=== PATIENT | female | born 1945 | race Caucasian/White ===

== ENCOUNTER 2020-07-11 10:40 | Outpatient (REF) | payer MEDICARE, SELFPAY ==
[2020-07-11 11:39] LABS: MANUAL DIFF FLAG NO
[2020-07-11 11:46] LABS: Basophils Absolute Auto 0.1 X10*3/uL (0.0-0.2); Basophils Percent Auto 0.8 % (0-2); Eosinophils Absolute Auto 0.2 X10*3/uL (0.0-0.4); Eosinophils Percent Auto 2.2 % (0-4); Hematocrit 37.1 % (37-47); Hemoglobin 11.2 g/dl (12.0-16.0); Imm Gran Abs Auto 0.03 X10*3/uL (0.00-0.03); Imm Gran Pct Auto 0.4 % (0.0-0.4); Lymphocytes Absolute Auto 2.1 X10*3/uL (1.2-4.9); Lymphocytes Percent Auto 28.1 % (20-40); Mean Corpuscular HGB Conc 30.2 g/dl (31.0-35.0); Mean Corpuscular Hemoglobin 25.3 pg (27.0-33.0); Mean Corpuscular Volume 83.7 fL (80-98); Mean Platelet Volume 9.7 fL (9.4-12.3); Monocytes Absolute Auto 0.5 X10*3/uL (0.1-1.2); Neutrophils Absolute Auto 4.8 X10*3/uL (2.0-8.3); Neutrophils Percent Auto 62.5 % (45-73); Platelet Count 371 X10*3/uL (160-400); Red Blood Count 4.43 X10*6/uL (4.20-5.50); Red Cell Distribution Width 15.1 % (11.0-16.0); White Blood Count 7.6 X10*3/uL (4.8-10.8)
[2020-07-11 12:18] LABS: Lithium 0.63 mmol/L (0.60-1.20)
[2020-07-11 12:22] LABS: Estimated Average Glucose 203 mg/dL; Hemoglobin A1c % 8.7 %
[2020-07-11 12:26] LABS: Alanine Aminotransferase 8 U/L (0-31); Anion Gap 11 (12-20); Blood Urea Nitrogen 12 mg/dL (9-16); Carbon Dioxide 26 mmol/L (22-29); Chloride 106 mmol/L (96-108); Cholesterol 148 mg/dL; Estimated Glomerular Filt Rate > 60; Glucose Fasting 170 mg/dL (60-99); HDL Cholesterol 41 mg/dL; LDL Cholesterol Calculated 82 mg/dl; Potassium 4.4 mmol/L (3.3-5.1); Sodium 139 mmol/L (135-145); Triglycerides 125 mg/dL
[2020-07-11 12:31] LABS: Thyroid Stimulating Hormone 3.94 uIU/mL (0.32-4.0)
== END 2020-07-11 10:41 | disposition home or self-care (01) ==
LOC: HO.LAB 10:40
PROVIDERS: Absent Provider Psychiatry & Neurology Psychiatry; PCP Family Medicine; Visit Provider Family Medicine
DX: F33.42 Major depressive disorder, recurrent, in full remission (principal); I10 Essential (primary) hypertension; E11.9 Type 2 diabetes mellitus without complications; E78.00 Pure hypercholesterolemia, unspecified; Z79.899 Other long term (current) drug therapy
CPT/HCPCS: 36415; 80051; 80061; 80178; 82550; 82565; 82947; 83036; 84443; 84460; 84520; 85025

== ENCOUNTER 2020-09-05 12:13 | Outpatient (REF) | payer MEDICARE, SELFPAY ==
--- NOTE | ~2020-09-05 | MM_ITS ---
EXAMINATION: MM DIAGNOSTIC DIGITAL BREAST TOMOSYNTHESIS, BILATERAL CLINICAL INFORMATION: Due for yearly exam. Also follow-up probable benign calcifications upper outer right breast. No known family history breast cancer. The lifetime risk of breast cancer based on the Tyrer-Cuzick Model is 3%. COMPARISON: Mammography: 03/18/2019, 03/13/2019 (BI-RADS 0), 12/24/2017 BI-RADS 0), 05/10/2016 TECHNIQUE: Digital breast tomosynthesis is performed in both the craniocaudal and mediolateral oblique views along with computer-aided detection (CAD). Synthesized 2D images are generated from the tomosynthesis. Additional right magnification CC and right magnification ML views are obtained. FINDINGS: There are scattered areas of fibroglandular density (ACR BI-RADS breast composition Category b). Parenchymal pattern is similar to prior studies. There is no developing density or interval mass or architectural abnormality. There are scattered bilateral coarse calcifications. The axilla and skin contours are unremarkable. The tightly grouped calcifications for follow-up mid upper outer right breast are increased in number and appear heterogeneous coarse on the CC magnification view. Stereotactic sampling is recommended for further evaluation. Results are discussed with the patient at time of visit. MM/MM tomosynthesis diagnostic BI IMPRESSION: 1. Right: Grouped heterogeneous coarse calcifications mid upper outer right breast. 2. Left: No mammographic evidence of malignancy. ASSESSMENT: BI-RADS 4: Suspicious (subcategory 4A: Low suspicion for malignancy) RECOMMENDATION: Stereotactic biopsy right breast calcifications. This patient's information was entered into a reminder system with a target due date for their next mammogram.
== END 2020-09-05 12:14 | disposition home or self-care (01) ==
LOC: HO.MAMMO 12:13
PROVIDERS: Visit Provider Family Medicine
DX: R92.1 Mammographic calcification found on diagnostic imaging of breast (principal)
CPT/HCPCS: 77062; 77066

== ENCOUNTER → 2020-09-18 08:18 | Outpatient (BNVA) | payer MEDICARE, SELFPAY | PROVIDERS: PCP Family Medicine; Visit Provider Surgery | DX: R92.1 Mammographic calcification found on diagnostic imaging of breast (principal) | CPT/HCPCS: 99202 ==

== ENCOUNTER 2020-09-19 07:44 | Outpatient (REF) | payer MEDICARE, SELFPAY ==
--- NOTE | ~2020-09-19 | MM_ITS ---
EXAMINATION: STEREOTACTIC TOMOSYNTHESIS-GUIDED VACUUM-ASSISTED BREAST BIOPSY, RIGHT SPECIMEN RADIOGRAPH, RIGHT POST PROCEDURE DIGITAL MAMMOGRAM, RIGHT CLINICAL INFORMATION: Indeterminate calcifications upper outer aspect of the right breast. COMPARISON: September 05, 2020 and March 18, 2019. TECHNIQUE/PROCEDURE: Informed consent was obtained from the patient after discussion of the benefits, risks, and alternatives to biopsy today. Patient appeared to understand. Gave opportunity for questions. Patient signed consent form. BIOPSY TABLE: [employer] Affirm Prone Biopsy System. LESION: Calcifications. LOCAL ANESTHESIA: 10 mL 1% lidocaine; 10 mL 1% lidocaine with epinephrine. DERMATOTOMY: Single skin rylan dermatotomy performed. NEEDLE: [employer] Eviva 9-gauge vacuum assisted core biopsy device. APPROACH: Superior. TARGETING: Digital breast tomosynthesis used for targeting. CORES: 13. CLIP: Cork radiopaque marker. SPECIMEN RADIOGRAPH: Specimen radiograph is taken in separate room using digital mammography. The index calcifications are in the excised cores. POST PROCEDURE UNILATERAL DIGITAL MAMMOGRAM: The post biopsy mammogram is performed in separate room using separate digital mammography equipment from the biopsy procedure. 2 views are obtained. There are scattered areas of fibroglandular density (breast composition category: b). The clip marker is in position. The calcifications are markedly decreased at the biopsy site. No gross hematoma. The patient tolerated the procedure well. No immediate complications. Home instructions reviewed with the patient. Final pathology results are pending. MM/MM stereotactic biopsy RT IMPRESSION: 1. Digital tomosynthesis-guided core biopsy right breast with clip placement. 2. Specimen radiograph taken and post procedure mammogram. There is satisfactory positioning of the biopsy clip. 3. Final pathology results pending. An addendum report will be issued.
== END 2020-09-19 07:45 | disposition home or self-care (01) ==
LOC: HO.MAMMO 07:44
PROVIDERS: Visit Provider Surgery
DX: R92.1 Mammographic calcification found on diagnostic imaging of breast (principal)
CPT/HCPCS: 19081; 88305; A4648

== ENCOUNTER → 2020-09-27 10:46 | Outpatient (BNVA) | payer MEDICARE, SELFPAY | PROVIDERS: PCP Family Medicine; Visit Provider Surgery | DX: R92.1 Mammographic calcification found on diagnostic imaging of breast (principal) | CPT/HCPCS: 99212 ==

== ENCOUNTER 2021-01-22 09:39 | Outpatient (REF) | payer MEDICARE, SELFPAY ==
[2021-01-22 11:15] LABS: Anion Gap 12 (12-20); Blood Urea Nitrogen 14 mg/dL (9-16); Carbon Dioxide 26 mmol/L (22-29); Chloride 106 mmol/L (96-108); Estimated Glomerular Filt Rate > 60; Glucose Fasting 277 mg/dL (60-99); Sodium 139 mmol/L (135-145)
[2021-01-22 11:19] LABS: Free T4 (Free Thyroxine) 0.91 ng/dL (0.71-1.85); Thyroid Stimulating Hormone 3.74 uIU/mL (0.32-4.0)
[2021-01-22 11:35] LABS: Estimated Average Glucose 229 mg/dL; Hemoglobin A1c % 9.6 %
[2021-01-22 12:37] LABS: Creatinine Urine 65.95 mg/dL; Microalbum/Creatinine Ratio Ur 36.3 ug/mg cr
== END 2021-01-22 09:40 | disposition home or self-care (01) ==
LOC: HO.LAB 09:39
PROVIDERS: PCP Family Medicine; Visit Provider Family Medicine
DX: E11.9 Type 2 diabetes mellitus without complications (principal); I10 Essential (primary) hypertension; E03.9 Hypothyroidism, unspecified
CPT/HCPCS: 36415; 80051; 82043; 82565; 82947; 83036; 84439; 84443; 84520

== ENCOUNTER 2021-04-26 10:26 | Outpatient (REF) | payer MEDICARE, SELFPAY ==
[2021-04-26 11:47] LABS: Estimated Average Glucose 189 mg/dL; Hemoglobin A1c % 8.2 %
[2021-04-26 11:58] LABS: Creatinine Urine 96.04 mg/dL
[2021-04-26 12:03] LABS: Glucose Fasting 220 mg/dL (60-99)
== END 2021-04-26 10:27 | disposition home or self-care (01) ==
LOC: HO.LAB 10:26
PROVIDERS: PCP Family Medicine; Visit Provider Family Medicine
DX: E11.9 Type 2 diabetes mellitus without complications (principal)
CPT/HCPCS: 36415; 82043; 82947; 83036

== ENCOUNTER 2021-07-25 11:00 | Outpatient (REF) | payer MEDICARE, SELFPAY ==
[2021-07-25 12:26] LABS: Estimated Average Glucose 174 mg/dL; Hemoglobin A1c % 7.7 %
[2021-07-25 12:58] LABS: Anion Gap 14 (12-20); Blood Urea Nitrogen 13 mg/dL (9-16); Carbon Dioxide 23 mmol/L (22-29); Chloride 106 mmol/L (96-108); Estimated Glomerular Filt Rate > 60; Glucose Fasting 192 mg/dL (60-99); Potassium 4.5 mmol/L (3.3-5.1); Sodium 138 mmol/L (135-145)
[2021-07-25 13:11] LABS: Free T4 (Free Thyroxine) 0.98 ng/dL (0.71-1.85)
[2021-07-25 14:12] LABS: Creatinine Urine 89.12 mg/dL
[2021-07-25 14:33] LABS: Microalbum/Creatinine Ratio Ur 89.7 ug/mg cr
== END 2021-07-25 11:01 | disposition home or self-care (01) ==
LOC: HO.LAB 11:00
PROVIDERS: PCP Family Medicine; Visit Provider Family Medicine
DX: I10 Essential (primary) hypertension (principal); E11.9 Type 2 diabetes mellitus without complications; E03.9 Hypothyroidism, unspecified
CPT/HCPCS: 36415; 80051; 82043; 82565; 82947; 83036; 84439; 84520

== ENCOUNTER 2021-08-06 12:09 | Outpatient (REF) | payer MEDICARE, SELFPAY ==
--- NOTE | ~2021-08-06 | XR_ITS ---
EXAMINATION: XR thoracic spine 3V CLINICAL INFORMATION: Reason for Exam BACK PAIN COMPARISON: None TECHNIQUE: 3 views of the thoracic spine XR/XR thoracic spine 3V FINDINGS/IMPRESSION: Vertebral body heights are maintained. Alignment is maintained. Mild multilevel degenerative disc disease with multilevel loss of disc space height and degenerative endplate spurring. Paravertebral soft tissues are unremarkable.
--- NOTE | ~2021-08-06 | XR_ITS ---
EXAMINATION: XR chest 2V CLINICAL INFORMATION: Reason for Exam BACK PAIN COMPARISON: Chest radiograph 03/29/2018 TECHNIQUE: 2 views of the chest XR/XR chest 2V FINDINGS/IMPRESSION: Clear lungs. No pneumothorax. No pleural effusion. Normal cardiomediastinal silhouette.
== END 2021-08-06 12:10 | disposition home or self-care (01) ==
LOC: HO.XRAY 12:09
PROVIDERS: PCP Family Medicine; Visit Provider Family Medicine
DX: M54.89 Other dorsalgia (principal)
CPT/HCPCS: 71046; 72072

== ENCOUNTER 2021-09-06 10:30 | Outpatient (REF) | payer MEDICARE, SELFPAY ==
[2021-09-06 11:06] LABS: COVID-19 Test Negative (Negative); IDNOW Serial# 16C4AD1C
== END 2021-09-06 10:31 | disposition home or self-care (01) ==
LOC: HO.LAB 10:30
PROVIDERS: Visit Provider Internal Medicine
DX: Z20.822 Contact with and (suspected) exposure to COVID-19 (principal)
CPT/HCPCS: 87635; C9803

== ENCOUNTER 2021-11-16 21:08 | Inpatient (IN) | payer MEDICARE, SELFPAY ==
--- NOTE | ~2021-11-16 | XR_ITS ---
EXAMINATION: XR CHEST CLINICAL INFORMATION: Fall COMPARISON: 08/06/2021 TECHNIQUE: Frontal view of the chest was obtained. FINDINGS: No significant abnormality is noted involving the heart, lungs, mediastinum, bony thorax or soft tissues. XR/XR chest 1V IMPRESSION: Unremarkable examination.
--- NOTE | ~2021-11-16 | CT_ITS ---
EXAMINATION: CT HEAD WITHOUT CONTRAST CLINICAL INFORMATION: Fall and head injury COMPARISON: 09/04/2016 TECHNIQUE: Contiguous axial imaging was performed from the skull base to vertex without intravenous administration of contrast. This CT examination was performed using dose optimization techniques as appropriate, variously including the following: *Automated exposure control *Adjustment of mA and/or kV according to patient size (this includes techniques or standardized protocols for targeted exams where dose is matched to indication/reason for exam; i.e. extremities or head) *Use of iterative reconstruction technique DLP: 662 mGy-cm FINDINGS: There is no evidence of acute intracranial hemorrhage or territorial infarction. No abnormal mass effect or midline shift is seen. Sarmiento to white matter differentiation is well preserved. No extra-axial fluid collections are identified. The ventricles are normal in size. There is mild periventricular white matter hypoattenuation consistent with chronic small vessel ischemic disease. 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 Mild volume loss is noted. The osseous structures and soft tissues are normal. The mastoid air cells and visualized portions of the paranasal sinuses are well aerated. CT/CT head/brain wo con IMPRESSION: No acute intracranial pathology.
[2021-11-16 21:13] VITALS: BP 146/88; PULSE 106; O2SAT 98
[2021-11-16 21:16] VITALS: BP 158/70; PULSE 109; RESP 18; TEMP 36.8; O2SAT 98; BMI 27.3
--- NOTE | 2021-11-16 21:23 | ECG_ITS ---
Test Reason : SYNCOPE Blood Pressure : / mmHG Vent. Rate : 110 BPM Atrial Rate : 220 BPM P-R Int : 000 ms QRS Dur : 138 ms QT Int : 364 ms P-R-T Axes : -88 -13 -63 degrees QTc Int : 492 ms Atrial flutter with 2:1 A-V conduction Right bundle branch block Abnormal ECG When compared with ECG of 27-MAY-2018 14:39, Atrial flutter has replaced Sinus rhythm Vent. rate has increased BY 43 BPM Right bundle branch block is now Present Referred By: Roxy Nunez Electronically Signed By:Ariel Whitlock
--- NOTE | 2021-11-16 21:23 | PC.NURSE ---
POC DONE PER DR. MADISON. 143 AT THIS TIME.
[2021-11-16 21:25] LABS: Glucose, Whole Blood 143 mg/dL (60-115)
--- NOTE | 2021-11-16 21:27 | ED.GENADULT ---
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 No CP, no SOB, no abdominal pain, no nausea, no vomiting, no diarrhea, no fever, no chills, no headache. Related Data Home Medications Medication Instructions Recorded Confirmed amlodipine 5 mg tablet 5 mg PO DAILY 09/18/20 09/27/20 atorvastatin 20 mg tablet 20 mg PO DAILY 09/18/20 09/27/20 lithium carbonate 450 mg 450 mg PO BEDTIME 09/18/20 09/27/20 tablet,extended release metformin 500 mg tablet 500 mg PO TID 09/18/20 09/27/20 metoprolol tartrate 25 mg tablet 25 mg PO BID 09/18/20 09/27/20 Allergies Allergy/AdvReac Type Severity Reaction Status Date / Time influenza virus vaccine, Allergy Intermediate STIFFNESS,LIMITED Verified 09/27/20 11:28 specific FUNCTION [FLU VACCINE] AFFECTED ARM/HAND Review of Systems Review of Systems: All other systems are reviewed and are negative Constitutional: Reports as per HPI and Reports no additional constitutional complaints Eyes: Reports as per HPI and Reports no additional eye complaints Reports system reviewed and no additional complaints, except as documented Cardiovascular: Reports as per HPI and Reports no additional cardiovascular complaints Respiratory: Reports as per HPI and Reports no additional respiratory complaints Gastrointestinal: Reports as per HPI and Reports no additional gastrointestinal complaints Genitourinary: Reports no additional female genitourinary complaints Musculoskeletal: Reports no additional musculoskeletal complaints Skin/Breast: Reports system reviewed and no additional complaints, except as docu Psychiatric: Reports no additional psychiatric complaints Endocrine: Reports no additional endocrine complaints Hematologic/Lymphatic: Reports no additional hematologic/lymphatic complaints Allergic/Immunologic: Reports no additional allergic/immunologic complaints Reports system reviewed and no additional complaints, except as documented and Reports Abnormal speech present [facility] Past Medical History Medical History Breast calcification, right Surgical History History of section History of cholecystectomy Social History Social History Alcohol intake: current Alcohol intake frequency: holidays/special occasions only Advance Directives: No Advance Directives Information Provided: Yes Physical Exam ED Vital Signs: Vital Signs - 24 hr 11/16/21 21:16 Temperature 98.3 F Pulse Rate 109 H Respiratory Rate 18 Blood Pressure 158/70 H Pulse Oximetry 98 Oxygen Delivery Method Room Air BMI result Body Mass Index 27.3 Vital signs have been reviewed as appeared to be correct. Blood pressure normal. Heart rate normal. Respiration rate normal. Temperature normal. Oxygen saturation normal. Appearance: Alert. Oriented X3. No acute distress. Head: Normal external exam. Normocephalic. Atraumatic. No Light signs noted. No raccoon eyes noted Eyes: PERRLA. EOMI. Conjunctiva and sclera normal. Eyelids normal. ENT: TM's Normal. Pharynx normal. Uvula midline. Moist mucous membranes. No trismus noted. No drooling noted. No muffled voice noted. Neck: Normal inspection. Neck supple. FROM. No adenopathy. Thyroid Normal. No meningeal signs. No neck mass noted. CVS: Normal heart rate and rhythm. Heart sound normal. No murmurs noted. Pulses normal throughout. Respiratory: No respiratory distress. Painless inspiration. Breath sounds normal. No wheezes/rales/rhonchi noted. Chest nontender. No accessory muscle usage noted or decreased air movement noted. Abdomen: Soft and nontender. Bowel sounds normal in all 4 quadrants. No distention noted. No organomegaly noted. No visible injury noted. Back: No CVA tenderness. Full range of motion noted. Skin: Skin warm and dry. Normal skin color. Normal skin turgor. No rashes/lesions/lacerations noted. Extremities: No lower extremity edema. Extremities exhibit normal range of motion. Extremities nontender. Neuro: Oriented X 3. Cranial nerve exam: II-XII are grossly intact No motor deficit. No sensory deficit. Reflexes normal. Course Course Course Narrative: 75-year-old female been having lightheadedness all day today, found to have new onset atrial flutter with 2-1 AV block, patient responded well to 20 mg of Cardizem IV and 30 mg p.o. now with heart rate of 85. Admit for further monitoring, cardiology evaluation. Medical Decision Making Lab Data Lab results reviewed: Yes I reviewed the patient's lab results. Result diagrams: 11/16/21 22:34 11/16/21 22:34 Labs: Lab Results 11/16/21 11/16/21 11/16/21 Range/Units 21:21 22:34 22:34 WBC 8.7 (4.8-10.8) X10*3/uL RBC 5.00 (4.20-5.50) X10*6/uL Hgb 11.7 L (12.0-16.0) g/dl Hct 38.5 (37.0-47.0) % MCV 77.0 L (80.0-98.0) fL MCH 23.4 L (27.0-33.0) pg MCHC 30.4 L (31.0-35.0) g/dl RDW 15.9 (11.0-16.0) % Plt Count 354 (160-400) X10*3/uL MPV 9.0 L (9.4-12.3) fL Immature Gran % (Auto) 0.5 H (0.0-0.4) % Neut % (Auto) 67.0 (45-73) % Lymph % (Auto) 23.7 (20-40) % [place] % (Auto) 6.0 (2-11) % Eos % (Auto) 2.1 (0-4) % Baso % (Auto) 0.7 (0-2) % Lymph # (Auto) 2.1 (1.2-4.9) X10*3/uL [place] # (Auto) 0.5 (0.1-1.2) X10*3/uL Eos # (Auto) 0.2 (0.0-0.4) X10*3/uL Baso # (Auto) 0.1 (0.0-0.2) X10*3/uL Abs Immat Gran (auto) 0.04 H (0.00-0.03) X10*3/uL Absolute Neuts (auto) 5.8 (2.0-8.3) x10*3/uL Absolute Nucleated RBC 0.000 (0.0-0.012) X10*3/uL Nucleated RBC % (auto) 0.0 (0.0-0.2) /100WBC Sodium 139 (135-145) mmol/L Potassium 4.5 (3.3-5.1) mmol/L Chloride 104 (96-108) mmol/L Carbon Dioxide 26 (22-29) mmol/L Anion Gap 14 (12-20) BUN 15 (9-16) mg/dL Creatinine 0.84 (0.5-1.4) mg/dL Estim Creat Clear Calc 47.3 Estimated GFR > 60 POC Glucose 143 H (60-115) mg/dL Random Glucose 181 H (60-115) mg/dL Calcium 9.7 (8.4-10.2) mg/dL Total Bilirubin 0.5 (0.0-1.0) mg/dL Direct Bilirubin 0.2 (0.0-0.5) mg/dL AST 16 (5-31) U/L ALT 11 (0-31) U/L Alkaline Phosphatase 77 (39-117) U/L Troponin I High Sens (<3.5-17.0) ng/L B-Natriuretic Peptide (<100) pg/mL Total Protein 7.1 (6.5-8.0) g/dL Albumin 4.3 (3.5-5.0) g/dL Lipase 20 (8-78) U/L Influenza Type A (PCR) (Negative) Influenza Type B (PCR) (Negative) RSV RNA Qual (PCR) (Negative) SARS-CoV-2 RNA (RT-PCR) (Negative) 11/16/21 11/16/21 11/16/21 Range/Units 22:34 22:34 22:35 WBC (4.8-10.8) X10*3/uL RBC (4.20-5.50) X10*6/uL Hgb (12.0-16.0) g/dl Hct (37.0-47.0) % MCV (80.0-98.0) fL MCH (27.0-33.0) pg MCHC (31.0-35.0) g/dl RDW (11.0-16.0) % Plt Count (160-400) X10*3/uL MPV (9.4-12.3) fL Immature Gran % (Auto) (0.0-0.4) % Neut % (Auto) (45-73) % Lymph % (Auto) (20-40) % [place] % (Auto) (2-11) % Eos % (Auto) (0-4) % Baso % (Auto) (0-2) % Lymph # (Auto) (1.2-4.9) X10*3/uL [place] # (Auto) (0.1-1.2) X10*3/uL Eos # (Auto) (0.0-0.4) X10*3/uL Baso # (Auto) (0.0-0.2) X10*3/uL Abs Immat Gran (auto) (0.00-0.03) X10*3/uL Absolute Neuts (auto) (2.0-8.3) x10*3/uL Absolute Nucleated RBC (0.0-0.012) X10*3/uL Nucleated RBC % (auto) (0.0-0.2) /100WBC Sodium (135-145) mmol/L Potassium (3.3-5.1) mmol/L Chloride (96-108) mmol/L Carbon Dioxide (22-29) mmol/L Anion Gap (12-20) BUN (9-16) mg/dL Creatinine (0.5-1.4) mg/dL Estim Creat Clear Calc Estimated GFR POC Glucose (60-115) mg/dL Random Glucose (60-115) mg/dL Calcium (8.4-10.2) mg/dL Total Bilirubin (0.0-1.0) mg/dL Direct Bilirubin (0.0-0.5) mg/dL AST (5-31) U/L ALT (0-31) U/L Alkaline Phosphatase (39-117) U/L Troponin I High Sens < 3.5 (<3.5-17.0) ng/L B-Natriuretic Peptide 130 H (<100) pg/mL Total Protein (6.5-8.0) g/dL Albumin (3.5-5.0) g/dL Lipase (8-78) U/L Influenza Type A (PCR) NEGATIVE (Negative) Influenza Type B (PCR) NEGATIVE (Negative) RSV RNA Qual (PCR) NEGATIVE (Negative) SARS-CoV-2 RNA (RT-PCR) NEGATIVE (Negative) Imaging Data Chest x-ray: Attestation: I personally reviewed and interpreted this imaging study as follows: Radiologist's impression: Unremarkable examination. CT scan - head: Attestation: I personally reviewed and interpreted this imaging study as follows: Radiologist's impression: No acute intracranial pathology. ECG Data Attestation: I personally reviewed and interpreted this ECG as follows: Discharge Plan Discharge Clinical Impression: New onset atrial flutter Patient Disposition: Admitted As Inpatient Prescriptions: No Action lithium carbonate 450 mg tablet extended release 450 mg PO BEDTIME metoprolol tartrate 25 mg tablet 25 mg PO BID atorvastatin 20 mg tablet 20 mg PO DAILY metformin 500 mg tablet 500 mg PO TID amlodipine 5 mg tablet 5 mg PO DAILY
[2021-11-16 22:40] LABS: Basophils Absolute Auto 0.1 X10*3/uL (0.0-0.2); Basophils Percent Auto 0.7 % (0-2); Eosinophils Absolute Auto 0.2 X10*3/uL (0.0-0.4); Eosinophils Percent Auto 2.1 % (0-4); Hematocrit 38.5 % (37.0-47.0); Hemoglobin 11.7 g/dl (12.0-16.0); Imm Gran Abs Auto 0.04 X10*3/uL (0.00-0.03); Imm Gran Pct Auto 0.5 % (0.0-0.4); Lymphocytes Absolute Auto 2.1 X10*3/uL (1.2-4.9); Lymphocytes Percent Auto 23.7 % (20-40); MANUAL DIFF FLAG NO; Mean Corpuscular HGB Conc 30.4 g/dl (31.0-35.0); Mean Corpuscular Hemoglobin 23.4 pg (27.0-33.0); Monocytes Absolute Auto 0.5 X10*3/uL (0.1-1.2); Neutrophils Absolute Auto 5.8 x10*3/uL (2.0-8.3); Platelet Count 354 X10*3/uL (160-400); Red Cell Distribution Width 15.9 % (11.0-16.0); White Blood Count 8.7 X10*3/uL (4.8-10.8)
[2021-11-16] MEDS: 0.9 % Sodium Chloride 1,000 ML 999 ML IV (22:42)
[2021-11-16] MEDS: dilTIAZem HCL 50 MG/10 ML VIAL 20 MG IVPUSH (22:43)
[2021-11-16 22:59] LABS: Alanine Aminotransferase 11 U/L (0-31); Albumin Level 4.3 g/dL (3.5-5.0); Alkaline Phosphatase 77 U/L (39-117); Anion Gap 14 (12-20); Aspartate Amino Transferase 16 U/L (5-31); Bilirubin Direct 0.2 mg/dL (0.0-0.5); Bilirubin Total 0.5 mg/dL (0.0-1.0); Blood Urea Nitrogen 15 mg/dL (9-16); Calcium 9.7 mg/dL (8.4-10.2); Carbon Dioxide 26 mmol/L (22-29); Chloride 104 mmol/L (96-108); Creatinine Clr Calc Pharmacy 47.3; Estimated Glomerular Filt Rate > 60; Glucose Random 181 mg/dL (60-115); Lipase 20 U/L (8-78); Potassium 4.5 mmol/L (3.3-5.1); Sodium 139 mmol/L (135-145); Total Protein 7.1 g/dL (6.5-8.0)
[2021-11-16 23:01] LABS: Troponin-I High Sensitivity < 3.5 ng/L (<3.5-17.0)
[2021-11-16 23:02] LABS: B Type Natriuretic Peptide 130 pg/mL (<100)
[2021-11-16 23:19] LABS: Influenza A PCR NEGATIVE (Negative); Influenza B PCR NEGATIVE (Negative); Resp Syncy Virus RNA Qual PCR NEGATIVE (Negative); SARS COV2 PCR INHOUSE NEGATIVE (Negative)
--- NOTE | 2021-11-16 23:32 | ECG_ITS ---
Test Reason : POST DILTIZEM Blood Pressure : / mmHG Vent. Rate : 100 BPM Atrial Rate : 209 BPM P-R Int : 000 ms QRS Dur : 142 ms QT Int : 400 ms P-R-T Axes : 266 -11 -71 degrees QTc Int : 516 ms Atrial flutter with variable A-V block with premature ventricular or aberrantly conducted complexes Right bundle branch block Abnormal ECG When compared with ECG of 16-NOV-2021 21:59, No significant changes seen Referred By: Roxy Nunez Electronically Signed By:Ariel Whitlock
[2021-11-16 23:54] VITALS: BP 115/54; PULSE 102; RESP 16; O2SAT 95
[2021-11-17 00:56] VITALS: PULSE 109; O2SAT 98
[2021-11-17] MEDS: dilTIAZem HCL 30 MG TABLET PO (00:58)
[2021-11-17] MEDS: Enoxaparin Sodium 40 MG/0.4 ML SYRINGE SUBCUT (00:59)
[2021-11-17] MEDS: 0.9 % Sodium Chloride Flush 3 ML SYRINGE IVFLUSH (00:59)
--- NOTE | 2021-11-17 01:06 | PC.NURSE ---
pt a &ox3, vss - sinus tach, medicated per provider order. med rec complete.
[2021-11-17 02:53] LABS: Appearance Urine CLEAR; Color Urine YELLOW; Glucose Urine UA NEG (NEG); Leukocyte Esterase Urine 1+ (NEG); Nitrite Urine NEG (NEG); UACC Culture Trigger YES; Urine Blood NEG (NEG); Urine Ketones NEG (NEG); Urine Protein NEG (NEG-TRACE)
[2021-11-17 03:04] LABS: Bacteria Urine 2+ /LPF; Mucus Urine 2+ /LPF; Squamous Epithelial Cell Urine 1+ /LPF
--- NOTE | 2021-11-17 03:45 | PM.IMHP ---
History of Present Illness Date of Service: 11/16/21 Chief Complaint: Syncope 75-year-old female with a past medical history of hypertension, hyperlipidemia, diabetes, bipolar disorder; presented to the hospital today with a chief complaint of fall. Patient reports that all day today she has not been feeling well; noted to be mildly unsteady weak, denies any lightheadedness or room spinning. Patient mentioned that this morning she went to the bathroom and while coming back she slumped and fell on the floor, denies any head strike, mentioned that she is unsure if she lost consciousness, even if she lost consciousness probably she lost for few seconds. Mentioned that after that she call herself to the phone and subsequently called EMS to come into the hospital for further evaluation. Patient denies any fever chills cough, showed a production; denies any chest pain palpitations. Denies any nausea vomiting or diarrhea. Review of all other systems is negative except mentioned above ER course: Per ER team patient on presentation noted to have grossly nonfocal examination; EKG showed new onset a flutter; patient was mildly in rapid ventricular rate on presentation; after medication the heart rate slightly improved. Admitted for further management. [facility] Medical History (Updated 11/23/21 @ 13:41 by Pedro Montanez MD) Breast calcification, right Depression Diabetes mellitus Hypertension Family History (Updated 11/17/21 @ 07:47 by Ismael Lanier MD) Father Depression Pertinent family history: Reviewed Surgical History History of section History of cholecystectomy Social History Household Members: None Housing: House Do you presently have visiting nurse or other home services: No Alcohol intake: current Alcohol intake frequency: holidays/special occasions only Patient Tobacco Use Status: Never used Tobacco service: No Current occupational status: retired Meds Allergies Allergy/AdvReac Type Severity Reaction Status Date / Time influenza virus vaccine, Allergy Intermediate STIFFNESS,LIMITED Verified 09/27/20 11:28 specific FUNCTION [FLU VACCINE] AFFECTED ARM/HAND Active Medications: Current Medications Acetaminophen (Acetaminophen 325 Mg Tablet) 650 mg PO Q6H PRN PRN Reason: Pain, Mild (Pain Scale 1-3) Atorvastatin Calcium (Atorvastatin Calcium 20 Mg Tablet) 20 mg PO BEDTIME [facility]ANC[facility] Dextrose (Dextrose 50 % 25 Gm/50 Ml Syringe) 25 gm IVPUSH Q15M PRN; Protocol PRN Reason: per Hypoglycemia Standing Ord. Enoxaparin Sodium (Enoxaparin Sodium 40 Mg/0.4 Ml Syringe) 40 mg SUBCUT BEDTIME NANCY Last Admin: 11/17/21 00:59 Dose: 40 mg Glucose (Glucose Gel 15 Gm Gel..Gram.) 15 gm PO Q15M PRN; Protocol PRN Reason: per Hypoglycemia Standing Ord. Insulin Human Lispro (Insulin Lispro 100 Unit/Ml 3 Ml Vial) 0 unit SUBCUT QIDACHS [facility]; Protocol [place] Carbonate ([place] Carbonate 300 Mg Capsule) 450 mg PO BEDTIME NANCY Melatonin (Melatonin 3 Mg Tablet) 6 mg PO BEDTIME PRN PRN Reason: Insomnia Metoprolol Tartrate (Metoprolol Tartrate 25 Mg Tablet) 25 mg PO BID [facility]; Protocol Metoprolol Tartrate (Metoprolol Tartrate 5 Mg/5 Ml Vial) 5 mg IVPUSH Q6H PRN PRN Reason: HR>125 Senna (Sennosides 8.6 Mg Tablet) 17.2 mg PO BEDTIME PRN PRN Reason: Constipation Sodium Chloride (0.9 % Sodium Chloride Flush 3 Ml Syringe) 3 ml IVFLUSH QSHIFT [facility] Last Admin: 11/17/21 00:59 Dose: 3 ml Physical Exam Vital Signs and Narrative: Vital Signs: Last Vital Signs Temp 98.3 F 11/16/21 21:16 Pulse 102 H 11/16/21 23:54 Resp 16 11/16/21 23:54 BP 115/54 L 11/16/21 23:54 Pulse Ox 98 11/17/21 00:56 O2 Del Method 11/17/21 00:56 BMI result Body Mass Index 27.3 Gen: Appears be in no acute distress HEENT: NCAT, Moist mucosa. Pulmonary: Vesicular breath sounds, fair air entry CVS: Normal S1-S2 Abdomen: BS+, Soft, Nontender Extremities: Warm well perfused Neuro: Alert and awake. Grossly nonfocal; [id number] and [id number]-[id number] test were normal. Results Labs CBC and Chem 7: 11/24/21 07:49 11/22/21 06:25 Labs: Laboratory Results - last 24 hr 11/16/21 11/16/21 11/16/21 21:21 22:34 22:34 MCV 77.0 L MCH 23.4 L MCHC 30.4 L RDW 15.9 Plt Count 354 MPV 9.0 L Immature Gran % (Auto) 0.5 H Neut % (Auto) 67.0 Lymph % (Auto) 23.7 [place] % (Auto) 6.0 Eos % (Auto) 2.1 Baso % (Auto) 0.7 Lymph # (Auto) 2.1 [place] # (Auto) 0.5 Eos # (Auto) 0.2 Baso # (Auto) 0.1 Abs Immat Gran (auto) 0.04 H Absolute Neuts (auto) 5.8 Absolute Nucleated RBC 0.000 Nucleated RBC % (auto) 0.0 Anion Gap 14 Estim Creat Clear Calc 47.3 Estimated GFR > 60 POC Glucose 143 H Random Glucose 181 H Calcium 9.7 Total Bilirubin 0.5 Direct Bilirubin 0.2 AST 16 ALT 11 Alkaline Phosphatase 77 Troponin I High Sens B-Natriuretic Peptide Total Protein 7.1 Albumin 4.3 Lipase 20 Urine Color Urine Appearance Urine pH Ur Specific [place] Urine Protein Urine Glucose (UA) Urine Ketones Urine Blood Urine Nitrite Ur Leukocyte Esterase Urine RBC Urine WBC Ur Squamous Epith Cells Urine Bacteria Urine Mucus Influenza Type A (PCR) Influenza Type B (PCR) RSV RNA Qual (PCR) SARS-CoV-2 RNA (RT-PCR) 11/16/21 11/16/21 11/16/21 22:34 22:34 22:35 MCV MCH MCHC RDW Plt Count MPV Immature Gran % (Auto) Neut % (Auto) Lymph % (Auto) [place] % (Auto) Eos % (Auto) Baso % (Auto) Lymph # (Auto) [place] # (Auto) Eos # (Auto) Baso # (Auto) Abs Immat Gran (auto) Absolute Neuts (auto) Absolute Nucleated RBC Nucleated RBC % (auto) Anion Gap Estim Creat Clear Calc Estimated GFR POC Glucose Random Glucose Calcium Total Bilirubin Direct Bilirubin AST ALT Alkaline Phosphatase Troponin I High Sens < 3.5 B-Natriuretic Peptide 130 H Total Protein Albumin Lipase Urine Color Urine Appearance Urine pH Ur Specific [place] Urine Protein Urine Glucose (UA) Urine Ketones Urine Blood Urine Nitrite Ur Leukocyte Esterase Urine RBC Urine WBC Ur Squamous Epith Cells Urine Bacteria Urine Mucus Influenza Type A (PCR) NEGATIVE Influenza Type B (PCR) NEGATIVE RSV RNA Qual (PCR) NEGATIVE SARS-CoV-2 RNA (RT-PCR) NEGATIVE 11/17/21 02:44 MCV MCH MCHC RDW Plt Count MPV Immature Gran % (Auto) Neut % (Auto) Lymph % (Auto) [place] % (Auto) Eos % (Auto) Baso % (Auto) Lymph # (Auto) [place] # (Auto) Eos # (Auto) Baso # (Auto) Abs Immat Gran (auto) Absolute Neuts (auto) Absolute Nucleated RBC Nucleated RBC % (auto) Anion Gap Estim Creat Clear Calc Estimated GFR POC Glucose Random Glucose Calcium Total Bilirubin Direct Bilirubin AST ALT Alkaline Phosphatase Troponin I High Sens B-Natriuretic Peptide Total Protein Albumin Lipase Urine Color YELLOW Urine Appearance CLEAR Urine pH 7.0 Ur Specific [place] 1.010 Urine Protein NEG Urine Glucose (UA) NEG Urine Ketones NEG Urine Blood NEG Urine Nitrite NEG Ur Leukocyte Esterase 1+ H Urine RBC 1-4 Urine WBC 1-4 Ur Squamous Epith Cells 1+ Urine Bacteria 2+ Urine Mucus 2+ Influenza Type A (PCR) Influenza Type B (PCR) RSV RNA Qual (PCR) SARS-CoV-2 RNA (RT-PCR) Imaging Radiologist's Impressions: Impressions Chest X-Ray 11/16/21 21:35 IMPRESSION: Unremarkable examination. Head CT 11/16/21 22:19 IMPRESSION: No acute intracranial pathology. Assessment and Plan (1) Atrial flutter with rapid ventricular response: Status: Acute Plan 75-year-old female with a past medical history of hypertension, hyperlipidemia, diabetes, bipolar disorder; presented to the hospital today with a chief complaint of fall/unsteady: Noted to have new onset a flutter with 2-1 block. Admitted for further management. A flutter: EKG showed to history 1 block. Patient received IV diltiazem with heart rate currently improved. Continue home metoprolol. TSH, echocardiogram Cardiology consult Unwitnessed fall: Question syncope. Patient reported unsteady gait. PT/OT. EKG nonischemic Cycle cardiac enzymes History of diabetes: Insulin sliding scale History of hypertension: Hold home amlodipine for now. DVT prophylaxis: Lovenox Code status: Full code Quality Stroke Does the patient have a stroke diagnosis?: No VTE Prior VTE?: No VTE Risk Level:: Medical - moderate - high VTE Device Contraindication: Treatment Not Indicated VTE Drug Contraindication: N/A - Med Ordered
[2021-11-17 04:26] LABS: Thyroid Stimulating Hormone 1.23 uIU/mL (0.32-4.0)
[2021-11-17 07:08] LABS: MANUAL DIFF FLAG NO
[2021-11-17 07:14] LABS: Basophils Absolute Auto 0.1 X10*3/uL (0.0-0.2); Basophils Percent Auto 0.7 % (0-2); Eosinophils Absolute Auto 0.2 X10*3/uL (0.0-0.4); Hematocrit 36.7 % (37.0-47.0); Imm Gran Abs Auto 0.03 X10*3/uL (0.00-0.03); Imm Gran Pct Auto 0.3 % (0.0-0.4); Lymphocytes Absolute Auto 3.1 X10*3/uL (1.2-4.9); Lymphocytes Percent Auto 34.3 % (20-40); Mean Corpuscular Hemoglobin 23.3 pg (27.0-33.0); Mean Corpuscular Volume 77.8 fL (80.0-98.0); Mean Platelet Volume 8.9 fL (9.4-12.3); Monocytes Absolute Auto 0.6 X10*3/uL (0.1-1.2); Monocytes Percent Auto 6.5 % (2-11); Neutrophils Percent Auto 56.2 % (45-73); Platelet Count 336 X10*3/uL (160-400); Red Blood Count 4.72 X10*6/uL (4.20-5.50); Red Cell Distribution Width 15.9 % (11.0-16.0); White Blood Count 8.9 X10*3/uL (4.8-10.8)
[2021-11-17 07:30] LABS: Glucose, Whole Blood 126 mg/dL (60-115)
[2021-11-17 08:12] LABS: Anion Gap 13 (12-20); Blood Urea Nitrogen 14 mg/dL (9-16); Carbon Dioxide 23 mmol/L (22-29); Chloride 107 mmol/L (96-108); Creatinine Clr Calc Pharmacy 51.7; Estimated Glomerular Filt Rate > 60; Glucose Random 139 mg/dL (60-115); Potassium 3.9 mmol/L (3.3-5.1); Sodium 139 mmol/L (135-145)
--- NOTE | 2021-11-17 08:20 | PHA.MEDREC ---
Pharmacy Consult ? Medication Reconciliation Pharmacy has reviewed the medication reconciliation completed by Keena. There are no remarkable issues for provider's attention. Fabiola Ardon, [employer]
[2021-11-17] MEDS: Metoprolol Tartrate 25 MG TABLET PO (08:45)
[2021-11-17 08:57] LABS: Calcium 9.2 mg/dL (8.4-10.2)
--- NOTE | 2021-11-17 09:43 | HO.PM.IMPN ---
Subjective Subjective Date of Service: 11/17/21 Interval History: cc: syncope interval history:no complaints Cardiovascular Cardiovascular: Reports no additional cardiovascular complaints Respiratory Respiratory: Reports no additional respiratory complaints Physical Exam Vital Signs: Vital Signs: Last Vital Signs Temp 98.3 F 11/16/21 21:16 Pulse 102 H 11/16/21 23:54 Resp 16 11/16/21 23:54 BP 115/54 L 11/16/21 23:54 Pulse Ox 98 11/17/21 00:56 O2 Del Method 11/17/21 00:56 BMI result Body Mass Index 27.3 General: AO X 3, no acute distress Resp: CTA bilateral, no accessory muscles used CVS: S1,S2,RRR GI: soft, non tender, non distended Neuro: motor grossly intact, alert Psych: appropriate affect, appropriate insight Objective Data Active Medications Acetaminophen (Acetaminophen 325 Mg Tablet) 650 mg PO Q6H PRN PRN Reason: Pain, Mild (Pain Scale 1-3) Atorvastatin Calcium (Atorvastatin Calcium 20 Mg Tablet) 20 mg PO BEDTIME [facility] Dextrose (Dextrose 50 % 25 Gm/50 Ml Syringe) 25 gm IVPUSH Q15M PRN; Protocol PRN Reason: per Hypoglycemia Standing Ord. Glucose (Glucose Gel 15 Gm Gel..Gram.) 15 gm PO Q15M PRN; Protocol PRN Reason: per Hypoglycemia Standing Ord. Insulin Human Lispro (Insulin Lispro 100 Unit/Ml 3 Ml Vial) 0 unit SUBCUT QIDACHS [facility]; Protocol Last Admin: 11/17/21 08:01 Dose: Not Given Documented By: ABY Non-Admin Reason: No Insulin Coverage [place] Carbonate ([place] Carbonate 300 Mg Capsule) 450 mg PO BEDTIME [facility] Melatonin (Melatonin 3 Mg Tablet) 6 mg PO BEDTIME PRN PRN Reason: Insomnia Metoprolol Tartrate (Metoprolol Tartrate 25 Mg Tablet) 25 mg PO BID [facility]; Protocol Last Admin: 11/17/21 08:45 Dose: 25 mg Documented By: MARITA Metoprolol Tartrate (Metoprolol Tartrate 5 Mg/5 Ml Vial) 5 mg IVPUSH Q6H PRN PRN Reason: HR>125 Senna (Sennosides 8.6 Mg Tablet) 17.2 mg PO BEDTIME PRN PRN Reason: Constipation Sodium Chloride (0.9 % Sodium Chloride Flush 3 Ml Syringe) 3 ml IVFLUSH QSHIFT [facility] Last Admin: 11/17/21 07:04 Dose: Not Given Documented By: MARITA Non-Admin Reason: Med Not Available Labs CBC & Chem 7: 11/17/21 06:44 11/17/21 06:44 Labs: Laboratory Results - last 24 hr 11/16/21 11/16/21 11/16/21 21:21 22:34 22:34 MCV 77.0 L MCH 23.4 L MCHC 30.4 L RDW 15.9 Plt Count 354 MPV 9.0 L Immature Gran % (Auto) 0.5 H Neut % (Auto) 67.0 Lymph % (Auto) 23.7 [place] % (Auto) 6.0 Eos % (Auto) 2.1 Baso % (Auto) 0.7 Lymph # (Auto) 2.1 [place] # (Auto) 0.5 Eos # (Auto) 0.2 Baso # (Auto) 0.1 Abs Immat Gran (auto) 0.04 H Absolute Neuts (auto) 5.8 Absolute Nucleated RBC 0.000 Nucleated RBC % (auto) 0.0 Anion Gap 14 Estim Creat Clear Calc 47.3 Estimated GFR > 60 POC Glucose 143 H Random Glucose 181 H Calcium 9.7 Total Bilirubin 0.5 Direct Bilirubin 0.2 AST 16 ALT 11 Alkaline Phosphatase 77 Troponin I High Sens B-Natriuretic Peptide Total Protein 7.1 Albumin 4.3 Lipase 20 TSH 1.23 Urine Color Urine Appearance Urine pH Ur Specific [place] Urine Protein Urine Glucose (UA) Urine Ketones Urine Blood Urine Nitrite Ur Leukocyte Esterase Urine RBC Urine WBC Ur Squamous Epith Cells Urine Bacteria Urine Mucus Influenza Type A (PCR) Influenza Type B (PCR) RSV RNA Qual (PCR) SARS-CoV-2 RNA (RT-PCR) 11/16/21 11/16/21 11/16/21 22:34 22:34 22:35 MCV MCH MCHC RDW Plt Count MPV Immature Gran % (Auto) Neut % (Auto) Lymph % (Auto) [place] % (Auto) Eos % (Auto) Baso % (Auto) Lymph # (Auto) [place] # (Auto) Eos # (Auto) Baso # (Auto) Abs Immat Gran (auto) Absolute Neuts (auto) Absolute Nucleated RBC Nucleated RBC % (auto) Anion Gap Estim Creat Clear Calc Estimated GFR POC Glucose Random Glucose Calcium Total Bilirubin Direct Bilirubin AST ALT Alkaline Phosphatase Troponin I High Sens < 3.5 B-Natriuretic Peptide 130 H Total Protein Albumin Lipase TSH Urine Color Urine Appearance Urine pH Ur Specific [place] Urine Protein Urine Glucose (UA) Urine Ketones Urine Blood Urine Nitrite Ur Leukocyte Esterase Urine RBC Urine WBC Ur Squamous Epith Cells Urine Bacteria Urine Mucus Influenza Type A (PCR) NEGATIVE Influenza Type B (PCR) NEGATIVE RSV RNA Qual (PCR) NEGATIVE SARS-CoV-2 RNA (RT-PCR) NEGATIVE 11/17/21 11/17/21 11/17/21 02:44 06:44 06:44 MCV 77.8 L MCH 23.3 L MCHC 30.0 L RDW 15.9 Plt Count 336 MPV 8.9 L Immature Gran % (Auto) 0.3 Neut % (Auto) 56.2 Lymph % (Auto) 34.3 [place] % (Auto) 6.5 Eos % (Auto) 2.0 Baso % (Auto) 0.7 Lymph # (Auto) 3.1 [place] # (Auto) 0.6 Eos # (Auto) 0.2 Baso # (Auto) 0.1 Abs Immat Gran (auto) 0.03 Absolute Neuts (auto) 5.0 Absolute Nucleated RBC 0.000 Nucleated RBC % (auto) 0.0 Anion Gap 13 Estim Creat Clear Calc 51.7 Estimated GFR > 60 POC Glucose Random Glucose 139 H Calcium 9.2 Total Bilirubin Direct Bilirubin AST ALT Alkaline Phosphatase Troponin I High Sens B-Natriuretic Peptide Total Protein Albumin Lipase TSH Urine Color YELLOW Urine Appearance CLEAR Urine pH 7.0 Ur Specific [place] 1.010 Urine Protein NEG Urine Glucose (UA) NEG Urine Ketones NEG Urine Blood NEG Urine Nitrite NEG Ur Leukocyte Esterase 1+ H Urine RBC 1-4 Urine WBC 1-4 Ur Squamous Epith Cells 1+ Urine Bacteria 2+ Urine Mucus 2+ Influenza Type A (PCR) Influenza Type B (PCR) RSV RNA Qual (PCR) SARS-CoV-2 RNA (RT-PCR) 11/17/21 07:11 MCV MCH MCHC RDW Plt Count MPV Immature Gran % (Auto) Neut % (Auto) Lymph % (Auto) [place] % (Auto) Eos % (Auto) Baso % (Auto) Lymph # (Auto) [place] # (Auto) Eos # (Auto) Baso # (Auto) Abs Immat Gran (auto) Absolute Neuts (auto) Absolute Nucleated RBC Nucleated RBC % (auto) Anion Gap Estim Creat Clear Calc Estimated GFR POC Glucose 126 H Random Glucose Calcium Total Bilirubin Direct Bilirubin AST ALT Alkaline Phosphatase Troponin I High Sens B-Natriuretic Peptide Total Protein Albumin Lipase TSH Urine Color Urine Appearance Urine pH Ur Specific [place] Urine Protein Urine Glucose (UA) Urine Ketones Urine Blood Urine Nitrite Ur Leukocyte Esterase Urine RBC Urine WBC Ur Squamous Epith Cells Urine Bacteria Urine Mucus Influenza Type A (PCR) Influenza Type B (PCR) RSV RNA Qual (PCR) SARS-CoV-2 RNA (RT-PCR) Assessment and Plan (1) New onset atrial flutter: Status: Acute Plan 75F presented with syncope, found to have new diagnosis of aflutter with rvr syncope likely due to new onset atrial flutter with RVR metoprolol - will increase to 50mg bid will start eliquis echo cardio eval mild chronic microcytic anemia hgb 11 check iron studies DM in[place] metformin on hold mood disorder lithium HTN holding amlodipine to allow room for rate controlling meds dvt prophylaxis - eliquis full code reason for continued hospitalization: ongoing aflutter with rvr Quality Stroke Does the patient have a stroke diagnosis?: No VTE Prior VTE?: No VTE Risk Level:: Medical - moderate - high VTE Device Contraindication: Treatment Not Indicated VTE Drug Contraindication: N/A - Med Ordered
--- NOTE | 2021-11-17 09:57 | PM.CNCAR ---
History of Present Illness History of Present Illness Date of Service: 11/17/21 Requesting physician: Ismael Lanier Chief complaint: Fall, Atrial flutter Narrative: 75-year-old female who is presenting with fall. She said on few occasions in the past he has lost her balance and fall unclear she fell 1 time during winter on the ice. Before admission she said she lost her balance and fell. She had to crawl her way to the phone to call EMS. Does not recall having chest pains or shortness of breath. She said she felt somewhat dizzy afterwards but did not any dizziness before she lost her balance. Clearly no syncope. She was brought into the emergency department and was noted to be in atrial flutter. She is on metoprolol 50 mg twice a day. She got couple of IV pushes of diltiazem. She has been started on Eliquis for anticoagulation. Labs reviewed which is showing low iron saturations and MCV pointing to iron deficiency anemia. [facility] Past Medical History Medical History (Updated 11/17/21 @ 07:47 by Ismael Lanier MD) Breast calcification, right Depression Diabetes mellitus Hypertension Family History Family History (Updated 11/17/21 @ 07:47 by Ismael Lanier MD) Father Depression Surgical History Surgical History History of section History of cholecystectomy Social History Social History Alcohol intake: current Alcohol intake frequency: holidays/special occasions only Advance Directives: No Advance Directives Information Provided: Yes Meds Allergies Allergy/AdvReac Type Severity Reaction Status Date / Time influenza virus vaccine, Allergy Intermediate STIFFNESS,LIMITED Verified 09/27/20 11:28 specific FUNCTION [FLU VACCINE] AFFECTED ARM/HAND Active Medications: Current Medications Acetaminophen (Acetaminophen 325 Mg Tablet) 650 mg PO Q6H PRN PRN Reason: Pain, Mild (Pain Scale 1-3) Apixaban (Apixaban 5 Mg Tablet) 5 mg PO BID NANCY Atorvastatin Calcium (Atorvastatin Calcium 20 Mg Tablet) 20 mg PO BEDTIME NANCY Dextrose (Dextrose 50 % 25 Gm/50 Ml Syringe) 25 gm IVPUSH Q15M PRN; Protocol PRN Reason: per Hypoglycemia Standing Ord. Glucose (Glucose Gel 15 Gm Gel..Gram.) 15 gm PO Q15M PRN; Protocol PRN Reason: per Hypoglycemia Standing Ord. Insulin Human Lispro (Insulin Lispro 100 Unit/Ml 3 Ml Vial) 0 unit SUBCUT QIDACHS [facility]; Protocol Last Admin: 11/17/21 08:01 Dose: Not Given [place] Carbonate ([place] Carbonate 300 Mg Capsule) 450 mg PO BEDTIME [facility] Melatonin (Melatonin 3 Mg Tablet) 6 mg PO BEDTIME PRN PRN Reason: Insomnia Metoprolol Tartrate (Metoprolol Tartrate 50 Mg Tablet) 50 mg PO BID [facility]; Protocol Senna (Sennosides 8.6 Mg Tablet) 17.2 mg PO BEDTIME PRN PRN Reason: Constipation Sodium Chloride (0.9 % Sodium Chloride Flush 3 Ml Syringe) 3 ml IVFLUSH QSHIFT [facility] Last Admin: 11/17/21 07:04 Dose: Not Given Home Medications Medication Instructions Recorded Confirmed Last Taken Type amlodipine 5 mg tablet 5 mg PO DAILY 09/18/20 11/17/21 Unknown History atorvastatin 20 mg tablet 20 mg PO DAILY 09/18/20 11/17/21 Unknown History lithium carbonate 450 mg 450 mg PO BEDTIME 09/18/20 11/17/21 Unknown History tablet,extended release metformin 500 mg tablet 500 mg PO TID 09/18/20 11/17/21 Unknown History metoprolol tartrate 25 mg tablet 25 mg PO BID 09/18/20 11/17/21 Unknown History Physical Exam Vital Signs: Vital Signs: Last Vital Signs Temp 98.3 F 11/16/21 21:16 Pulse 102 H 11/16/21 23:54 Resp 16 11/16/21 23:54 BP 115/54 L 11/16/21 23:54 Pulse Ox 98 11/17/21 00:56 O2 Del Method 11/17/21 00:56 BMI result Body Mass Index 27.3 GENERAL APPEARANCE: in no acute distress, pleasant. NECK: no carotid bruit, no jugular venous distention. SKIN: no suspicious lesions, warm and dry. HEART: no murmurs, regular rate and rhythm. Tachycardic. LUNGS: clear to auscultation bilaterally. ABDOMEN: soft, nontender. EXTREMITIES: no edema. PERIPHERAL PULSES: equal. NEUROLOGIC: No gross deficits, AAO X 3 Objective Labs and Meds Result diagrams: 11/17/21 06:44 11/17/21 06:44 Lab results: Laboratory Results - last 24 hr 11/16/21 11/16/21 11/16/21 21:21 22:34 22:34 WBC 8.7 RBC 5.00 Hgb 11.7 L Hct 38.5 MCV 77.0 L MCH 23.4 L MCHC 30.4 L RDW 15.9 Plt Count 354 MPV 9.0 L Immature Gran % (Auto) 0.5 H Neut % (Auto) 67.0 Lymph % (Auto) 23.7 Lyman % (Auto) 6.0 Eos % (Auto) 2.1 Baso % (Auto) 0.7 Lymph # (Auto) 2.1 Lyman # (Auto) 0.5 Eos # (Auto) 0.2 Baso # (Auto) 0.1 Abs Immat Gran (auto) 0.04 H Absolute Neuts (auto) 5.8 Absolute Nucleated RBC 0.000 Nucleated RBC % (auto) 0.0 Sodium 139 Potassium 4.5 Chloride 104 Carbon Dioxide 26 Anion Gap 14 BUN 15 Creatinine 0.84 Estim Creat Clear Calc 47.3 Estimated GFR > 60 POC Glucose 143 H Random Glucose 181 H Calcium 9.7 Total Bilirubin 0.5 Direct Bilirubin 0.2 AST 16 ALT 11 Alkaline Phosphatase 77 Troponin I High Sens B-Natriuretic Peptide Total Protein 7.1 Albumin 4.3 Lipase 20 TSH 1.23 Urine Color Urine Appearance Urine pH Ur Specific [place] Urine Protein Urine Glucose (UA) Urine Ketones Urine Blood Urine Nitrite Ur Leukocyte Esterase Urine RBC Urine WBC Ur Squamous Epith Cells Urine Bacteria Urine Mucus Influenza Type A (PCR) Influenza Type B (PCR) RSV RNA Qual (PCR) SARS-CoV-2 RNA (RT-PCR) 11/16/21 11/16/21 11/16/21 22:34 22:34 22:35 WBC RBC Hgb Hct MCV MCH MCHC RDW Plt Count MPV Immature Gran % (Auto) Neut % (Auto) Lymph % (Auto) Lyman % (Auto) Eos % (Auto) Baso % (Auto) Lymph # (Auto) Lyman # (Auto) Eos # (Auto) Baso # (Auto) Abs Immat Gran (auto) Absolute Neuts (auto) Absolute Nucleated RBC Nucleated RBC % (auto) Sodium Potassium Chloride Carbon Dioxide Anion Gap BUN Creatinine Estim Creat Clear Calc Estimated GFR POC Glucose Random Glucose Calcium Total Bilirubin Direct Bilirubin AST ALT Alkaline Phosphatase Troponin I High Sens < 3.5 B-Natriuretic Peptide 130 H Total Protein Albumin Lipase TSH Urine Color Urine Appearance Urine pH Ur Specific [place] Urine Protein Urine Glucose (UA) Urine Ketones Urine Blood Urine Nitrite Ur Leukocyte Esterase Urine RBC Urine WBC Ur Squamous Epith Cells Urine Bacteria Urine Mucus Influenza Type A (PCR) NEGATIVE Influenza Type B (PCR) NEGATIVE RSV RNA Qual (PCR) NEGATIVE SARS-CoV-2 RNA (RT-PCR) NEGATIVE 11/17/21 11/17/21 11/17/21 02:44 06:44 06:44 WBC 8.9 RBC 4.72 Hgb 11.0 L Hct 36.7 L MCV 77.8 L MCH 23.3 L MCHC 30.0 L RDW 15.9 Plt Count 336 MPV 8.9 L Immature Gran % (Auto) 0.3 Neut % (Auto) 56.2 Lymph % (Auto) 34.3 Lyman % (Auto) 6.5 Eos % (Auto) 2.0 Baso % (Auto) 0.7 Lymph # (Auto) 3.1 [place]yman # (Auto) 0.6 Eos # (Auto) 0.2 Baso # (Auto) 0.1 Abs Immat Gran (auto) 0.03 Absolute Neuts (auto) 5.0 Absolute Nucleated RBC 0.000 Nucleated RBC % (auto) 0.0 Sodium 139 Potassium 3.9 Chloride 107 Carbon Dioxide 23 Anion Gap 13 BUN 14 Creatinine 0.77 Estim Creat Clear Calc 51.7 Estimated GFR > 60 POC Glucose Random Glucose 139 H Calcium 9.2 Total Bilirubin Direct Bilirubin AST ALT Alkaline Phosphatase Troponin I High Sens B-Natriuretic Peptide Total Protein Albumin Lipase TSH Urine Color YELLOW Urine Appearance CLEAR Urine pH 7.0 Ur Specific [place] 1.010 Urine Protein NEG Urine Glucose (UA) NEG Urine Ketones NEG Urine Blood NEG Urine Nitrite NEG Ur Leukocyte Esterase 1+ H Urine RBC 1-4 Urine WBC 1-4 Ur Squamous Epith Cells 1+ Urine Bacteria 2+ Urine Mucus 2+ Influenza Type A (PCR) Influenza Type B (PCR) RSV RNA Qual (PCR) SARS-CoV-2 RNA (RT-PCR) 11/17/21 07:11 WBC RBC Hgb Hct MCV MCH MCHC RDW Plt Count MPV Immature Gran % (Auto) Neut % (Auto) Lymph % (Auto) [place]yman % (Auto) Eos % (Auto) Baso % (Auto) Lymph # (Auto) [place] # (Auto) Eos # (Auto) Baso # (Auto) Abs Immat Gran (auto) Absolute Neuts (auto) Absolute Nucleated RBC Nucleated RBC % (auto) Sodium Potassium Chloride Carbon Dioxide Anion Gap BUN Creatinine Estim Creat Clear Calc Estimated GFR POC Glucose 126 H Random Glucose Calcium Total Bilirubin Direct Bilirubin AST ALT Alkaline Phosphatase Troponin I High Sens B-Natriuretic Peptide Total Protein Albumin Lipase TSH Urine Color Urine Appearance Urine pH Ur Specific [place] Urine Protein Urine Glucose (UA) Urine Ketones Urine Blood Urine Nitrite Ur Leukocyte Esterase Urine RBC Urine WBC Ur Squamous Epith Cells Urine Bacteria Urine Mucus Influenza Type A (PCR) Influenza Type B (PCR) RSV RNA Qual (PCR) SARS-CoV-2 RNA (RT-PCR) Imaging Radiologist's impression: Impressions Chest X-Ray 11/16/21 21:35 IMPRESSION: Unremarkable examination. Head CT 11/16/21 22:19 IMPRESSION: No acute intracranial pathology. Assessment and Plan (1) Hypertension: Status: Acute (2) New onset atrial flutter: Status: Acute Plan [age] year female presenting with fall due to losing balance. She is noted to be in atrial flutter. Unlikely that atrial flutter played a role in her fall. High chads Vasc score. Will need anticoagulation. She is also noted to be mildly anemic with low iron saturations and MCV. She has iron-deficiency the likely cause is blood loss unless we can prove this is dietary. Monitor hemoglobin closely. Will need some workup for anemia inpatient versus outpatient. Given she is completely asymptomatic from flutter it is hard to know when she developed this. Would recommend echocardiogram to assess for any cardiomyopathy. Her rates are in low 100s. Can change metoprolol to 150 mg of Toprol-XL. If she continues to be in fast atrial flutter then we may have to consider digoxin load. We will follow along with you. Thank you for allowing me to participate in the care of your patient. Please feel free to contact me if you have any questions. Procedures Date of Service Date of Service: 11/17/21
[2021-11-17 10:09] LABS: Iron 47 mcg/dL (30-160); Percent Iron Saturation 12 % (15-50); Total Iron Binding Capacity 404 mcg/dL (228-428); Unsaturated Iron Binding 357 ug/dL
[2021-11-17 10:29] LABS: Ferritin 7 ng/mL (10-250)
[2021-11-17 12:45] LABS: Glucose, Whole Blood 197 mg/dL (60-115)
--- NOTE | 2021-11-17 13:02 | PM.GICN ---
History of Present Illness Data of Consult Service Date: 11/17/21 Requesting physician: Ismael Lanier Primary Care Provider: Darian Rivera MD HPI Reason for consult: iron def anemia (new atrial flutter starting on eliquis) 75 YF with Htn, hyperlipidemia, DM, bipolar disorder seen at [facility] on 11/16/21 after a fall.? Patient reported feeling unwell, weak and unsteady on 11/16/21 She denied any lightheadedness or room spinning.? Patient mentioned that yesterday morning she went to the bathroom and while coming back she slumped and fell on the floor, She denied any head injury, mentioned that she is unsure if she lost consciousness, even if she lost consciousness probably she lost for few seconds.? Mentioned that after that she crawled to the phone and subsequently called EMS to come into the hospital for further evaluation.? Patient denied any fever chills cough, chest pain palpitations, nausea vomiting or diarrhea.? Pt reports seeing her PCP a month ago and was told she had an irregular heartbeat - did not have an EKG done at the time Patient denies past history of anemia, peptic ulcer disease or GI bleeding Patient admits to weight of 7 lbs due to COVID Pandemic. She admits to intermittent episodes of diarrhea related to anxiety and denies recent change in bowel habits, constipation, black stools or rectal bleeding. She has a bowel movement every 1-3 days. Patient denies major cardiac or pulmonary problems, loud snoring or sleep apnea She walked 3.5 miles 3 weeks ago without getting SOB. She used to walk 3.5 miles a few times a week before the Pandemic started. Pt admits to taking Ibuprofen in the past and has not taken any over the past month. She takes a balanced diet. Patient is and has a son who lives in [facility] and a 13-year-old granddaughter. 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 Patient denies known family history of colon polyps, colon cancer or other GI malignancies. PAST EGD/COLONOSCOPY: Patient denies having an upper endoscopy or a colonoscopy in the past LABS: Showed microcytic hypochromic anemia with hematocrit of 36.7. Iron studies consistent with iron deficiency with ferritin of 7 ER course: Per ER team patient on presentation noted to have grossly nonfocal examination; EKG showed new onset a flutter; patient was mildly in rapid ventricular rate on presentation; after medication the heart rate slightly improved.? Pt was admitted for further management and started on oral anticoagulation with Eliquis. Review of Systems Review of Systems: All other systems are reviewed and are negative Constitutional: Reports as per HPI and Reports no additional constitutional complaints Eyes: Reports as per HPI and Reports no additional eye complaints Reports system reviewed and no additional complaints, except as documented Cardiovascular: Reports as per HPI and Reports no additional cardiovascular complaints Respiratory: Reports as per HPI and Reports no additional respiratory complaints Gastrointestinal: Reports as per HPI and Reports no additional gastrointestinal complaints Genitourinary: Reports no additional female genitourinary complaints Musculoskeletal: Reports no additional musculoskeletal complaints Skin/Breast: Reports system reviewed and no additional complaints, except as docu Psychiatric: Reports no additional psychiatric complaints Endocrine: Reports no additional endocrine complaints Hematologic/Lymphatic: Reports no additional hematologic/lymphatic complaints Allergic/Immunologic: Reports no additional allergic/immunologic complaints Reports system reviewed and no additional complaints, except as documented and Reports Abnormal speech present Constitutional: Constitutional: Reports weight gain Gastrointestinal: Gastrointestinal: Denies abdominal pain and Reports diarrhea (Intermittent) [facility] Past Medical History Medical History Breast calcification, right Depression Diabetes mellitus Hypertension Family History Family History (Updated 11/17/21 @ 07:47 by Ismael Lanier MD) Father Depression Surgical History Surgical History History of section History of cholecystectomy Social History Social History Household Members: None Housing: House Do you presently have visiting nurse or other home services: No Alcohol intake: current Alcohol intake frequency: holidays/special occasions only Patient Tobacco Use Status: Never used Tobacco Meds Allergies Allergy/AdvReac Type Severity Reaction Status Date / Time influenza virus vaccine, Allergy Intermediate STIFFNESS,LIMITED Verified 09/27/20 11:28 specific FUNCTION [FLU VACCINE] AFFECTED ARM/HAND Active Medications: Current Medications Acetaminophen (Acetaminophen 325 Mg Tablet) 650 mg PO Q6H PRN PRN Reason: Pain, Mild (Pain Scale 1-3) Apixaban (Apixaban 5 Mg Tablet) 5 mg PO BID NANCY Atorvastatin Calcium (Atorvastatin Calcium 20 Mg Tablet) 20 mg PO BEDTIME NANCY Dextrose (Dextrose 50 % 25 Gm/50 Ml Syringe) 25 gm IVPUSH Q15M PRN; Protocol PRN Reason: per Hypoglycemia Standing Ord. Glucose (Glucose Gel 15 Gm Gel..Gram.) 15 gm PO Q15M PRN; Protocol PRN Reason: per Hypoglycemia Standing Ord. Insulin Human Lispro (Insulin Lispro 100 Unit/Ml 3 Ml Vial) 0 unit SUBCUT QIDACHS [facility]; Protocol Last Admin: 11/17/21 08:01 Dose: Not Given [place] Carbonate ([place] Carbonate 300 Mg Capsule) 450 mg PO BEDTIME NANCY Melatonin (Melatonin 3 Mg Tablet) 6 mg PO BEDTIME PRN PRN Reason: Insomnia Metoprolol Succinate (Metoprolol Succinate Er 50 Mg Tab.Er.24h) 150 mg PO DAILY [facility]; Protocol Senna (Sennosides 8.6 Mg Tablet) 17.2 mg PO BEDTIME PRN PRN Reason: Constipation Sodium Chloride (0.9 % Sodium Chloride Flush 3 Ml Syringe) 3 ml IVFLUSH QSHIFT [facility] Last Admin: 11/17/21 07:04 Dose: Not Given Physical Exam Vital Signs: Vital Signs: Last Vital Signs Temp 98.3 F 11/16/21 21:16 Pulse 102 H 11/16/21 23:54 Resp 16 11/16/21 23:54 BP 115/54 L 11/16/21 23:54 Pulse Ox 98 11/17/21 00:56 O2 Del Method 11/17/21 00:56 BMI result Body Mass Index 27.3 Const: General: healthy appearing and no acute distress Nutritional Appearance: overweight Orientation/consciousness: patient oriented x3 Limitations: no limitations HEENT: Head: Yes normal to inspection Ears: hearing grossly normal bilaterally Mouth: Normal oral and palatal mucosa present Eyes: Sclerae: sclerae normal Pupils: Equal, round and reactive pupils present Neck: Neck: Yes normal visual inspection Chest: Chest palpation & inspection: normal inspection of the chest Resp: Effort & Inspection: normal respiratory effort Auscultation: clear to auscultation bilaterally Cardio: Palpation: normal PMI Rate: regular rate and tachycardic Rhythm: abnormal rhythm (Irregular due to atrial flutter) Heart sounds: S1 normal heart sound present, S2 normal heart sound present and no murmurs GI: Palpation (GI): Soft to palpation, nontender and No hepatosplenomegaly present Auscultation: normal bowel sounds Rectal Exam - Female: deferred Skin: General skin exam: no rashes or lesions noted Neuro: General: patient oriented x3, gait normal and moves all extremities Cranial nerves: Yes Equal, round and reactive pupils present Psych: Appearance: grossly normal Mental Status: mental status grossly normal Results Labs CBC & Chem 7: 11/18/21 06:23 11/18/21 06:23 Labs: Short CBC 11/16/21 11/17/21 Range/Units 22:34 06:44 WBC 8.7 8.9 (4.8-10.8) X10*3/uL Hgb 11.7 L 11.0 L (12.0-16.0) g/dl Hct 38.5 36.7 L (37.0-47.0) % Plt Count 354 336 (160-400) X10*3/uL BMP 11/16/21 11/17/21 22:34 06:44 Sodium 139 139 Potassium 4.5 3.9 Chloride 104 107 Carbon Dioxide 26 23 BUN 15 14 Creatinine 0.84 0.77 Calcium 9.7 9.2 Liver Function 11/16/21 Range/Units 22:34 Total Bilirubin 0.5 (0.0-1.0) mg/dL Direct Bilirubin 0.2 (0.0-0.5) mg/dL AST 16 (5-31) U/L ALT 11 (0-31) U/L Alkaline Phosphatase 77 (39-117) U/L Albumin 4.3 (3.5-5.0) g/dL Urine 11/17/21 Range/Units 02:44 Urine Color YELLOW Urine Appearance CLEAR Urine pH 7.0 (5.0-8.0) Ur Specific [place] 1.010 (1.005-1.025) Urine Protein NEG (NEG-TRACE) MG/DL Urine Glucose (UA) NEG (NEG) MG/DL Assessment and Plan (1) New onset atrial flutter: Status: Acute (2) Iron deficiency anemia: Status: Acute Plan 75 YF with Htn, hyperlipidemia, DM, bipolar disorder admitted to [facility] on 11/16/21 after a fall.? Evaluation revealed new onset atrial flutter Pt reports seeing her PCP a month ago and was told she had an irregular heartbeat - did not have an EKG done at the time She admits to intermittent episodes of diarrhea related to anxiety and denies recent change in bowel habits, constipation, black stools or rectal bleeding. Pt admits to taking Ibuprofen in the past and has not taken any over the past month. She takes a balanced diet. Patient denies having an upper endoscopy or a colonoscopy in the past Iron deficiency anemia can be due to upper or lower GI blood loss. No evidence of overt bleeding LABS: Showed microcytic hypochromic anemia with hematocrit of 36.7. Iron studies consistent with iron deficiency with ferritin of 7 RECOMMENDATIONS: 1. Proceed with cardiac workup as recommended by Cardiology. 2. Check stool for occult blood and repeat CBC in the am. 3. Patient needs further evaluation with an upper endoscopy and colonoscopy - this can be scheduled as an outpatient after cardiac workup has been completed Both procedures and potential complications including bleeding, perforation, reaction to anesthetics and aspiration pneumonia were reviewed with the patient. Procedures Date of Service Date of Service: 11/17/21
[2021-11-17 18:09] LABS: Glucose, Whole Blood 156 mg/dL (60-115)
[2021-11-17] MEDS: Apixaban 5 MG TABLET PO (21:50)
[2021-11-17] MEDS: Lithium Carbonate 300 MG CAPSULE 450 MG PO (21:50)
[2021-11-17] MEDS: Atorvastatin Calcium 20 MG TABLET PO (21:50)
[2021-11-17 22:08] LABS: Glucose, Whole Blood 180 mg/dL (60-115)
[2021-11-17] MEDS: Insulin Lispro 100 UNIT/ML 3 ML VIAL SUBCUT (22:10)
[2021-11-18] VITALS (7 sets, daily range): BP systolic 124–144; BP diastolic 69–84; PULSE 108–111; RESP 14–19; TEMP 36.4–37.6; O2SAT 93–98; BMI 26.9
--- NOTE | 2021-11-18 00:43 | PC.NURSE ---
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
[2021-11-18 06:43] LABS: Hematocrit 37.7 % (37.0-47.0); Hemoglobin 11.5 g/dl (12.0-16.0); Mean Corpuscular HGB Conc 30.5 g/dl (31.0-35.0); Mean Corpuscular Hemoglobin 23.3 pg (27.0-33.0); Mean Corpuscular Volume 76.5 fL (80.0-98.0); Mean Platelet Volume 8.8 fL (9.4-12.3); Platelet Count 365 X10*3/uL (160-400); Red Blood Count 4.93 X10*6/uL (4.20-5.50); Red Cell Distribution Width 16.2 % (11.0-16.0); White Blood Count 8.6 X10*3/uL (4.8-10.8)
[2021-11-18 07:07] LABS: Anion Gap 12 (12-20); Blood Urea Nitrogen 12 mg/dL (9-16); Calcium 9.8 mg/dL (8.4-10.2); Carbon Dioxide 25 mmol/L (22-29); Chloride 104 mmol/L (96-108); Estimated Glomerular Filt Rate > 60; Glucose Fasting 185 mg/dL (60-99); Sodium 137 mmol/L (135-145)
[2021-11-18 07:51] LABS: Glucose, Whole Blood 174 mg/dL (60-115)
[2021-11-18] MEDS: Metoprolol Succinate ER 50 MG TAB.ER.24H 150 MG PO (08:09)
[2021-11-18] MEDS: Insulin Lispro 100 UNIT/ML 3 ML VIAL SUBCUT ×3 (08:09→21:56)
[2021-11-18] MEDS: Apixaban 5 MG TABLET PO ×2 (08:09→21:57)
[2021-11-18] MEDS: 0.9 % Sodium Chloride Flush 3 ML SYRINGE IVFLUSH ×3 (08:10→22:12)
--- NOTE | 2021-11-18 10:08 | PM.PNCARD ---
Subjective Subjective Date of Service: 11/18/21 Interval history: Telemetry reviewed. She has significant tachycardia earlier and appears she conducted flutter 1-1 in between. This was not persistently one-to-one conduction but clearly it was present on telemetry. Patient is denying any significant symptoms. Physical Exam Vital Signs: Last Vital Signs Temp 97.6 F 11/18/21 07:44 Pulse 111 H 11/18/21 07:44 Resp 17 11/18/21 07:44 BP 124/76 11/18/21 07:44 Pulse Ox 96 11/18/21 07:44 O2 Del Method 11/18/21 07:44 BMI result Body Mass Index 26.9 GENERAL APPEARANCE: in no acute distress, pleasant. NECK: no carotid bruit, no jugular venous distention. SKIN: no suspicious lesions, warm and dry. HEART: no murmurs, regular rate and rhythm. Tachycardic. LUNGS: clear to auscultation bilaterally. ABDOMEN: soft, nontender. EXTREMITIES: no edema. PERIPHERAL PULSES: equal. NEUROLOGIC: No gross deficits, AAO X 3 Objective Labs and Meds Result diagrams: 11/18/21 06:23 11/18/21 06:23 Lab results: Laboratory Results - last 24 hr 11/17/21 11/17/21 11/17/21 06:44 12:41 18:05 WBC RBC Hgb Hct MCV MCH MCHC RDW Plt Count MPV Absolute Nucleated RBC Nucleated RBC % (auto) Sodium Potassium Chloride Carbon Dioxide Anion Gap BUN Creatinine Estim Creat Clear Calc Estimated GFR POC Glucose 197 H 156 H Fasting Glucose Calcium Iron 47 TIBC 404 % Saturation 12 L Unsat Iron Binding 357 Ferritin 7 L 11/17/21 11/18/21 11/18/21 22:03 06:23 06:23 WBC 8.6 RBC 4.93 Hgb 11.5 L Hct 37.7 MCV 76.5 L MCH 23.3 L MCHC 30.5 L RDW 16.2 H Plt Count 365 MPV 8.8 L Absolute Nucleated RBC 0.000 Nucleated RBC % (auto) 0.0 Sodium 137 Potassium 4.0 Chloride 104 Carbon Dioxide 25 Anion Gap 12 BUN 12 Creatinine 0.88 Estim Creat Clear Calc 45.0 Estimated GFR > 60 POC Glucose 180 H Fasting Glucose 185 H Calcium 9.8 D Iron TIBC % Saturation Unsat Iron Binding Ferritin 11/18/21 07:46 WBC RBC Hgb Hct MCV MCH MCHC RDW Plt Count MPV Absolute Nucleated RBC Nucleated RBC % (auto) Sodium Potassium Chloride Carbon Dioxide Anion Gap BUN Creatinine Estim Creat Clear Calc Estimated GFR POC Glucose 174 H Fasting Glucose Calcium Iron TIBC % Saturation Unsat Iron Binding Ferritin Progress Note: A&P Assessment and plan (1) Iron deficiency anemia: Status: Acute (2) New onset atrial flutter: Status: Acute (3) Hypertension: Status: Acute Plan 75-year-old female presented with fall and was noted to be in atrial flutter. She has conducted fairly fast and at times was conducting 1-1 atrial flutter. I think this is fast enough to cause dizziness and the fall. She is on Toprol-XL 150 mg daily. I told for digoxin load earlier and I think it is reasonable. Check transthoracic echocardiogram tomorrow. She will eventually need AARON cardioversion. Thank you for allowing me to participate in the care of your patient. Please feel free to contact me if you have any questions. Time Spent With Patient Time: Total time spent is greater than 50% in coordination of care (as documented) at patient's floor/unit and/or counseling patient: Progress Note: Quality Stroke Does the patient have a stroke diagnosis?: No Procedures Date of Service Date of Service: 11/18/21
--- NOTE | 2021-11-18 10:09 | P.PNIM_ITS ---
Subjective Subjective Date of Service: 11/18/21 Interval History: cc: fall, presyncope interval history:asymptamtic severe tachycardia on minimal exertion Cardiovascular Cardiovascular: Reports no additional cardiovascular complaints Respiratory Respiratory: Reports no additional respiratory complaints Physical Exam Vital Signs: Vital Signs: Last Vital Signs Temp 97.6 F 11/18/21 07:44 Pulse 111 H 11/18/21 07:44 Resp 17 11/18/21 07:44 BP 124/76 11/18/21 07:44 Pulse Ox 96 11/18/21 07:44 O2 Del Method 11/18/21 07:44 BMI result Body Mass Index 26.9 General: AO X 3, no acute distress Resp: CTA bilateral, no accessory muscles used CVS: S1,S2,rapid GI: soft, non tender, non distended Neuro: motor grossly intact, alert Psych: appropriate affect, appropriate insight Objective Data Active Medications Acetaminophen (Acetaminophen 325 Mg Tablet) 650 mg PO Q6H PRN PRN Reason: Pain, Mild (Pain Scale 1-3) Apixaban (Apixaban 5 Mg Tablet) 5 mg PO BID [facility] Last Admin: 11/18/21 08:09 Dose: 5 mg Documented By: MALIA Atorvastatin Calcium (Atorvastatin Calcium 20 Mg Tablet) 20 mg PO BEDTIME [facility] Last Admin: 11/17/21 21:50 Dose: 20 mg Documented By: MAGGI Dextrose (Dextrose 50 % 25 Gm/50 Ml Syringe) 25 gm IVPUSH Q15M PRN; Protocol PRN Reason: per Hypoglycemia Standing Ord. Digoxin (Digoxin 0.5 Mg/2 Ml Ampul) 0.25 mg IVPUSH Q6H [facility] Stop: 11/18/21 16:16 Glucose (Glucose Gel 15 Gm Gel..Gram.) 15 gm PO Q15M PRN; Protocol PRN Reason: per Hypoglycemia Standing Ord. Insulin Human Lispro (Insulin Lispro 100 Unit/Ml 3 Ml Vial) 0 unit SUBCUT QIDACHS [facility]; Protocol Last Admin: 11/18/21 08:09 Dose: 2 unit Documented By: MALIA [place] Carbonate ([place] Carbonate Er 450 Mg Tablet.Er) 450 mg PO BEDTIME NANCY Melatonin (Melatonin 3 Mg Tablet) 6 mg PO BEDTIME PRN PRN Reason: Insomnia Metoprolol Succinate (Metoprolol Succinate Er 50 Mg Tab.Er.24h) 150 mg PO DAILY [facility]; Protocol Last Admin: 11/18/21 08:09 Dose: 150 mg Documented By: MALIA Senna (Sennosides 8.6 Mg Tablet) 17.2 mg PO BEDTIME PRN PRN Reason: Constipation Sodium Chloride (0.9 % Sodium Chloride Flush 3 Ml Syringe) 3 ml IVFLUSH QSHIFT NANCY Last Admin: 11/18/21 08:10 Dose: 3 ml Documented By: MALIA Labs CBC & Chem 7: 11/18/21 06:23 11/18/21 06:23 Labs: Laboratory Results - last 24 hr 11/17/21 11/17/21 11/17/21 06:44 12:41 18:05 MCV MCH MCHC RDW Plt Count MPV Absolute Nucleated RBC Nucleated RBC % (auto) Anion Gap Estim Creat Clear Calc Estimated GFR POC Glucose 197 H 156 H Fasting Glucose Calcium Iron 47 TIBC 404 % Saturation 12 L Unsat Iron Binding 357 Ferritin 7 L 11/17/21 11/18/21 11/18/21 22:03 06:23 06:23 MCV 76.5 L MCH 23.3 L MCHC 30.5 L RDW 16.2 H Plt Count 365 MPV 8.8 L Absolute Nucleated RBC 0.000 Nucleated RBC % (auto) 0.0 Anion Gap 12 Estim Creat Clear Calc 45.0 Estimated GFR > 60 POC Glucose 180 H Fasting Glucose 185 H Calcium 9.8 D Iron TIBC % Saturation Unsat Iron Binding Ferritin 11/18/21 07:46 MCV MCH MCHC RDW Plt Count MPV Absolute Nucleated RBC Nucleated RBC % (auto) Anion Gap Estim Creat Clear Calc Estimated GFR POC Glucose 174 H Fasting Glucose Calcium Iron TIBC % Saturation Unsat Iron Binding Ferritin Assessment and Plan (1) New onset atrial flutter: Status: Acute Plan 75F presented with syncope, found to have new diagnosis of aflutter with rvr fall and presyncope likely due to new onset atrial flutter with RVR vs mechanical cardio appreciated continue toprol 150mg daily monitor on tele started eliquis echo mild chronic microcytic anemia due to chronic iron defeciecny anemia monitor cbc closely while starting AC GI appreciated, outpatient follow up for EGD/colonoscopy DM insulin metformin on hold mood disorder lithium HTN holding amlodipine to allow room for rate controlling meds dvt prophylaxis - eliquis full code reason for continued hospitalization: ongoing aflutter with rvr Quality Stroke Does the patient have a stroke diagnosis?: No VTE Prior VTE?: No VTE Risk Level:: Medical - moderate - high VTE Device Contraindication: Treatment Not Indicated VTE Drug Contraindication: N/A - Med Ordered
[2021-11-18 11:57] LABS: Glucose, Whole Blood 246 mg/dL (60-115)
[2021-11-18] MEDS: Digoxin 0.5 MG/2 ML AMPUL 0.25 MG IVPUSH ×2 (12:32→17:07)
[2021-11-18 13:48] LABS: Folate 14.2 ng/mL (> or = 4.0); Vitamin B12 214 pg/mL (200-900)
--- NOTE | 2021-11-18 15:44 | MHC.CM.PN ---
PT REPORTS SHE LIVES ALONE AND IS INDEPENDENT WITH CARE PT [place]IE USING DME OR HAVING HOME SERVICES PT REPORTS SHE THINKS SHE HAS A HCP AND WOULD LIKE TO CHECK BEFORE COMPLETING A NEW ONE PT REPORTS SHE IS COVID VACCINATED AND HAS RECEIVED TWO BOOSTERS PCP: DAVID STAHL OBSERVATION NOTICE DELIVERED CURRENT DC PLAN IS HOME NO SERVICES PT TO ARRANGE TRANSPORT
[2021-11-18 16:51] LABS: Glucose, Whole Blood 118 mg/dL (60-115)
[2021-11-18 21:22] LABS: Glucose, Whole Blood 158 mg/dL (60-115)
[2021-11-18] MEDS: Atorvastatin Calcium 20 MG TABLET PO (21:57)
[2021-11-18] MEDS: Lithium Carbonate ER 450 MG TABLET.ER PO (21:58)
[2021-11-19] VITALS (11 sets, daily range): BP systolic 120–166; BP diastolic 58–96; PULSE 73–114; RESP 16–20; TEMP 36.2–37.5; O2SAT 93–98
[2021-11-19 06:26] LABS: Hematocrit 35.8 % (37.0-47.0); Hemoglobin 10.9 g/dl (12.0-16.0); Mean Corpuscular HGB Conc 30.4 g/dl (31.0-35.0); Mean Corpuscular Hemoglobin 23.5 pg (27.0-33.0); Mean Corpuscular Volume 77.2 fL (80.0-98.0); Mean Platelet Volume 8.9 fL (9.4-12.3); Platelet Count 341 X10*3/uL (160-400); Red Blood Count 4.64 X10*6/uL (4.20-5.50); White Blood Count 12.9 X10*3/uL (4.8-10.8)
[2021-11-19 06:42] LABS: Anion Gap 11 (12-20); Blood Urea Nitrogen 12 mg/dL (9-16); Calcium 9.3 mg/dL (8.4-10.2); Carbon Dioxide 24 mmol/L (22-29); Chloride 108 mmol/L (96-108); Estimated Glomerular Filt Rate 59; Glucose Fasting 177 mg/dL (60-99); Potassium 4.2 mmol/L (3.3-5.1); Sodium 139 mmol/L (135-145)
[2021-11-19] MEDS: Acetaminophen 325 MG TABLET 650 MG PO (06:42)
--- NOTE | 2021-11-19 07:00 | CA_ITS ---
Transthoracic Echocardiogram Patient (Last, First, Middle): Alicia Jimenez M Gender: Female Date of : 1945 Age: 75 Procedure Date: 11/19/2021 Procedure Type: Transthoracic Echocardiogram Location: [facility] – [place] Height: 152.4 cm Weight: 62.6 kg BSA: 1.59 m2 Heart Rate: 110 bpm BP: 131 / 64 mmHg Hand Winder: SB Referring MD: Juan David Fuller MD Symptoms: syncope; afib Study Quality: Adequate/Contrast ECG Rhythm: Atrial flutter with rapid rate Conclusions: - The left ventricular systolic function is hyperdynamic. The calculated ejection fraction is 74% by biplane method. - There is mild calcification of the aortic valve. - No obvious valvular pathology seen on this study. Findings Procedure Information Contrast agent, definity, is being given per protocol without apparent complications. Left Ventricle Normal left ventricular cavity size. The left ventricular systolic function is hyperdynamic. The calculated ejection fraction is 74% by biplane method. Diastolic function is indeterminate on the basis of available data. There is mild septal and mild basal asymmetric hypertrophy. Right Ventricle Normal right ventricular cavity size and systolic function. Atria The left atrium is normal in size. The right atrium is moderately dilated. Aortic Valve There is mild calcification of the aortic valve. There is no aortic valve stenosis. There is no aortic valve regurgitation. Mitral Valve The mitral valve appears normal. There is trace mitral valve regurgitation. There is no mitral valve stenosis. Pulmonic Valve The pulmonic valve is likely normal. Tricuspid Valve Normal tricuspid valve structure. There is mild tricuspid valve regurgitation. The pulmonary artery systolic pressure is normal. Great Vessels The aortic annulus, sinuses of valsalva, and asc aorta are normal in size. Venous The inferior vena cava is normal in size and collapses greater than 50% with inspiration. Pericardium/Pleural There is no evidence of pericardial effusion. Prior Study Comparison No prior study available for comparison. Recommendations, Care & Conclusions No obvious valvular pathology seen on this study. Measurements 2D Linear Measurements IVSd: 1.04 0.6-0.9/0.6-1.0 cm LVIDd: 3.54 3.9-5.3/4.2-5.9 cm LVIDd Index: 2.23 2.4-3.2/2.2-3.1 cm/m2 LVIDs: 2.38 2.0-3.6 cm LVPWd: 0.97 0.7-1.1 cm LA Diam: 3.20 2.7-3.8/3.0-4.0 cm LAIDs Index: 2.01 1.5-2.3 cm/m2 LV Mass: 131.37 67-162/88-224 g LV Mass Index: 82.62 43-95/49-115 g/m2 LVOT Diam: 2.00 3.0+(-)1.3 cm 2D Systolic Function EF 4C: 69.30 >55% EF 2C: 78.00 >55% EF BiP: 73.50 >55% Aortic Valve AoV Pk [place]: 1.19 AoV Mn [place]: 0.90 AoV VTI: 0.13 AoV Pk Grad: 6.00 Aov Mn Grad: 4.00 TRINH Cont.VTI: 2.26 LVOT LVOT Pk [place]: 0.83 LVOT Mn [place]: 0.61 LVOT VTI: 0.09 LVOT Pk Grad: 3.00 LVOT Mn Grad: 2.00 LVOT Diam: 2.00 LVOT Area: 3.14 Right Ventricle TAPSE (mm): 19.10 Tricuspid Valve TR Pk [place]: 2.02 TR Pk Grad: 16.00 RA Press: 8.00 RVSP: 24.00 Great Vessels Aorta Sinus of Valsalva: 3.30 2.0-3.5 cm Ao Asc: 3.10 2.1-3.4 cm Pulmonary Valve PV Pk [place]: 0.72 Peak PV Grad: 2.00 Updated in Other Vendor System with Status of Final Titus Elam MD electronically signed on 11/19/2021 11:29:14 AM with status of Final
[2021-11-19 07:26] LABS: Glucose, Whole Blood 177 mg/dL (60-115)
[2021-11-19] MEDS: Insulin Lispro 100 UNIT/ML 3 ML VIAL SUBCUT ×2 (08:57→21:49)
[2021-11-19] MEDS: Apixaban 5 MG TABLET PO ×2 (09:05→21:48)
--- NOTE | 2021-11-19 10:25 | HO.PM.IMPN ---
Subjective Subjective Date of Service: 11/19/21 Interval History: cc: presyncope, fall interval history: no complaints Respiratory Respiratory: Reports no additional respiratory complaints Gastrointestinal Gastrointestinal: Reports no additional gastrointestinal complaints Physical Exam Vital Signs: Vital Signs: Last Vital Signs Temp 97.9 F 11/19/21 07:20 Pulse 111 H 11/19/21 07:20 Resp 20 11/19/21 07:20 BP 129/72 11/19/21 07:20 Pulse Ox 96 11/19/21 07:20 O2 Del Method 11/19/21 07:20 BMI result Body Mass Index 26.9 General: AO X 3, no acute distress Resp: CTA bilateral, no accessory muscles used CVS: S1,S2,rapid GI: soft, non tender, non distended Neuro: motor grossly intact, alert Psych: appropriate affect, appropriate insight Objective Data Active Medications Acetaminophen (Acetaminophen 325 Mg Tablet) 650 mg PO Q6H PRN PRN Reason: Pain, Mild (Pain Scale 1-3) Last Admin: 11/19/21 06:42 Dose: 650 mg Documented By: YOSELYN Apixaban (Apixaban 5 Mg Tablet) 5 mg PO BID [facility] Last Admin: 11/19/21 09:05 Dose: 5 mg Documented By: CHAKA Atorvastatin Calcium (Atorvastatin Calcium 20 Mg Tablet) 20 mg PO BEDTIME [facility] Last Admin: 11/18/21 21:57 Dose: 20 mg Documented By: YOSELYN Dextrose (Dextrose 50 % 25 Gm/50 Ml Syringe) 25 gm IVPUSH Q15M PRN; Protocol PRN Reason: per Hypoglycemia Standing Ord. Glucose (Glucose Gel 15 Gm Gel..Gram.) 15 gm PO Q15M PRN; Protocol PRN Reason: per Hypoglycemia Standing Ord. Insulin Human Lispro (Insulin Lispro 100 Unit/Ml 3 Ml Vial) 0 unit SUBCUT QIDACHS [facility]; Protocol Last Admin: 11/19/21 08:57 Dose: 2 unit Documented By: CHAKA [place] Carbonate ([place] Carbonate Er 450 Mg Tablet.Er) 450 mg PO BEDTIME [facility] Last Admin: 11/18/21 21:58 Dose: 450 mg Documented By: YOSELYN Melatonin (Melatonin 3 Mg Tablet) 6 mg PO BEDTIME PRN PRN Reason: Insomnia Metoprolol Succinate (Metoprolol Succinate Er 50 Mg Tab.Er.24h) 150 mg PO DAILY [facility]; Protocol Last Admin: 11/19/21 09:06 Dose: Not Given Documented By: CHAKA Non-Admin Reason: Physician Held Med Senna (Sennosides 8.6 Mg Tablet) 17.2 mg PO BEDTIME PRN PRN Reason: Constipation Sodium Chloride (0.9 % Sodium Chloride Flush 3 Ml Syringe) 3 ml IVFLUSH QSHIFT NANCY Last Admin: 11/19/21 09:04 Dose: Not Given Documented By: CHAKA Non-Admin Reason: Previously Administered Labs CBC & Chem 7: 11/19/21 05:58 11/19/21 05:58 Labs: Laboratory Results - last 24 hr 11/18/21 11/18/21 11/18/21 06:23 11:03 16:47 MCV MCH MCHC RDW Plt Count MPV Absolute Nucleated RBC Nucleated RBC % (auto) Anion Gap Estim Creat Clear Calc Estimated GFR POC Glucose 246 H 118 H Fasting Glucose Calcium Vitamin B12 214 Folate 14.2 11/18/21 11/19/21 11/19/21 21:18 05:58 05:58 MCV 77.2 L MCH 23.5 L MCHC 30.4 L RDW 16.0 Plt Count 341 MPV 8.9 L Absolute Nucleated RBC 0.000 Nucleated RBC % (auto) 0.0 Anion Gap 11 L Estim Creat Clear Calc 43.0 Estimated GFR 59 POC Glucose 158 H Fasting Glucose 177 H Calcium 9.3 Vitamin B12 Folate 11/19/21 07:19 MCV MCH MCHC RDW Plt Count MPV Absolute Nucleated RBC Nucleated RBC % (auto) Anion Gap Estim Creat Clear Calc Estimated GFR POC Glucose 177 H Fasting Glucose Calcium Vitamin B12 Folate Microbiology Microbiology Results: Microbiology 11/17/21 Unknown Urine Culture - Final Urine clean catch - Urine willams top No growth. Assessment and Plan (1) New onset atrial flutter: Status: Acute Plan 75F presented with syncope, found to have new diagnosis of aflutter with rvr fall and presyncope likely due to new onset atrial flutter with RVR vs mechanical cardio appreciated continue toprol 150mg daily, was loaded with digoxin monitor on tele started eliquis echo pending mild chronic microcytic anemia due to chronic iron defeciecny anemia monitor cbc closely while starting AC GI appreciated, outpatient follow up for EGD/colonoscopy DM insulin metformin on hold mood disorder lithium HTN holding amlodipine to allow room for rate controlling meds dvt prophylaxis - nano full code reason for continued hospitalization: ongoing aflutter with rvr Quality Stroke Does the patient have a stroke diagnosis?: No VTE Prior VTE?: No VTE Risk Level:: Medical - moderate - high VTE Device Contraindication: Treatment Not Indicated VTE Drug Contraindication: N/A - Med Ordered
--- NOTE | 2021-11-19 10:58 | PM.PNCARD ---
Subjective Subjective Date of Service: 11/19/21 Interval history: She states that she feels okay. No specific cardiac complaints at this time. Review of Systems Review of Systems Yes all other systems are reviewed and are negative Constitutional: Reports as per HPI Eyes: Reports as per HPI Reports as per HPI Cardiovascular: Reports as per HPI, Denies acrocyanosis, Denies cool extremities, Denies chest pain, Denies leg edema, Denies lightheadedness, Denies palpitations and Denies dyspnea Respiratory: Reports as per HPI, Reports no additional respiratory complaints and Denies dyspnea Gastrointestinal: Reports as per HPI and Reports no additional gastrointestinal complaints Genitourinary: Reports as per HPI Musculoskeletal: Reports no additional musculoskeletal complaints and Reports as per HPI Skin/Breast: Reports system reviewed and no additional complaints, except as docu Reports system reviewed and no additional complaints, except as documented and Reports as per HPI Psychiatric: Reports no additional psychiatric complaints and Reports as per HPI Endocrine: Reports no additional endocrine complaints, Reports as per HPI and Denies palpitations Hematologic/Lymphatic: Reports no additional hematologic/lymphatic complaints and Reports as per HPI Allergic/Immunologic: Reports no additional allergic/immunologic complaints and Reports as per HPI Physical Exam Vital Signs: Last Vital Signs Temp 97.9 F 11/19/21 07:20 Pulse 111 H 11/19/21 07:20 Resp 20 11/19/21 07:20 BP 129/72 11/19/21 07:20 Pulse Ox 96 11/19/21 07:20 O2 Del Method 11/19/21 07:20 BMI result Body Mass Index 26.9 Const General: comfortable and no acute distress Orientation/consciousness: patient oriented x3 HEENT Other: Unremarkable Head: Yes normal to inspection Neck Neck: Yes normal visual inspection Chest Chest palpation & inspection: normal inspection of the chest Resp Auscultation: clear to auscultation bilaterally Cardio Palpation: normal PMI Heart sounds: S1 normal heart sound present, S2 normal heart sound present, no gallops, no murmurs and no rubs GI Palpation (GI): Soft to palpation Back/Spine/Pelvis Other: unremarkable Skin General skin exam: no rashes or lesions noted Neuro General: patient oriented x3 Extrem General: Yes normal to inspection Psych Mental Status: mental status grossly normal Objective Labs and Meds Result diagrams: 11/19/21 05:58 11/19/21 05:58 Lab results: Laboratory Results - last 24 hr 11/18/21 11/18/21 11/18/21 06:23 11:03 16:47 WBC RBC Hgb Hct MCV MCH MCHC RDW Plt Count MPV Absolute Nucleated RBC Nucleated RBC % (auto) Sodium Potassium Chloride Carbon Dioxide Anion Gap BUN Creatinine Estim Creat Clear Calc Estimated GFR POC Glucose 246 H 118 H Fasting Glucose Calcium Vitamin B12 214 Folate 14.2 11/18/21 11/19/21 11/19/21 21:18 05:58 05:58 WBC 12.9 H RBC 4.64 Hgb 10.9 L Hct 35.8 L MCV 77.2 L MCH 23.5 L MCHC 30.4 L RDW 16.0 Plt Count 341 MPV 8.9 L Absolute Nucleated RBC 0.000 Nucleated RBC % (auto) 0.0 Sodium 139 Potassium 4.2 Chloride 108 Carbon Dioxide 24 Anion Gap 11 L BUN 12 Creatinine 0.92 Estim Creat Clear Calc 43.0 Estimated GFR 59 POC Glucose 158 H Fasting Glucose 177 H Calcium 9.3 Vitamin B12 Folate 11/19/21 07:19 WBC RBC Hgb Hct MCV MCH MCHC RDW Plt Count MPV Absolute Nucleated RBC Nucleated RBC % (auto) Sodium Potassium Chloride Carbon Dioxide Anion Gap BUN Creatinine Estim Creat Clear Calc Estimated GFR POC Glucose 177 H Fasting Glucose Calcium Vitamin B12 Folate Progress Note: A&P Assessment and plan (1) Atrial flutter with rapid ventricular response: Status: Acute Plan She continues to be in atrial flutter with rapid rate. She is on high dose of beta-blockers at Toprol-XL 150 mg daily. Discussed about transesophageal echocardiogram/cardioversion. She is agreeable. We can schedule this for later today. Keep NPO. Continue with anticoagulation. With regard to anemia workup, plan for eventual EGD/colonoscopy. Consult reviewed. Time Spent With Patient Time: Total time spent is greater than 50% in coordination of care (as documented) at patient's floor/unit and/or counseling patient: 35min. Progress Note: Quality Stroke Does the patient have a stroke diagnosis?: No Procedures Date of Service Date of Service: 11/19/21
--- NOTE | 2021-11-19 11:02 | MHC.SHP ---
Pre-Procedural Eval Section A Date of Service: 11/19/21 Section B Chief Complaint: Fall, Atrial flutter Allergies: Allergies Allergy/AdvReac Type Severity Reaction Status Date / Time influenza virus vaccine, Allergy Intermediate STIFFNESS,LIMITED Verified 09/27/20 11:28 specific FUNCTION [FLU VACCINE] AFFECTED ARM/HAND Plan I have reviewed the history and physical and performed a pertinent physical examination on my patient. No changes have occurred unless specified.
[2021-11-19 11:08] LABS: Glucose, Whole Blood 156 mg/dL (60-115)
--- NOTE | 2021-11-19 12:14 | MHC.CM.PN ---
IMM addressed, original to patient and copy filed in chart.
--- NOTE | 2021-11-19 13:43 | P.CONAN_ITS ---
HPI - Anesthesia Eval Consult details Narrative: 75 yo female patient for AARON, [facility] Active Problems Active Problems: All Active Problems (Updated 11/19/21 @ 10:59 by Titus Elam MD) Atrial flutter with rapid ventricular response (Acute) Iron deficiency anemia (Acute) Hypertension (Acute) Diabetes mellitus (Acute) Depression (Acute) New onset atrial flutter (Acute) Breast calcification, right (Acute) Past Medical History Medical History (Updated 11/19/21 @ 10:59 by Titus Elam MD) Breast calcification, right Depression Diabetes mellitus Hypertension Family History Family History (Updated 11/17/21 @ 07:47 by Ismael Lanier MD) Father Depression Family history of problems with anesthesia: No Surgical History Surgical History History of section History of cholecystectomy History of Problems with Anesthesia: No Social History Social History Household Members: None Housing: House Do you presently have visiting nurse or other home services: No Alcohol intake: current Alcohol intake frequency: holidays/special occasions only Patient Tobacco Use Status: Never used Tobacco Use of substances other than those prescribed or required for medical reasons: No Currently Displaying Signs/Symptoms of Drug Intoxication Withdrawal: No Have you been hit, kicked, punched, or otherwise hurt by someone within the past year? If so, by whom?: No Do you feel safe in your current relationship?: No Current Relationship Is there a partner from a previous relationship who is making you feel unsafe now?: No Are you made to feel afraid or neglected: No Are you DNR?: No Advance Directives: No Advance Directives Information Provided: Yes Do you have thoughts of harming others: None Do you have a plan to hurt others: No Plan Recently lost weight without trying: No Eating poorly because of decreased appetite: No Nutrition Risks: No Nutritional Risk Patient : No service: No Current occupational status: retired Meds Allergies Allergy/AdvReac Type Severity Reaction Status Date / Time influenza virus vaccine, Allergy Intermediate STIFFNESS,LIMITED Verified 09/27/20 11:28 specific FUNCTION [FLU VACCINE] AFFECTED ARM/HAND Active Medications: Current Medications Acetaminophen (Acetaminophen 325 Mg Tablet) 650 mg PO Q6H PRN PRN Reason: Pain, Mild (Pain Scale 1-3) Last Admin: 11/19/21 06:42 Dose: 650 mg Apixaban (Apixaban 5 Mg Tablet) 5 mg PO BID [facility] Last Admin: 11/19/21 09:05 Dose: 5 mg Atorvastatin Calcium (Atorvastatin Calcium 20 Mg Tablet) 20 mg PO BEDTIME [facility] Last Admin: 11/18/21 21:57 Dose: 20 mg Dextrose (Dextrose 50 % 25 Gm/50 Ml Syringe) 25 gm IVPUSH Q15M PRN; Protocol PRN Reason: per Hypoglycemia Standing Ord. Glucose (Glucose Gel 15 Gm Gel..Gram.) 15 gm PO Q15M PRN; Protocol PRN Reason: per Hypoglycemia Standing Ord. Insulin Human Lispro (Insulin Lispro 100 Unit/Ml 3 Ml Vial) 0 unit SUBCUT QIDACHS [facility]; Protocol Last Admin: 11/19/21 11:15 Dose: Not Given Toone Carbonate (Toone Carbonate Er 450 Mg Tablet.Er) 450 mg PO BEDTIME [facility] Last Admin: 11/18/21 21:58 Dose: 450 mg Melatonin (Melatonin 3 Mg Tablet) 6 mg PO BEDTIME PRN PRN Reason: Insomnia Metoprolol Succinate (Metoprolol Succinate Er 50 Mg Tab.Er.24h) 150 mg PO DAILY [facility]; Protocol Last Admin: 11/19/21 09:06 Dose: Not Given Senna (Sennosides 8.6 Mg Tablet) 17.2 mg PO BEDTIME PRN PRN Reason: Constipation Sodium Chloride (0.9 % Sodium Chloride Flush 3 Ml Syringe) 3 ml IVFLUSH QSHIFT [facility] Last Admin: 11/19/21 09:04 Dose: Not Given Exam Exam Date and Time: November 19, 2021 1343 Height,Weight and Vital Signs: Height 5 ft Weight 62.7 kg Last Vital Signs Temp 97.2 F 11/19/21 11:03 Pulse 111 H 11/19/21 11:03 Resp 20 11/19/21 11:03 BP 132/96 H 11/19/21 11:03 Pulse Ox 96 11/19/21 11:03 O2 Del Method 11/19/21 11:03 Vital Signs Temp Pulse Resp BP Pulse Ox O2 Del Method 11/19/21 13:56 97.4 F 114 H 16 166/88 H 96 Room Air 11/19/21 11:03 97.2 F 111 H 20 132/96 H 96 Room Air 11/19/21 07:20 97.9 F 111 H 20 129/72 96 Room Air 11/19/21 04:00 99.5 F 107 H 16 131/64 93 Room Air 11/18/21 23:30 99.6 F 110 H 14 144/69 H 93 Room Air 11/18/21 20:00 97.8 F 110 H 18 137/78 95 Room Air 11/18/21 15:41 97.8 F 108 H 18 139/84 98 Room Air Pertinent Lab Results Pertinent Lab Results: Laboratory Tests 11/16/21 11/16/21 11/16/21 21:21 22:34 22:34 WBC 8.7 RBC 5.00 Hgb 11.7 L Hct 38.5 MCV 77.0 L MCH 23.4 L MCHC 30.4 L RDW 15.9 Plt Count 354 MPV 9.0 L Immature Gran % (Auto) 0.5 H Neut % (Auto) 67.0 Lymph % (Auto) 23.7 [place] % (Auto) 6.0 Eos % (Auto) 2.1 Baso % (Auto) 0.7 Lymph # (Auto) 2.1 [place] # (Auto) 0.5 Eos # (Auto) 0.2 Baso # (Auto) 0.1 Abs Immat Gran (auto) 0.04 H Absolute Neuts (auto) 5.8 Absolute Nucleated RBC 0.000 Nucleated RBC % (auto) 0.0 Sodium 139 Potassium 4.5 Chloride 104 Carbon Dioxide 26 Anion Gap 14 BUN 15 Creatinine 0.84 Estim Creat Clear Calc 47.3 Estimated GFR > 60 POC Glucose 143 H Random Glucose 181 H Fasting Glucose Calcium 9.7 Iron TIBC % Saturation Unsat Iron Binding Ferritin Total Bilirubin 0.5 Direct Bilirubin 0.2 AST 16 ALT 11 Alkaline Phosphatase 77 Troponin I High Sens B-Natriuretic Peptide Total Protein 7.1 Albumin 4.3 Lipase 20 Vitamin B12 Folate TSH 1.23 Urine Color Urine Appearance Urine pH Ur Specific [place] Urine Protein Urine Glucose (UA) Urine Ketones Urine Blood Urine Nitrite Ur Leukocyte Esterase Urine RBC Urine WBC Ur Squamous Epith Cells Urine Bacteria Urine Mucus Influenza Type A (PCR) Influenza Type B (PCR) RSV RNA Qual (PCR) SARS-CoV-2 RNA (RT-PCR) 11/16/21 11/16/21 11/16/21 22:34 22:34 22:35 WBC RBC Hgb Hct MCV MCH MCHC RDW Plt Count MPV Immature Gran % (Auto) Neut % (Auto) Lymph % (Auto) [place] % (Auto) Eos % (Auto) Baso % (Auto) Lymph # (Auto) [place] # (Auto) Eos # (Auto) Baso # (Auto) Abs Immat Gran (auto) Absolute Neuts (auto) Absolute Nucleated RBC Nucleated RBC % (auto) Sodium Potassium Chloride Carbon Dioxide Anion Gap BUN Creatinine Estim Creat Clear Calc Estimated GFR POC Glucose Random Glucose Fasting Glucose Calcium Iron TIBC % Saturation Unsat Iron Binding Ferritin Total Bilirubin Direct Bilirubin AST ALT Alkaline Phosphatase Troponin I High Sens < 3.5 B-Natriuretic Peptide 130 H Total Protein Albumin Lipase Vitamin B12 Folate TSH Urine Color Urine Appearance Urine pH Ur Specific [place] Urine Protein Urine Glucose (UA) Urine Ketones Urine Blood Urine Nitrite Ur Leukocyte Esterase Urine RBC Urine WBC Ur Squamous Epith Cells Urine Bacteria Urine Mucus Influenza Type A (PCR) NEGATIVE Influenza Type B (PCR) NEGATIVE RSV RNA Qual (PCR) NEGATIVE SARS-CoV-2 RNA (RT-PCR) NEGATIVE 11/17/21 11/17/21 11/17/21 02:44 06:44 06:44 WBC 8.9 RBC 4.72 Hgb 11.0 L Hct 36.7 L MCV 77.8 L MCH 23.3 L MCHC 30.0 L RDW 15.9 Plt Count 336 MPV 8.9 L Immature Gran % (Auto) 0.3 Neut % (Auto) 56.2 Lymph % (Auto) 34.3 [place] % (Auto) 6.5 Eos % (Auto) 2.0 Baso % (Auto) 0.7 Lymph # (Auto) 3.1 [place] # (Auto) 0.6 Eos # (Auto) 0.2 Baso # (Auto) 0.1 Abs Immat Gran (auto) 0.03 Absolute Neuts (auto) 5.0 Absolute Nucleated RBC 0.000 Nucleated RBC % (auto) 0.0 Sodium 139 Potassium 3.9 Chloride 107 Carbon Dioxide 23 Anion Gap 13 BUN 14 Creatinine 0.77 Estim Creat Clear Calc 51.7 Estimated GFR > 60 POC Glucose Random Glucose 139 H Fasting Glucose Calcium 9.2 Iron 47 TIBC 404 % Saturation 12 L Unsat Iron Binding 357 Ferritin 7 L Total Bilirubin Direct Bilirubin AST ALT Alkaline Phosphatase Troponin I High Sens B-Natriuretic Peptide Total Protein Albumin Lipase Vitamin B12 Folate TSH Urine Color YELLOW Urine Appearance CLEAR Urine pH 7.0 Ur Specific [place] 1.010 Urine Protein NEG Urine Glucose (UA) NEG Urine Ketones NEG Urine Blood NEG Urine Nitrite NEG Ur Leukocyte Esterase 1+ H Urine RBC 1-4 Urine WBC 1-4 Ur Squamous Epith Cells 1+ Urine Bacteria 2+ Urine Mucus 2+ Influenza Type A (PCR) Influenza Type B (PCR) RSV RNA Qual (PCR) SARS-CoV-2 RNA (RT-PCR) 11/17/21 11/17/21 11/17/21 07:11 12:41 18:05 WBC RBC Hgb Hct MCV MCH MCHC RDW Plt Count MPV Immature Gran % (Auto) Neut % (Auto) Lymph % (Auto) [place] % (Auto) Eos % (Auto) Baso % (Auto) Lymph # (Auto) [place] # (Auto) Eos # (Auto) Baso # (Auto) Abs Immat Gran (auto) Absolute Neuts (auto) Absolute Nucleated RBC Nucleated RBC % (auto) Sodium Potassium Chloride Carbon Dioxide Anion Gap BUN Creatinine Estim Creat Clear Calc Estimated GFR POC Glucose 126 H 197 H 156 H Random Glucose Fasting Glucose Calcium Iron TIBC % Saturation Unsat Iron Binding Ferritin Total Bilirubin Direct Bilirubin AST ALT Alkaline Phosphatase Troponin I High Sens B-Natriuretic Peptide Total Protein Albumin Lipase Vitamin B12 Folate TSH Urine Color Urine Appearance Urine pH Ur Specific [place] Urine Protein Urine Glucose (UA) Urine Ketones Urine Blood Urine Nitrite Ur Leukocyte Esterase Urine RBC Urine WBC Ur Squamous Epith Cells Urine Bacteria Urine Mucus Influenza Type A (PCR) Influenza Type B (PCR) RSV RNA Qual (PCR) SARS-CoV-2 RNA (RT-PCR) 11/17/21 11/18/21 11/18/21 22:03 06:23 06:23 WBC 8.6 RBC 4.93 Hgb 11.5 L Hct 37.7 MCV 76.5 L MCH 23.3 L MCHC 30.5 L RDW 16.2 H Plt Count 365 MPV 8.8 L Immature Gran % (Auto) Neut % (Auto) Lymph % (Auto) [place] % (Auto) Eos % (Auto) Baso % (Auto) Lymph # (Auto) [place] # (Auto) Eos # (Auto) Baso # (Auto) Abs Immat Gran (auto) Absolute Neuts (auto) Absolute Nucleated RBC 0.000 Nucleated RBC % (auto) 0.0 Sodium 137 Potassium 4.0 Chloride 104 Carbon Dioxide 25 Anion Gap 12 BUN 12 Creatinine 0.88 Estim Creat Clear Calc 45.0 Estimated GFR > 60 POC Glucose 180 H Random Glucose Fasting Glucose 185 H Calcium 9.8 D Iron TIBC % Saturation Unsat Iron Binding Ferritin Total Bilirubin Direct Bilirubin AST ALT Alkaline Phosphatase Troponin I High Sens B-Natriuretic Peptide Total Protein Albumin Lipase Vitamin B12 Folate TSH Urine Color Urine Appearance Urine pH Ur Specific [place] Urine Protein Urine Glucose (UA) Urine Ketones Urine Blood Urine Nitrite Ur Leukocyte Esterase Urine RBC Urine WBC Ur Squamous Epith Cells Urine Bacteria Urine Mucus Influenza Type A (PCR) Influenza Type B (PCR) RSV RNA Qual (PCR) SARS-CoV-2 RNA (RT-PCR) 11/18/21 11/18/21 11/18/21 06:23 07:46 11:03 WBC RBC Hgb Hct MCV MCH MCHC RDW Plt Count MPV Immature Gran % (Auto) Neut % (Auto) Lymph % (Auto) [place] % (Auto) Eos % (Auto) Baso % (Auto) Lymph # (Auto) [place] # (Auto) Eos # (Auto) Baso # (Auto) Abs Immat Gran (auto) Absolute Neuts (auto) Absolute Nucleated RBC Nucleated RBC % (auto) Sodium Potassium Chloride Carbon Dioxide Anion Gap BUN Creatinine Estim Creat Clear Calc Estimated GFR POC Glucose 174 H 246 H Random Glucose Fasting Glucose Calcium Iron TIBC % Saturation Unsat Iron Binding Ferritin Total Bilirubin Direct Bilirubin AST ALT Alkaline Phosphatase Troponin I High Sens B-Natriuretic Peptide Total Protein Albumin Lipase Vitamin B12 214 Folate 14.2 TSH Urine Color Urine Appearance Urine pH Ur Specific [place] Urine Protein Urine Glucose (UA) Urine Ketones Urine Blood Urine Nitrite Ur Leukocyte Esterase Urine RBC Urine WBC Ur Squamous Epith Cells Urine Bacteria Urine Mucus Influenza Type A (PCR) Influenza Type B (PCR) RSV RNA Qual (PCR) SARS-CoV-2 RNA (RT-PCR) 11/18/21 11/18/21 11/19/21 16:47 21:18 05:58 WBC 12.9 H RBC 4.64 Hgb 10.9 L Hct 35.8 L MCV 77.2 L MCH 23.5 L MCHC 30.4 L RDW 16.0 Plt Count 341 MPV 8.9 L Immature Gran % (Auto) Neut % (Auto) Lymph % (Auto) [place] % (Auto) Eos % (Auto) Baso % (Auto) Lymph # (Auto) [place] # (Auto) Eos # (Auto) Baso # (Auto) Abs Immat Gran (auto) Absolute Neuts (auto) Absolute Nucleated RBC 0.000 Nucleated RBC % (auto) 0.0 Sodium Potassium Chloride Carbon Dioxide Anion Gap BUN Creatinine Estim Creat Clear Calc Estimated GFR POC Glucose 118 H 158 H Random Glucose Fasting Glucose Calcium Iron TIBC % Saturation Unsat Iron Binding Ferritin Total Bilirubin Direct Bilirubin AST ALT Alkaline Phosphatase Troponin I High Sens B-Natriuretic Peptide Total Protein Albumin Lipase Vitamin B12 Folate TSH Urine Color Urine Appearance Urine pH Ur Specific [place] Urine Protein Urine Glucose (UA) Urine Ketones Urine Blood Urine Nitrite Ur Leukocyte Esterase Urine RBC Urine WBC Ur Squamous Epith Cells Urine Bacteria Urine Mucus Influenza Type A (PCR) Influenza Type B (PCR) RSV RNA Qual (PCR) SARS-CoV-2 RNA (RT-PCR) 11/19/21 11/19/21 11/19/21 05:58 07:19 11:02 WBC RBC Hgb Hct MCV MCH MCHC RDW Plt Count MPV Immature Gran % (Auto) Neut % (Auto) Lymph % (Auto) [place] % (Auto) Eos % (Auto) Baso % (Auto) Lymph # (Auto) [place] # (Auto) Eos # (Auto) Baso # (Auto) Abs Immat Gran (auto) Absolute Neuts (auto) Absolute Nucleated RBC Nucleated RBC % (auto) Sodium 139 Potassium 4.2 Chloride 108 Carbon Dioxide 24 Anion Gap 11 L BUN 12 Creatinine 0.92 Estim Creat Clear Calc 43.0 Estimated GFR 59 POC Glucose 177 H 156 H Random Glucose Fasting Glucose 177 H Calcium 9.3 Iron TIBC % Saturation Unsat Iron Binding Ferritin Total Bilirubin Direct Bilirubin AST ALT Alkaline Phosphatase Troponin I High Sens B-Natriuretic Peptide Total Protein Albumin Lipase Vitamin B12 Folate TSH Urine Color Urine Appearance Urine pH Ur Specific [place] Urine Protein Urine Glucose (UA) Urine Ketones Urine Blood Urine Nitrite Ur Leukocyte Esterase Urine RBC Urine WBC Ur Squamous Epith Cells Urine Bacteria Urine Mucus Influenza Type A (PCR) Influenza Type B (PCR) RSV RNA Qual (PCR) SARS-CoV-2 RNA (RT-PCR) Airway Mallampati Class: II TM Dist: >3cm Neck ROM: Full Loose/Missing/Broken Teeth: No (Patient denies) Heart: RRR ?murmur Lungs: CTAB Assessment and Plan Assessment Anesthesia Assessment: Anesthesia Plan Discussed and Chart Reviewed Final Anesthetic Review Family History of Problems with Anesthesia: No History of Problems with Anesthesia: No NPO: Yes ASA Class: III Final Preanesthetic Review: No Changes in Pt Med Stat, Meds/Allgs Chart Reviewed, Consent Obtained/Reviewed and Anes Risks/Benef Reviewed Patient Risk: Intermediate Procedure Risk: Intermediate Assessment/Block/Sedation in SS: Assess/Block/Sedation-SS Anesthetic Plan Anesthetic Plan: MAC: Disposition: Standard PACU and Inp. Admit - [facility]
[2021-11-19] MEDS: Lactated Ringers 1,000 ML 50 ML IVCONT (14:12)
--- NOTE | 2021-11-19 14:18 | PC.NURSE ---
iv removed from left ac. warm to touch and redness noted. denies pain. marked with skin marker.
--- NOTE | 2021-11-19 14:30 | CA_ITS ---
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 There is no evidence of a thrombus in the left atrial appendage. Findings Left Ventricle Normal left ventricular cavity size. The left ventricular systolic function is normal. The visually estimated ejection fraction is between 65-70%. There is no evidence of regional wall motion abnormalities. Right Ventricle Normal right ventricular cavity size and systolic function. Atria There is no evidence of a thrombus in the left atrial appendage. Aortic Valve There is a normal trileaflet aortic valve. There is mild calcification of the aortic valve. There is no aortic valve stenosis. There is trace (trivial) aortic valve regurgitation. Mitral Valve The mitral valve appears normal. There is trace mitral valve regurgitation. There is no mitral valve stenosis. Pulmonic Valve The pulmonic valve was not well visualized. Tricuspid Valve Normal tricuspid valve structure. There is mild to moderate tricuspid valve regurgitation. Great Vessels The aortic annulus, sinuses of valsalva, and asc aorta are normal in size. Small plaque is seen in the arch. Pericardium/Pleural There is no evidence of pericardial effusion. Prior Study Comparison No significant change compared to prior study dated: 11/19/2021. Updated by Titus Elam on 03:36 PM with Status of Final Titus Elam MD electronically signed on 11/19/2021 3:36:17 PM with status of Final
--- NOTE | 2021-11-19 15:09 | ECG_ITS ---
Test Reason : CARDIOVERSION Blood Pressure : / mmHG Vent. Rate : 080 BPM Atrial Rate : 080 BPM P-R Int : 166 ms QRS Dur : 150 ms QT Int : 408 ms P-R-T Axes : 066 016 -19 degrees QTc Int : 470 ms Normal sinus rhythm Right bundle branch block Abnormal ECG When compared with ECG of 16-NOV-2021 23:28, Sinus rhythm has replaced Atrial flutter Referred By: Renato Mcclure Electronically Signed By:RENATO MCCLURE
--- NOTE | 2021-11-19 15:27 | HO.CARDIVERS ---
Cardioversion Procedure Note Cardioversion Date of Procedure: 11/19/2021 Ordering Provider: Dr. Elam Performing Provider: Dr. Elam Indication for Procedure: Atrial flutter with rapid rate Pre-Op Diagnosis: Atrial flutter with rapid rate Post-Op Diagnosis: Sinus rhythm. AARON findings (if AARON Performed): No evidence of left atrial appendage thrombus. History: See full consultation and follow-up notes. Consent: Informed consent obtained. Procedure: After informed consent was obtained, patient was taken to the operating room. Transesophageal echocardiogram was initially performed. That showed no evidence of left atrial appendage thrombus. Subsequently, 120 joules of synchronized shock was administered through cardioversion pads in the anterior-posterior position. Then converted from atrial flutter with rapid rate to sinus rhythm. She remained in sinus rhythm at the end of procedure. Complications: None. Impression: Successful cardioversion from atrial flutter with rapid rate to sinus rhythm. Recommendations: Will try Multaq. Continue anticoagulation.
[2021-11-19 16:47] LABS: Glucose, Whole Blood 137 mg/dL (60-115)
[2021-11-19] MEDS: Metoprolol Succinate ER 50 MG TAB.ER.24H PO (17:23)
[2021-11-19] MEDS: 0.9 % Sodium Chloride Flush 3 ML SYRINGE IVFLUSH (17:23)
[2021-11-19 21:20] LABS: Glucose, Whole Blood 179 mg/dL (60-115)
[2021-11-19] MEDS: Dronedarone HCl 400 MG TABLET PO (21:48)
[2021-11-19] MEDS: Lithium Carbonate ER 450 MG TABLET.ER PO (21:49)
[2021-11-19] MEDS: Atorvastatin Calcium 20 MG TABLET PO (21:49)
[2021-11-20] VITALS (7 sets, daily range): BP systolic 110–134; BP diastolic 53–72; PULSE 64–75; RESP 16–20; TEMP 35.8–37.1; O2SAT 95–98
[2021-11-20 05:47] LABS: Hematocrit 30.3 % (37.0-47.0); Hemoglobin 9.1 g/dl (12.0-16.0); Mean Corpuscular Hemoglobin 23.4 pg (27.0-33.0); Mean Corpuscular Volume 77.9 fL (80.0-98.0); Mean Platelet Volume 8.9 fL (9.4-12.3); Platelet Count 282 X10*3/uL (160-400); Red Blood Count 3.89 X10*6/uL (4.20-5.50); Red Cell Distribution Width 16.2 % (11.0-16.0); White Blood Count 7.9 X10*3/uL (4.8-10.8)
[2021-11-20 06:27] LABS: Anion Gap 8 (12-20); Blood Urea Nitrogen 13 mg/dL (9-16); Calcium 8.7 mg/dL (8.4-10.2); Carbon Dioxide 25 mmol/L (22-29); Chloride 109 mmol/L (96-108); Creatinine Clr Calc Pharmacy 48.8; Estimated Glomerular Filt Rate > 60; Glucose Fasting 143 mg/dL (60-99); Potassium 4.2 mmol/L (3.3-5.1); Sodium 138 mmol/L (135-145)
[2021-11-20 07:08] LABS: Glucose, Whole Blood 144 mg/dL (60-115)
--- NOTE | 2021-11-20 07:14 | HO.POSTANES ---
Post Anesthesia Evaluation Post Anesthesia Evaluation Vital Signs: Vital Signs Temp Pulse Resp BP Pulse Ox O2 Del Method 11/20/21 03:36 98 F 75 20 121/59 L 96 Room Air 11/19/21 23:35 98.6 F 74 18 120/58 L 94 Room Air 11/19/21 20:00 97.6 F 81 18 159/74 H 97 Anesthesia: Monitored Mental Status: Awake Pain Control: Satisfactory Nausea/Vomiting: None Hydration: Adequate Anesthesia-Related Issues: No Anes. Related Issues
--- NOTE | 2021-11-20 08:11 | ECG_ITS ---
Test Reason : POST CARDIOVERSION Blood Pressure : / mmHG Vent. Rate : 074 BPM Atrial Rate : 074 BPM P-R Int : 182 ms QRS Dur : 146 ms QT Int : 412 ms P-R-T Axes : 063 008 -05 degrees QTc Int : 457 ms Normal sinus rhythm Possible Left atrial enlargement Right bundle branch block Septal infarct , age undetermined Abnormal ECG When compared with ECG of 19-NOV-2021 15:33, No significant changes seen Referred By: Renato Mcclure Electronically Signed By:RENATO MCCLURE
[2021-11-20] MEDS: Dronedarone HCl 400 MG TABLET PO ×2 (09:20→21:09)
[2021-11-20] MEDS: Apixaban 5 MG TABLET PO (09:20)
[2021-11-20] MEDS: Ferrous Sulfate 324 MG TABLET.DR PO (09:20)
[2021-11-20] MEDS: Metoprolol Succinate ER 50 MG TAB.ER.24H PO (09:20)
[2021-11-20] MEDS: 0.9 % Sodium Chloride Flush 3 ML SYRINGE IVFLUSH ×4 (09:21→21:10)
--- NOTE | 2021-11-20 09:58 | MHC.CM.PN ---
Patient has been medically cleared for discharged today. Discharge is plan is Home (self-care).
--- NOTE | 2021-11-20 10:04 | P.PNCA_ITS ---
Subjective Subjective Date of Service: 11/20/21 Interval history: She states that she feels well. No cardiac symptoms at this time. Yesterday, she underwent AARON/cardioversion. Review of Systems Review of Systems Yes all other systems are reviewed and are negative Constitutional: Reports as per HPI Eyes: Reports as per HPI Reports as per HPI Cardiovascular: Reports as per HPI, Denies acrocyanosis, Denies cool extremities, Denies chest pain, Denies leg edema, Denies lightheadedness, Denies palpitations and Denies dyspnea Respiratory: Reports as per HPI, Reports no additional respiratory complaints and Denies dyspnea Gastrointestinal: Reports as per HPI and Reports no additional gastrointestinal complaints Genitourinary: Reports as per HPI Musculoskeletal: Reports no additional musculoskeletal complaints and Reports as per HPI Skin/Breast: Reports system reviewed and no additional complaints, except as docu Reports system reviewed and no additional complaints, except as documented and Reports as per HPI Psychiatric: Reports no additional psychiatric complaints and Reports as per HPI Endocrine: Reports no additional endocrine complaints, Reports as per HPI and Denies palpitations Hematologic/Lymphatic: Reports no additional hematologic/lymphatic complaints and Reports as per HPI Allergic/Immunologic: Reports no additional allergic/immunologic complaints and Reports as per HPI Physical Exam Vital Signs: Last Vital Signs Temp 98.1 F 11/20/21 07:32 Pulse 71 11/20/21 07:32 Resp 18 11/20/21 07:32 BP 122/72 11/20/21 07:32 Pulse Ox 95 11/20/21 07:32 O2 Del Method 11/20/21 07:32 O2 Flow Rate 2 11/19/21 15:49 BMI result Body Mass Index 26.9 Const General: comfortable and no acute distress Orientation/consciousness: patient oriented x3 HEENT Other: Unremarkable Head: Yes normal to inspection Neck Neck: Yes normal visual inspection Chest Chest palpation & inspection: normal inspection of the chest Resp Auscultation: clear to auscultation bilaterally Cardio Palpation: normal PMI Heart sounds: S1 normal heart sound present, S2 normal heart sound present, no gallops, no murmurs and no rubs GI Palpation (GI): Soft to palpation Back/Spine/Pelvis Other: unremarkable Skin General skin exam: no rashes or lesions noted Neuro General: patient oriented x3 Extrem General: Yes normal to inspection Psych Mental Status: mental status grossly normal Objective Labs and Meds Result diagrams: 11/20/21 05:36 11/20/21 05:36 Lab results: Laboratory Results - last 24 hr 11/19/21 11/19/21 11/19/21 11:02 16:45 21:07 WBC RBC Hgb Hct MCV MCH MCHC RDW Plt Count MPV Absolute Nucleated RBC Nucleated RBC % (auto) Sodium Potassium Chloride Carbon Dioxide Anion Gap BUN Creatinine Estim Creat Clear Calc Estimated GFR POC Glucose 156 H 137 H 179 H Fasting Glucose Calcium 11/20/21 11/20/21 11/20/21 05:36 05:36 07:02 WBC 7.9 RBC 3.89 L Hgb 9.1 L Hct 30.3 L MCV 77.9 L MCH 23.4 L MCHC 30.0 L RDW 16.2 H Plt Count 282 MPV 8.9 L Absolute Nucleated RBC 0.000 Nucleated RBC % (auto) 0.0 Sodium 138 Potassium 4.2 Chloride 109 H Carbon Dioxide 25 Anion Gap 8 L BUN 13 Creatinine 0.81 Estim Creat Clear Calc 48.8 Estimated GFR > 60 POC Glucose 144 H Fasting Glucose 143 H Calcium 8.7 D Progress Note: A&P Assessment and plan (1) Atrial flutter with rapid ventricular response: Status: Acute Assessment and Plan: She was in atrial flutter with rapid rate in spite of high dose of beta- blockers. Hence she underwent AARON/cardioversion as today. Converted to sinus rhythm with 120 joules. We can keep her on Multaq and Toprol XL. Continue with anticoagulation with Eliquis. Will also need to check with physical therapy about fall risk. (2) Iron deficiency anemia: Status: Acute Assessment and Plan: Today's hemoglobin is 9.1. Few days ago, it was as much as 11.7. Will need to check with Gastroenterology regarding timing of EGD/colonoscopy. May need it sooner than later. From cardiac, may proceed with the above as it is important to ensure there is no active GI blood loss. Plan Discussed with regarding plan of care. Time Spent With Patient Time: Total time spent is greater than 50% in coordination of care (as documented) at patient's floor/unit and/or counseling patient: 35min. Progress Note: Quality Stroke Does the patient have a stroke diagnosis?: No Procedures Date of Service Date of Service: 11/20/21
--- NOTE | 2021-11-20 10:05 | PM.DS ---
DS: Providers Provider Date of Service: 11/20/21 Date of admission: 11/19/21 11:11 Primary care physician: Darian Rivera MD Consults: 11/16/21 23:30 Consult to Cardiology Routine Consulting Provider: Ariel Whitlock Reason for consultation: syncope; afib 11/17/21 12:28 Consult to Gastroenterology Routine Consulting Provider: Celesitno Krishnamurthy Reason for consultation: iron defeciency anemia (new aflutter starting on eliquis) DS: Diagnosis Discharge Diagnosis (1) Atrial flutter with rapid ventricular response: Status: Acute DS: Summary Hospital Course Hospital Course: from initial hpi: Time Spent with Patient Time attestation: Total time spent providing and/or coordinating discharge services: Discharge coordination time: Greater than 30 minutes Quality: Safe Use of Opioids Does Pt have an Active Cancer Diagnosis on the Problem List?: No Quality: Stroke Does the patient have a stroke diagnosis?: No Physical Exam Vital Signs: Vital Signs: Last Vital Signs Temp 98.1 F 11/20/21 07:32 Pulse 71 11/20/21 07:32 Resp 18 11/20/21 07:32 BP 122/72 11/20/21 07:32 Pulse Ox 95 11/20/21 07:32 O2 Del Method 11/20/21 07:32 O2 Flow Rate 2 11/19/21 15:49 BMI result Body Mass Index 26.9 DS: Data Data Completed and Pending Labs on day of discharge: Laboratory Results - last 24 hr 11/19/21 11/19/21 11/19/21 11:02 16:45 21:07 WBC RBC Hgb Hct MCV MCH MCHC RDW Plt Count MPV Absolute Nucleated RBC Nucleated RBC % (auto) Sodium Potassium Chloride Carbon Dioxide Anion Gap BUN Creatinine Estim Creat Clear Calc Estimated GFR POC Glucose 156 H 137 H 179 H Fasting Glucose Calcium 11/20/21 11/20/21 11/20/21 05:36 05:36 07:02 WBC 7.9 RBC 3.89 L Hgb 9.1 L Hct 30.3 L MCV 77.9 L MCH 23.4 L MCHC 30.0 L RDW 16.2 H Plt Count 282 MPV 8.9 L Absolute Nucleated RBC 0.000 Nucleated RBC % (auto) 0.0 Sodium 138 Potassium 4.2 Chloride 109 H Carbon Dioxide 25 Anion Gap 8 L BUN 13 Creatinine 0.81 Estim Creat Clear Calc 48.8 Estimated GFR > 60 POC Glucose 144 H Fasting Glucose 143 H Calcium 8.7 D Discharge Plan Discharge Patient Disposition: Home, Self-Care Discharge Diagnosis: aflutter, iron deficiency Referrals: Darian Rivera MD [Primary Care Provider] - 1 Week Celestino Krishnamurthy MD [Physician] - 1 Week Discharge Medications: New atorvastatin 20 mg Tablet 20 mg PO BEDTIME Qty: 30 0RF metoprolol succinate 50 mg Tablet Extended Release 24 Hr 50 mg PO DAILY Qty: 30 0RF Protocol: Hold for SBP/HR < HOLD for SBP < : 90 HOLD for HR < : 60 ferrous sulfate 324 mg (65 mg iron) Tablet,Delayed Release (Dr/Ec) 324 mg PO DAILY Qty: 30 0RF Multaq 400 mg Tablet 400 mg PO BID Qty: 60 0RF Eliquis 5 mg Tablet 5 mg PO BID Qty: 60 0RF Continued bisacodyl [Dulcolax (bisacodyl)] 5 mg tablet,delayed release (DR/EC) 10 mg PO ONCE 2 Days Qty: 4 0RF Rx Instructions: Take 2 tablets at 12 pm daily starting 2 days before colonoscopy appointment polyethylene glycol 3350 [Miralax] 17 gram/dose powder 17 g PO DAILY 1 Days Qty: 238 0RF Rx Instructions: Mix Miralax with 64 oz(8 cups) of Crystal light. Take 2 tablets of Dulcolax qt 12 pm. Wait to have your 1st bowel movement, then begin drinking Miralax. Drink a glass of Miralax every 10-15 minutes until you are finished. You will drink at least another 4 cups of clear liquid of your choice over the next 2 hours. Please drink as many clear liquids as possible You may have clear liquids up to four hours before your procedure Discharge Orders: Discharge Order (Routine); Ordered 11/20/21 Ordered By: Ismael Lanier Diet: Advance to usual diet Activity on Discharge: As tolerated Stand Alone Forms: Patient Portal Discharge page Care Plan Goals: avoid aflutter, strokes, work up iron defeciency Health Concerns: aflutter, iron defeciency Plan of Treatment: started eliquis, multaq, toprol, iron, follow up with cardiology and GI Assessment: see above
--- NOTE | 2021-11-20 10:49 | HO.PM.IMPN ---
Subjective Subjective Date of Service: 11/20/21 Interval History: cc: presyncope, fall interval history: no complaints, no overt bleeding Respiratory Respiratory: Reports no additional respiratory complaints Gastrointestinal Gastrointestinal: Reports no additional gastrointestinal complaints Physical Exam Vital Signs: Vital Signs: Last Vital Signs Temp 98.1 F 11/20/21 07:32 Pulse 71 11/20/21 07:32 Resp 18 11/20/21 07:32 BP 122/72 11/20/21 07:32 Pulse Ox 95 11/20/21 07:32 O2 Del Method 11/20/21 07:32 O2 Flow Rate 2 11/19/21 15:49 BMI result Body Mass Index 26.9 General: AO X 3, no acute distress Resp: CTA bilateral, no accessory muscles used CVS: S1,S2,RRR GI: soft, non tender, non distended Neuro: motor grossly intact, alert Psych: appropriate affect, appropriate insight Objective Data Active Medications Acetaminophen (Acetaminophen 325 Mg Tablet) 650 mg PO Q6H PRN PRN Reason: Pain, Mild (Pain Scale 1-3) Last Admin: 11/19/21 06:42 Dose: 650 mg Documented By: YOSELYN Acetaminophen (Acetaminophen 325 Mg Tablet) 650 mg PO ONCE PRN PRN Reason: Pain, Mild (Pain Scale 1-3) Apixaban (Apixaban 5 Mg Tablet) 5 mg PO BID [facility] Last Admin: 11/20/21 09:20 Dose: 5 mg Documented By: JEANA Atorvastatin Calcium (Atorvastatin Calcium 20 Mg Tablet) 20 mg PO BEDTIME [facility] Last Admin: 11/19/21 21:49 Dose: 20 mg Documented By: SRIDEVI Dextrose (Dextrose 50 % 25 Gm/50 Ml Syringe) 25 gm IVPUSH Q15M PRN; Protocol PRN Reason: per Hypoglycemia Standing Ord. Dronedarone (Dronedarone Hcl 400 Mg Tablet) 400 mg PO BID [facility] Last Admin: 11/20/21 09:20 Dose: 400 mg Documented By: JEANA Ferrous Sulfate (Ferrous Sulfate 324 Mg Tablet.Dr) 324 mg PO DAILY [facility] Last Admin: 11/20/21 09:20 Dose: 324 mg Documented By: JEANA Glucose (Glucose Gel 15 Gm Gel..Gram.) 15 gm PO Q15M PRN; Protocol PRN Reason: per Hypoglycemia Standing Ord. Lactated Ringer's (Lr) 1,000 mls @ 50 mls/hr IVCONT .Q20H [facility] Last Admin: 11/19/21 14:12 Dose: 50 mls/hr Documented By: SHERIDAN Insulin Human Lispro (Insulin Lispro 100 Unit/Ml 3 Ml Vial) 0 unit SUBCUT QIDACHS [facility]; Protocol Last Admin: 11/20/21 09:07 Dose: Not Given Documented By: JEANA Non-Admin Reason: No Insulin Coverage [place] Carbonate ([place] Carbonate Er 450 Mg Tablet.Er) 450 mg PO BEDTIME [facility] Last Admin: 11/19/21 21:49 Dose: 450 mg Documented By: BROKajal Melatonin (Melatonin 3 Mg Tablet) 6 mg PO BEDTIME PRN PRN Reason: Insomnia Metoprolol Succinate (Metoprolol Succinate Er 50 Mg Tab.Er.24h) 50 mg PO DAILY [facility]; Protocol Last Admin: 11/20/21 09:20 Dose: 50 mg Documented By: JEANA Ondansetron HCl (Ondansetron Hcl 4 Mg/2 Ml Vial) 4 mg IVPUSH ONCE PRN PRN Reason: Nausea and Vomiting Senna (Sennosides 8.6 Mg Tablet) 17.2 mg PO BEDTIME PRN PRN Reason: Constipation Sodium Chloride (0.9 % Sodium Chloride Flush 3 Ml Syringe) 3 ml IVFLUSH QSHIFT [facility] Last Admin: 11/20/21 09:21 Dose: 3 ml Documented By: JEANA Labs CBC & Chem 7: 11/20/21 05:36 11/20/21 05:36 Labs: Laboratory Results - last 24 hr 11/19/21 11/19/21 11/19/21 11:02 16:45 21:07 MCV MCH MCHC RDW Plt Count MPV Absolute Nucleated RBC Nucleated RBC % (auto) Anion Gap Estim Creat Clear Calc Estimated GFR POC Glucose 156 H 137 H 179 H Fasting Glucose Calcium 11/20/21 11/20/21 11/20/21 05:36 05:36 07:02 MCV 77.9 L MCH 23.4 L MCHC 30.0 L RDW 16.2 H Plt Count 282 MPV 8.9 L Absolute Nucleated RBC 0.000 Nucleated RBC % (auto) 0.0 Anion Gap 8 L Estim Creat Clear Calc 48.8 Estimated GFR > 60 POC Glucose 144 H Fasting Glucose 143 H Calcium 8.7 D Assessment and Plan (1) New onset atrial flutter: Status: Acute Plan 75F presented with syncope, found to have new diagnosis of aflutter with rvr fall and presyncope likely due to new onset atrial flutter with RVR vs mechanical s/p AARON/CV on 11/19 now in sinus continue toprol 50mg and multaq 400mg bid eliquis was started on admission, currently on hold for EGD/colonoscopy chronic microcytic anemia with acute blood loss anemia labs consitent with chronic iron defeciecny anemia, now dropping hgb on eliquis with no overt bleeding GI appreciated, will change plan to inpatient EGD/colonoscopy on 11/22, clears from 11/21 with prep in evening DM insulin metformin on hold mood disorder lithium HTN held amlodipine to allow room for rate controlling meds dvt prophylaxis - eliquis full code reason for continued hospitalization: hgb dropping, plan for inpatient scope Quality Stroke Does the patient have a stroke diagnosis?: No VTE Prior VTE?: No VTE Risk Level:: Medical - moderate - high VTE Device Contraindication: Treatment Not Indicated VTE Drug Contraindication: N/A - Med Ordered
[2021-11-20 11:22] LABS: Glucose, Whole Blood 340 mg/dL (60-115)
[2021-11-20] MEDS: Insulin Lispro 100 UNIT/ML 3 ML VIAL SUBCUT ×2 (12:19→21:07)
--- NOTE | 2021-11-20 13:04 | MHC.CM.PN ---
Per ROUNDS discussion, patient no longer medically cleared for discharge r/t HGB dropping on Eliquis and Inpatient Scope (EGD/Colonoscopy) scheduled for 11/22/21.
[2021-11-20 14:52] LABS: Hematocrit 31.7 % (37.0-47.0); Hemoglobin 9.6 g/dl (12.0-16.0); Mean Corpuscular HGB Conc 30.3 g/dl (31.0-35.0); Mean Corpuscular Hemoglobin 23.6 pg (27.0-33.0); Mean Corpuscular Volume 78.1 fL (80.0-98.0); Mean Platelet Volume 9.1 fL (9.4-12.3); Platelet Count 299 X10*3/uL (160-400); Red Blood Count 4.06 X10*6/uL (4.20-5.50); Red Cell Distribution Width 16.3 % (11.0-16.0); White Blood Count 9.2 X10*3/uL (4.8-10.8)
[2021-11-20 14:58] LABS: INTERNATIONAL NORM RATIO 1.3 (0.9-1.1); Prothrombin Time 15.6 SEC (10.0-13.1)
[2021-11-20 15:00] LABS: Partial Thromboplastin Time 37.2 SEC (24.1-38.0)
[2021-11-20 16:47] LABS: Glucose, Whole Blood 83 mg/dL (60-115)
[2021-11-20] MEDS: Enoxaparin Sodium 60 MG/0.6 ML SYRINGE SUBCUT (18:34)
[2021-11-20 20:53] LABS: Glucose, Whole Blood 266 mg/dL (60-115)
[2021-11-20] MEDS: Atorvastatin Calcium 20 MG TABLET PO (21:09)
[2021-11-20] MEDS: Lithium Carbonate ER 450 MG TABLET.ER PO (21:09)
[2021-11-21] VITALS (9 sets, daily range): BP systolic 110–139; BP diastolic 53–65; PULSE 65–72; RESP 16–20; TEMP 36.4–37.1; O2SAT 95–99
[2021-11-21] MEDS: Enoxaparin Sodium 60 MG/0.6 ML SYRINGE SUBCUT ×2 (05:01→17:33)
[2021-11-21 06:50] LABS: Hematocrit 29.6 % (37.0-47.0); Hemoglobin 8.8 g/dl (12.0-16.0); Hemoglobin 8.9 g/dl (12.0-16.0); Mean Corpuscular HGB Conc 30.1 g/dl (31.0-35.0); Mean Corpuscular HGB Conc 30.3 g/dl (31.0-35.0); Mean Corpuscular Hemoglobin 23.6 pg (27.0-33.0); Mean Corpuscular Hemoglobin 23.7 pg (27.0-33.0); Mean Corpuscular Volume 78.2 fL (80.0-98.0); Mean Corpuscular Volume 78.5 fL (80.0-98.0); Mean Platelet Volume 9.4 fL (9.4-12.3); Platelet Count 268 X10*3/uL (160-400); Platelet Count 274 X10*3/uL (160-400); Red Blood Count 3.71 X10*6/uL (4.20-5.50); Red Blood Count 3.77 X10*6/uL (4.20-5.50); Red Cell Distribution Width 16.4 % (11.0-16.0); Red Cell Distribution Width 16.5 % (11.0-16.0); White Blood Count 8.4 X10*3/uL (4.8-10.8); White Blood Count 8.8 X10*3/uL (4.8-10.8)
[2021-11-21 08:06] LABS: Glucose, Whole Blood 128 mg/dL (60-115)
[2021-11-21 08:08] LABS: Anion Gap 12 (12-20); Blood Urea Nitrogen 13 mg/dL (9-16); Calcium 8.6 mg/dL (8.4-10.2); Carbon Dioxide 21 mmol/L (22-29); Chloride 110 mmol/L (96-108); Creatinine Clr Calc Pharmacy 48.2; Estimated Glomerular Filt Rate > 60; Glucose Fasting 136 mg/dL (60-99); Sodium 139 mmol/L (135-145)
[2021-11-21] MEDS: Dronedarone HCl 400 MG TABLET PO ×2 (09:53→21:40)
[2021-11-21] MEDS: 0.9 % Sodium Chloride Flush 3 ML SYRINGE IVFLUSH ×3 (09:54→21:41)
[2021-11-21] MEDS: Ferrous Sulfate 324 MG TABLET.DR PO (09:54)
[2021-11-21] MEDS: Metoprolol Succinate ER 50 MG TAB.ER.24H PO (09:54)
--- NOTE | 2021-11-21 10:04 | P.PNCA_ITS ---
Subjective Subjective Date of Service: 11/21/21 Interval history: She states that she feels well. No specific cardiac symptoms at this time. Review of Systems Review of Systems Yes all other systems are reviewed and are negative Constitutional: Reports as per HPI Eyes: Reports as per HPI Reports as per HPI Cardiovascular: Reports as per HPI, Denies acrocyanosis, Denies cool extremities, Denies chest pain, Denies leg edema, Denies lightheadedness, Denies palpitations and Denies dyspnea Respiratory: Reports as per HPI, Reports no additional respiratory complaints and Denies dyspnea Gastrointestinal: Reports as per HPI and Reports no additional gastrointestinal complaints Genitourinary: Reports as per HPI Musculoskeletal: Reports no additional musculoskeletal complaints and Reports as per HPI Skin/Breast: Reports system reviewed and no additional complaints, except as docu Reports system reviewed and no additional complaints, except as documented and Reports as per HPI Psychiatric: Reports no additional psychiatric complaints and Reports as per HPI Endocrine: Reports no additional endocrine complaints, Reports as per HPI and Denies palpitations Hematologic/Lymphatic: Reports no additional hematologic/lymphatic complaints and Reports as per HPI Allergic/Immunologic: Reports no additional allergic/immunologic complaints and Reports as per HPI Physical Exam Vital Signs: Last Vital Signs Temp 98.0 F 11/21/21 07:48 Pulse 69 11/21/21 07:48 Resp 16 11/21/21 07:48 BP 110/53 L 11/21/21 07:48 Pulse Ox 97 11/21/21 07:48 O2 Del Method 11/21/21 07:48 O2 Flow Rate 2 11/19/21 15:49 BMI result Body Mass Index 26.9 Const General: comfortable and no acute distress Orientation/consciousness: patient oriented x3 HEENT Other: Unremarkable Head: Yes normal to inspection Neck Neck: Yes normal visual inspection Chest Chest palpation & inspection: normal inspection of the chest Resp Auscultation: clear to auscultation bilaterally Cardio Palpation: normal PMI Heart sounds: S1 normal heart sound present, S2 normal heart sound present, no gallops, no murmurs and no rubs GI Palpation (GI): Soft to palpation Back/Spine/Pelvis Other: unremarkable Skin General skin exam: no rashes or lesions noted Neuro General: patient oriented x3 Extrem General: Yes normal to inspection Psych Mental Status: mental status grossly normal Objective Labs and Meds Result diagrams: 11/21/21 06:27 11/21/21 06:27 Lab results: Laboratory Results - last 24 hr 11/20/21 11/20/21 11/20/21 11:09 14:30 14:30 WBC 9.2 RBC 4.06 L Hgb 9.6 L Hct 31.7 L MCV 78.1 L MCH 23.6 L MCHC 30.3 L RDW 16.3 H Plt Count 299 MPV 9.1 L Absolute Nucleated RBC 0.000 Nucleated RBC % (auto) 0.0 PT 15.6 H INR 1.3 H APTT 37.2 Sodium Potassium Chloride Carbon Dioxide Anion Gap BUN Creatinine Estim Creat Clear Calc Estimated GFR POC Glucose 340 H Fasting Glucose Calcium 11/20/21 11/20/21 11/21/21 16:36 20:44 06:27 WBC 8.4 RBC 3.71 L Hgb 8.8 L Hct 29.0 L MCV 78.2 L MCH 23.7 L MCHC 30.3 L RDW 16.4 H Plt Count 268 MPV 9.4 Absolute Nucleated RBC 0.000 Nucleated RBC % (auto) 0.0 PT INR APTT Sodium Potassium Chloride Carbon Dioxide Anion Gap BUN Creatinine Estim Creat Clear Calc Estimated GFR POC Glucose 83 266 H Fasting Glucose Calcium 11/21/21 11/21/21 11/21/21 06:27 06:27 07:52 WBC 8.8 RBC 3.77 L Hgb 8.9 L Hct 29.6 L MCV 78.5 L MCH 23.6 L MCHC 30.1 L RDW 16.5 H Plt Count 274 MPV 9.4 Absolute Nucleated RBC 0.000 Nucleated RBC % (auto) 0.0 PT INR APTT Sodium 139 Potassium 4.0 Chloride 110 H Carbon Dioxide 21 L Anion Gap 12 BUN 13 Creatinine 0.82 Estim Creat Clear Calc 48.2 Estimated GFR > 60 POC Glucose 128 H Fasting Glucose 136 H Calcium 8.6 Progress Note: A&P Assessment and plan (1) Atrial flutter with rapid ventricular response: Status: Acute Assessment and Plan: Status post AARON and cardioversion. Continue Multaq, beta-blockers. Currently on anticoagulation with Eliquis but she is also having decreasing hemoglobin. May need transfusion as well. Will also need to check with physical therapy about fall risk. Not on telemetry at this time. Advised to keep her on telemetry. Discussed with community mental health social worker. (2) Iron deficiency anemia: Status: Acute Assessment and Plan: Today's hemoglobin is 8.9. Few days ago, it was as much as 11.7. Plan for EGD/colonoscopy tomorrow. May proceed from cardiac. Otherwise, consider transfusion. Plan Discussed with Dr. Montanez regarding plan of care. Time Spent With Patient Time: Total time spent is greater than 50% in coordination of care (as documented) at patient's floor/unit and/or counseling patient: 35min. Progress Note: Quality Stroke Does the patient have a stroke diagnosis?: No Procedures Date of Service Date of Service: 11/21/21
[2021-11-21 11:56] LABS: Glucose, Whole Blood 292 mg/dL (60-115)
[2021-11-21] MEDS: Insulin Lispro 100 UNIT/ML 3 ML VIAL SUBCUT ×3 (12:27→21:40)
--- NOTE | 2021-11-21 14:39 | HO.PM.IMPN ---
Subjective Subjective Date of Service: 11/21/21 Interval History: the patient was seen and evaluated this morning Laying in bed, feels comfortable Hemoglobin dropped to 8.9 Denies any fever, chills or shortness of breath No reported other overnight events. Systemic review: No fever, chills or weakness No chest pain, palpitation No shortness of breath or coughing No abdominal pain, nausea or vomiting No urinary symptoms No any rash or wounds Physical Exam Vital Signs: Vital Signs: Last Vital Signs Temp 98.2 F 11/21/21 11:46 Pulse 66 11/21/21 11:46 Resp 17 11/21/21 11:46 BP 119/58 L 11/21/21 11:46 Pulse Ox 95 11/21/21 13:52 O2 Del Method 11/21/21 13:52 O2 Flow Rate 2 11/19/21 15:49 BMI result Body Mass Index 26.9 Const: Other: Constitutional : Alert, oriented, not in distress Neck : Normal inspection, Supple Cardiovascular : RRR, no JVP, no lower extremity edema Respiratory : fair bilateral air entry, no crackles, wheezes or rhonchi Gastrointestinal: soft, lax, Normal bowel sounds, Non tender Skin : Warm, Dry Neurological : Alert & oriented x3, No focal deficit , CN 2-12 within normal Objective Data Active Medications Acetaminophen (Acetaminophen 325 Mg Tablet) 650 mg PO Q6H PRN PRN Reason: Pain, Mild (Pain Scale 1-3) Last Admin: 11/19/21 06:42 Dose: 650 mg Documented By: YOSELYN Acetaminophen (Acetaminophen 325 Mg Tablet) 650 mg PO ONCE PRN PRN Reason: Pain, Mild (Pain Scale 1-3) Apixaban (Apixaban 5 Mg Tablet) 5 mg PO BID [facility] Last Admin: 11/20/21 09:20 Dose: 5 mg Documented By: JEANA Atorvastatin Calcium (Atorvastatin Calcium 20 Mg Tablet) 20 mg PO BEDTIME [facility] Last Admin: 11/20/21 21:09 Dose: 20 mg Documented By: PATRICIA Dextrose (Dextrose 50 % 25 Gm/50 Ml Syringe) 25 gm IVPUSH Q15M PRN; Protocol PRN Reason: per Hypoglycemia Standing Ord. Dronedarone (Dronedarone Hcl 400 Mg Tablet) 400 mg PO BID [facility] Last Admin: 11/21/21 09:53 Dose: 400 mg Documented By: JEANA Enoxaparin Sodium (Enoxaparin Sodium 60 Mg/0.6 Ml Syringe) 60 mg 1 mg/kg (60 mg) SUBCUT Q12H [facility] Stop: 11/21/21 19:00 Last Admin: 11/21/21 05:01 Dose: 60 mg Documented By: PATRICIA Ferrous Sulfate (Ferrous Sulfate 324 Mg Tablet.Dr) 324 mg PO DAILY [facility] Last Admin: 11/21/21 09:54 Dose: 324 mg Documented By: JEANA Glucose (Glucose Gel 15 Gm Gel..Gram.) 15 gm PO Q15M PRN; Protocol PRN Reason: per Hypoglycemia Standing Ord. Insulin Human Lispro (Insulin Lispro 100 Unit/Ml 3 Ml Vial) 0 unit SUBCUT QIDACHS [facility]; Protocol Last Admin: 11/21/21 12:27 Dose: 6 unit Documented By: JEANA Navy Carbonate ([place] Carbonate Er 450 Mg Tablet.Er) 450 mg PO BEDTIME [facility] Last Admin: 11/20/21 21:09 Dose: 450 mg Documented By: PATRICIA Melatonin (Melatonin 3 Mg Tablet) 6 mg PO BEDTIME PRN PRN Reason: Insomnia Metoprolol Succinate (Metoprolol Succinate Er 50 Mg Tab.Er.24h) 50 mg PO DAILY [facility]; Protocol Last Admin: 11/21/21 09:54 Dose: 50 mg Documented By: JEANA Ondansetron HCl (Ondansetron Hcl 4 Mg/2 Ml Vial) 4 mg IVPUSH ONCE PRN PRN Reason: Nausea and Vomiting Senna (Sennosides 8.6 Mg Tablet) 17.2 mg PO BEDTIME PRN PRN Reason: Constipation Sodium Chloride (0.9 % Sodium Chloride Flush 3 Ml Syringe) 3 ml IVFLUSH QSHIFT [facility] Last Admin: 11/21/21 09:54 Dose: 3 ml Documented By: JEANA Labs CBC & Chem 7: 11/21/21 06:27 11/21/21 06:27 Labs: Laboratory Results - last 24 hr 11/20/21 11/20/21 11/20/21 14:30 14:30 16:36 MCV 78.1 L MCH 23.6 L MCHC 30.3 L RDW 16.3 H Plt Count 299 MPV 9.1 L Absolute Nucleated RBC 0.000 Nucleated RBC % (auto) 0.0 PT 15.6 H INR 1.3 H APTT 37.2 Anion Gap Estim Creat Clear Calc Estimated GFR POC Glucose 83 Fasting Glucose Calcium Blood Type Antibody Screen Crossmatch 11/20/21 11/21/21 11/21/21 20:44 06:27 06:27 MCV 78.2 L MCH 23.7 L MCHC 30.3 L RDW 16.4 H Plt Count 268 MPV 9.4 Absolute Nucleated RBC 0.000 Nucleated RBC % (auto) 0.0 PT INR APTT Anion Gap 12 Estim Creat Clear Calc 48.2 Estimated GFR > 60 POC Glucose 266 H Fasting Glucose 136 H Calcium 8.6 Blood Type Antibody Screen Crossmatch 11/21/21 11/21/21 11/21/21 06:27 07:52 10:24 MCV 78.5 L MCH 23.6 L MCHC 30.1 L RDW 16.5 H Plt Count 274 MPV 9.4 Absolute Nucleated RBC 0.000 Nucleated RBC % (auto) 0.0 PT INR APTT Anion Gap Estim Creat Clear Calc Estimated GFR POC Glucose 128 H Fasting Glucose Calcium Blood Type A Positive Antibody Screen NEGATIVE Crossmatch See Detail 11/21/21 11/21/21 11:48 14:05 MCV MCH MCHC RDW Plt Count MPV Absolute Nucleated RBC Nucleated RBC % (auto) PT 12.0 INR 1.0 APTT Anion Gap Estim Creat Clear Calc Estimated GFR POC Glucose 292 H Fasting Glucose Calcium Blood Type Antibody Screen Crossmatch Assessment and Plan (1) Atrial flutter with rapid ventricular response: Status: Acute (2) Iron deficiency anemia: Status: Acute Plan 75F presented with syncope, found to have new diagnosis of aflutter with rvr fall and presyncope likely due to new onset atrial flutter with RVR vs mechanical s/p AARON/CV on 11/19 Remains in sinus continue toprol 50mg and multaq 400mg bid eliquis was started on admission, currently on hold for EGD/colonoscopy Acute on chronic microcytic anemia with acute blood loss anemia Hemoglobin dropped to 8.9 this morning Keep Eliquis on hold GI appreciated, to do EGD/colonoscopy on 11/22, to do prep in evening To transfuse a unit of blood Monitor H and H DM insulin metformin on hold mood disorder lithium HTN held amlodipine to allow room for rate controlling meds dvt prophylaxis SCDs reason for continued hospitalization: hgb dropping, plan for inpatient endoscopy and evaluation the need of blood thinners pending safe discharge plan. Quality Stroke Does the patient have a stroke diagnosis?: No VTE Prior VTE?: No VTE Risk Level:: Medical - moderate - high VTE Device Contraindication: Treatment Not Indicated VTE Drug Contraindication: N/A - Med Ordered
[2021-11-21 16:15] LABS: Glucose, Whole Blood 175 mg/dL (60-115)
[2021-11-21 21:27] LABS: Glucose, Whole Blood 208 mg/dL (60-115)
[2021-11-21] MEDS: Lithium Carbonate ER 450 MG TABLET.ER PO (21:40)
[2021-11-21] MEDS: Atorvastatin Calcium 20 MG TABLET PO (21:40)
[2021-11-21] MEDS: PEG 3350/Na Sulf,Bicarb,Cl/KCL 4,000 ML SOLN.RECON 4000 ML PO (21:41)
[2021-11-22] VITALS (10 sets, daily range): BP systolic 105–147; BP diastolic 41–74; PULSE 73–92; RESP 14–20; TEMP 36.8–38.4; O2SAT 93–98
[2021-11-22 06:53] LABS: Hemoglobin 9.7 g/dl (12.0-16.0); Mean Corpuscular HGB Conc 31.3 g/dl (31.0-35.0); Mean Corpuscular Hemoglobin 24.4 pg (27.0-33.0); Mean Corpuscular Volume 78.1 fL (80.0-98.0); Mean Platelet Volume 9.6 fL (9.4-12.3); Platelet Count 307 X10*3/uL (160-400); Red Blood Count 3.97 X10*6/uL (4.20-5.50); Red Cell Distribution Width 16.8 % (11.0-16.0); White Blood Count 9.2 X10*3/uL (4.8-10.8)
[2021-11-22 07:21] LABS: Glucose, Whole Blood 163 mg/dL (60-115)
[2021-11-22 07:21] LABS: Anion Gap 12 (12-20); Blood Urea Nitrogen 5 mg/dL (9-16); Calcium 8.4 mg/dL (8.4-10.2); Carbon Dioxide 24 mmol/L (22-29); Chloride 108 mmol/L (96-108); Creatinine Clr Calc Pharmacy 49.5; Estimated Glomerular Filt Rate > 60; Glucose Random 163 mg/dL (60-115); Potassium 3.4 mmol/L (3.3-5.1); Sodium 141 mmol/L (135-145)
[2021-11-22] MEDS: Acetaminophen 325 MG TABLET 975 MG PO (08:30)
[2021-11-22] MEDS: Metoprolol Succinate ER 50 MG TAB.ER.24H PO (08:30)
[2021-11-22] MEDS: 0.9 % Sodium Chloride Flush 3 ML SYRINGE IVFLUSH ×2 (08:31→18:49)
[2021-11-22] MEDS: Dronedarone HCl 400 MG TABLET PO ×2 (08:31→20:59)
[2021-11-22] MEDS: Ferrous Sulfate 324 MG TABLET.DR PO (08:31)
[2021-11-22 11:36] LABS: Glucose, Whole Blood 176 mg/dL (60-115)
--- NOTE | 2021-11-22 11:45 | P.PNIM_ITS ---
Subjective Subjective Date of Service: 11/22/21 Interval History: the patient was seen and evaluated this morning Laying in bed, reporting fever this morning Hemoglobin improved to 9.7 after 1 unit transfusion No bloody bowel motions No reported other overnight events. Systemic review: No fever, chills or weakness No chest pain, palpitation No shortness of breath or coughing No abdominal pain, nausea or vomiting No urinary symptoms No any rash or wounds Physical Exam Vital Signs: Vital Signs: Last Vital Signs Temp 99.1 F 11/22/21 11:35 Pulse 75 11/22/21 11:35 Resp 17 11/22/21 11:35 BP 111/53 L 11/22/21 11:35 Pulse Ox 93 11/22/21 11:35 O2 Del Method 11/22/21 11:35 O2 Flow Rate 2 11/19/21 15:49 BMI result Body Mass Index 26.9 Const: Other: Constitutional : Alert, oriented, not in distress Neck : Normal inspection, Supple Cardiovascular : RRR, no JVP, no lower extremity edema Respiratory : fair bilateral air entry, no crackles, wheezes or rhonchi Gastrointestinal: soft, lax, Normal bowel sounds, Non tender Skin : Warm, Dry Neurological : Alert & oriented x3, No focal deficit , CN 2-12 within normal Objective Data Active Medications Acetaminophen (Acetaminophen 325 Mg Tablet) 650 mg PO Q6H PRN PRN Reason: Pain, Mild (Pain Scale 1-3) Last Admin: 11/19/21 06:42 Dose: 650 mg Documented By: YOSELYN Acetaminophen (Acetaminophen 325 Mg Tablet) 650 mg PO ONCE PRN PRN Reason: Pain, Mild (Pain Scale 1-3) Apixaban (Apixaban 5 Mg Tablet) 5 mg PO BID [facility] Last Admin: 11/20/21 09:20 Dose: 5 mg Documented By: JEANA Atorvastatin Calcium (Atorvastatin Calcium 20 Mg Tablet) 20 mg PO BEDTIME [facility] Last Admin: 11/21/21 21:40 Dose: 20 mg Documented By: DAMIÁN Dextrose (Dextrose 50 % 25 Gm/50 Ml Syringe) 25 gm IVPUSH Q15M PRN; Protocol PRN Reason: per Hypoglycemia Standing Ord. Dronedarone (Dronedarone Hcl 400 Mg Tablet) 400 mg PO BID [facility] Last Admin: 11/22/21 08:31 Dose: 400 mg Documented By: STONEY Ferrous Sulfate (Ferrous Sulfate 324 Mg Tablet.Dr) 324 mg PO DAILY [facility] Last Admin: 11/22/21 08:31 Dose: 324 mg Documented By: STONEY Glucose (Glucose Gel 15 Gm Gel..Gram.) 15 gm PO Q15M PRN; Protocol PRN Reason: per Hypoglycemia Standing Ord. Insulin Human Lispro (Insulin Lispro 100 Unit/Ml 3 Ml Vial) 0 unit SUBCUT QIDACHS [facility]; Protocol Last Admin: 11/22/21 09:45 Dose: Not Given Documented By: STONEY Non-Admin Reason: NPO [place] Carbonate ([place] Carbonate Er 450 Mg Tablet.Er) 450 mg PO BEDTIME [facility] Last Admin: 11/21/21 21:40 Dose: 450 mg Documented By: DAMIÁN Melatonin (Melatonin 3 Mg Tablet) 6 mg PO BEDTIME PRN PRN Reason: Insomnia Metoprolol Succinate (Metoprolol Succinate Er 50 Mg Tab.Er.24h) 50 mg PO DAILY [facility]; Protocol Last Admin: 11/22/21 08:30 Dose: 50 mg Documented By: STONEY Ondansetron HCl (Ondansetron Hcl 4 Mg/2 Ml Vial) 4 mg IVPUSH ONCE PRN PRN Reason: Nausea and Vomiting Senna (Sennosides 8.6 Mg Tablet) 17.2 mg PO BEDTIME PRN PRN Reason: Constipation Sodium Chloride (0.9 % Sodium Chloride Flush 3 Ml Syringe) 3 ml IVFLUSH QSHIFT [facility] Last Admin: 11/22/21 08:31 Dose: 3 ml Documented By: STONEY Labs CBC & Chem 7: 11/22/21 06:25 11/22/21 06:25 Labs: Laboratory Results - last 24 hr 11/21/21 11/21/21 11/21/21 10:24 11:48 14:05 MCV MCH MCHC RDW Plt Count MPV Absolute Nucleated RBC Nucleated RBC % (auto) PT 12.0 INR 1.0 Anion Gap Estim Creat Clear Calc Estimated GFR POC Glucose 292 H Random Glucose Calcium Blood Type A Positive Antibody Screen NEGATIVE Crossmatch See Detail 11/21/21 11/21/21 11/22/21 16:12 21:15 06:25 MCV 78.1 L MCH 24.4 L MCHC 31.3 RDW 16.8 H Plt Count 307 MPV 9.6 Absolute Nucleated RBC 0.000 Nucleated RBC % (auto) 0.0 PT INR Anion Gap Estim Creat Clear Calc Estimated GFR POC Glucose 175 H 208 H Random Glucose Calcium Blood Type Antibody Screen Crossmatch 11/22/21 11/22/21 11/22/21 06:25 07:13 11:24 MCV MCH MCHC RDW Plt Count MPV Absolute Nucleated RBC Nucleated RBC % (auto) PT INR Anion Gap 12 Estim Creat Clear Calc 49.5 Estimated GFR > 60 POC Glucose 163 H 176 H Random Glucose 163 H Calcium 8.4 Blood Type Antibody Screen Crossmatch Assessment and Plan (1) Atrial flutter with rapid ventricular response: Status: Acute (2) Iron deficiency anemia: Status: Acute Plan 75F presented with syncope, found to have new diagnosis of aflutter with rvr fall and presyncope due to new onset atrial flutter with RVR vs mechanical s/p AARON/CV on 11/19 Remains in sinus continue toprol 50mg and multaq 400mg bid eliquis was started on admission, currently on hold for GIB pending EGD/colonoscopy Acute on chronic microcytic anemia with acute blood loss anemia Hemoglobin improved to 9.7 after 1 unit transfusion Keep Eliquis on hold GI appreciated, to do EGD/colonoscopy on 11/22, to do prep in evening To transfuse a unit of blood Monitor H and H Fever One 1 documented this morning No clear source of infection, likely blood transfusion reaction Give Tylenol and monitor DM insulin metformin on hold mood disorder lithium HTN held amlodipine to allow room for rate controlling meds dvt prophylaxis SCDs reason for continued hospitalization: hgb dropping, plan for inpatient endoscopy and evaluation the need of blood thinners pending safe discharge plan. Quality Stroke Does the patient have a stroke diagnosis?: No VTE Prior VTE?: No VTE Risk Level:: Medical - moderate - high VTE Device Contraindication: Treatment Not Indicated VTE Drug Contraindication: N/A - Med Ordered
[2021-11-22] MEDS: Insulin Lispro 100 UNIT/ML 3 ML VIAL SUBCUT ×2 (12:27→19:49)
--- NOTE | 2021-11-22 12:44 | MHC.CM.PN ---
Per ROUNDS discussion, patient not medically cleared for discharge today r/t HGB dropping, Inpatient endoscopy, and evaluation for need of blood thinners. CM will continue to follow for D/C needs.
[2021-11-22 14:04] LABS: Glucose, Whole Blood 148 mg/dL (60-115)
--- NOTE | 2021-11-22 14:42 | PC.NURSE ---
report given to allyssa morley at this time.
--- NOTE | 2021-11-22 16:14 | P.CONAN_ITS ---
HPI - Anesthesia Eval Consult details Narrative: 75 F for EGD and colonoscopy a flutter PMFSH Active Problems Active Problems: All Active Problems (Updated 11/19/21 @ 10:59 by Titus Elam MD) Atrial flutter with rapid ventricular response (Acute) Iron deficiency anemia (Acute) Hypertension (Acute) Diabetes mellitus (Acute) Depression (Acute) New onset atrial flutter (Acute) Breast calcification, right (Acute) Past Medical History Medical History (Updated 11/19/21 @ 10:59 by Titus Elam MD) Breast calcification, right Depression Diabetes mellitus Hypertension Family History Family History (Updated 11/17/21 @ 07:47 by Ismael Lanier MD) Father Depression Family history of problems with anesthesia: No Surgical History Surgical History History of section History of cholecystectomy History of Problems with Anesthesia: No Social History Social History Household Members: None Housing: House Do you presently have visiting nurse or other home services: No Alcohol intake: current Alcohol intake frequency: holidays/special occasions only Patient Tobacco Use Status: Never used Tobacco service: No Current occupational status: retired Meds Allergies Allergy/AdvReac Type Severity Reaction Status Date / Time influenza virus vaccine, Allergy Intermediate STIFFNESS,LIMITED Verified 09/27/20 11:28 specific FUNCTION [FLU VACCINE] AFFECTED ARM/HAND Active Medications: Current Medications Acetaminophen (Acetaminophen 325 Mg Tablet) 650 mg PO Q6H PRN PRN Reason: Pain, Mild (Pain Scale 1-3) Last Admin: 11/19/21 06:42 Dose: 650 mg Acetaminophen (Acetaminophen 325 Mg Tablet) 650 mg PO ONCE PRN PRN Reason: Pain, Mild (Pain Scale 1-3) Apixaban (Apixaban 5 Mg Tablet) 5 mg PO BID NANCY Last Admin: 11/20/21 09:20 Dose: 5 mg Atorvastatin Calcium (Atorvastatin Calcium 20 Mg Tablet) 20 mg PO BEDTIME NANCY Last Admin: 11/21/21 21:40 Dose: 20 mg Dextrose (Dextrose 50 % 25 Gm/50 Ml Syringe) 25 gm IVPUSH Q15M PRN; Protocol PRN Reason: per Hypoglycemia Standing Ord. Dronedarone (Dronedarone Hcl 400 Mg Tablet) 400 mg PO BID [facility] Last Admin: 11/22/21 08:31 Dose: 400 mg Ferrous Sulfate (Ferrous Sulfate 324 Mg Tablet.Dr) 324 mg PO DAILY [facility] Last Admin: 11/22/21 08:31 Dose: 324 mg Glucose (Glucose Gel 15 Gm Gel..Gram.) 15 gm PO Q15M PRN; Protocol PRN Reason: per Hypoglycemia Standing Ord. Insulin Human Lispro (Insulin Lispro 100 Unit/Ml 3 Ml Vial) 0 unit SUBCUT QIDACHS [facility]; Protocol Last Admin: 11/22/21 12:27 Dose: 2 unit [place] Carbonate ([place] Carbonate Er 450 Mg Tablet.Er) 450 mg PO BEDTIME [facility] Last Admin: 11/21/21 21:40 Dose: 450 mg Melatonin (Melatonin 3 Mg Tablet) 6 mg PO BEDTIME PRN PRN Reason: Insomnia Metoprolol Succinate (Metoprolol Succinate Er 50 Mg Tab.Er.24h) 50 mg PO DAILY [facility]; Protocol Last Admin: 11/22/21 08:30 Dose: 50 mg Ondansetron HCl (Ondansetron Hcl 4 Mg/2 Ml Vial) 4 mg IVPUSH ONCE PRN PRN Reason: Nausea and Vomiting Senna (Sennosides 8.6 Mg Tablet) 17.2 mg PO BEDTIME PRN PRN Reason: Constipation Sodium Chloride (0.9 % Sodium Chloride Flush 3 Ml Syringe) 3 ml IVFLUSH QSHIFT [facility] Last Admin: 11/22/21 08:31 Dose: 3 ml Exam Exam Date and Time: November 22, 2021 1614 Height,Weight and Vital Signs: Height 5 ft Weight 62.7 kg Last Vital Signs Temp 98.7 F 11/22/21 14:21 Pulse 77 11/22/21 14:21 Resp 18 11/22/21 14:21 BP 141/69 H 11/22/21 14:21 Pulse Ox 96 11/22/21 14:21 O2 Del Method 11/22/21 14:21 O2 Flow Rate 2 11/19/21 15:49 Pertinent Lab Results Pertinent Lab Results: Laboratory Tests 11/16/21 11/16/21 11/16/21 21:21 22:34 22:34 WBC 8.7 RBC 5.00 Hgb 11.7 L Hct 38.5 MCV 77.0 L MCH 23.4 L MCHC 30.4 L RDW 15.9 Plt Count 354 MPV 9.0 L Immature Gran % (Auto) 0.5 H Neut % (Auto) 67.0 Lymph % (Auto) 23.7 [place] % (Auto) 6.0 Eos % (Auto) 2.1 Baso % (Auto) 0.7 Lymph # (Auto) 2.1 [place] # (Auto) 0.5 Eos # (Auto) 0.2 Baso # (Auto) 0.1 Abs Immat Gran (auto) 0.04 H Absolute Neuts (auto) 5.8 Absolute Nucleated RBC 0.000 Nucleated RBC % (auto) 0.0 PT INR APTT Sodium 139 Potassium 4.5 Chloride 104 Carbon Dioxide 26 Anion Gap 14 BUN 15 Creatinine 0.84 Estim Creat Clear Calc 47.3 Estimated GFR > 60 POC Glucose 143 H Random Glucose 181 H Fasting Glucose Calcium 9.7 Iron TIBC % Saturation Unsat Iron Binding Ferritin Total Bilirubin 0.5 Direct Bilirubin 0.2 AST 16 ALT 11 Alkaline Phosphatase 77 Troponin I High Sens B-Natriuretic Peptide Total Protein 7.1 Albumin 4.3 Lipase 20 Vitamin B12 Folate TSH 1.23 Urine Color Urine Appearance Urine pH Ur Specific [place] Urine Protein Urine Glucose (UA) Urine Ketones Urine Blood Urine Nitrite Ur Leukocyte Esterase Urine RBC Urine WBC Ur Squamous Epith Cells Urine Bacteria Urine Mucus Influenza Type A (PCR) Influenza Type B (PCR) RSV RNA Qual (PCR) SARS-CoV-2 RNA (RT-PCR) Blood Type Antibody Screen Crossmatch 11/16/21 11/16/21 11/16/21 22:34 22:34 22:35 WBC RBC Hgb Hct MCV MCH MCHC RDW Plt Count MPV Immature Gran % (Auto) Neut % (Auto) Lymph % (Auto) [place] % (Auto) Eos % (Auto) Baso % (Auto) Lymph # (Auto) [place] # (Auto) Eos # (Auto) Baso # (Auto) Abs Immat Gran (auto) Absolute Neuts (auto) Absolute Nucleated RBC Nucleated RBC % (auto) PT INR APTT Sodium Potassium Chloride Carbon Dioxide Anion Gap BUN Creatinine Estim Creat Clear Calc Estimated GFR POC Glucose Random Glucose Fasting Glucose Calcium Iron TIBC % Saturation Unsat Iron Binding Ferritin Total Bilirubin Direct Bilirubin AST ALT Alkaline Phosphatase Troponin I High Sens < 3.5 B-Natriuretic Peptide 130 H Total Protein Albumin Lipase Vitamin B12 Folate TSH Urine Color Urine Appearance Urine pH Ur Specific [place] Urine Protein Urine Glucose (UA) Urine Ketones Urine Blood Urine Nitrite Ur Leukocyte Esterase Urine RBC Urine WBC Ur Squamous Epith Cells Urine Bacteria Urine Mucus Influenza Type A (PCR) NEGATIVE Influenza Type B (PCR) NEGATIVE RSV RNA Qual (PCR) NEGATIVE SARS-CoV-2 RNA (RT-PCR) NEGATIVE Blood Type Antibody Screen Crossmatch 11/17/21 11/17/21 11/17/21 02:44 06:44 06:44 WBC 8.9 RBC 4.72 Hgb 11.0 L Hct 36.7 L MCV 77.8 L MCH 23.3 L MCHC 30.0 L RDW 15.9 Plt Count 336 MPV 8.9 L Immature Gran % (Auto) 0.3 Neut % (Auto) 56.2 Lymph % (Auto) 34.3 [place] % (Auto) 6.5 Eos % (Auto) 2.0 Baso % (Auto) 0.7 Lymph # (Auto) 3.1 [place] # (Auto) 0.6 Eos # (Auto) 0.2 Baso # (Auto) 0.1 Abs Immat Gran (auto) 0.03 Absolute Neuts (auto) 5.0 Absolute Nucleated RBC 0.000 Nucleated RBC % (auto) 0.0 PT INR APTT Sodium 139 Potassium 3.9 Chloride 107 Carbon Dioxide 23 Anion Gap 13 BUN 14 Creatinine 0.77 Estim Creat Clear Calc 51.7 Estimated GFR > 60 POC Glucose Random Glucose 139 H Fasting Glucose Calcium 9.2 Iron 47 TIBC 404 % Saturation 12 L Unsat Iron Binding 357 Ferritin 7 L Total Bilirubin Direct Bilirubin AST ALT Alkaline Phosphatase Troponin I High Sens B-Natriuretic Peptide Total Protein Albumin Lipase Vitamin B12 Folate TSH Urine Color YELLOW Urine Appearance CLEAR Urine pH 7.0 Ur Specific [place] 1.010 Urine Protein NEG Urine Glucose (UA) NEG Urine Ketones NEG Urine Blood NEG Urine Nitrite NEG Ur Leukocyte Esterase 1+ H Urine RBC 1-4 Urine WBC 1-4 Ur Squamous Epith Cells 1+ Urine Bacteria 2+ Urine Mucus 2+ Influenza Type A (PCR) Influenza Type B (PCR) RSV RNA Qual (PCR) SARS-CoV-2 RNA (RT-PCR) Blood Type Antibody Screen Crossmatch 11/17/21 11/17/21 11/17/21 07:11 12:41 18:05 WBC RBC Hgb Hct MCV MCH MCHC RDW Plt Count MPV Immature Gran % (Auto) Neut % (Auto) Lymph % (Auto) [place] % (Auto) Eos % (Auto) Baso % (Auto) Lymph # (Auto) [place] # (Auto) Eos # (Auto) Baso # (Auto) Abs Immat Gran (auto) Absolute Neuts (auto) Absolute Nucleated RBC Nucleated RBC % (auto) PT INR APTT Sodium Potassium Chloride Carbon Dioxide Anion Gap BUN Creatinine Estim Creat Clear Calc Estimated GFR POC Glucose 126 H 197 H 156 H Random Glucose Fasting Glucose Calcium Iron TIBC % Saturation Unsat Iron Binding Ferritin Total Bilirubin Direct Bilirubin AST ALT Alkaline Phosphatase Troponin I High Sens B-Natriuretic Peptide Total Protein Albumin Lipase Vitamin B12 Folate TSH Urine Color Urine Appearance Urine pH Ur Specific [place] Urine Protein Urine Glucose (UA) Urine Ketones Urine Blood Urine Nitrite Ur Leukocyte Esterase Urine RBC Urine WBC Ur Squamous Epith Cells Urine Bacteria Urine Mucus Influenza Type A (PCR) Influenza Type B (PCR) RSV RNA Qual (PCR) SARS-CoV-2 RNA (RT-PCR) Blood Type Antibody Screen Crossmatch 11/17/21 11/18/21 11/18/21 22:03 06:23 06:23 WBC 8.6 RBC 4.93 Hgb 11.5 L Hct 37.7 MCV 76.5 L MCH 23.3 L MCHC 30.5 L RDW 16.2 H Plt Count 365 MPV 8.8 L Immature Gran % (Auto) Neut % (Auto) Lymph % (Auto) [place] % (Auto) Eos % (Auto) Baso % (Auto) Lymph # (Auto) [place] # (Auto) Eos # (Auto) Baso # (Auto) Abs Immat Gran (auto) Absolute Neuts (auto) Absolute Nucleated RBC 0.000 Nucleated RBC % (auto) 0.0 PT INR APTT Sodium 137 Potassium 4.0 Chloride 104 Carbon Dioxide 25 Anion Gap 12 BUN 12 Creatinine 0.88 Estim Creat Clear Calc 45.0 Estimated GFR > 60 POC Glucose 180 H Random Glucose Fasting Glucose 185 H Calcium 9.8 D Iron TIBC % Saturation Unsat Iron Binding Ferritin Total Bilirubin Direct Bilirubin AST ALT Alkaline Phosphatase Troponin I High Sens B-Natriuretic Peptide Total Protein Albumin Lipase Vitamin B12 Folate TSH Urine Color Urine Appearance Urine pH Ur Specific [place] Urine Protein Urine Glucose (UA) Urine Ketones Urine Blood Urine Nitrite Ur Leukocyte Esterase Urine RBC Urine WBC Ur Squamous Epith Cells Urine Bacteria Urine Mucus Influenza Type A (PCR) Influenza Type B (PCR) RSV RNA Qual (PCR) SARS-CoV-2 RNA (RT-PCR) Blood Type Antibody Screen Crossmatch 11/18/21 11/18/21 11/18/21 06:23 07:46 11:03 WBC RBC Hgb Hct MCV MCH MCHC RDW Plt Count MPV Immature Gran % (Auto) Neut % (Auto) Lymph % (Auto) [place] % (Auto) Eos % (Auto) Baso % (Auto) Lymph # (Auto) [place] # (Auto) Eos # (Auto) Baso # (Auto) Abs Immat Gran (auto) Absolute Neuts (auto) Absolute Nucleated RBC Nucleated RBC % (auto) PT INR APTT Sodium Potassium Chloride Carbon Dioxide Anion Gap BUN Creatinine Estim Creat Clear Calc Estimated GFR POC Glucose 174 H 246 H Random Glucose Fasting Glucose Calcium Iron TIBC % Saturation Unsat Iron Binding Ferritin Total Bilirubin Direct Bilirubin AST ALT Alkaline Phosphatase Troponin I High Sens B-Natriuretic Peptide Total Protein Albumin Lipase Vitamin B12 214 Folate 14.2 TSH Urine Color Urine Appearance Urine pH Ur Specific [place] Urine Protein Urine Glucose (UA) Urine Ketones Urine Blood Urine Nitrite Ur Leukocyte Esterase Urine RBC Urine WBC Ur Squamous Epith Cells Urine Bacteria Urine Mucus Influenza Type A (PCR) Influenza Type B (PCR) RSV RNA Qual (PCR) SARS-CoV-2 RNA (RT-PCR) Blood Type Antibody Screen Crossmatch 11/18/21 11/18/21 11/19/21 16:47 21:18 05:58 WBC 12.9 H RBC 4.64 Hgb 10.9 L Hct 35.8 L MCV 77.2 L MCH 23.5 L MCHC 30.4 L RDW 16.0 Plt Count 341 MPV 8.9 L Immature Gran % (Auto) Neut % (Auto) Lymph % (Auto) [place] % (Auto) Eos % (Auto) Baso % (Auto) Lymph # (Auto) [place] # (Auto) Eos # (Auto) Baso # (Auto) Abs Immat Gran (auto) Absolute Neuts (auto) Absolute Nucleated RBC 0.000 Nucleated RBC % (auto) 0.0 PT INR APTT Sodium Potassium Chloride Carbon Dioxide Anion Gap BUN Creatinine Estim Creat Clear Calc Estimated GFR POC Glucose 118 H 158 H Random Glucose Fasting Glucose Calcium Iron TIBC % Saturation Unsat Iron Binding Ferritin Total Bilirubin Direct Bilirubin AST ALT Alkaline Phosphatase Troponin I High Sens B-Natriuretic Peptide Total Protein Albumin Lipase Vitamin B12 Folate TSH Urine Color Urine Appearance Urine pH Ur Specific [place] Urine Protein Urine Glucose (UA) Urine Ketones Urine Blood Urine Nitrite Ur Leukocyte Esterase Urine RBC Urine WBC Ur Squamous Epith Cells Urine Bacteria Urine Mucus Influenza Type A (PCR) Influenza Type B (PCR) RSV RNA Qual (PCR) SARS-CoV-2 RNA (RT-PCR) Blood Type Antibody Screen Crossmatch 11/19/21 11/19/21 11/19/21 05:58 07:19 11:02 WBC RBC Hgb Hct MCV MCH MCHC RDW Plt Count MPV Immature Gran % (Auto) Neut % (Auto) Lymph % (Auto) [place] % (Auto) Eos % (Auto) Baso % (Auto) Lymph # (Auto) [place] # (Auto) Eos # (Auto) Baso # (Auto) Abs Immat Gran (auto) Absolute Neuts (auto) Absolute Nucleated RBC Nucleated RBC % (auto) PT INR APTT Sodium 139 Potassium 4.2 Chloride 108 Carbon Dioxide 24 Anion Gap 11 L BUN 12 Creatinine 0.92 Estim Creat Clear Calc 43.0 Estimated GFR 59 POC Glucose 177 H 156 H Random Glucose Fasting Glucose 177 H Calcium 9.3 Iron TIBC % Saturation Unsat Iron Binding Ferritin Total Bilirubin Direct Bilirubin AST ALT Alkaline Phosphatase Troponin I High Sens B-Natriuretic Peptide Total Protein Albumin Lipase Vitamin B12 Folate TSH Urine Color Urine Appearance Urine pH Ur Specific [place] Urine Protein Urine Glucose (UA) Urine Ketones Urine Blood Urine Nitrite Ur Leukocyte Esterase Urine RBC Urine WBC Ur Squamous Epith Cells Urine Bacteria Urine Mucus Influenza Type A (PCR) Influenza Type B (PCR) RSV RNA Qual (PCR) SARS-CoV-2 RNA (RT-PCR) Blood Type Antibody Screen Crossmatch 11/19/21 11/19/21 11/20/21 16:45 21:07 05:36 WBC 7.9 RBC 3.89 L Hgb 9.1 L Hct 30.3 L MCV 77.9 L MCH 23.4 L MCHC 30.0 L RDW 16.2 H Plt Count 282 MPV 8.9 L Immature Gran % (Auto) Neut % (Auto) Lymph % (Auto) [place] % (Auto) Eos % (Auto) Baso % (Auto) Lymph # (Auto) [place] # (Auto) Eos # (Auto) Baso # (Auto) Abs Immat Gran (auto) Absolute Neuts (auto) Absolute Nucleated RBC 0.000 Nucleated RBC % (auto) 0.0 PT INR APTT Sodium Potassium Chloride Carbon Dioxide Anion Gap BUN Creatinine Estim Creat Clear Calc Estimated GFR POC Glucose 137 H 179 H Random Glucose Fasting Glucose Calcium Iron TIBC % Saturation Unsat Iron Binding Ferritin Total Bilirubin Direct Bilirubin AST ALT Alkaline Phosphatase Troponin I High Sens B-Natriuretic Peptide Total Protein Albumin Lipase Vitamin B12 Folate TSH Urine Color Urine Appearance Urine pH Ur Specific [place] Urine Protein Urine Glucose (UA) Urine Ketones Urine Blood Urine Nitrite Ur Leukocyte Esterase Urine RBC Urine WBC Ur Squamous Epith Cells Urine Bacteria Urine Mucus Influenza Type A (PCR) Influenza Type B (PCR) RSV RNA Qual (PCR) SARS-CoV-2 RNA (RT-PCR) Blood Type Antibody Screen Crossmatch 11/20/21 11/20/21 11/20/21 05:36 07:02 11:09 WBC RBC Hgb Hct MCV MCH MCHC RDW Plt Count MPV Immature Gran % (Auto) Neut % (Auto) Lymph % (Auto) [place] % (Auto) Eos % (Auto) Baso % (Auto) Lymph # (Auto) [place] # (Auto) Eos # (Auto) Baso # (Auto) Abs Immat Gran (auto) Absolute Neuts (auto) Absolute Nucleated RBC Nucleated RBC % (auto) PT INR APTT Sodium 138 Potassium 4.2 Chloride 109 H Carbon Dioxide 25 Anion Gap 8 L BUN 13 Creatinine 0.81 Estim Creat Clear Calc 48.8 Estimated GFR > 60 POC Glucose 144 H 340 H Random Glucose Fasting Glucose 143 H Calcium 8.7 D Iron TIBC % Saturation Unsat Iron Binding Ferritin Total Bilirubin Direct Bilirubin AST ALT Alkaline Phosphatase Troponin I High Sens B-Natriuretic Peptide Total Protein Albumin Lipase Vitamin B12 Folate TSH Urine Color Urine Appearance Urine pH Ur Specific [place] Urine Protein Urine Glucose (UA) Urine Ketones Urine Blood Urine Nitrite Ur Leukocyte Esterase Urine RBC Urine WBC Ur Squamous Epith Cells Urine Bacteria Urine Mucus Influenza Type A (PCR) Influenza Type B (PCR) RSV RNA Qual (PCR) SARS-CoV-2 RNA (RT-PCR) Blood Type Antibody Screen Crossmatch 11/20/21 11/20/21 11/20/21 14:30 14:30 16:36 WBC 9.2 RBC 4.06 L Hgb 9.6 L Hct 31.7 L MCV 78.1 L MCH 23.6 L MCHC 30.3 L RDW 16.3 H Plt Count 299 MPV 9.1 L Immature Gran % (Auto) Neut % (Auto) Lymph % (Auto) [place] % (Auto) Eos % (Auto) Baso % (Auto) Lymph # (Auto) [place] # (Auto) Eos # (Auto) Baso # (Auto) Abs Immat Gran (auto) Absolute Neuts (auto) Absolute Nucleated RBC 0.000 Nucleated RBC % (auto) 0.0 PT 15.6 H INR 1.3 H APTT 37.2 Sodium Potassium Chloride Carbon Dioxide Anion Gap BUN Creatinine Estim Creat Clear Calc Estimated GFR POC Glucose 83 Random Glucose Fasting Glucose Calcium Iron TIBC % Saturation Unsat Iron Binding Ferritin Total Bilirubin Direct Bilirubin AST ALT Alkaline Phosphatase Troponin I High Sens B-Natriuretic Peptide Total Protein Albumin Lipase Vitamin B12 Folate TSH Urine Color Urine Appearance Urine pH Ur Specific [place] Urine Protein Urine Glucose (UA) Urine Ketones Urine Blood Urine Nitrite Ur Leukocyte Esterase Urine RBC Urine WBC Ur Squamous Epith Cells Urine Bacteria Urine Mucus Influenza Type A (PCR) Influenza Type B (PCR) RSV RNA Qual (PCR) SARS-CoV-2 RNA (RT-PCR) Blood Type Antibody Screen Crossmatch 11/20/21 11/21/21 11/21/21 20:44 06:27 06:27 WBC 8.4 RBC 3.71 L Hgb 8.8 L Hct 29.0 L MCV 78.2 L MCH 23.7 L MCHC 30.3 L RDW 16.4 H Plt Count 268 MPV 9.4 Immature Gran % (Auto) Neut % (Auto) Lymph % (Auto) [place] % (Auto) Eos % (Auto) Baso % (Auto) Lymph # (Auto) [place] # (Auto) Eos # (Auto) Baso # (Auto) Abs Immat Gran (auto) Absolute Neuts (auto) Absolute Nucleated RBC 0.000 Nucleated RBC % (auto) 0.0 PT INR APTT Sodium 139 Potassium 4.0 Chloride 110 H Carbon Dioxide 21 L Anion Gap 12 BUN 13 Creatinine 0.82 Estim Creat Clear Calc 48.2 Estimated GFR > 60 POC Glucose 266 H Random Glucose Fasting Glucose 136 H Calcium 8.6 Iron TIBC % Saturation Unsat Iron Binding Ferritin Total Bilirubin Direct Bilirubin AST ALT Alkaline Phosphatase Troponin I High Sens B-Natriuretic Peptide Total Protein Albumin Lipase Vitamin B12 Folate TSH Urine Color Urine Appearance Urine pH Ur Specific [place] Urine Protein Urine Glucose (UA) Urine Ketones Urine Blood Urine Nitrite Ur Leukocyte Esterase Urine RBC Urine WBC Ur Squamous Epith Cells Urine Bacteria Urine Mucus Influenza Type A (PCR) Influenza Type B (PCR) RSV RNA Qual (PCR) SARS-CoV-2 RNA (RT-PCR) Blood Type Antibody Screen Crossmatch 11/21/21 11/21/21 11/21/21 06:27 07:52 10:24 WBC 8.8 RBC 3.77 L Hgb 8.9 L Hct 29.6 L MCV 78.5 L MCH 23.6 L MCHC 30.1 L RDW 16.5 H Plt Count 274 MPV 9.4 Immature Gran % (Auto) Neut % (Auto) Lymph % (Auto) [place] % (Auto) Eos % (Auto) Baso % (Auto) Lymph # (Auto) [place] # (Auto) Eos # (Auto) Baso # (Auto) Abs Immat Gran (auto) Absolute Neuts (auto) Absolute Nucleated RBC 0.000 Nucleated RBC % (auto) 0.0 PT INR APTT Sodium Potassium Chloride Carbon Dioxide Anion Gap BUN Creatinine Estim Creat Clear Calc Estimated GFR POC Glucose 128 H Random Glucose Fasting Glucose Calcium Iron TIBC % Saturation Unsat Iron Binding Ferritin Total Bilirubin Direct Bilirubin AST ALT Alkaline Phosphatase Troponin I High Sens B-Natriuretic Peptide Total Protein Albumin Lipase Vitamin B12 Folate TSH Urine Color Urine Appearance Urine pH Ur Specific [place] Urine Protein Urine Glucose (UA) Urine Ketones Urine Blood Urine Nitrite Ur Leukocyte Esterase Urine RBC Urine WBC Ur Squamous Epith Cells Urine Bacteria Urine Mucus Influenza Type A (PCR) Influenza Type B (PCR) RSV RNA Qual (PCR) SARS-CoV-2 RNA (RT-PCR) Blood Type A Positive Antibody Screen NEGATIVE Crossmatch See Detail 11/21/21 11/21/21 11/21/21 11:48 14:05 16:12 WBC RBC Hgb Hct MCV MCH MCHC RDW Plt Count MPV Immature Gran % (Auto) Neut % (Auto) Lymph % (Auto) [place] % (Auto) Eos % (Auto) Baso % (Auto) Lymph # (Auto) [place] # (Auto) Eos # (Auto) Baso # (Auto) Abs Immat Gran (auto) Absolute Neuts (auto) Absolute Nucleated RBC Nucleated RBC % (auto) PT 12.0 INR 1.0 APTT Sodium Potassium Chloride Carbon Dioxide Anion Gap BUN Creatinine Estim Creat Clear Calc Estimated GFR POC Glucose 292 H 175 H Random Glucose Fasting Glucose Calcium Iron TIBC % Saturation Unsat Iron Binding Ferritin Total Bilirubin Direct Bilirubin AST ALT Alkaline Phosphatase Troponin I High Sens B-Natriuretic Peptide Total Protein Albumin Lipase Vitamin B12 Folate TSH Urine Color Urine Appearance Urine pH Ur Specific [place] Urine Protein Urine Glucose (UA) Urine Ketones Urine Blood Urine Nitrite Ur Leukocyte Esterase Urine RBC Urine WBC Ur Squamous Epith Cells Urine Bacteria Urine Mucus Influenza Type A (PCR) Influenza Type B (PCR) RSV RNA Qual (PCR) SARS-CoV-2 RNA (RT-PCR) Blood Type Antibody Screen Crossmatch 11/21/21 11/22/21 11/22/21 21:15 06:25 06:25 WBC 9.2 RBC 3.97 L Hgb 9.7 L Hct 31.0 L MCV 78.1 L MCH 24.4 L MCHC 31.3 RDW 16.8 H Plt Count 307 MPV 9.6 Immature Gran % (Auto) Neut % (Auto) Lymph % (Auto) [place] % (Auto) Eos % (Auto) Baso % (Auto) Lymph # (Auto) [place] # (Auto) Eos # (Auto) Baso # (Auto) Abs Immat Gran (auto) Absolute Neuts (auto) Absolute Nucleated RBC 0.000 Nucleated RBC % (auto) 0.0 PT INR APTT Sodium 141 Potassium 3.4 Chloride 108 Carbon Dioxide 24 Anion Gap 12 BUN 5 L D Creatinine 0.80 Estim Creat Clear Calc 49.5 Estimated GFR > 60 POC Glucose 208 H Random Glucose 163 H Fasting Glucose Calcium 8.4 Iron TIBC % Saturation Unsat Iron Binding Ferritin Total Bilirubin Direct Bilirubin AST ALT Alkaline Phosphatase Troponin I High Sens B-Natriuretic Peptide Total Protein Albumin Lipase Vitamin B12 Folate TSH Urine Color Urine Appearance Urine pH Ur Specific [place] Urine Protein Urine Glucose (UA) Urine Ketones Urine Blood Urine Nitrite Ur Leukocyte Esterase Urine RBC Urine WBC Ur Squamous Epith Cells Urine Bacteria Urine Mucus Influenza Type A (PCR) Influenza Type B (PCR) RSV RNA Qual (PCR) SARS-CoV-2 RNA (RT-PCR) Blood Type Antibody Screen Crossmatch 11/22/21 11/22/21 11/22/21 07:13 11:24 13:59 WBC RBC Hgb Hct MCV MCH MCHC RDW Plt Count MPV Immature Gran % (Auto) Neut % (Auto) Lymph % (Auto) [place] % (Auto) Eos % (Auto) Baso % (Auto) Lymph # (Auto) [place] # (Auto) Eos # (Auto) Baso # (Auto) Abs Immat Gran (auto) Absolute Neuts (auto) Absolute Nucleated RBC Nucleated RBC % (auto) PT INR APTT Sodium Potassium Chloride Carbon Dioxide Anion Gap BUN Creatinine Estim Creat Clear Calc Estimated GFR POC Glucose 163 H 176 H 148 H Random Glucose Fasting Glucose Calcium Iron TIBC % Saturation Unsat Iron Binding Ferritin Total Bilirubin Direct Bilirubin AST ALT Alkaline Phosphatase Troponin I High Sens B-Natriuretic Peptide Total Protein Albumin Lipase Vitamin B12 Folate TSH Urine Color Urine Appearance Urine pH Ur Specific [place] Urine Protein Urine Glucose (UA) Urine Ketones Urine Blood Urine Nitrite Ur Leukocyte Esterase Urine RBC Urine WBC Ur Squamous Epith Cells Urine Bacteria Urine Mucus Influenza Type A (PCR) Influenza Type B (PCR) RSV RNA Qual (PCR) SARS-CoV-2 RNA (RT-PCR) Blood Type Antibody Screen Crossmatch Airway Mallampati Class: II TM Dist: >3cm Neck ROM: Full Loose/Missing/Broken Teeth: Yes Heart: S1,S2 Lungs: b/l breath sounds Assessment and Plan Assessment Anesthesia Assessment: Anesthesia Plan Discussed and Chart Reviewed Final Anesthetic Review Family History of Problems with Anesthesia: No History of Problems with Anesthesia: No NPO: Yes ASA Class: III Final Preanesthetic Review: Meds/Allgs Chart Reviewed, Consent Obtained/Reviewed and Anes Risks/Benef Reviewed Patient Risk: Intermediate Procedure Risk: Intermediate Anesthetic Plan Anesthetic Plan: MAC: Disposition: Standard PACU
--- NOTE | 2021-11-22 16:20 | MHC.SHP ---
Pre-Procedural Eval Section A Date of Service: 11/22/21 The patient is an INPATIENT: Yes The History & Physical has been completed within 30 days and I have reviewed it.: Yes Section B Chief Complaint: Fall, Atrial flutter Allergies: Allergies Allergy/AdvReac Type Severity Reaction Status Date / Time influenza virus vaccine, Allergy Intermediate STIFFNESS,LIMITED Verified 09/27/20 11:28 specific FUNCTION [FLU VACCINE] AFFECTED ARM/HAND Plan Diagnosis/Plan: Unchanged I have reviewed the history and physical and performed a pertinent physical examination on my patient. No changes have occurred unless specified. Seen by Dr Krishnamurthy, EGD and colonoscopy for anemia w/u, requiring anti coagulation
--- NOTE | 2021-11-22 16:21 | P.OP_ITS ---
Operative Note Operative Note Date of Service: 11/22/21 Narrative: Operative Information Procedure Description: EGD, Colonoscopy Indication: [] Anesthesia: MAC FLEXIBLE TRANSORAL UPPER GASTROINTESTINAL ENDOSCOPY AND COLONOSCOPY PROCEDURE NOTE UPPER ENDOSCOPY Consent: Indications for the procedure and potential complications of bleeding, perforation, reaction to medications and missed diagnosis were discussed with the patient and informed consent was obtained. Instrument: Olympus GIF H 190 J mid size upper endoscope Monitoring: Vital signs and clinical assessment, continuous EKG monitoring, Pulse oximetry, Carbon Dioxide monitoring and blood pressure monitoring were done throughout the procedure. Procedure: The patient was placed in the left lateral decubitis position and pre-procedure medications were administered and a bite block was placed. The endoscope was inserted into the mouth and advanced under direct vision to the third part of duodenum. A careful inspection was made as the upper endoscope was withdrawn including a retroflexed examination of the proximal stomach; Findings and interventions are described below. Findings: Larynx:normal Esophagus: GE junction at 38 cm, diaphragm hiatus at 38 cm, salmon pink tissue at GEJ suspected barretts esophagus bx taken Stomach: Normal mucosa. Biopsies were obtained. Grade 2 flap valve on retroflexed examination of the cardia. Duodenum: Normal bulb and descending duodenum, bx taken No blood in upper GI tract Intervention: Biopsies as noted above COLONOSCOPY Instrument: Olympus variable stiffness pediatric scope 190L Colonoscopy Monitoring: Vital signs and clinical assessment, continuous EKG monitoring, Pulse oximetry, Carbon Dioxide monitoring and blood pressure monitoring were done throughout the procedure. Colon withdrawal time was 15 minutes. Procedure: The patient was placed in the left lateral decubitis position and pre-procedure medications were administered. After a digital rectal examination of the ano-rectum, the video colonoscope was inserted into the rectum and advanced through the colon to the cecum/TI. The colonoscope was slowly withdrawn in a retrograde panoramic fashion and the colon mucosa was carefully examined including a retroflexed view of the rectum. Findings and interventions are described below. Procedure Difficulty: easy Findings: Terminal Ileum-normal, no blood seen Cecum:abnormal nodular appearing tissue, bx taken Stellate shaped polyp lesion about 12-14 mm in length, raised with ORISE and then removed with cold snare with 3 clips applied for hemostasis. Ascending Colon: normal Transverse Colon -normal Descending Colon:normal Sigmoid Colon: moderate diverticulosis, 10 mm sessile polyp removed with cold snare Rectum: Retroflexion with small internal hemorrhoids, grade I, 10-12 mm sessile polyp removed with cold snare and x 1 clip applied for hemostasis Anorectum - normal No blood seen in colon or TI Colon preparation: [place] Bowel Preparation Scale Right colon; 2 Transverse colon: 1 Left colon; 1-2 (0 = Unprepared colon segment with mucosa not seen due to solid stool that cannot be cleared. 1 = Portion of mucosa of the colon segment seen, but other areas of the colon segment not well seen due to staining, residual stool and/or opaque liquid. 2 = Minor amount of residual staining, small fragments of stool and/or opaque liquid, but mucosa of colon segment seen well. 3 = Entire mucosa of colon segment seen well with no residual staining, small fragments of stool or opaque liquid) Impression and Post Procedure Diagnosis: Endoscopy Findings: possible barretts Colonoscopy Findings: polyps internal hemorrhoids diverticular disease Plan: Await Pathology results Repeat Colonoscopy in 1-2 years due to fair prep or earlier if clinically indicated High fiber diet leaflet avoid straining at stool, epsom salts and sitz bath, anusol supps or cream consider o/p capsule endoscopy for further work up can restart eliquis in 24-36 hours, can use heparin in 6-8 hrs time Above findings were reviewed with the patient and relevant handouts were provided if indicated.
--- NOTE | 2021-11-22 17:38 | MHC.SHP ---
Pre-Procedural Eval Section A Date of Service: 11/22/21 The patient is an INPATIENT: Yes The History & Physical has been completed within 30 days and I have reviewed it.: Yes Section B Chief Complaint: Fall, Atrial flutter Allergies: Allergies Allergy/AdvReac Type Severity Reaction Status Date / Time influenza virus vaccine, Allergy Intermediate STIFFNESS,LIMITED Verified 09/27/20 11:28 specific FUNCTION [FLU VACCINE] AFFECTED ARM/HAND Plan I have reviewed the history and physical and performed a pertinent physical examination on my patient. No changes have occurred unless specified.
[2021-11-22 19:31] LABS: Glucose, Whole Blood 182 mg/dL (60-115)
[2021-11-22] MEDS: Lithium Carbonate ER 450 MG TABLET.ER PO (20:59)
[2021-11-22] MEDS: Atorvastatin Calcium 20 MG TABLET PO (20:59)
[2021-11-23] MEDS: 0.9 % Sodium Chloride Flush 3 ML SYRINGE IVFLUSH ×3 (00:22→21:39)
[2021-11-23 04:00] VITALS: BP 125/60; PULSE 78; RESP 18; TEMP 36.1; O2SAT 94
--- NOTE | 2021-11-23 06:44 | HO.POSTANES ---
Post Anesthesia Evaluation Post Anesthesia Evaluation Vital Signs: Vital Signs Temp Pulse Resp BP Pulse Ox O2 Del Method 11/23/21 04:00 96.9 F 78 18 125/60 94 Room Air 11/22/21 23:02 98.8 F 78 20 121/74 93 Room Air 11/22/21 19:04 99.5 F 80 14 145/65 H 98 Room Air Anesthesia: Monitored Mental Status: Awake Pain Control: Satisfactory Nausea/Vomiting: None Hydration: Adequate Anesthesia-Related Issues: No Anes. Related Issues
[2021-11-23 07:04] LABS: Hemoglobin 9.5 g/dl (12.0-16.0); Mean Corpuscular HGB Conc 31.7 g/dl (31.0-35.0); Mean Corpuscular Hemoglobin 24.7 pg (27.0-33.0); Mean Corpuscular Volume 78.1 fL (80.0-98.0); Platelet Count 268 X10*3/uL (160-400); Red Blood Count 3.84 X10*6/uL (4.20-5.50); Red Cell Distribution Width 17.4 % (11.0-16.0); White Blood Count 9.9 X10*3/uL (4.8-10.8)
[2021-11-23 08:00] VITALS: BP 136/63; PULSE 86; RESP 16; TEMP 37.3; O2SAT 95
[2021-11-23 08:16] LABS: Glucose, Whole Blood 222 mg/dL (60-115)
--- NOTE | 2021-11-23 08:40 | P.CDIC_ITS ---
CDI Concurrent Query Documentation Clarification: PHYSICIAN'S DOCUMENTATION REQUEST Date of Query: 11/23/21 0841 Patient Name: Alicia Jimenez Admit Date: 11/19/21 Dear Doctor, A review of the medical record indicates additional documentation may be needed. Please review below and update the documentation accordingly. Clinical Indicators: Risk Factors/Clinical Indicators/Treatments DM Poc glucose 340 H 292 H Insulin Please clarify the following regarding Diabetes Mellitus (DM): Type/Etiology: * Type I DM * Type II DM * Other type of DM (please specify) * Unable to determine DM * Hypoglycemia * Hyperglycemia, uncontrolled, poorly controlled etc. * No complications of DM * Other complication * Unable to determine Use of terms such as suspected, likely, concern for, or probable (associated with a specific diagnosis that is being evaluated, monitored, or treated as if it exists) are acceptable and can be coded in the inpatient setting, when documented at the time of discharge. Thank you, Millie Ramirez [facility], CDIS Extension: [phone] Please use your independent medical judgment in providing your response. THIS QUERY IS PART OF THE PERMANENT MEDICAL RECORD Provider Response: Other Other Diagnosis: Hyperglycemia secondary to type 2 diabetes
--- NOTE | 2021-11-23 08:40 | MHC.CDI.CONC ---
CDI Concurrent Query Documentation Clarification: PHYSICIAN'S DOCUMENTATION REQUEST Date of Query: 11/23/21 0841 Patient Name: Alicia Jimenez Admit Date: 11/19/21 Dear Doctor, A review of the medical record indicates additional documentation may be needed. Please review below and update the documentation accordingly. Clinical Indicators: Risk Factors/Clinical Indicators/Treatments DM Poc glucose 340 H 292 H Insulin Please clarify the following regarding Diabetes Mellitus (DM): Type/Etiology: Type I DM Type II DM Other type of DM (please specify) Unable to determine DM Hypoglycemia Hyperglycemia, uncontrolled, poorly controlled etc. No complications of DM Other complication Unable to determine Use of terms such as suspected, likely, concern for, or probable (associated with a specific diagnosis that is being evaluated, monitored, or treated as if it exists) are acceptable and can be coded in the inpatient setting, when documented at the time of discharge. Thank you, Millie Ramirez [facility], CDIS Extension: [phone] Please use your independent medical judgment in providing your response. THIS QUERY IS PART OF THE PERMANENT MEDICAL RECORD Provider Response: Other Other Diagnosis: Hyperglycemia secondary to type 2 diabetes
[2021-11-23 08:57] LABS: Prothrombin Time 11.3 SEC (10.0-13.1)
[2021-11-23 09:00] LABS: PTT Heparin Drip 29.5 SEC (53-77.9)
[2021-11-23] MEDS: Metoprolol Succinate ER 50 MG TAB.ER.24H PO (09:54)
[2021-11-23] MEDS: Dronedarone HCl 400 MG TABLET PO ×2 (09:54→21:38)
[2021-11-23] MEDS: Ferrous Sulfate 324 MG TABLET.DR PO (09:54)
[2021-11-23] MEDS: Insulin Lispro 100 UNIT/ML 3 ML VIAL SUBCUT ×3 (09:55→18:35)
--- NOTE | 2021-11-23 10:19 | PM.PNCARD ---
Subjective Subjective Date of Service: 11/23/21 Interval history: She states that she feels okay. No cardiac symptoms like angina or shortness of breath or in fact anything cardiac related. Review of Systems Review of Systems Yes all other systems are reviewed and are negative Constitutional: Reports as per HPI Eyes: Reports as per HPI Reports as per HPI Cardiovascular: Reports as per HPI, Denies acrocyanosis, Denies cool extremities, Denies chest pain, Denies leg edema, Denies lightheadedness, Denies palpitations and Denies dyspnea Respiratory: Reports as per HPI, Reports no additional respiratory complaints and Denies dyspnea Gastrointestinal: Reports as per HPI and Reports no additional gastrointestinal complaints Genitourinary: Reports as per HPI Musculoskeletal: Reports no additional musculoskeletal complaints and Reports as per HPI Skin/Breast: Reports system reviewed and no additional complaints, except as docu Reports system reviewed and no additional complaints, except as documented and Reports as per HPI Psychiatric: Reports no additional psychiatric complaints and Reports as per HPI Endocrine: Reports no additional endocrine complaints, Reports as per HPI and Denies palpitations Hematologic/Lymphatic: Reports no additional hematologic/lymphatic complaints and Reports as per HPI Allergic/Immunologic: Reports no additional allergic/immunologic complaints and Reports as per HPI Physical Exam Vital Signs: Last Vital Signs Temp 99.1 F 11/23/21 08:00 Pulse 86 11/23/21 08:00 Resp 16 11/23/21 08:00 BP 136/63 11/23/21 08:00 Pulse Ox 95 11/23/21 08:00 O2 Del Method 11/23/21 08:00 O2 Flow Rate 2 11/19/21 15:49 BMI result Body Mass Index 26.9 Const General: comfortable and no acute distress Orientation/consciousness: patient oriented x3 HEENT Other: Unremarkable Head: Yes normal to inspection Neck Neck: Yes normal visual inspection Chest Chest palpation & inspection: normal inspection of the chest Resp Auscultation: clear to auscultation bilaterally Cardio Palpation: normal PMI Heart sounds: S1 normal heart sound present, S2 normal heart sound present, no gallops, no murmurs and no rubs GI Palpation (GI): Soft to palpation Back/Spine/Pelvis Other: unremarkable Skin General skin exam: no rashes or lesions noted Neuro General: patient oriented x3 Extrem General: Yes normal to inspection Psych Mental Status: mental status grossly normal Objective Labs and Meds Result diagrams: 11/23/21 06:56 11/22/21 06:25 Lab results: Laboratory Results - last 24 hr 11/22/21 11/22/21 11/22/21 11:24 13:59 19:06 WBC RBC Hgb Hct MCV MCH MCHC RDW Plt Count MPV Absolute Nucleated RBC Nucleated RBC % (auto) PT INR aPTT Heparin Protocol POC Glucose 176 H 148 H 182 H 11/23/21 11/23/21 11/23/21 06:56 08:04 08:24 WBC 9.9 RBC 3.84 L Hgb 9.5 L Hct 30.0 L MCV 78.1 L MCH 24.7 L MCHC 31.7 RDW 17.4 H Plt Count 268 MPV 9.0 L Absolute Nucleated RBC 0.000 Nucleated RBC % (auto) 0.0 PT 11.3 INR 1.0 aPTT Heparin Protocol 29.5 L POC Glucose 222 H Progress Note: A&P Assessment and plan (1) Atrial flutter with rapid ventricular response: Status: Acute Assessment and Plan: Status post AARON and cardioversion. Continue Multaq, beta-blockers. Continue anticoagulation with Eliquis. Otherwise, maintaining sinus rhythm at this time. (2) Encounter for monitoring anti-arrhythmic therapy: Status: Acute Assessment and Plan: Stable on Multaq. No recurrent arrhythmias. She does have right bundle-branch block and that will need to be monitored for any progressive conduction system disease. (3) Iron deficiency anemia: Status: Acute Assessment and Plan: EGD colonoscopy findings reviewed. Possible Marte's. Polyps/internal hemorrhoids/diverticular disease. Per GI note, heparin can be used for now and then Eliquis in 24-36 hours. Otherwise, transfusion as needed. Will need to monitor hemoglobin as she will be on long-term anticoagulation. Plan Discussed with Dr. Montanez. Time Spent With Patient Time: Total time spent is greater than 50% in coordination of care (as documented) at patient's floor/unit and/or counseling patient: 35min, Progress Note: Quality Stroke Does the patient have a stroke diagnosis?: No Procedures Date of Service Date of Service: 11/23/21
[2021-11-23 10:39] VITALS: BMI 27.2
[2021-11-23 11:19] VITALS: BP 134/60; PULSE 69; RESP 16; TEMP 36.8; O2SAT 95
[2021-11-23 11:26] LABS: Glucose, Whole Blood 218 mg/dL (60-115)
[2021-11-23] MEDS: Heparin Sodium,Porcine/1/2NS 25,000 UNIT/250 ML IV.SOLN 8.78 UNIT IVCONT (11:46)
--- NOTE | 2021-11-23 13:34 | HO.PM.IMPN ---
Subjective Subjective Date of Service: 11/23/21 Interval History: the patient was seen and evaluated this morning Laying in bed, fails much better Hemoglobin stable around 9.5 after 1 unit transfusion No bloody bowel motions No reported other overnight events. Systemic review: No fever, chills or weakness No chest pain, palpitation No shortness of breath or coughing No abdominal pain, nausea or vomiting No urinary symptoms No any rash or wounds Physical Exam Vital Signs: Vital Signs: Last Vital Signs Temp 98.2 F 11/23/21 11:19 Pulse 69 11/23/21 11:19 Resp 16 11/23/21 11:19 BP 134/60 11/23/21 11:19 Pulse Ox 95 11/23/21 11:19 O2 Del Method 11/23/21 11:19 O2 Flow Rate 2 11/19/21 15:49 BMI result Body Mass Index 27.2 Const: Other: Constitutional : Alert, oriented, not in distress Neck : Normal inspection, Supple Cardiovascular : RRR, no JVP, no lower extremity edema Respiratory : fair bilateral air entry, no crackles, wheezes or rhonchi Gastrointestinal: soft, lax, Normal bowel sounds, Non tender Skin : Warm, Dry Neurological : Alert & oriented x3, No focal deficit , CN 2-12 within normal Objective Data Active Medications Acetaminophen (Acetaminophen 325 Mg Tablet) 650 mg PO Q6H PRN PRN Reason: Pain, Mild (Pain Scale 1-3) Last Admin: 11/19/21 06:42 Dose: 650 mg Documented By: YOSELYN Acetaminophen (Acetaminophen 325 Mg Tablet) 650 mg PO ONCE PRN PRN Reason: Pain, Mild (Pain Scale 1-3) Apixaban (Apixaban 5 Mg Tablet) 5 mg PO BID [facility] Atorvastatin Calcium (Atorvastatin Calcium 20 Mg Tablet) 20 mg PO BEDTIME [facility] Last Admin: 11/22/21 20:59 Dose: 20 mg Documented By: FALLON Dextrose (Dextrose 50 % 25 Gm/50 Ml Syringe) 25 gm IVPUSH Q15M PRN; Protocol PRN Reason: per Hypoglycemia Standing Ord. Dronedarone (Dronedarone Hcl 400 Mg Tablet) 400 mg PO BID [facility] Last Admin: 11/23/21 09:54 Dose: 400 mg Documented By: NAI Ferrous Sulfate (Ferrous Sulfate 324 Mg Tablet.) 324 mg PO DAILY [facility] Last Admin: 11/23/21 09:54 Dose: 324 mg Documented By: NAI Glucose (Glucose Gel 15 Gm Gel..Gram.) 15 gm PO Q15M PRN; Protocol PRN Reason: per Hypoglycemia Standing Ord. Heparin Sodium (Porcine) (Heparin Sodium,Porcine 5,000 Unit/Ml Vial) 2,500 unit 40 unit/kg (2500 unit) IVPUSH PROTOCOL BOLUS PRN; Protocol PRN Reason: 40 unit/kg - Heparin Protocol Stop: 11/24/21 10:00 Heparin Sodium (Porcine) (Heparin Sodium,Porcine 5,000 Unit/Ml Vial) 5,000 unit 80 unit/kg (5000 unit) IVPUSH PROTOCOL BOLUS PRN; Protocol PRN Reason: 80 unit/kg - Heparin Protocol Stop: 11/24/21 10:00 Heparin Sodium/Sodium Chloride () 25,000 unit in 250 mls @ 0 mls/hr IVCONT .Q0M [facility]; Protocol Stop: 11/24/21 10:00 Last Admin: 11/23/21 11:46 Dose: 14 units/kg/hr, 8.78 mls/hr Documented By: NAI Co-signed By: REBECA Insulin Human Lispro (Insulin Lispro 100 Unit/Ml 3 Ml Vial) 0 unit SUBCUT QIDACHS [facility]; Protocol Last Admin: 11/23/21 09:55 Dose: 4 unit Documented By: NAI [place] Carbonate ([place] Carbonate Er 450 Mg Tablet.Er) 450 mg PO BEDTIME [facility] Last Admin: 11/22/21 20:59 Dose: 450 mg Documented By: FALLON Melatonin (Melatonin 3 Mg Tablet) 6 mg PO BEDTIME PRN PRN Reason: Insomnia Metoprolol Succinate (Metoprolol Succinate Er 50 Mg Tab.Er.24h) 50 mg PO DAILY [facility]; Protocol Last Admin: 11/23/21 09:54 Dose: 50 mg Documented By: NAI Ondansetron HCl (Ondansetron Hcl 4 Mg/2 Ml Vial) 4 mg IVPUSH ONCE PRN PRN Reason: Nausea and Vomiting Senna (Sennosides 8.6 Mg Tablet) 17.2 mg PO BEDTIME PRN PRN Reason: Constipation Sodium Chloride (0.9 % Sodium Chloride Flush 3 Ml Syringe) 3 ml IVFLUSH [facility] Last Admin: 11/23/21 09:55 Dose: 3 ml Documented By: NAI Labs CBC & Chem 7: 11/23/21 06:56 11/22/21 06:25 Labs: Laboratory Results - last 24 hr 11/22/21 11/22/21 11/23/21 13:59 19:06 06:56 MCV 78.1 L MCH 24.7 L MCHC 31.7 RDW 17.4 H Plt Count 268 MPV 9.0 L Absolute Nucleated RBC 0.000 Nucleated RBC % (auto) 0.0 PT INR aPTT Heparin Protocol POC Glucose 148 H 182 H 11/23/21 11/23/21 11/23/21 08:04 08:24 11:22 MCV MCH MCHC RDW Plt Count MPV Absolute Nucleated RBC Nucleated RBC % (auto) PT 11.3 INR 1.0 aPTT Heparin Protocol 29.5 L POC Glucose 222 H 218 H Assessment and Plan (1) Atrial flutter with rapid ventricular response: Status: Acute (2) Acute on chronic blood loss anemia: Status: Acute (3) GI bleed: Status: Acute Plan 75F presented with syncope, found to have new diagnosis of aflutter with rvr Acute on chronic microcytic anemia with acute blood loss anemia Hemoglobin improved to 9.5 after 1 unit transfusion Keep Eliquis on hold Start heparin infusion overnight and if no bleeding or drop in hemoglobin we can start Eliquis by tomorrow EGD/colonoscopy done, possible Marte's, polyps, internal hemorrhoids Pending pathology result Repeat colonoscopy in 1-2 years High-fiber diet Consider capsule endoscopy as outpatient Monitor H and H fall and presyncope due to new onset atrial flutter with RVR vs mechanical s/p AARON/CV on 11/19 Remains in sinus continue toprol 50mg and multaq 400mg bid eliquis was started on admission, currently on hold for GIB Fever Resolved No clear source of infection, likely blood transfusion reaction Give Tylenol and monitor DM insulin metformin on hold mood disorder lithium HTN held amlodipine to allow room for rate controlling meds dvt prophylaxis SCDs reason for continued hospitalization: Started on IV heparin pending hemoglobin level monitoring with a plan for safe discharge to prevent possible decompensation in 2 acute blood loss anemia. Quality Stroke Does the patient have a stroke diagnosis?: No VTE Prior VTE?: No VTE Risk Level:: Medical - moderate - high VTE Device Contraindication: Treatment Not Indicated VTE Drug Contraindication: N/A - Med Ordered
[2021-11-23 14:00] VITALS: O2SAT 96
--- NOTE | 2021-11-23 14:28 | MHC.CM.PN ---
Per ROUNDS discussion, patient is Not yet medically ready for discharge r/t started on IV heparin, hemoglobin level monitoring-acute blood loss anemia. Discharge plan is home (self-care). CM will continue to follow for D/C needs.
[2021-11-23 15:54] VITALS: BP 140/66; PULSE 68; RESP 17; TEMP 36.7; O2SAT 98
[2021-11-23 16:23] LABS: Glucose, Whole Blood 219 mg/dL (60-115)
[2021-11-23] MEDS: Heparin Sodium,Porcine 5,000 UNIT/ML VIAL 2500 UNIT IVPUSH (18:28)
[2021-11-23 20:00] VITALS: BP 133/63; RESP 18; TEMP 36.5; O2SAT 96
[2021-11-23 20:52] LABS: Glucose, Whole Blood 106 mg/dL (60-115)
[2021-11-23] MEDS: Lithium Carbonate ER 450 MG TABLET.ER PO (21:38)
[2021-11-23] MEDS: Atorvastatin Calcium 20 MG TABLET PO (21:38)
[2021-11-24] VITALS: BP 144/66; PULSE 65; RESP 18; TEMP 36.1; O2SAT 96
[2021-11-24 02:03] LABS: PTT Heparin Drip 76.3 SEC (53-77.9)
[2021-11-24 04:00] VITALS: BP 141/65; PULSE 62; RESP 18; TEMP 36.6; O2SAT 100
[2021-11-24 06:00] VITALS: BMI 28.7
[2021-11-24 07:25] LABS: Glucose, Whole Blood 147 mg/dL (60-115)
[2021-11-24 07:42] VITALS: BP 136/63; PULSE 76; RESP 20; TEMP 36.6; O2SAT 95
[2021-11-24 08:21] LABS: Hematocrit 33.2 % (37.0-47.0); Mean Corpuscular HGB Conc 30.1 g/dl (31.0-35.0); Mean Corpuscular Hemoglobin 24.2 pg (27.0-33.0); Mean Corpuscular Volume 80.4 fL (80.0-98.0); Mean Platelet Volume 9.2 fL (9.4-12.3); Platelet Count 320 X10*3/uL (160-400); Red Blood Count 4.13 X10*6/uL (4.20-5.50); Red Cell Distribution Width 17.7 % (11.0-16.0)
[2021-11-24 08:28] LABS: Prothrombin Time 10.9 SEC (10.0-13.1)
[2021-11-24 08:30] LABS: PTT Heparin Drip 46.2 SEC (53-77.9)
[2021-11-24] MEDS: Metoprolol Succinate ER 50 MG TAB.ER.24H PO (08:32)
[2021-11-24] MEDS: Ferrous Sulfate 324 MG TABLET.DR PO (08:32)
[2021-11-24] MEDS: Dronedarone HCl 400 MG TABLET PO (08:33)
[2021-11-24] MEDS: Apixaban 5 MG TABLET PO (08:38)
[2021-11-24 11:30] LABS: Glucose, Whole Blood 214 mg/dL (60-115)
[2021-11-24 11:41] VITALS: BP 139/65; PULSE 65; RESP 20; TEMP 36.3; O2SAT 99
--- NOTE | 2021-11-24 11:43 | P.DS_ITS ---
DS: Providers Provider Date of Service: 11/24/21 Date of admission: 11/19/21 11:11 Primary care physician: Darian Rivera MD Consults: 11/16/21 23:30 Consult to Cardiology Routine Consulting Provider: Ariel Whitlock Reason for consultation: syncope; afib 11/17/21 12:28 Consult to Gastroenterology Routine Consulting Provider: Celestino Krishnamurthy Reason for consultation: iron defeciency anemia (new aflutter starting on eliquis) DS: Diagnosis Discharge Diagnosis (1) Atrial flutter with rapid ventricular response: Status: Acute (2) Acute on chronic blood loss anemia: Status: Acute (3) GI bleed: Status: Acute (4) Iron deficiency anemia: Status: Acute DS: Summary Hospital Course Hospital Course: Admission note HPI 75-year-old female with a past medical history of hypertension, hyperlipidemia, diabetes, bipolar disorder; presented to the hospital today with a chief c omplaint of fall.? Patient reports that all day today she has not been feeling well; noted to be mildly unsteady weak, denies any lightheadedness or room spinning.? Patient mentioned that this morning she went to the bathroom and while coming back she slumped and fell on the floor, denies any head strike, mentioned that she is unsure if she lost consciousness, even if she lost consciousness probably she lost for few seconds.? Mentioned that after that she call herself to the phone and subsequently called EMS to come into the hospital for further evaluation.? Patient denies any fever chills cough, showed a production; denies any chest pain palpitations.?Denies any nausea vomiting or diarrhea.? Per ER team patient on presentation noted to have grossly nonfocal examination; EKG showed new onset a flutter; patient was mildly in rapid ventricular rate on presentation; after medication the heart rate slightly improved.? Admitted for further management. Hospital course The patient was admitted to the hospital for evaluation of syncope and fall. Evaluated in the emergency by head images which were negative for any acute findings. Found to be on new onset atrial flutter with rapid ventricular response. Started on parish medications of metoprolol with no improvement as he was evaluated by Cardiology team who recommended AARON with cardioversion which was done on September 19 with complete resolution of the a flutter and converted back to sinus rhythm. Started on Eliquis but noted to have worsening hemoglobin level to 8.9 from baseline of around 12. Pantoprazole IV started. Eliquis was held as GI evaluated the patient and did upper and lower endoscopy. EGD/colonoscopy done, possible Marte's, polyps, internal hemorrhoids. Pending pathology result. Repeat colonoscopy in 1-2 years per GI recommendations. High- fiber diet recommended at time of discharge and avoid straining.Consider capsule endoscopy as outpatient at as she will follow up with GI in the office. Hemoglobin level remained stable around 9.5 after 1 unit transfusion. The patient was started on heparin drip after the EGD and maintain her hemoglobin level around 9.5. Eliquis restarted and the patient will be d ischarged home to follow-up with GI and Cardiology as outpatient. To repeat CBC in 1 week. High fiber diet, try to avoid constipation and straining Start Eliquis 5 mg twice Daily Start omeprazole daily Start metoprolol 50 mg XL and Multaq 400 mg twice Daily To follow-up with Dr. Elam from Cardiology as outpatient To follow-up with Dr. Juárez from Gastroenterology as outpatient for capsule endoscopy To repeat blood test next week Time Spent with Patient Time attestation: Total time spent providing and/or coordinating discharge services: Discharge coordination time: Greater than 30 minutes Quality: Safe Use of Opioids Does Pt have an Active Cancer Diagnosis on the Problem List?: No Quality: Stroke Does the patient have a stroke diagnosis?: No Physical Exam Vital Signs: Vital Signs: Last Vital Signs Temp 97.8 F 11/24/21 07:42 Pulse 76 11/24/21 07:42 Resp 20 11/24/21 07:42 BP 136/63 11/24/21 07:42 Pulse Ox 95 11/24/21 07:42 O2 Del Method 11/24/21 07:42 O2 Flow Rate 2 11/19/21 15:49 BMI result Body Mass Index 28.7 Const: Other: Constitutional : Alert, oriented, not in distress Neck : Normal inspection, Supple Cardiovascular : RRR, no JVP, no lower extremity edema Respiratory : fair bilateral air entry, no crackles, wheezes or rhonchi Gastrointestinal: soft, lax, Normal bowel sounds, Non tender Skin : Warm, Dry Neurological : Alert & oriented x3, No focal deficit , CN 2-12 within normal DS: Data Data Completed and Pending Pending studies at discharge: Pending at discharge 11/22/21 17:04 Surgical [PTH] Routine Labs on day of discharge: Laboratory Results - last 24 hr 11/23/21 11/23/21 11/23/21 15:57 17:45 20:49 WBC RBC Hgb Hct MCV MCH MCHC RDW Plt Count MPV Absolute Nucleated RBC Nucleated RBC % (auto) PT INR aPTT Heparin Protocol 45.0 L D POC Glucose 219 H 106 11/24/21 11/24/21 11/24/21 01:40 07:14 07:49 WBC 10.0 RBC 4.13 L Hgb 10.0 L Hct 33.2 L MCV 80.4 MCH 24.2 L MCHC 30.1 L RDW 17.7 H Plt Count 320 MPV 9.2 L Absolute Nucleated RBC 0.000 Nucleated RBC % (auto) 0.0 PT INR aPTT Heparin Protocol 76.3 D POC Glucose 147 H 11/24/21 11/24/21 11/24/21 07:49 07:49 11:24 WBC RBC Hgb Hct MCV MCH MCHC RDW Plt Count MPV Absolute Nucleated RBC Nucleated RBC % (auto) PT 10.9 INR 1.0 aPTT Heparin Protocol 46.2 L D POC Glucose 214 H Imaging Chest x-ray: Radiologist's impression: ITS Impressions Chest X-Ray 11/16/21 21:35 IMPRESSION: Unremarkable examination. Head CT 11/16/21 22:19 IMPRESSION: No acute intracranial pathology. Discharge Plan Discharge Patient Disposition: Home, Self-Care Discharge Diagnosis: aflutter, iron deficiency Referrals: Darian Rivera MD [Primary Care Provider] - 1 Week Celestino Krishnamurthy MD [Physician] - 1 Week Discharge Medications: New atorvastatin 20 mg Tablet 20 mg PO BEDTIME Qty: 30 0RF metoprolol succinate 50 mg Tablet Extended Release 24 Hr 50 mg PO DAILY Qty: 30 0RF Protocol: Hold for SBP/HR < HOLD for SBP < : 90 HOLD for HR < : 60 ferrous sulfate 324 mg (65 mg iron) Tablet,Delayed Release (Dr/Ec) 324 mg PO DAILY Qty: 30 0RF Multaq 400 mg Tablet 400 mg PO BID Qty: 60 0RF Eliquis 5 mg Tablet 5 mg PO BID Qty: 60 0RF pantoprazole 40 mg tablet,delayed release (DR/EC) 40 mg PO DAILY Qty: 30 0RF Continued bisacodyl [Dulcolax (bisacodyl)] 5 mg tablet,delayed release (DR/EC) 10 mg PO ONCE 2 Days Qty: 4 0RF Rx Instructions: Take 2 tablets at 12 pm daily starting 2 days before colonoscopy appointment polyethylene glycol 3350 [Miralax] 17 gram/dose powder 17 g PO DAILY 1 Days Qty: 238 0RF Rx Instructions: Mix Miralax with 64 oz(8 cups) of Crystal light. Take 2 tablets of Dulcolax qt 12 pm. Wait to have your 1st bowel movement, then begin drinking Miralax. Drink a glass of Miralax every 10-15 minutes until you are finished. You will drink at least another 4 cups of clear liquid of your choice over the next 2 hours. Please drink as many clear liquids as possible You may have clear liquids up to four hours before your procedure Discharge Orders: Discharge Order (Routine); Ordered 11/24/21 Ordered By: Pedro Montanez Diet: Advance to usual diet Activity on Discharge: As tolerated Stand Alone Forms: Patient Portal Discharge page Other Ambulatory Orders: Complete Blood Count no Diff (Routine) Timeframe: 5 Days Facility: [facility] - Location: Laboratory Ordered By: Pedro Montanez Care Plan Goals: avoid aflutter, strokes Health Concerns: aflutter, iron defeciency Plan of Treatment: Read below Assessment: You were admitted to the hospital for evaluation of syncope. Found to have a new onset atrial flutter of the heart requiring cardioversion by workers compensation defense attorney with good response as your heart restarted on a sinus rhythm. You were started on medications of Toprol and Multaq along with the blood thinners. Noticed to have a drop in your hemoglobin level. Evaluated by material reclaimer who found polyps and internal hemorrhoids. Blood thinner were restarted with no evidence of bleeding. High fiber diet, try to avoid constipation and straining Start Eliquis 5 mg twice Daily Start omeprazole daily Start metoprolol 50 mg XL and Multaq 400 mg twice Daily To follow-up with Dr. Elam from Cardiology as outpatient To follow-up with Dr. Juárez from Gastroenterology as outpatient for capsule endoscopy To repeat blood test next week
--- NOTE | 2021-11-24 11:45 | MHC.CM.PN ---
PT WILL DC HOME TODAY WITH NO SERVICES PT TO ARRANGE TRANSPORT
== END 2021-11-24 12:48 | disposition home or self-care (01) | DRG 309 ==
LOC: HO.ED 23:35 → HO.EDOVER 23:44 → HO.IMC 11-18 04:48
PROVIDERS: Internal Medicine; Internal Medicine Gastroenterology; Admitting Provider Hospitalist; Emergency Provider Emergency Medicine; PCP Family Medicine; Visit Provider Student in an Organized Health Care Education/Training Program
PROC: 5A2204Z Restoration of Cardiac Rhythm, Single (ICD-10-PCS; CPT 93312; principal; 2021-11-19 14:30)
PROC: 5A2204Z Restoration of Cardiac Rhythm, Single (ICD-10-PCS; 2021-11-19 14:30)
PROC: 0DB98ZX Excision of Duodenum, Via Natural or Artificial Opening Endoscopic, Diagnostic (ICD-10-PCS; principal; 2021-11-22 15:50)
DX: I48.92 Unspecified atrial flutter (principal); D62 Acute posthemorrhagic anemia; I10 Essential (primary) hypertension; E78.5 Hyperlipidemia, unspecified; E11.65 Type 2 diabetes mellitus with hyperglycemia; K63.5 Polyp of colon; K63.9 Disease of intestine, unspecified; F31.9 Bipolar disorder, unspecified; T80.89XA Other complications following infusion, transfusion and therapeutic injection, initial encounter; K57.30 Diverticulosis of large intestine without perforation or abscess without bleeding; K64.8 Other hemorrhoids; K22.70 Barrett's esophagus without dysplasia; Z20.822 Contact with and (suspected) exposure to COVID-19; Z88.7 Allergy status to serum and vaccine; Z79.01 Long term (current) use of anticoagulants; Z79.899 Other long term (current) drug therapy
CPT/HCPCS: 0241U; 36415; 70450; 71045; 80048; 80076; 81001; 82607; 82728; 82746; 82947; 83540; 83690; 83880; 84443; 84484; 85025; 85027; 85610; 85730; 86850; 86900; 86901; 86923; 87086; 88305; 88341; 88342; 92960; 93005; 93306; 96361; 96374; 97162; 99285; J1160; J1650; J2250; J2370; J3010; P9016; Q9957

== ENCOUNTER → 2021-11-29 09:28 | Outpatient (BNVA) | payer MEDICARE, SELFPAY | PROVIDERS: PCP Family Medicine; Referring Provider Family Medicine; Visit Provider Internal Medicine Cardiovascular Disease | DX: R00.1 Bradycardia, unspecified (principal) | CPT/HCPCS: 93005 ==

== ENCOUNTER → 2021-12-05 13:05 | Outpatient (BNVA) | payer MEDICARE, SELFPAY | PROVIDERS: PCP Family Medicine; Referring Provider Family Medicine; Visit Provider Nurse Practitioner Family | DX: I10 Essential (primary) hypertension (principal); I48.92 Unspecified atrial flutter; D50.9 Iron deficiency anemia, unspecified; Z79.899 Other long term (current) drug therapy | CPT/HCPCS: 99212 ==

== ENCOUNTER 2021-12-09 18:58 | Emergency (ER) | payer MEDICARE, SELFPAY ==
--- NOTE | ~2021-12-09 | XR_ITS ---
EXAMINATION: XR CHEST CLINICAL INFORMATION: Weakness COMPARISON: 11/16/2021 TECHNIQUE: Frontal view of the chest was obtained. FINDINGS: Normal symmetric lung volumes. No parenchymal consolidation. No pleural effusion. No pneumothorax. Cardiomediastinal silhouette and pulmonary vascularity are within normal limits. Aorta is atherosclerotic. No acute osseous abnormalities. XR/XR chest 1V IMPRESSION: No acute findings.
[2021-12-09 19:15] VITALS: BP 168/65; PULSE 100; RESP 18; TEMP 36.1; O2SAT 98; BMI 23.0
--- NOTE | 2021-12-09 19:26 | PC.NURSE ---
Patient stopped taking Metformin, Metoprolol, Multaq, Eliquis, Amolodopine, Vit D3, Pantoprazole, Iron, Co-Enzyme Q10, Amitriptyline, [place] 3 days
--- NOTE | 2021-12-09 19:41 | ECG_ITS ---
Test Reason : WEAKNESS Blood Pressure : / mmHG Vent. Rate : 091 BPM Atrial Rate : 091 BPM P-R Int : 156 ms QRS Dur : 138 ms QT Int : 474 ms P-R-T Axes : 043 044 -19 degrees QTc Int : 583 ms Normal sinus rhythm Possible Left atrial enlargement Right bundle branch block T wave abnormality, consider inferolateral ischemia Abnormal ECG When compared with ECG of 20-NOV-2021 08:30, Criteria for Septal infarct are no longer Present Inverted T waves have replaced nonspecific T wave abnormality in Lateral leads QT has lengthened Referred By: Bhakti Monreal Electronically Signed By:JERMAN RHODES
--- NOTE | 2021-12-09 20:13 | ED.WEAKNESS ---
HPI - Weakness General Chief complaint: Weakness Stated complaint: not feeling well Time Seen by Provider: 12/09/21 19:29 Source: patient and EMS Mode of arrival: EMS History of Present Illness HPI Narrative: 75-year-old female with past medical history of a flutter with RVR on Eliquis, acute on chronic anemia, GI bleed, HTN, HLD, diabetes, bipolar, presenting to the ED via EMS for increased generalized weakness/fatigue and lightheadedness x3 days. Patient reports she feels unsteady on her feet due to fear of syncopizing. Has not taken medications x3 days, barely got out of bed and also with decreased p.o. intake. Denies recent falls/trauma, headache, chest pain/shortness breath, abdominal pain, nausea, vomiting, diarrhea, numbness/tingling Patient was home alone, at baseline uses no assistive devices MD Complaint: generalized weakness and lack of energy Onset (ago): day(s) Related Data Home Medications Medication Instructions Recorded Confirmed amlodipine 5 mg tablet 5 mg PO DAILY 12/05/21 12/05/21 metformin 500 mg tablet 0 mg PO 12/05/21 12/05/21 Previous Rx's Medication Instructions Recorded bisacodyl 5 mg tablet,delayed 10 mg PO ONCE colon prep 2 days #4 11/18/21 release (Dulcolax (bisacodyl)) tabs polyethylene glycol 3350 17 17 g PO DAILY 1 day #238 grams 11/18/21 gram/dose oral powder (Miralax) apixaban 5 mg tablet (Eliquis) 5 mg PO BID #60 tabs 11/20/21 atorvastatin 20 mg tablet 20 mg PO BEDTIME #30 tabs 11/20/21 dronedarone 400 mg tablet (Multaq) 400 mg PO BID #60 tabs 11/20/21 ferrous sulfate 324 mg (65 mg 324 mg PO DAILY #30 tabs 11/20/21 iron) tablet,delayed release metoprolol succinate 50 mg 50 mg PO DAILY #30 tabs 11/20/21 tablet,extended release 24 hr pantoprazole 40 mg tablet,delayed 40 mg PO DAILY #30 tabs 11/24/21 release Allergies Allergy/AdvReac Type Severity Reaction Status Date / Time influenza virus vaccine, Allergy Intermediate STIFFNESS,LIMITED Verified 12/09/21 19:26 specific FUNCTION [FLU VACCINE] AFFECTED ARM/HAND Review of Systems Review of Systems: Constitutional: No Fever, No Chills, + Fatigue, + Malaise ENT/Mouth: No Ear Pain, No Nasal Congestion, No Sinus Pain, No Hoarseness, No sore throat, No Rhinorrhea, No Swallowing Difficulty Eyes: No Eye Pain, No Swelling, No Redness, No Vision Changes Cardiovascular: No Chest Pain, No SOB, No Dyspnea on Exertion, No Orthopnea, No Edema, No Palpitations Respiratory: No Cough, No Sputum, No Dyspnea Gastrointestinal: No Nausea, No Vomiting, No Diarrhea, No Constipation, No Abdominal pain Genitourinary: No Dysuria, No Urinary Frequency, No Hematuria, No Urinary Incontinence/retention, No Flank Pain, No Urinary Flow Changes, No Hesitancy Musculoskeletal: No joint pain, No Myalgias, No Joint Swelling Skin: No Skin Lesions, No rash Neuro: + Weakness, No Numbness, No Paresthesias, No Loss of Consciousness, + lightheaded, No Headache Yes all other systems are reviewed and are negative Constitutional: Constitutional: Reports as per [facility] Past Medical History Attestation statement: The following information was validated with the patient. Medical History Breast calcification, right Depression Diabetes mellitus Encounter for monitoring anti-arrhythmic therapy Hypertension Iron deficiency anemia New onset atrial flutter Surgical History History of section History of cholecystectomy Family History Family History Father Depression Social History Social History Household Members: None Housing: House Do you presently have visiting nurse or other home services: No Alcohol intake: current Alcohol intake frequency: holidays/special occasions only Patient Tobacco Use Status: Never used Tobacco Advance Directives: No Advance Directives Information Provided: Yes service: No Current occupational status: retired Physical Exam Vital Signs: Vital Signs: Last Vital Signs Temp 98.0 F 12/09/21 21:10 Pulse 84 12/09/21 21:10 Resp 16 12/09/21 21:10 BP 152/70 H 12/09/21 21:10 Pulse Ox 99 12/09/21 21:10 O2 Del Method 12/09/21 21:10 BMI result Body Mass Index 23.0 Const: Other: Mildly shaky General: cooperative, no acute distress, alert and awake Orientation/consciousness: patient oriented x3 Limitations: no limitations HEENT: Head: Yes normal to inspection and Yes atraumatic Ears: hearing grossly normal bilaterally General nose exam: Normal external nose present Face and sinus: Yes normal facial exam Eyes: General: appearance normal, both eyes and all related structures EOM: EOMs intact bilaterally Neck: Neck: Yes normal visual inspection and Yes no meningeal signs Resp: Effort & Inspection: normal respiratory effort and no respiratory distress Auscultation: clear to auscultation bilaterally, no crackles, no rales, no rhonchi and no wheezes Cardio: Rate: regular rate Heart sounds: S1 normal heart sound present and S2 normal heart sound present GI: Inspection: Yes normal to inspection Palpation (GI): Soft to palpation, nontender, no guarding and not rigid : General: Yes no CVA tenderness Back/Spine/Pelvis: Back: no CVA tenderness Skin: Rashes: no rashes Wounds: no wounds Neuro: Other: Ambulates with slow steady gait General: patient oriented x3, gait normal, tone normal, moves all extremities, no meningeal signs, no focal motor deficits and CN's II-XI intact bilaterally Cranial nerves: Yes CN's II-XII intact bilaterally, Yes Bilaterally intact EOM present and Yes Nystagmus not present Gait exam (Neuro): Normal gait present Motor exam (neuro): 5/5 motor strength present throughout and Pronator motor function not present Coordination: [id number] test normal Romberg Test: Negative Extrem: General: Yes normal to inspection, Yes no pedal edema and Yes no calf tenderness Course Course Course Narrative: -orthostatics positive. Will give IVF and re-evaluate -2100--ED care transferred to [facility] pending labs, UA, COVID-19 testing, and re-evaluation. Dispo per results MDM - Weakness MDM Narrative Medical decision making narrative: 75-year-old female with past medical history of a flutter with RVR on Eliquis, acute on chronic anemia, GI bleed, HTN, HLD, diabetes, bipolar, presenting to the ED via EMS for increased generalized weakness/fatigue and lightheadedness x3 days. On exam VSS, NAD, well appearing, lungs CTA, no focal neuro deficits, ambulating with gait. Concern for arrhythmia vs metabolic derangements vs ACS. Lower suspicion for infectious etiology. Low concern for PE Plan: EKG, labs, UA, CXR, orthostatics, COVID-19 Medical Records Attestation: I reviewed the patient's medical records. Lab Data Attestation: I reviewed the patient's lab results. Result diagrams: 12/09/21 20:47 12/09/21 20:47 Labs: Lab Results 12/09/21 Range/Units 20:47 WBC 10.3 (4.8-10.8) X10*3/uL RBC 5.18 D (4.20-5.50) X10*6/uL Hgb 12.9 D (12.0-16.0) g/dl Hct 41.8 D (37.0-47.0) % MCV 80.7 (80.0-98.0) fL MCH 24.9 L (27.0-33.0) pg MCHC 30.9 L (31.0-35.0) g/dl RDW 19.2 H (11.0-16.0) % Plt Count 408 H D (160-400) X10*3/uL MPV 9.4 (9.4-12.3) fL Immature Gran % (Auto) 0.3 (0.0-0.4) % Neut % (Auto) 68.9 (45-73) % Lymph % (Auto) 23.3 (20-40) % [place] % (Auto) 5.3 (2-11) % Eos % (Auto) 1.5 (0-4) % Baso % (Auto) 0.7 (0-2) % Lymph # (Auto) 2.4 (1.2-4.9) X10*3/uL [place] # (Auto) 0.6 (0.1-1.2) X10*3/uL Eos # (Auto) 0.2 (0.0-0.4) X10*3/uL Baso # (Auto) 0.1 (0.0-0.2) X10*3/uL Abs Immat Gran (auto) 0.03 (0.00-0.03) X10*3/uL Absolute Neuts (auto) 7.1 (2.0-8.3) x10*3/uL Absolute Nucleated RBC 0.000 (0.0-0.012) X10*3/uL Nucleated RBC % (auto) 0.0 (0.0-0.2) /100WBC ECG Data Attestation: I personally reviewed and interpreted this ECG as follows: ECG interpretation date: 12/09/21 ECG interpretation time: 20:35 Interpretation: EKG normal sinus rhythm at a rate of 91. Right bundle-branch block. Inverted T-waves have replaced nonspecific T-wave abnormality in lateral leads. Discharge Plan Discharge Clinical Impression: Weakness, Orthostasis Patient Disposition: Still a Patient Prescriptions: No Action bisacodyl [Dulcolax (bisacodyl)] 5 mg tablet,delayed release (DR/EC) 10 mg PO ONCE 2 Days Qty: 4 0RF Rx Instructions: Take 2 tablets at 12 pm daily starting 2 days before colonoscopy appointment polyethylene glycol 3350 [Miralax] 17 gram/dose powder 17 g PO DAILY 1 Days Qty: 238 0RF Rx Instructions: Mix Miralax with 64 oz(8 cups) of Crystal light. Take 2 tablets of Dulcolax qt 12 pm. Wait to have your 1st bowel movement, then begin drinking Miralax. Drink a glass of Miralax every 10-15 minutes until you are finished. You will drink at least another 4 cups of clear liquid of your choice over the next 2 hours. Please drink as many clear liquids as possible You may have clear liquids up to four hours before your procedure atorvastatin 20 mg Tablet 20 mg PO BEDTIME Qty: 30 0RF metoprolol succinate 50 mg Tablet Extended Release 24 Hr 50 mg PO DAILY Qty: 30 0RF Protocol: Hold for SBP/HR < HOLD for SBP < : 90 HOLD for HR < : 60 ferrous sulfate 324 mg (65 mg iron) Tablet,Delayed Release (Dr/Ec) 324 mg PO DAILY Qty: 30 0RF Multaq 400 mg Tablet 400 mg PO BID Qty: 60 0RF Eliquis 5 mg Tablet 5 mg PO BID Qty: 60 0RF pantoprazole 40 mg tablet,delayed release (DR/EC) 40 mg PO DAILY Qty: 30 0RF amlodipine 5 mg tablet 5 mg PO DAILY metformin 500 mg tablet 0 mg PO
[2021-12-09 21:02] LABS: MANUAL DIFF FLAG NO
[2021-12-09 21:05] VITALS: BP 142/63; PULSE 84
[2021-12-09 21:06] VITALS: BP 127/78; BP 152/65; PULSE 115; PULSE 85
[2021-12-09 21:07] LABS: Basophils Absolute Auto 0.1 X10*3/uL (0.0-0.2); Basophils Percent Auto 0.7 % (0-2); Eosinophils Absolute Auto 0.2 X10*3/uL (0.0-0.4); Eosinophils Percent Auto 1.5 % (0-4); Hematocrit 41.8 % (37.0-47.0); Hemoglobin 12.9 g/dl (12.0-16.0); Imm Gran Abs Auto 0.03 X10*3/uL (0.00-0.03); Imm Gran Pct Auto 0.3 % (0.0-0.4); Lymphocytes Absolute Auto 2.4 X10*3/uL (1.2-4.9); Lymphocytes Percent Auto 23.3 % (20-40); Mean Corpuscular HGB Conc 30.9 g/dl (31.0-35.0); Mean Corpuscular Hemoglobin 24.9 pg (27.0-33.0); Mean Corpuscular Volume 80.7 fL (80.0-98.0); Mean Platelet Volume 9.4 fL (9.4-12.3); Monocytes Absolute Auto 0.6 X10*3/uL (0.1-1.2); Monocytes Percent Auto 5.3 % (2-11); Neutrophils Absolute Auto 7.1 x10*3/uL (2.0-8.3); Neutrophils Percent Auto 68.9 % (45-73); Platelet Count 408 X10*3/uL (160-400); Red Blood Count 5.18 X10*6/uL (4.20-5.50); Red Cell Distribution Width 19.2 % (11.0-16.0); White Blood Count 10.3 X10*3/uL (4.8-10.8)
[2021-12-09 21:10] VITALS: BP 152/70; PULSE 84; RESP 16; TEMP 36.7; O2SAT 99
[2021-12-09 21:19] LABS: Prothrombin Time 11.4 SEC (10.0-13.1)
--- NOTE | 2021-12-09 21:21 | PC.NURSE ---
PATIENT ATE A TUNA SANDWICH AND DRANK A CAN OF MELODY SAMRA
[2021-12-09 21:28] LABS: B Type Natriuretic Peptide 43 pg/mL (<100); Troponin-I High Sensitivity 13.2 ng/L (<3.5-17.0)
[2021-12-09 21:34] VITALS: BP 146/80; PULSE 72; RESP 16; TEMP 36.7; O2SAT 98
[2021-12-09 21:42] LABS: Alanine Aminotransferase 18 U/L (0-31); Albumin Level 4.1 g/dL (3.5-5.0); Alkaline Phosphatase 79 U/L (39-117); Anion Gap 17 (12-20); Aspartate Amino Transferase 14 U/L (5-31); Bilirubin Direct 0.2 mg/dL (0.0-0.5); Bilirubin Total 0.5 mg/dL (0.0-1.0); Blood Urea Nitrogen 17 mg/dL (9-16); Calcium 9.2 mg/dL (8.4-10.2); Carbon Dioxide 20 mmol/L (22-29); Chloride 108 mmol/L (96-108); Creatinine Clr Calc Pharmacy 33.8; Estimated Glomerular Filt Rate 45; Glucose Random 130 mg/dL (60-115); Magnesium 1.8 mg/dL (1.6-2.6); Sodium 141 mmol/L (135-145); Total Protein 6.9 g/dL (6.5-8.0)
[2021-12-09 21:59] LABS: IDNOW Serial# 16C4AD1C
[2021-12-09 22:00] LABS: COVID-19 Test Negative (Negative)
[2021-12-09] MEDS: 0.9 % Sodium Chloride 500 ML 999 ML IV ×2 (23:38)
[2021-12-10 01:12] LABS: Appearance Urine CLEAR; Color Urine YELLOW; Glucose Urine UA NEG (NEG); Leukocyte Esterase Urine NEG (NEG); Nitrite Urine NEG (NEG); Specific Gravity - Urine 1.025 (1.005-1.025); Urine Blood NEG (NEG); Urine Ketones 15 MG/DL (NEG); Urine Protein TRACE MG/DL (NEG-TRACE)
[2021-12-10 01:53] VITALS: BP 144/62; PULSE 71
[2021-12-10 01:54] VITALS: BP 160/73; BP 172/75; PULSE 103; PULSE 83
[2021-12-10 05:00] VITALS: BP 163/74; PULSE 82; RESP 16; O2SAT 97
--- NOTE | 2021-12-10 05:34 | PC.NURSE ---
Patient resting comfortably in bed, provided patient with kaye sheila. Denies any other needs at this time. Requesting to stay in her own clothes. NAD.
[2021-12-10 06:00] VITALS: BP 160/76; PULSE 74; RESP 16; O2SAT 98
--- NOTE | 2021-12-10 09:42 | PHA.MEDREC ---
Pharmacy Consult ? Medication Reconciliation Pharmacy has completed the medication reconciliation.
--- NOTE | 2021-12-10 10:20 | MHC.CM.ED ---
CM MET WITH PT TO DISCUSS DC PLANNING. PT IS AWARE PHYSICAL THERAPY HAS RECOMMENDED HOME WITH SERVICES VS STR SHE REPORTS SHE WOULD LIKE TO GO HOME WITH SERVICES REFERRAL MADE TO [facility]-THEY ARE UNABLE TO PROVIDE SOC FOR PT UNTIL NEXT WEEK MORE REFERRALS MADE
[2021-12-10] MEDS: Metoprolol Tartrate 25 MG TABLET PO (10:38)
[2021-12-10] MEDS: metFORMIN HCl 500 MG TABLET PO (10:38)
[2021-12-10] MEDS: Apixaban 5 MG TABLET PO (10:38)
[2021-12-10] MEDS: Cholecalciferol (Vitamin D3) 25 MCG TABLET PO (10:38)
[2021-12-10] MEDS: Ferrous Sulfate 324 MG TABLET.DR PO (10:39)
[2021-12-10 10:41] VITALS: BP 188/83; PULSE 79; RESP 16; O2SAT 97
[2021-12-10] MEDS: Dronedarone HCl 400 MG TABLET PO (11:42)
== END 2021-12-10 15:04 | disposition home or self-care (01) ==
PROVIDERS: Physician Assistant; Emergency Provider Emergency Medicine; PCP Family Medicine
DX: R53.1 Weakness (principal); I95.1 Orthostatic hypotension; I45.10 Unspecified right bundle-branch block; Z20.822 Contact with and (suspected) exposure to COVID-19; E11.9 Type 2 diabetes mellitus without complications; I10 Essential (primary) hypertension; D50.9 Iron deficiency anemia, unspecified; I48.92 Unspecified atrial flutter; E78.5 Hyperlipidemia, unspecified; Z79.01 Long term (current) use of anticoagulants; Z79.899 Other long term (current) drug therapy; Z79.02 Long term (current) use of antithrombotics/antiplatelets
CPT/HCPCS: 71045; 80048; 80076; 81003; 83735; 83880; 84484; 85025; 85610; 87635; 93005; 96360; 96361; 97162; 99285

== ENCOUNTER 2021-12-20 09:41 | Outpatient (REF) | payer MEDICARE, SELFPAY ==
[2021-12-20 10:01] LABS: MANUAL DIFF FLAG NO
[2021-12-20 10:15] LABS: Basophils Absolute Auto 0.1 X10*3/uL (0.0-0.2); Basophils Percent Auto 0.7 % (0-2); Eosinophils Absolute Auto 0.3 X10*3/uL (0.0-0.4); Eosinophils Percent Auto 3.2 % (0-4); Hematocrit 34.7 % (37.0-47.0); Hemoglobin 10.9 g/dl (12.0-16.0); Imm Gran Abs Auto 0.04 X10*3/uL (0.00-0.03); Imm Gran Pct Auto 0.5 % (0.0-0.4); Lymphocytes Absolute Auto 2.2 X10*3/uL (1.2-4.9); Lymphocytes Percent Auto 27.1 % (20-40); Mean Corpuscular HGB Conc 31.4 g/dl (31.0-35.0); Mean Corpuscular Hemoglobin 25.7 pg (27.0-33.0); Mean Corpuscular Volume 81.8 fL (80.0-98.0); Mean Platelet Volume 9.5 fL (9.4-12.3); Monocytes Absolute Auto 0.5 X10*3/uL (0.1-1.2); Monocytes Percent Auto 5.9 % (2-11); Neutrophils Percent Auto 62.6 % (45-73); Platelet Count 266 X10*3/uL (160-400); Red Blood Count 4.24 X10*6/uL (4.20-5.50); Red Cell Distribution Width 19.9 % (11.0-16.0); White Blood Count 8.1 X10*3/uL (4.8-10.8)
[2021-12-20 10:31] LABS: Estimated Average Glucose 192 mg/dL; Hemoglobin A1c % 8.3 %
[2021-12-20 10:35] LABS: Anion Gap 12 (12-20); Blood Urea Nitrogen 10 mg/dL (9-16); Calcium 9.6 mg/dL (8.4-10.2); Carbon Dioxide 25 mmol/L (22-29); Chloride 105 mmol/L (96-108); Estimated Glomerular Filt Rate 53; Glucose Random 180 mg/dL (60-115); Potassium 4.4 mmol/L (3.3-5.1); Sodium 138 mmol/L (135-145)
[2021-12-20 10:42] LABS: Anion Gap 12 (12-20); Blood Urea Nitrogen 10 mg/dL (9-16); Carbon Dioxide 25 mmol/L (22-29); Chloride 106 mmol/L (96-108); Estimated Glomerular Filt Rate 54; Glucose Fasting 178 mg/dL (60-99); Iron 46 mcg/dL (30-160); Percent Iron Saturation 11 % (15-50); Potassium 4.4 mmol/L (3.3-5.1); Sodium 139 mmol/L (135-145); Total Iron Binding Capacity 410 mcg/dL (228-428); Unsaturated Iron Binding 364 ug/dL
[2021-12-20 10:47] LABS: Lithium 0.77 mmol/L (0.60-1.20)
[2021-12-20 11:01] LABS: Thyroid Stimulating Hormone 5.67 uIU/mL (0.32-4.0)
== END 2021-12-20 09:42 | disposition home or self-care (01) ==
LOC: HO.LAB 09:41
PROVIDERS: Absent Provider Psychiatry & Neurology Psychiatry; PCP Family Medicine; Visit Provider Family Medicine
DX: D50.9 Iron deficiency anemia, unspecified (principal); I10 Essential (primary) hypertension; E11.9 Type 2 diabetes mellitus without complications; F33.42 Major depressive disorder, recurrent, in full remission; Z79.899 Other long term (current) drug therapy
CPT/HCPCS: 36415; 80048; 80051; 80178; 82565; 82947; 83036; 83540; 84443; 84520; 85025

== ENCOUNTER → 2022-01-17 14:11 | Outpatient (BNVA) | payer MEDICARE, SELFPAY | PROVIDERS: PCP Family Medicine; Referring Provider Family Medicine; Visit Provider Nurse Practitioner Family | DX: I48.92 Unspecified atrial flutter (principal); D50.9 Iron deficiency anemia, unspecified; I10 Essential (primary) hypertension | CPT/HCPCS: 99212 ==

== ENCOUNTER 2022-02-01 14:08 | Outpatient (REF) | payer MEDICARE, SELFPAY ==
--- NOTE | ~2022-02-01 | MM_ITS ---
EXAMINATION: MM SCREENING DIGITAL BREAST TOMOSYNTHESIS, BILATERAL CLINICAL INFORMATION: Screening. Asymptomatic. The lifetime risk of breast cancer based on the Tyrer-Cuzick Model is 2%. COMPARISON: Mammography: 09/19/2020, 09/05/2020, 03/18/2019, 12/24/2017 TECHNIQUE: Digital breast tomosynthesis is performed in both the craniocaudal and mediolateral oblique views along with computer-aided detection (CAD). Synthesized 2D images are generated from the tomosynthesis. Additional left MLO view is provided. FINDINGS: There are scattered areas of fibroglandular density (ACR BI-RADS breast composition Category b). There are no significant masses, abnormal calcifications, or other abnormalities. Biopsy clip marker present mid upper outer right breast. There is no developing density or architectural abnormality. The axilla are unremarkable. Skin contours are smooth. No significant changes. MM/MM tomosynthesis screening BI IMPRESSION: No mammographic evidence of malignancy. ASSESSMENT: BI-RADS 1: Negative RECOMMENDATION: Routine annual mammography screening. This patient's information was entered into a reminder system with a target due date for their next mammogram.
== END 2022-02-01 14:09 | disposition home or self-care (01) ==
LOC: HO.MAMMO 14:08
PROVIDERS: PCP Family Medicine; Visit Provider Family Medicine
DX: Z12.31 Encounter for screening mammogram for malignant neoplasm of breast (principal)
CPT/HCPCS: 77063; 77067

== ENCOUNTER → 2022-02-07 10:03 | Outpatient (BNVA) | payer MEDICARE, SELFPAY | PROVIDERS: PCP Family Medicine; Visit Provider Nurse Practitioner Family | DX: I45.10 Unspecified right bundle-branch block (principal) | CPT/HCPCS: 93005 ==

== ENCOUNTER 2022-02-18 13:34 | Outpatient (REF) | payer MEDICARE, SELFPAY ==
[2022-02-18 14:12] LABS: Hematocrit 37.3 % (37.0-47.0); Mean Corpuscular HGB Conc 32.2 g/dl (31.0-35.0); Mean Corpuscular Hemoglobin 28.3 pg (27.0-33.0); Mean Platelet Volume 9.3 fL (9.4-12.3); Platelet Count 329 X10*3/uL (160-400); Red Blood Count 4.24 X10*6/uL (4.20-5.50); Red Cell Distribution Width 16.4 % (11.0-16.0); White Blood Count 9.5 X10*3/uL (4.8-10.8)
== END 2022-02-18 13:35 | disposition home or self-care (01) ==
LOC: HO.LAB 13:34
PROVIDERS: PCP Family Medicine; Visit Provider Nurse Practitioner Family
DX: K29.40 Chronic atrophic gastritis without bleeding (principal); K59.01 Slow transit constipation; D50.9 Iron deficiency anemia, unspecified
CPT/HCPCS: 36415; 85027; 99202; 99212

== ENCOUNTER → 2022-04-11 11:45 | Outpatient (REF) | payer MEDICARE, SELFPAY ==
--- NOTE | 2022-04-11 11:49 | HM_ITS ---
* Total monitoring time 3 days. * Underlying rhythm is sinus. Average ventricular rate 73/Min. Range 52 to 130/Min. * No evidence of atrial fibrillation or flutter. * Rare PACs/PVCs with minimal burden * No significant pauses or AV blocks. * Patient marker used once in association with sinus tachycardia. No diary. MTDD
[2022-04-11 12:33] LABS: Hematocrit 43.1 % (37.0-47.0); Mean Corpuscular HGB Conc 32.5 g/dl (31.0-35.0); Mean Corpuscular Hemoglobin 29.5 pg (27.0-33.0); Mean Corpuscular Volume 90.7 fL (80.0-98.0); Mean Platelet Volume 9.2 fL (9.4-12.3); Platelet Count 312 X10*3/uL (160-400); Red Blood Count 4.75 X10*6/uL (4.20-5.50); Red Cell Distribution Width 13.2 % (11.0-16.0); White Blood Count 8.7 X10*3/uL (4.8-10.8)
[2022-04-11 13:29] LABS: TSH reflex Free T4 3.96 uIU/mL (0.32-4.0)
== END ==
LOC: HO.CARD 11:45
PROVIDERS: Student in an Organized Health Care Education/Training Program; PCP Family Medicine; Visit Provider Nurse Practitioner Family
DX: I48.92 Unspecified atrial flutter (principal); R53.83 Other fatigue; D62 Acute posthemorrhagic anemia
CPT/HCPCS: 36415; 84443; 85027; 93242

== ENCOUNTER → 2022-04-19 08:40 | Outpatient (REF) | payer MEDICARE, SELFPAY ==
--- NOTE | ~2022-04-19 | NM_ITS ---
EXERCISE MYOCARDIAL PERFUSION STUDY INDICATION: Atrial flutter, assess for coronary disease and ischemia TECHNIQUE: The patient was brought in for an exercise perfusion study on 04/19/2022. Patient performed exercise as per [facility] protocol and was injected 25 mCi of sestamibi once target heart rate was achieved. Images were obtained using the SPECT gamma camera interlaced with the gating device. Images were obtained in supine position. Resting perfusion study was performed on 04/24/2022. Patient was administered 25 mCi of sestamibi intravenously at rest. Images were then obtained in supine position. Images were processed with the software and compared side to side in short axis, horizontal long axis and vertical long axis views. Total DLP 101mGy-cm. FINDINGS: Raw images were reviewed. The stress perfusion study showed diminished tracer uptake along the inferior wall. There is significant improvement with CT attenuation correction and hence suggestive of diaphragmatic attenuation artifact. The gated study shows normal LV systolic function with calculated LVEF of 65%. LV cavity is normal in size. The gated study shows normal wall thickening and contraction of segments. Resting study shows no significant perfusion abnormality. Gating at rest reveals normal wall motion with ejection fraction at 61%. The findings are consistent with mild reversible inferior defect suspected be from diaphragmatic attenuation artifact. NM/NM aurora perf SPECT rest & str IMPRESSION: 1. Myocardial perfusion imaging study shows no clear evidence of any ischemia or infarction, at the attained workload of 3.7METS. 2. Gated LVEF is 65% during stress and 61% during rest. 3. Transient ischemic dilatation not present. EKG component of the test reported separately.
== END ==
LOC: HO.CARD 08:40
PROVIDERS: PCP Family Medicine; Visit Provider Nurse Practitioner Family
DX: I48.92 Unspecified atrial flutter (principal); R53.83 Other fatigue
CPT/HCPCS: 78452; 93017; A9500; J0280; J2785

== ENCOUNTER → 2022-05-16 13:05 | Outpatient (BNVA) | payer MEDICARE, SELFPAY | PROVIDERS: PCP Family Medicine; Referring Provider Family Medicine; Visit Provider Nurse Practitioner Family | DX: I48.92 Unspecified atrial flutter (principal); I10 Essential (primary) hypertension; D50.9 Iron deficiency anemia, unspecified | CPT/HCPCS: 99212 ==

== ENCOUNTER → 2022-05-22 14:15 | Outpatient (BNVA) | payer MEDICARE, SELFPAY | PROVIDERS: PCP Family Medicine; Visit Provider Nurse Practitioner Family | DX: I48.92 Unspecified atrial flutter (principal); I10 Essential (primary) hypertension; D50.9 Iron deficiency anemia, unspecified | CPT/HCPCS: 99212 ==

== ENCOUNTER 2022-05-27 10:14 | Outpatient (REF) | payer MEDICARE, SELFPAY ==
[2022-05-27 10:30] LABS: MANUAL DIFF FLAG NO
[2022-05-27 10:51] LABS: Basophils Absolute Auto 0.1 X10*3/uL (0.0-0.2); Basophils Percent Auto 0.6 % (0-2); Eosinophils Absolute Auto 0.2 X10*3/uL (0.0-0.4); Eosinophils Percent Auto 1.6 % (0-4); Hematocrit 40.8 % (37.0-47.0); Hemoglobin 13.3 g/dl (12.0-16.0); Imm Gran Abs Auto 0.04 X10*3/uL (0.00-0.03); Imm Gran Pct Auto 0.4 % (0.0-0.4); Lymphocytes Absolute Auto 2.2 X10*3/uL (1.2-4.9); Mean Corpuscular HGB Conc 32.6 g/dl (31.0-35.0); Mean Corpuscular Hemoglobin 29.8 pg (27.0-33.0); Mean Corpuscular Volume 91.5 fL (80.0-98.0); Mean Platelet Volume 9.4 fL (9.4-12.3); Monocytes Absolute Auto 0.4 X10*3/uL (0.1-1.2); Monocytes Percent Auto 4.1 % (2-11); Neutrophils Absolute Auto 7.1 x10*3/uL (2.0-8.3); Neutrophils Percent Auto 71.3 % (45-73); Platelet Count 327 X10*3/uL (160-400); Red Blood Count 4.46 X10*6/uL (4.20-5.50); Red Cell Distribution Width 12.7 % (11.0-16.0); White Blood Count 9.9 X10*3/uL (4.8-10.8)
[2022-05-27 11:26] LABS: Estimated Average Glucose 206 mg/dL; Hemoglobin A1c % 8.8 %
[2022-05-27 11:38] LABS: Anion Gap 15 (12-20); Blood Urea Nitrogen 13 mg/dL (9-16); Carbon Dioxide 23 mmol/L (22-29); Chloride 108 mmol/L (96-108); Estimated Glomerular Filt Rate 56; Glucose Fasting 192 mg/dL (60-99); Iron 66 mcg/dL (30-160); Percent Iron Saturation 18 % (15-50); Potassium 4.5 mmol/L (3.3-5.1); Sodium 141 mmol/L (135-145); Total Iron Binding Capacity 364 mcg/dL (228-428); Unsaturated Iron Binding 298 ug/dL
== END 2022-05-27 10:15 | disposition home or self-care (01) ==
LOC: HO.LAB 10:14
PROVIDERS: PCP Family Medicine; Visit Provider Family Medicine
DX: I10 Essential (primary) hypertension (principal); D50.9 Iron deficiency anemia, unspecified; E11.9 Type 2 diabetes mellitus without complications
CPT/HCPCS: 36415; 80051; 82565; 82947; 83036; 83540; 84520; 85025

== ENCOUNTER → 2022-07-23 13:32 | Outpatient (BNVA) | payer MEDICARE, SELFPAY | PROVIDERS: PCP Family Medicine; Referring Provider Family Medicine; Visit Provider Nurse Practitioner Family | DX: I48.92 Unspecified atrial flutter (principal); D50.9 Iron deficiency anemia, unspecified; I10 Essential (primary) hypertension | CPT/HCPCS: 93005; 99212 ==

== ENCOUNTER 2022-07-31 17:21 | Emergency (ER) | payer MEDICARE, SELFPAY ==
--- NOTE | ~2022-07-31 | XR_ITS ---
EXAMINATION: XR CHEST CLINICAL INFORMATION: Cough COMPARISON: 12/09/2021 TECHNIQUE: 2 views of the chest were obtained. FINDINGS: Clear lungs. No effusion or pneumothorax. Cardiomediastinal silhouette is within normal limits. XR/XR chest 2V IMPRESSION: No acute cardiopulmonary abnormality.
[2022-07-31 17:29] VITALS: BP 143/81; BP 150/60; PULSE 78; PULSE 83; RESP 16; TEMP 36.8; O2SAT 97; BMI 22.8
--- NOTE | 2022-07-31 17:33 | ECG_ITS ---
Test Reason : WEAKNESS Blood Pressure : / mmHG Vent. Rate : 068 BPM Atrial Rate : 068 BPM P-R Int : 140 ms QRS Dur : 150 ms QT Int : 448 ms P-R-T Axes : 058 037 -08 degrees QTc Int : 476 ms Normal sinus rhythm Right bundle branch block Abnormal ECG When compared with ECG of 09-DEC-2021 20:35, QT has shortened Referred By: Tc Marin Electronically Signed By:LEONELA MIRANDA MD
--- NOTE | 2022-07-31 17:36 | ED.GENADULT ---
HPI - General Adult General Chief complaint: General Medical Stated complaint: WEAKNESS,NO APPETITE X 1 WEEK Time Seen by Provider: 07/31/22 17:25 Source: patient and old records reviewed History of Present Illness HPI narrative: Patient presenting worth of 1 week of respiratory syndrome. Positive cough with yellow sputum. General malaise for the full week getting worse. Some episodes of diarrhea, loose but not watery. Nausea but no vomiting. No fevers or chills. She lives alone at home and is still ambulatory. Remote history of atrial fibrillation for which she is on Eliquis but has not had any recent bouts. She is on lithium for many years ?for sleep? No recent changes to lithium dose Related Data Home Medications Medication Instructions Recorded Confirmed metformin 500 mg tablet 500 mg PO BID 12/05/21 07/23/22 cholecalciferol (vitamin D3) 25 25 mcg PO DAILY 12/10/21 07/23/22 mcg (1,000 unit) tablet dronedarone 400 mg tablet (Multaq) 400 mg PO BID 02/18/22 07/23/22 amitriptyline 25 mg tablet 25 mg PO BEDTIME 07/23/22 07/23/22 lithium carbonate 450 mg 450 mg PO BEDTIME 07/23/22 07/23/22 tablet,extended release Previous Rx's Medication Instructions Recorded atorvastatin 20 mg tablet 20 mg PO BEDTIME #30 tabs 11/20/21 ferrous sulfate 324 mg (65 mg 324 mg PO DAILY #30 tabs 11/20/21 iron) tablet,delayed release pantoprazole 40 mg tablet,delayed 40 mg PO DAILY #30 tabs 11/24/21 release bisacodyl 5 mg tablet,delayed 10 mg PO ONCE 1 day #2 tabs 02/18/22 release (Dulcolax (bisacodyl)) docusate sodium 100 mg capsule 100 mg PO BEDTIME #90 caps 02/18/22 amlodipine 5 mg tablet 5 mg PO DAILY #30 tabs 05/16/22 metoprolol tartrate 25 mg tablet 25 mg PO BID 30 days #60 tabs 05/16/22 apixaban 5 mg tablet (Eliquis) 5 mg PO BID #60 tabs 07/23/22 Allergies Allergy/AdvReac Type Severity Reaction Status Date / Time influenza virus vaccine, Allergy Intermediate STIFFNESS,LIMITED Verified 07/23/22 13:49 specific FUNCTION [FLU VACCINE] AFFECTED ARM/HAND Review of Systems Constitutional: Comments: General malaise without fevers or chills Cardiovascular: Comments: No chest pain or palpitation Respiratory: Comments: Cough with sputum but no dyspnea Gastrointestinal: Comments: Nausea without vomiting. Diarrhea. Genitourinary: Comments: No urinary symptoms Musculoskeletal: Comments: No leg swelling Integumentary/Breasts: Comments: No rash Neurologic: Comments: No focal weakness but generalized weakness. Still ambulatory [facility] Past Medical History Medical History Atrophic gastritis Breast calcification, right Depression Diabetes mellitus Encounter for monitoring anti-arrhythmic therapy Hypertension Iron deficiency anemia New onset atrial flutter Surgical History History of section History of cholecystectomy History of esophagogastroduodenoscopy (EGD) Hx of colonoscopy Family History Family History Father Depression Social History Social History Household Members: None Housing: House Do you presently have visiting nurse or other home services: No Alcohol intake: never Patient Tobacco Use Status: Never used Tobacco Smoked in Last 30 Days: No Use of substances other than those prescribed or required for medical reasons: No Advance Directives: No Advance Directives Information Provided: Yes service: No Current occupational status: retired Physical Exam ED Vital Signs: Vital Signs - 24 hr 07/31/22 17:29 07/31/22 20:26 07/31/22 20:31 Temperature 98.3 F 98.2 F Pulse Rate 83 68 92 Respiratory Rate 16 17 22 H Blood Pressure 150/60 H 127/65 153/96 H Pulse Oximetry 97 93 92 Oxygen Delivery Method Room Air Room Air Room Air BMI result Body Mass Index 22.8 Const Other: Awake alert. No acute distress HENMT Other: Normocephalic atraumatic Resp Other: Clear and equal bilaterally without wheezes rales or rhonchi Cardio Other: Regular rate and rhythm without murmurs rubs or gallops GI Other: Soft nontender nondistended normoactive bowel sounds Skin Other: Warm pink and dry without rash Neuro Other: Nonfocal neuro exam Medications Administered Discontinued Medications Generic Name Dose Route Start Last Admin Trade Name Freq PRN Reason Stop Dose Admin Sodium Chloride 500 mls @ 500 mls/hr 07/31/22 17:45 07/31/22 20:31 Ns IV 07/31/22 18:44 Infused .Q1H NANCY Infusion Medical Decision Making Medical Decision Making [facility] Narrative: Patient with general malaise and recent viral syndrome. Differential would include pneumonia, bronchitis, viral syndrome. Electrolyte abnormality [place] toxicity Renal failure Anemia Afebrile without evidence of sepsis. No cardiac symptoms. Will treat with IV fluids and await workup 23:00. Workup shows a normal CBC Chemistries are normal. Urine is normal Viral swab shows no evidence of COVID, RSV, influenza. Chest x-ray shows no evidence of pneumonia or other abnormality Patient is feeling much better after IV fluids. Likely has viral respiratory syndrome. Stable for discharge home Lab Data 07/31/22 17:54 07/31/22 17:54 Labs: Lab Results 07/31/22 07/31/22 07/31/22 Range/Units 17:54 17:54 17:54 WBC 8.1 (4.8-10.8) X10*3/uL RBC 4.24 (4.20-5.50) X10*6/uL Hgb 12.5 (12.0-16.0) g/dl Hct 37.8 (37.0-47.0) % MCV 89.2 (80.0-98.0) fL MCH 29.5 (27.0-33.0) pg MCHC 33.1 (31.0-35.0) g/dl RDW 12.7 (11.0-16.0) % Plt Count 471 H D (160-400) X10*3/uL MPV 9.0 L (9.4-12.3) fL Immature Gran % (Auto) 0.5 H (0.0-0.4) % Neut % (Auto) 61.2 (45-73) % Lymph % (Auto) 23.5 (20-40) % [place] % (Auto) 6.8 (2-11) % Eos % (Auto) 7.4 H (0-4) % Baso % (Auto) 0.6 (0-2) % Lymph # (Auto) 1.9 (1.2-4.9) X10*3/uL [place] # (Auto) 0.6 (0.1-1.2) X10*3/uL Eos # (Auto) 0.6 H (0.0-0.4) X10*3/uL Baso # (Auto) 0.1 (0.0-0.2) X10*3/uL Abs Immat Gran (auto) 0.04 H (0.00-0.03) X10*3/uL Absolute Neuts (auto) 5.0 (2.0-8.3) x10*3/uL Absolute Nucleated RBC 0.000 (0.0-0.012) X10*3/uL Nucleated RBC % (auto) 0.0 (0.0-0.2) /100WBC PT (10.0-13.1) SEC INR (0.9-1.1) Sodium 139 (135-145) mmol/L Potassium 4.5 (3.3-5.1) mmol/L Chloride 107 (96-108) mmol/L Carbon Dioxide 21 L (22-29) mmol/L Anion Gap 16 (12-20) BUN 14 (9-16) mg/dL Creatinine 0.82 (0.5-1.4) mg/dL Estim Creat Clear Calc 45.4 Estimated GFR > 60 Random Glucose 126 H (60-115) mg/dL Lactic Acid (0.5-2.0) mmol/L Calcium 9.7 (8.4-10.2) mg/dL Total Bilirubin 0.4 (0.0-1.0) mg/dL AST 10 (5-31) U/L ALT 7 (0-31) U/L Alkaline Phosphatase 73 (39-117) U/L Troponin I High Sens (<3.5-17.0) ng/L Total Protein 6.4 L (6.5-8.0) g/dL Albumin 3.6 (3.5-5.0) g/dL TSH (0.32-4.0) uIU/mL Urine Color Urine Appearance Urine pH (5.0-9.0) Ur Specific [place] (1.005-1.025) Urine Protein (Neg-Trace) mg/dL Urine Glucose (UA) (Negative) mg/dL Urine Ketones (Negative) mg/dL Urine Blood (Negative) Urine Nitrite (Negative) Ur Leukocyte Esterase (Negative) [place] 0.53 L (0.60-1.20) mmol/L Influenza Type A (PCR) (Negative) Influenza Type B (PCR) (Negative) RSV RNA Qual (PCR) (Negative) SARS-CoV-2 RNA (RT-PCR) (Negative) 07/31/22 07/31/22 07/31/22 Range/Units 17:54 17:54 17:54 WBC (4.8-10.8) X10*3/uL RBC (4.20-5.50) X10*6/uL Hgb (12.0-16.0) g/dl Hct (37.0-47.0) % MCV (80.0-98.0) fL MCH (27.0-33.0) pg MCHC (31.0-35.0) g/dl RDW (11.0-16.0) % Plt Count (160-400) X10*3/uL MPV (9.4-12.3) fL Immature Gran % (Auto) (0.0-0.4) % Neut % (Auto) (45-73) % Lymph % (Auto) (20-40) % [place] % (Auto) (2-11) % Eos % (Auto) (0-4) % Baso % (Auto) (0-2) % Lymph # (Auto) (1.2-4.9) X10*3/uL [place] # (Auto) (0.1-1.2) X10*3/uL Eos # (Auto) (0.0-0.4) X10*3/uL Baso # (Auto) (0.0-0.2) X10*3/uL Abs Immat Gran (auto) (0.00-0.03) X10*3/uL Absolute Neuts (auto) (2.0-8.3) x10*3/uL Absolute Nucleated RBC (0.0-0.012) X10*3/uL Nucleated RBC % (auto) (0.0-0.2) /100WBC PT 15.0 H (10.0-13.1) SEC INR 1.3 H (0.9-1.1) Sodium (135-145) mmol/L Potassium (3.3-5.1) mmol/L Chloride (96-108) mmol/L Carbon Dioxide (22-29) mmol/L Anion Gap (12-20) BUN (9-16) mg/dL Creatinine (0.5-1.4) mg/dL Estim Creat Clear Calc Estimated GFR Random Glucose (60-115) mg/dL Lactic Acid 1.2 (0.5-2.0) mmol/L Calcium (8.4-10.2) mg/dL Total Bilirubin (0.0-1.0) mg/dL AST (5-31) U/L ALT (0-31) U/L Alkaline Phosphatase (39-117) U/L Troponin I High Sens < 2.7 (<3.5-17.0) ng/L Total Protein (6.5-8.0) g/dL Albumin (3.5-5.0) g/dL TSH (0.32-4.0) uIU/mL Urine Color Urine Appearance Urine pH (5.0-9.0) Ur Specific [place] (1.005-1.025) Urine Protein (Neg-Trace) mg/dL Urine Glucose (UA) (Negative) mg/dL Urine Ketones (Negative) mg/dL Urine Blood (Negative) Urine Nitrite (Negative) Ur Leukocyte Esterase (Negative) [place] (0.60-1.20) mmol/L Influenza Type A (PCR) (Negative) Influenza Type B (PCR) (Negative) RSV RNA Qual (PCR) (Negative) SARS-CoV-2 RNA (RT-PCR) (Negative) 07/31/22 07/31/22 07/31/22 Range/Units 17:54 20:46 22:00 WBC (4.8-10.8) X10*3/uL RBC (4.20-5.50) X10*6/uL Hgb (12.0-16.0) g/dl Hct (37.0-47.0) % MCV (80.0-98.0) fL MCH (27.0-33.0) pg MCHC (31.0-35.0) g/dl RDW (11.0-16.0) % Plt Count (160-400) X10*3/uL MPV (9.4-12.3) fL Immature Gran % (Auto) (0.0-0.4) % Neut % (Auto) (45-73) % Lymph % (Auto) (20-40) % [place] % (Auto) (2-11) % Eos % (Auto) (0-4) % Baso % (Auto) (0-2) % Lymph # (Auto) (1.2-4.9) X10*3/uL [place] # (Auto) (0.1-1.2) X10*3/uL Eos # (Auto) (0.0-0.4) X10*3/uL Baso # (Auto) (0.0-0.2) X10*3/uL Abs Immat Gran (auto) (0.00-0.03) X10*3/uL Absolute Neuts (auto) (2.0-8.3) x10*3/uL Absolute Nucleated RBC (0.0-0.012) X10*3/uL Nucleated RBC % (auto) (0.0-0.2) /100WBC PT (10.0-13.1) SEC INR (0.9-1.1) Sodium (135-145) mmol/L Potassium (3.3-5.1) mmol/L Chloride (96-108) mmol/L Carbon Dioxide (22-29) mmol/L Anion Gap (12-20) BUN (9-16) mg/dL Creatinine (0.5-1.4) mg/dL Estim Creat Clear Calc Estimated GFR Random Glucose (60-115) mg/dL Lactic Acid (0.5-2.0) mmol/L Calcium (8.4-10.2) mg/dL Total Bilirubin (0.0-1.0) mg/dL AST (5-31) U/L ALT (0-31) U/L Alkaline Phosphatase (39-117) U/L Troponin I High Sens (<3.5-17.0) ng/L Total Protein (6.5-8.0) g/dL Albumin (3.5-5.0) g/dL TSH 2.47 (0.32-4.0) uIU/mL Urine Color Yellow Urine Appearance Clear Urine pH 6.0 (5.0-9.0) Ur Specific [place] 1.015 (1.005-1.025) Urine Protein Negative (Neg-Trace) mg/dL Urine Glucose (UA) Negative (Negative) mg/dL Urine Ketones Trace (Negative) mg/dL Urine Blood Negative (Negative) Urine Nitrite Negative (Negative) Ur Leukocyte Esterase Negative (Negative) [place] (0.60-1.20) mmol/L Influenza Type A (PCR) NEGATIVE (Negative) Influenza Type B (PCR) NEGATIVE (Negative) RSV RNA Qual (PCR) NEGATIVE (Negative) SARS-CoV-2 RNA (RT-PCR) NEGATIVE (Negative) Discharge Plan Discharge Clinical Impression: Viral upper respiratory tract infection Patient Disposition: Home, Self-Care Instructions: Upper Respiratory Infection (ED) Additional Instructions: Drink plenty of liquids. Return if worse Prescriptions: No Action atorvastatin 20 mg Tablet 20 mg PO BEDTIME Qty: 30 0RF ferrous sulfate 324 mg (65 mg iron) Tablet,Delayed Release (Dr/Ec) 324 mg PO DAILY Qty: 30 0RF pantoprazole 40 mg tablet,delayed release (DR/EC) 40 mg PO DAILY Qty: 30 0RF cholecalciferol (vitamin D3) 25 mcg (1,000 unit) Tablet 25 mcg PO DAILY amitriptyline 25 mg tablet 25 mg PO BEDTIME lithium carbonate 450 mg tablet extended release 450 mg PO BEDTIME Multaq 400 mg tablet 400 mg PO BID docusate sodium 100 mg capsule 100 mg PO BEDTIME Qty: 90 3RF bisacodyl [Dulcolax (bisacodyl)] 5 mg tablet,delayed release (DR/EC) 10 mg PO ONCE 1 Days Qty: 2 0RF Rx Instructions: take 2 tabs at noon the day before your colonoscopy metoprolol tartrate 25 mg tablet 25 mg PO BID 30 Days Qty: 60 5RF amlodipine 5 mg tablet 5 mg PO DAILY Qty: 30 5RF Eliquis 5 mg tablet 5 mg PO BID Qty: 60 5RF metformin 500 mg tablet 500 mg PO BID
[2022-07-31 18:01] LABS: MANUAL DIFF FLAG NO
[2022-07-31 18:03] LABS: Basophils Absolute Auto 0.1 X10*3/uL (0.0-0.2); Basophils Percent Auto 0.6 % (0-2); Eosinophils Absolute Auto 0.6 X10*3/uL (0.0-0.4); Eosinophils Percent Auto 7.4 % (0-4); Hematocrit 37.8 % (37.0-47.0); Hemoglobin 12.5 g/dl (12.0-16.0); Imm Gran Abs Auto 0.04 X10*3/uL (0.00-0.03); Imm Gran Pct Auto 0.5 % (0.0-0.4); Lymphocytes Absolute Auto 1.9 X10*3/uL (1.2-4.9); Lymphocytes Percent Auto 23.5 % (20-40); Mean Corpuscular HGB Conc 33.1 g/dl (31.0-35.0); Mean Corpuscular Hemoglobin 29.5 pg (27.0-33.0); Mean Corpuscular Volume 89.2 fL (80.0-98.0); Monocytes Absolute Auto 0.6 X10*3/uL (0.1-1.2); Monocytes Percent Auto 6.8 % (2-11); Neutrophils Percent Auto 61.2 % (45-73); Platelet Count 471 X10*3/uL (160-400); Red Blood Count 4.24 X10*6/uL (4.20-5.50); Red Cell Distribution Width 12.7 % (11.0-16.0); White Blood Count 8.1 X10*3/uL (4.8-10.8)
[2022-07-31 18:09] LABS: INTERNATIONAL NORM RATIO 1.3 (0.9-1.1)
[2022-07-31 18:16] LABS: Lithium 0.53 mmol/L (0.60-1.20)
[2022-07-31] MEDS: 0.9 % Sodium Chloride 500 ML IV (18:18)
[2022-07-31 18:20] LABS: Lactic Acid 1.2 mmol/L (0.5-2.0)
[2022-07-31 18:24] LABS: Alanine Aminotransferase 7 U/L (0-31); Albumin Level 3.6 g/dL (3.5-5.0); Alkaline Phosphatase 73 U/L (39-117); Anion Gap 16 (12-20); Aspartate Amino Transferase 10 U/L (5-31); Bilirubin Total 0.4 mg/dL (0.0-1.0); Blood Urea Nitrogen 14 mg/dL (9-16); Calcium 9.7 mg/dL (8.4-10.2); Carbon Dioxide 21 mmol/L (22-29); Chloride 107 mmol/L (96-108); Creatinine Clr Calc Pharmacy 45.4; Estimated Glomerular Filt Rate > 60; Glucose Random 126 mg/dL (60-115); Potassium 4.5 mmol/L (3.3-5.1); Sodium 139 mmol/L (135-145); Total Protein 6.4 g/dL (6.5-8.0)
[2022-07-31 18:34] LABS: Troponin-I High Sensitivity < 2.7 ng/L (<3.5-17.0)
[2022-07-31 18:45] LABS: TSH reflex Free T4 2.47 uIU/mL (0.32-4.0)
[2022-07-31 20:26] VITALS: BP 127/65; PULSE 68; RESP 17; TEMP 36.8; O2SAT 93
[2022-07-31 20:31] VITALS: BP 153/96; PULSE 92; RESP 22; O2SAT 92
[2022-07-31 22:08] LABS: Appearance Urine Clear; Color Urine Yellow; Glucose Urine UA Negative (Negative); Leukocyte Esterase Urine Negative (Negative); Nitrite Urine Negative (Negative); Specific Gravity - Urine 1.015 (1.005-1.025); Urine Blood Negative (Negative); Urine Ketones Trace mg/dL (Negative); Urine Protein Negative (Neg-Trace)
--- NOTE | 2022-07-31 22:09 | PC.NURSE ---
urine sent, pt oob steady gait
[2022-07-31 22:53] LABS: Influenza A PCR NEGATIVE (Negative); Influenza B PCR NEGATIVE (Negative); Resp Syncy Virus RNA Qual PCR NEGATIVE (Negative); SARS COV2 PCR INHOUSE NEGATIVE (Negative)
[2022-08-01 02:03] VITALS: BP 148/62; PULSE 68; RESP 19; TEMP 36.7; O2SAT 94
[2022-08-01 07:11] VITALS: BP 163/80; PULSE 103; RESP 16; O2SAT 95
[2022-08-01 09:00] LABS: Adenovirus PCR Not Detected (Not Detect.)
[2022-08-01 09:01] LABS: Bordetella parapertussis PCR Not Detected (Not Detect.); Bordetella pertussis PCR Not Detected (Not Detect.); Chlamydia pneumoniae PCR Not Detected (Not Detect.); Coronavirus 229E PCR Not Detected (Not Detect.); Coronavirus HKU1 PCR Not Detected (Not Detect.); Coronavirus NL63 PCR Not Detected (Not Detect.); Coronavirus OC43 PCR Not Detected (Not Detect.); Human metapneumovirus PCR Not Detected (Not Detect.); Influenza A PCR Not Detected (Not Detect.); Influenza B PCR Not Detected (Not Detect.); Mycoplasma pneumoniae PCR Not Detected (Not Detect.); Parainfluenza 1 PCR Not Detected (Not Detect.); Parainfluenza 2 PCR Not Detected (Not Detect.); Parainfluenza 3 PCR Not Detected (Not Detect.); Parainfluenza 4 PCR Not Detected (Not Detect.); RSV PCR Not Detected (Not Detect.); Rhino/Enterovirus PCR Not Detected (Not Detect.); SARS-CoV-2 PCR Not Detected (Not Detect.)
== END 2022-08-01 07:24 | disposition home or self-care (01) ==
PROVIDERS: Emergency Provider Emergency Medicine; PCP Family Medicine
DX: J06.9 Acute upper respiratory infection, unspecified (principal); R05.9 Cough, unspecified; Z20.822 Contact with and (suspected) exposure to COVID-19; Z20.828 Contact with and (suspected) exposure to other viral communicable diseases; E11.9 Type 2 diabetes mellitus without complications; I48.92 Unspecified atrial flutter; I10 Essential (primary) hypertension; Z79.01 Long term (current) use of anticoagulants; Z79.899 Other long term (current) drug therapy; Z79.84 Long term (current) use of oral hypoglycemic drugs; Z79.02 Long term (current) use of antithrombotics/antiplatelets
CPT/HCPCS: 0241U; 36415; 71046; 80053; 80178; 81003; 83605; 84443; 84484; 85025; 85610; 87040; 87633; 93005; 96360; 96361; 99284; 99285

== ENCOUNTER → 2022-10-23 08:36 | Outpatient (BNVA) | payer MEDICARE, SELFPAY | PROVIDERS: PCP Family Medicine; Referring Provider Family Medicine; Visit Provider Nurse Practitioner Family | DX: I45.10 Unspecified right bundle-branch block (principal) | CPT/HCPCS: 93005 ==

== ENCOUNTER 2022-11-05 18:50 | Inpatient (IN) | payer MEDICARE, SELFPAY ==
--- NOTE | ~2022-11-05 | XR_ITS ---
EXAMINATION: XR CHEST CLINICAL INFORMATION: Chest trauma. COMPARISON: Chest radiograph 07/31/2022. TECHNIQUE: Frontal view of the chest was obtained. FINDINGS: No focal airspace opacity, pleural effusion or pneumothorax. Normal appearance of the cardiomediastinal silhouette. No displaced rib fractures. The visualized upper abdomen is within normal limits. XR/XR chest 1V IMPRESSION: 1. No acute cardiopulmonary findings. 2. No displaced rib fractures.
--- NOTE | ~2022-11-05 | XR_ITS ---
EXAMINATION: XR KNEE, LEFT CLINICAL INFORMATION: Status post fall COMPARISON: None available. TECHNIQUE: Four views of the left knee. FINDINGS: Osseous alignment is anatomic. Joint spaces appear relatively well-maintained. No acute fracture is seen. There is prominent prepatellar soft tissue swelling. No significant joint effusion. XR/XR knee LT 3V IMPRESSION: Prominent prepatellar soft tissue swelling. No fracture identified.
--- NOTE | ~2022-11-05 | CT_ITS ---
EXAMINATION: CT ABDOMEN AND PELVIS WITHOUT CONTRAST CLINICAL INFORMATION: Acute renal failure COMPARISON: None available. TECHNIQUE: Multidetector volumetric imaging was performed from the superior aspect of the liver through the pubic symphysis. Sagittal and coronal reformatted images were obtained on the technologist's workstation. This CT examination was performed using dose optimization techniques as appropriate, variously including the following: *Automated exposure control *Adjustment of mA and/or kV according to patient size (this includes techniques or standardized protocols for targeted exams where dose is matched to indication/reason for exam; i.e. extremities or head) *Use of iterative reconstruction technique DLP: 1149 mGy-cm FINDINGS: LUNG BASES: Trace right pleural effusion. LIVER, GALLBLADDER, AND BILIARY TREE: The liver is normal in size, shape, and attenuation. No focal hepatic lesion or biliary ductal dilatation is identified on this noncontrast exam. Gallbladder is not visualized. PANCREAS: Grossly unremarkable. SPLEEN: Unremarkable. ADRENAL GLANDS: Unremarkable. KIDNEYS AND URETERS: No hydronephrosis or obstructing calculus is seen. BLADDER: Unremarkable. GASTROINTESTINAL TRACT: No convincing evidence of bowel obstruction. Limited assessment for wall thickening in much of the colon due to luminal collapse. No free fluid or free air is seen. ABDOMINAL WALL: No significant hernia is appreciated. LYMPH NODES: No lymphadenopathy is seen, though assessment is limited in the absence of intravenous contrast. VASCULAR: Scattered atherosclerotic calcifications. PELVIC VISCERA: Patient appears to be status post hysterectomy. OSSEOUS STRUCTURES: Degenerative changes are noted in the spine. CT/CT abdomen pelvis wo IV con IMPRESSION: 1. No hydronephrosis or obstructing calculus identified. 2. Trace right pleural effusion. 3. Inadequate assessment for colonic wall thickening due to luminal collapse.
--- NOTE | ~2022-11-05 | CT_ITS ---
EXAMINATION: CT HEAD WITHOUT CONTRAST CT CERVICAL SPINE WITHOUT CONTRAST CLINICAL INFORMATION: Fall, on anticoagulants. COMPARISON: CT head 11/16/2021. TECHNIQUE: Contiguous axial imaging was performed from the skull base to vertex without intravenous administration of contrast. Contiguous axial imaging was performed from the upper chest through the skull base without intravenous administration of contrast. Coronal and sagittal reformats were obtained at the acquisition workstation. This CT examination was performed using dose optimization techniques as appropriate, variously including the following: *Automated exposure control *Adjustment of mA and/or kV according to patient size (this includes techniques or standardized protocols for targeted exams where dose is matched to indication/reason for exam; i.e. extremities or head) *Use of iterative reconstruction technique DLP: 602 and 331 mGy-cm FINDINGS: Head: Chronic lacunar infarcts in the bilateral basal ganglia. There is no evidence of acute intracranial hemorrhage or edematous territorial infarction. A few foci of hypoattenuation in the periventricular and deep white matter are consistent with mild microangiopathy. Sarmiento-white matter differentiation is preserved. Proportional prominence of the ventricles and sulcal spaces. No evidence for obstructive hydrocephalus. No abnormal mass effect or midline shift. No extra-axial fluid collections. No acute soft tissue or osseous abnormalities. Paranasal sinuses are clear. Small left-sided mastoid effusion. Cervical Spine: The atlantooccipital and atlantoaxial articulations remain well aligned. No evidence of acute compression deformity or traumatic subluxation. Mild multilevel cervical spondylosis. There is no prevertebral soft tissue swelling. The thyroid gland and remaining cervical soft tissues are normal in appearance. Partially imaged small right-sided pleural effusion. CT/CT cervical spine wo IV con IMPRESSION: 1. No acute intracranial pathology. 2. No acute cervical spinal fractures or malalignment. 3. Partially imaged small right pleural effusion. 4. Small left-sided mastoid effusion.
[2022-11-05 20:49] VITALS: BP 144/80; BP 152/47; PULSE 64; PULSE 65; RESP 16; TEMP 36.1; O2SAT 99; BMI 21.3
--- NOTE | 2022-11-05 20:49 | ED_ITS ---
HPI - General Adult General Chief complaint: Fall Stated complaint: left leg pain, per ems Time Seen by Provider: 11/06/22 00:09 Source: patient Mode of arrival: EMS Limitations: no limitations History of Present Illness HPI narrative: Patient with history of atrial fibrillation on Eliquis apparently was gardening about 7 days ago lost balance and fell forward hitting her face to the ground complaining of left knee pain with bruising and swelling of patella no other injuries patient ambulatory in the ED no loss of consciousness Related Data Home Medications Medication Instructions Recorded Confirmed metformin 500 mg tablet 500 mg PO BID 12/05/21 07/23/22 cholecalciferol (vitamin D3) 25 25 mcg PO DAILY 12/10/21 07/23/22 mcg (1,000 unit) tablet dronedarone 400 mg tablet (Multaq) 400 mg PO BID 02/18/22 07/23/22 amitriptyline 25 mg tablet 25 mg PO BEDTIME 07/23/22 07/23/22 lithium carbonate 450 mg 450 mg PO BEDTIME 07/23/22 07/23/22 tablet,extended release Previous Rx's Medication Instructions Recorded atorvastatin 20 mg tablet 20 mg PO BEDTIME #30 tabs 11/20/21 ferrous sulfate 324 mg (65 mg 324 mg PO DAILY #30 tabs 11/20/21 iron) tablet,delayed release pantoprazole 40 mg tablet,delayed 40 mg PO DAILY #30 tabs 11/24/21 release bisacodyl 5 mg tablet,delayed 10 mg PO ONCE 1 day #2 tabs 02/18/22 release (Dulcolax (bisacodyl)) docusate sodium 100 mg capsule 100 mg PO BEDTIME #90 caps 02/18/22 amlodipine 5 mg tablet 5 mg PO DAILY #30 tabs 05/16/22 metoprolol tartrate 25 mg tablet 25 mg PO BID 30 days #60 tabs 05/16/22 apixaban 5 mg tablet (Eliquis) 5 mg PO BID #60 tabs 07/23/22 Allergies Allergy/AdvReac Type Severity Reaction Status Date / Time influenza virus vaccine, Allergy Intermediate STIFFNESS,LIMITED Verified 11/05/22 20:55 specific FUNCTION [FLU VACCINE] AFFECTED ARM/HAND Review of Systems Review of Systems: Yes all other systems are reviewed and are negative PMFSH Past Medical History Medical History Atrophic gastritis Breast calcification, right Depression Diabetes mellitus Encounter for monitoring anti-arrhythmic therapy Hypertension Iron deficiency anemia New onset atrial flutter Surgical History History of section History of cholecystectomy History of esophagogastroduodenoscopy (EGD) Hx of colonoscopy Family History Family History Father Depression Social History Social History Household Members: None Housing: House Do you presently have visiting nurse or other home services: No Alcohol intake: never Patient Tobacco Use Status: Never used Tobacco Advance Directives: No Advance Directives Information Provided: No service: No Current occupational status: retired Physical Exam ED Vital Signs: Vital Signs - 24 hr 11/05/22 20:49 11/06/22 01:42 11/06/22 01:10 Temperature 97 F 97.8 F Pulse Rate 64 66 75 Respiratory Rate 16 15 15 Blood Pressure 152/47 H 119/41 L 141/43 H Pulse Oximetry 99 93 97 Oxygen Delivery Method Room Air Room Air Room Air 11/06/22 04:53 Temperature 97.4 F Pulse Rate 70 Respiratory Rate 16 Blood Pressure 132/63 Pulse Oximetry 98 Oxygen Delivery Method Room Air BMI result Body Mass Index 21.3 Appearance: Alert. Oriented X3. No acute distress. Eyes: PERRLA, No Nystagmus HEENT: Pharynx normal. Oral Mucosa moist, AT NC Neck: Normal inspection. Neck supple. CVS: Normal heart rate and rhythm. Pulses normal. Respiratory: No respiratory distress. Equal air entry bilateral, no wheezing/rales/rhonchi Abdomen: Soft and nontender. Bowel sounds are present, no mass palpable, no CVA tenderness Skin: Skin warm and dry. Normal skin color. Normal skin turgor. Extremities: No lower extremity edema. No calf tenderness left kneecap soft tissue swelling, good range of movement Neuro: Oriented X 3. No motor deficit. No sensory deficit.No cerebellar signs , cranial nerves II-XII intact Course Course Course Narrative: This is an RME: Additional HPI, ROS, PE not included below will be deferred to primary provider. Patient is a 76-year-old female with a past medical history of atrial flutter on blood thinners and diabetes presenting with left-sided leg pain post fall. Patient reports she fell face forward onto the ground while doing yard work and she cut her lip in the fall. Patient reports falling 2-3 days ago and it was okay then but is now feeling more more pain. Patient ambulating in to triage. Plan: labs, imaging Medications Administered Generic Name Dose Route Start Last Admin Trade Name Freq PRN Reason Stop Dose Admin Lactated Ringer's 1,000 mls @ 100 mls/hr 11/06/22 05:15 11/06/22 05:17 Lr IVCONT 100 mls/hr .Q10H NANCY Administration Discontinued Medications Generic Name Dose Route Start Last Admin Trade Name Freq PRN Reason Stop Dose Admin Sodium Bicarbonate 50 meq 11/06/22 01:42 11/06/22 02:38 Sodium Bicarbonate 8.4% 50 Meq/50 Ml Syringe IVPUSH 11/06/22 01:43 50 meq ONCE ONE Administration Medical Decision Making Medical Decision Making [facility] Narrative: Patient status post mechanical fall came for the pain in the left knee incidently noticed metabolic acidosis with elevated creatinine etiology of that is not very clear patient had normal renal function o 07/31/2022 with creatinine of 0.82 today patient again was 8.86 CT scan of the abdomen was negative for any obstructive pathology patient was taking ibuprofen over the counter 1 or 2 tablets for last 1 week as needed patient urine showed hyaline cast and protein likely ATN will admit patient for nephro evaluation Lab Data [facility] Lab Attestation statement: I reviewed the patient's lab results. 11/05/22 21:40 11/05/22 21:40 Labs: Lab Results 11/05/22 11/05/22 11/05/22 Range/Units 21:40 21:40 21:40 WBC 11.1 H (4.8-10.8) X10*3/uL RBC 3.92 L (4.20-5.50) X10*6/uL Hgb 11.9 L (12.0-16.0) g/dl Hct 36.3 L (37.0-47.0) % MCV 92.6 (80.0-98.0) fL MCH 30.4 (27.0-33.0) pg MCHC 32.8 (31.0-35.0) g/dl RDW 13.5 (11.0-16.0) % Plt Count 350 D (160-400) X10*3/uL MPV 9.1 L (9.4-12.3) fL Immature Gran % (Auto) 0.4 (0.0-0.4) % Neut % (Auto) 71.5 (45-73) % Lymph % (Auto) 17.4 L (20-40) % [place] % (Auto) 7.0 (2-11) % Eos % (Auto) 3.2 (0-4) % Baso % (Auto) 0.5 (0-2) % Lymph # (Auto) 1.9 (1.2-4.9) X10*3/uL [place] # (Auto) 0.8 (0.1-1.2) X10*3/uL Eos # (Auto) 0.4 (0.0-0.4) X10*3/uL Baso # (Auto) 0.1 (0.0-0.2) X10*3/uL Abs Immat Gran (auto) 0.04 H (0.00-0.03) X10*3/uL Absolute Neuts (auto) 7.9 (2.0-8.3) x10*3/uL Absolute Nucleated RBC 0.000 (0.0-0.012) X10*3/uL Nucleated RBC % (auto) 0.0 (0.0-0.2) /100WBC PT 10.1 (10.0-13.1) SEC INR 0.9 (0.9-1.1) Sodium (135-145) mmol/L Potassium (3.3-5.1) mmol/L Chloride (96-108) mmol/L Carbon Dioxide (22-29) mmol/L Anion Gap (12-20) BUN (9-16) mg/dL Creatinine (0.5-1.4) mg/dL Estim Creat Clear Calc Estimated GFR Random Glucose (60-115) mg/dL Calcium (8.4-10.2) mg/dL Magnesium (1.6-2.6) mg/dL Total Bilirubin (0.0-1.0) mg/dL AST (5-31) U/L ALT (0-31) U/L Alkaline Phosphatase (39-117) U/L Total Creatine Kinase (26-140) U/L Troponin I High Sens 7.3 D (<3.5-17.0) ng/L Total Protein (6.5-8.0) g/dL Albumin (3.5-5.0) g/dL Urine Color Urine Appearance Urine pH (5.0-9.0) Ur Specific [place] (1.005-1.025) Urine Protein (Neg-Trace) mg/dL Urine Glucose (UA) (Negative) mg/dL Urine Ketones (Negative) mg/dL Urine Blood (Negative) Urine Nitrite (Negative) Ur Leukocyte Esterase (Negative) Urine RBC (0-2) /HPF Urine WBC (0-5) /HPF Ur Squamous Epith Cells (0-2) /HPF Urine Bacteria (None Seen) Hyaline Casts (0-2) /LPF 11/05/22 11/06/22 11/06/22 Range/Units 21:40 01:07 01:07 WBC (4.8-10.8) X10*3/uL RBC (4.20-5.50) X10*6/uL Hgb (12.0-16.0) g/dl Hct (37.0-47.0) % MCV (80.0-98.0) fL MCH (27.0-33.0) pg MCHC (31.0-35.0) g/dl RDW (11.0-16.0) % Plt Count (160-400) X10*3/uL MPV (9.4-12.3) fL Immature Gran % (Auto) (0.0-0.4) % Neut % (Auto) (45-73) % Lymph % (Auto) (20-40) % [place] % (Auto) (2-11) % Eos % (Auto) (0-4) % Baso % (Auto) (0-2) % Lymph # (Auto) (1.2-4.9) X10*3/uL [place] # (Auto) (0.1-1.2) X10*3/uL Eos # (Auto) (0.0-0.4) X10*3/uL Baso # (Auto) (0.0-0.2) X10*3/uL Abs Immat Gran (auto) (0.00-0.03) X10*3/uL Absolute Neuts (auto) (2.0-8.3) x10*3/uL Absolute Nucleated RBC (0.0-0.012) X10*3/uL Nucleated RBC % (auto) (0.0-0.2) /100WBC PT (10.0-13.1) SEC INR (0.9-1.1) Sodium 136 137 (135-145) mmol/L Potassium 4.2 4.5 (3.3-5.1) mmol/L Chloride 108 109 H (96-108) mmol/L Carbon Dioxide 12 L 11 L (22-29) mmol/L Anion Gap 20 22 H (12-20) BUN 70 H 71 H (9-16) mg/dL Creatinine 8.86 H* 9.18 H* (0.5-1.4) mg/dL Estim Creat Clear Calc 4.3 4.2 Estimated GFR 4 4 Random Glucose 140 H 137 H (60-115) mg/dL Calcium 10.2 9.9 (8.4-10.2) mg/dL Magnesium 2.5 (1.6-2.6) mg/dL Total Bilirubin 0.5 (0.0-1.0) mg/dL AST 22 (5-31) U/L ALT 40 H (0-31) U/L Alkaline Phosphatase 119 H (39-117) U/L Total Creatine Kinase 48 (26-140) U/L Troponin I High Sens (<3.5-17.0) ng/L Total Protein 7.0 (6.5-8.0) g/dL Albumin 4.1 (3.5-5.0) g/dL Urine Color Yellow Urine Appearance Clear Urine pH 5.5 (5.0-9.0) Ur Specific [place] 1.010 (1.005-1.025) Urine Protein 30 (1+) H (Neg-Trace) mg/dL Urine Glucose (UA) 100 H (Negative) mg/dL Urine Ketones Negative (Negative) mg/dL Urine Blood Trace H (Negative) Urine Nitrite Negative (Negative) Ur Leukocyte Esterase Negative (Negative) Urine RBC 3-5 H (0-2) /HPF Urine WBC 0-5 (0-5) /HPF Ur Squamous Epith Cells 3-5 (0-2) /HPF Urine Bacteria 1+ (None Seen) Hyaline Casts 11-20 (0-2) /LPF Independent Interpretation I performed an independent interpretation of an: EKG Interpretation: Normal sinus rhythm heart rate 64 beats per minute right bundle-branch block no acute ST-T no acute ischemia Discharge Plan Discharge Clinical Impression: Acute renal failure, Contusion of knee, left Patient Disposition: Admitted As Inpatient
--- NOTE | 2022-11-05 20:49 | ECG_ITS ---
Test Reason : FALL Blood Pressure : / mmHG Vent. Rate : 064 BPM Atrial Rate : 064 BPM P-R Int : 134 ms QRS Dur : 150 ms QT Int : 512 ms P-R-T Axes : 057 021 013 degrees QTc Int : 528 ms Normal sinus rhythm Possible Left atrial enlargement Right bundle branch block T wave abnormality, consider inferolateral ischemia Abnormal ECG When compared with ECG of 31-JUL-2022 18:10, T wave inversion now evident in Lateral leads Referred By: Galilea Bergeron Electronically Signed By:LEONELA MIRANDA MD
[2022-11-05 21:44] LABS: MANUAL DIFF FLAG NO
[2022-11-05 21:49] LABS: Basophils Absolute Auto 0.1 X10*3/uL (0.0-0.2); Basophils Percent Auto 0.5 % (0-2); Eosinophils Absolute Auto 0.4 X10*3/uL (0.0-0.4); Eosinophils Percent Auto 3.2 % (0-4); Hematocrit 36.3 % (37.0-47.0); Hemoglobin 11.9 g/dl (12.0-16.0); Imm Gran Abs Auto 0.04 X10*3/uL (0.00-0.03); Imm Gran Pct Auto 0.4 % (0.0-0.4); Lymphocytes Absolute Auto 1.9 X10*3/uL (1.2-4.9); Lymphocytes Percent Auto 17.4 % (20-40); Mean Corpuscular HGB Conc 32.8 g/dl (31.0-35.0); Mean Corpuscular Hemoglobin 30.4 pg (27.0-33.0); Mean Corpuscular Volume 92.6 fL (80.0-98.0); Mean Platelet Volume 9.1 fL (9.4-12.3); Monocytes Absolute Auto 0.8 X10*3/uL (0.1-1.2); Neutrophils Absolute Auto 7.9 x10*3/uL (2.0-8.3); Neutrophils Percent Auto 71.5 % (45-73); Platelet Count 350 X10*3/uL (160-400); Red Blood Count 3.92 X10*6/uL (4.20-5.50); Red Cell Distribution Width 13.5 % (11.0-16.0); White Blood Count 11.1 X10*3/uL (4.8-10.8)
[2022-11-05 21:56] LABS: INTERNATIONAL NORM RATIO 0.9 (0.9-1.1); Prothrombin Time 10.1 SEC (10.0-13.1)
[2022-11-05 22:16] LABS: Alanine Aminotransferase 40 U/L (0-31); Albumin Level 4.1 g/dL (3.5-5.0); Anion Gap 20 (12-20); Aspartate Amino Transferase 22 U/L (5-31); Blood Urea Nitrogen 70 mg/dL (9-16); Calcium 10.2 mg/dL (8.4-10.2); Carbon Dioxide 12 mmol/L (22-29); Chloride 108 mmol/L (96-108); Glucose Random 140 mg/dL (60-115); Potassium 4.2 mmol/L (3.3-5.1); Sodium 136 mmol/L (135-145)
[2022-11-05 22:17] LABS: Troponin-I High Sensitivity 7.3 ng/L (<3.5-17.0)
[2022-11-05 22:22] LABS: Alkaline Phosphatase 119 U/L (39-117); Bilirubin Total 0.5 mg/dL (0.0-1.0); Creatinine Clr Calc Pharmacy 4.3; Estimated Glomerular Filt Rate 4; Magnesium 2.5 mg/dL (1.6-2.6)
[2022-11-06] VITALS (8 sets, daily range): BP systolic 119–146; BP diastolic 41–65; PULSE 65–75; RESP 15–20; TEMP 36.2–36.8; O2SAT 93–100
[2022-11-06 01:16] LABS: Appearance Urine Clear; Color Urine Yellow; Glucose Urine UA 100 mg/dL (Negative); Leukocyte Esterase Urine Negative (Negative); Nitrite Urine Negative (Negative); PH 5.5 (5.0-9.0); UMIC TRIGGER UACC YES; Urine Blood Trace (Negative); Urine Ketones Negative (Negative); Urine Protein 30 (1+) mg/dL (Neg-Trace)
[2022-11-06 01:30] LABS: Anion Gap 22 (12-20); Blood Urea Nitrogen 71 mg/dL (9-16); Calcium 9.9 mg/dL (8.4-10.2); Carbon Dioxide 11 mmol/L (22-29); Chloride 109 mmol/L (96-108); Creatinine Clr Calc Pharmacy 4.2; Estimated Glomerular Filt Rate 4; Glucose Random 137 mg/dL (60-115); Potassium 4.5 mmol/L (3.3-5.1); Sodium 137 mmol/L (135-145)
[2022-11-06 01:31] LABS: Bacteria Urine 1+ (None Seen); WBC Urine 0-5 /HPF (0-5)
[2022-11-06] MEDS: Sodium Bicarbonate 8.4% 50 MEQ/50 ML SYRINGE IVPUSH (02:38)
--- NOTE | 2022-11-06 03:03 | PC.NURSE ---
20g IV access established in right AC. Awaiting radiology report, imaging obtained. Sodium Bicarb given as ordered by Dr. Mendoza.
--- NOTE | 2022-11-06 04:31 | MHC.EDTECH ---
Went over belongings with patient. She has at bed side her Clothings ( Coat, shirt, Pants, underwearing, shoes) She stated she has a wallet with Credit cards and a little over $100.00. reading glasses. - Tech will do an official belonging list with patient once patient is awake to confirm all belongings and sign belonging list.
[2022-11-06] MEDS: Lactated Ringers 1,000 ML 100 ML IVCONT (05:17)
[2022-11-06 05:39] LABS: MANUAL DIFF FLAG NO
[2022-11-06 05:45] LABS: Basophils Absolute Auto 0.1 X10*3/uL (0.0-0.2); Basophils Percent Auto 0.8 % (0-2); Eosinophils Absolute Auto 0.4 X10*3/uL (0.0-0.4); Eosinophils Percent Auto 3.7 % (0-4); Hematocrit 35.6 % (37.0-47.0); Hemoglobin 11.7 g/dl (12.0-16.0); Imm Gran Abs Auto 0.05 X10*3/uL (0.00-0.03); Imm Gran Pct Auto 0.5 % (0.0-0.4); Lymphocytes Absolute Auto 1.7 X10*3/uL (1.2-4.9); Mean Corpuscular HGB Conc 32.9 g/dl (31.0-35.0); Mean Corpuscular Hemoglobin 30.3 pg (27.0-33.0); Mean Corpuscular Volume 92.2 fL (80.0-98.0); Mean Platelet Volume 9.3 fL (9.4-12.3); Monocytes Absolute Auto 0.8 X10*3/uL (0.1-1.2); Monocytes Percent Auto 7.2 % (2-11); Neutrophils Absolute Auto 7.7 x10*3/uL (2.0-8.3); Neutrophils Percent Auto 71.8 % (45-73); Platelet Count 361 X10*3/uL (160-400); Red Blood Count 3.86 X10*6/uL (4.20-5.50); Red Cell Distribution Width 13.4 % (11.0-16.0); White Blood Count 10.7 X10*3/uL (4.8-10.8)
[2022-11-06 06:07] LABS: Anion Gap 22 (12-20); Blood Urea Nitrogen 72 mg/dL (9-16); Calcium 9.8 mg/dL (8.4-10.2); Carbon Dioxide 13 mmol/L (22-29); Chloride 109 mmol/L (96-108); Creatinine Clr Calc Pharmacy 4.3; Estimated Glomerular Filt Rate 4; Glucose Random 131 mg/dL (60-115); Sodium 140 mmol/L (135-145)
--- NOTE | 2022-11-06 06:09 | PM.IMHP ---
History of Present Illness Date of Service: 11/06/22 Chief Complaint: Left leg pain 76-year-old female past medical history of diabetes, depression, HTN, a flutter on Eliquis, comes into the hospital after a fall causing her left leg pain. Patient reports that about 10 days ago she was gardening, got up, lean forward and had an accidental mechanical fall. She was doing well until few days later when she started experiencing severe left leg pain which has been causing her problems with walking. She has been using Tylenol as well as ibuprofen [id number] with some improvement. Has been using her cane to walk around. She has been feeling slight improvement but given the persistent pain she decided to come to the ED for further evaluation. She otherwise denies any chest pain, no abdominal pain, no nausea or vomiting, no recent dehydration or diarrhea, no urinary symptoms and no lower extremity edema. On arrival to the ED patient hemodynamically stable with no significant abnormal vitals Labs are significant for WBC count of 11.1, hemoglobin of 11.9, hematocrit 36.3, creatinine of 8.86 BUN of 70 with a baseline of around less than 1, UA negative for any acute infection Abdomen pelvic CT shows no hydronephrosis or obstructing calculus, there is trace right pleural effusion but patient denies any shortness of breath, X-ray shows prominent prepatellar soft tissue swelling, no fracture identified Head CT negative, cervical spine negative chest x-ray shows no displaced rib fractures Patient started on IV fluids, will be admitted for further management Review of Systems Review of Systems: Yes all other systems are reviewed and are negative [facility] Medical History Atrophic gastritis Breast calcification, right Depression Diabetes mellitus Encounter for monitoring anti-arrhythmic therapy Hypertension Iron deficiency anemia New onset atrial flutter Family History Father Depression Surgical History History of section History of cholecystectomy History of esophagogastroduodenoscopy (EGD) Hx of colonoscopy Social History Household Members: None Housing: House Do you presently have visiting nurse or other home services: No Alcohol intake: never Patient Tobacco Use Status: Never used Tobacco Advance Directives: No Advance Directives Information Provided: No service: No Current occupational status: retired Meds Allergies Allergy/AdvReac Type Severity Reaction Status Date / Time influenza virus vaccine, Allergy Intermediate STIFFNESS,LIMITED Verified 11/05/22 20:55 specific FUNCTION [FLU VACCINE] AFFECTED ARM/HAND Active Medications: Current Medications Heparin Sodium (Porcine) (Heparin Sodium,Porcine 5,000 Unit/Ml Vial) 5,000 unit SUBCUT Q12H NANCY Lactated Ringer's (Lr) 1,000 mls @ 100 mls/hr IVCONT .Q10H NANCY Last Admin: 11/06/22 05:17 Dose: 100 mls/hr Ondansetron HCl (Ondansetron Hcl 4 Mg/2 Ml Vial) 4 mg IVPUSH Q8H PRN PRN Reason: Nausea and Vomiting Sodium Chloride (0.9 % Sodium Chloride Flush 3 Ml Syringe) 3 ml IVFLUSH QSHIFT [facility] Home Medications Medication Instructions Recorded Confirmed Last Taken Type metformin 500 mg tablet 500 mg PO BID 12/05/21 07/23/22 12/07/21 History cholecalciferol (vitamin D3) 25 25 mcg PO DAILY 12/10/21 07/23/22 12/07/21 History mcg (1,000 unit) tablet dronedarone 400 mg tablet (Multaq) 400 mg PO BID 02/18/22 07/23/22 Unknown History amitriptyline 25 mg tablet 25 mg PO BEDTIME 07/23/22 07/23/22 Unknown History lithium carbonate 450 mg 450 mg PO BEDTIME 07/23/22 07/23/22 Unknown History tablet,extended release Physical Exam Vital Signs and Narrative: Vital Signs: Last Vital Signs Temp 98.3 F 11/06/22 05:54 Pulse 66 11/06/22 05:54 Resp 19 11/06/22 05:54 BP 146/50 H 11/06/22 05:54 Pulse Ox 100 11/06/22 05:54 O2 Del Method Room Air 11/06/22 05:54 BMI result Body Mass Index 21.3 Const: General: cooperative and no acute distress Orientation/consciousness: patient oriented x3 Eyes: General: appearance normal, both eyes and all related structures Resp: Effort & Inspection: normal respiratory effort Auscultation: clear to auscultation bilaterally Cardio: Rate: regular rate Rhythm: regular rhythm GI: Palpation (GI): Soft to palpation Auscultation: normal bowel sounds Skin: General skin exam: no rashes or lesions noted Neuro: General: patient oriented x3 Cognition (Neuro): normal cognition Extrem: Other: Bruises on the left lower extremity, otherwise no limited range of motion, Results Labs 11/06/22 05:35 11/06/22 05:35 Labs: Laboratory Results - last 24 hr 11/05/22 11/05/22 11/05/22 21:40 21:40 21:40 MCV 92.6 MCH 30.4 MCHC 32.8 RDW 13.5 Plt Count 350 D MPV 9.1 L Immature Gran % (Auto) 0.4 Neut % (Auto) 71.5 Lymph % (Auto) 17.4 L [place] % (Auto) 7.0 Eos % (Auto) 3.2 Baso % (Auto) 0.5 Lymph # (Auto) 1.9 [place] # (Auto) 0.8 Eos # (Auto) 0.4 Baso # (Auto) 0.1 Abs Immat Gran (auto) 0.04 H Absolute Neuts (auto) 7.9 Absolute Nucleated RBC 0.000 Nucleated RBC % (auto) 0.0 PT 10.1 INR 0.9 Anion Gap Estim Creat Clear Calc Estimated GFR Random Glucose Calcium Magnesium Total Bilirubin AST ALT Alkaline Phosphatase Total Creatine Kinase Troponin I High Sens 7.3 D Total Protein Albumin Urine Color Urine Appearance Urine pH Ur Specific [place] Urine Protein Urine Glucose (UA) Urine Ketones Urine Blood Urine Nitrite Ur Leukocyte Esterase Urine RBC Urine WBC Ur Squamous Epith Cells Urine Bacteria Hyaline Casts 11/05/22 11/06/22 11/06/22 21:40 01:07 01:07 MCV MCH MCHC RDW Plt Count MPV Immature Gran % (Auto) Neut % (Auto) Lymph % (Auto) [place] % (Auto) Eos % (Auto) Baso % (Auto) Lymph # (Auto) [place] # (Auto) Eos # (Auto) Baso # (Auto) Abs Immat Gran (auto) Absolute Neuts (auto) Absolute Nucleated RBC Nucleated RBC % (auto) PT INR Anion Gap 20 22 H Estim Creat Clear Calc 4.3 4.2 Estimated GFR 4 4 Random Glucose 140 H 137 H Calcium 10.2 9.9 Magnesium 2.5 Total Bilirubin 0.5 AST 22 ALT 40 H Alkaline Phosphatase 119 H Total Creatine Kinase 48 Troponin I High Sens Total Protein 7.0 Albumin 4.1 Urine Color Yellow Urine Appearance Clear Urine pH 5.5 Ur Specific [place] 1.010 Urine Protein 30 (1+) H Urine Glucose (UA) 100 H Urine Ketones Negative Urine Blood Trace H Urine Nitrite Negative Ur Leukocyte Esterase Negative Urine RBC 3-5 H Urine WBC 0-5 Ur Squamous Epith Cells 3-5 Urine Bacteria 1+ Hyaline Casts 11-20 11/06/22 11/06/22 05:35 05:35 MCV 92.2 MCH 30.3 MCHC 32.9 RDW 13.4 Plt Count 361 MPV 9.3 L Immature Gran % (Auto) 0.5 H Neut % (Auto) 71.8 Lymph % (Auto) 16.0 L [place] % (Auto) 7.2 Eos % (Auto) 3.7 Baso % (Auto) 0.8 Lymph # (Auto) 1.7 [place] # (Auto) 0.8 Eos # (Auto) 0.4 Baso # (Auto) 0.1 Abs Immat Gran (auto) 0.05 H Absolute Neuts (auto) 7.7 Absolute Nucleated RBC 0.000 Nucleated RBC % (auto) 0.0 PT INR Anion Gap 22 H Estim Creat Clear Calc 4.3 Estimated GFR 4 Random Glucose 131 H Calcium 9.8 Magnesium Total Bilirubin AST ALT Alkaline Phosphatase Total Creatine Kinase Troponin I High Sens Total Protein Albumin Urine Color Urine Appearance Urine pH Ur Specific [place] Urine Protein Urine Glucose (UA) Urine Ketones Urine Blood Urine Nitrite Ur Leukocyte Esterase Urine RBC Urine WBC Ur Squamous Epith Cells Urine Bacteria Hyaline Casts Imaging Radiologist's Impressions: Impressions Chest X-Ray 11/05/22 21:10 IMPRESSION: 1. No acute cardiopulmonary findings. 2. No displaced rib fractures. Cervical Spine CT 11/05/22 21:12 IMPRESSION: 1. No acute intracranial pathology. 2. No acute cervical spinal fractures or malalignment. 3. Partially imaged small right pleural effusion. 4. Small left-sided mastoid effusion. Head CT 11/05/22 21:12 IMPRESSION: 1. No acute intracranial pathology. 2. No acute cervical spinal fractures or malalignment. 3. Partially imaged small right pleural effusion. 4. Small left-sided mastoid effusion. Knee X-Ray 11/06/22 00:40 IMPRESSION: Prominent prepatellar soft tissue swelling. No fracture identified. Abdomen/Pelvis CT 11/06/22 02:24 IMPRESSION: 1. No hydronephrosis or obstructing calculus identified. 2. Trace right pleural effusion. 3. Inadequate assessment for colonic wall thickening due to luminal collapse. Assessment and Plan (1) Leg pain: Status: Acute (2) TASNEEM (acute kidney injury): Status: Acute (3) Fall: Status: Acute Plan This is a 76-year-old female past medical history of a flutter on Eliquis, hypertension, diabetes presents the hospital with complaints of leg pain after having a fall # left leg pain - a fracture on imaging of - will obtain hip x-ray although she has been walking and feeling improved - PT OT prior to discharge # TASNEEM - NSAID induced tubular necrosis - no evidence or history of dehydration, or decreased oral intake, CT abdomen shows no obstruction - will obtain urine lytes - nephrology consult - IVF - follow BMP closely # fall - mechanical - PT OT # hypertension - stable - continue antihypertensives # a flutter - continue Eliquis, metoprolol # diabetes - hold metformin - will start her on low-dose sliding scale insulin - diabetic diet Given patient's need for further IV fluid, as well as evaluation by Nephrology patient will require a minimum 2 nights inpatient hospital stay for further management and monitoring Time Spent With Patient Time: Total time managing care of this patient today ____ minutes. Quality Stroke Does the patient have a stroke diagnosis?: No VTE Prior VTE?: No VTE Risk Level:: Medical - moderate - high VTE Device Contraindication: Treatment Not Indicated VTE Drug Contraindication: N/A - Med Ordered
--- NOTE | 2022-11-06 08:06 | PC.NURSE ---
Pt calm, resting, alert and orient, finished with PT, report given to nurse for unit transfer.
--- NOTE | 2022-11-06 08:43 | PHA.MEDREC ---
Pharmacy Consult ? Medication Reconciliation Pharmacy has completed the medication reconciliation. Patient was confident in most of her medications. Patient does not believe she is taking amlopdipine 5 mg daily or atorvastatin 20 mg at bedtime. Both were filled for a 90 day within the last [address] Montanez was informed and asked to keep medication on home list. Fabiola Ardon, PharmD
[2022-11-06] MEDS: Sodium Bicarbonate 650 MG TABLET PO (09:50)
[2022-11-06] MEDS: Heparin Sodium,Porcine 5,000 UNIT/ML VIAL 5000 UNIT SUBCUT ×2 (09:50→20:44)
[2022-11-06 10:20] LABS: ABG Base Excess -10.5 mmol/L; ABG HCO3 13 mmol/L (22-26); ABG pCO2 24 mmHg (32-45); ABG pH 7.33 (7.35-7.45); ABG pO2 90 mmHg (83-108)
[2022-11-06 10:31] LABS: Lithium 1.33 mmol/L (0.60-1.20)
[2022-11-06 10:34] LABS: Lactic Acid 1.4 mmol/L (0.5-2.0)
--- NOTE | 2022-11-06 10:48 | CONS_ITS ---
DATE OF SERVICE: REASON FOR CONSULTATION: I was asked to see the patient to assist in evaluation and management of patient's severe acute kidney injury as reflected by creatinine of 8.86 on admission last night, whereas her baseline creatinine is in the 0.8 to 1.1 range. Despite getting IV fluids overnight. Her creatinine this morning is 8.95. The patient states she is making more urine since coming to the hospital. She is also noted to have an anion gap depressed serum bicarb with a bicarb of 13, anion gap of 22, and her CPK was 48. HISTORY OF PRESENT ILLNESS: In summary, the patient is a 76-year-old female with a history of diabetes, depression, hypertension, atrial flutter, on Eliquis, who came to the hospital after a falling episode causing left leg pain. The patient states that it occurred 4 days ago to me, although on the admitting notes, it was 10 days ago. Apparently, she was working outside when she fell. She said she got quite bruised on her left side to the left leg. In the emergency room, she was noted to have a severe acute kidney injury, hence the current consultation. She had a CT of the abdomen without contrast, which showed no evidence of hydro. The patient does admit to having taken quite a bit of Advil over the past several days. She also states that her urine output may not have been as usual for the past several days. There has been no gross hematuria, dysuria, fever, sweats, or chills. She denies any diarrhea. PAST MEDICAL HISTORY: As mentioned above. MEDICATIONS: On admission include metformin, Elavil, lithium are all listed. Her current medications are noted in the MAR. Her allergies are noted in the electronic medical record. FAMILY HISTORY: Noncontributory. REVIEW OF SYSTEMS: As noted above. PHYSICAL EXAMINATION: VITAL SIGNS: Blood pressure of 138/50 with a heart rate in the 70s. HEAD: Atraumatic, normocephalic. Mucous membranes are dry. There is no JVD. LUNGS: Breath sounds bilaterally. CARDIAC: Regular rate and rhythm without rub. ABDOMEN: Soft, nontender. Good bowel sounds. No CVA tenderness. EXTREMITIES: Some ecchymoses, particularly on the left leg up to the left thigh. LABORATORY DATA: Sodium of 140, potassium 4, chloride 109, bicarb 13, anion gap 22, BUN 72, creatinine 8.95, calcium 9.8. On admission, BUN and creatinine were 70 and 8.86. At that time, her bicarb was 12. There was no lactate level done. Her LFTs showed the alkaline phosphatase slightly high at 119. Her albumin level 4.1. Her CPK was 48. Hemoglobin 11.7, hematocrit 35.6, white blood cell count 10.7, platelet count 361. Urine showed 1+ protein, otherwise unremarkable UA. Her lithium level was 0.53 back in July. There is no lithium level done on this admission. IMPRESSION: A 76-YEAR-OLD DIABETIC, ADMITTED WITH SEVERE ACUTE KIDNEY INJURY IN THE SETTING OF FALLING EPISODE, ON LITHIUM AND METFORMIN WITH A MARKED ANION GAP. 1. Acute kidney injury. This most likely multifactorial including her heavy use of NSAIDs and perhaps some dehydration. [place] nephrotoxicity would certainly be a concern as well. Rhabdo has been ruled out. Obstructive uropathy has been ruled out. Her UA would go against an acute interstitial nephritis or acute glomerulonephritis, but they are still in the differential. 2. Anion gap depressed bicarb. This is concerning for lactic acidosis related to metformin, which can cause a type B lactic acidosis. We will get a stat lactate level as it could be an indication for emergent dialysis. The patient is with metformin poisoning, required dialysis if they have an elevated lactate level and acute kidney injury as a lactate is hard to clear. 3. History of lithium use. I would need to check a stat lithium level. This would also be a potential indication for emergent dialysis if she has lithium toxicity, which she is definitely at risk for because of acute kidney injury. RECOMMENDATIONS: At this time include the followin. Place a Rojas. 2. Get stat labs including a lactate level and a blood gas and a lithium level. 3. Obtain spot urine studies for urine sodium, urine creatinine, and urine protein. 4. Continue with IV fluids. The patient needs to be monitor very closely as she may need renal replacement therapy today depending on the repeat labs. Continue the IV fluids and monitor urine output. Avoid nephrotoxins. We will check urine eosinophils as this can also be abnormal patient with NSAID associated TASNEEM. We will follow the patient with the team. MD TILA Hicks/RICHARD / [id number]
[2022-11-06 11:05] LABS: Glucose, Whole Blood 270 mg/dL (60-115)
[2022-11-06] MEDS: Sodium Bicarbonate 8.4% 150 MEQ in Dextrose 5 % 850 ML 100 MEQ IV ×2 (11:58→22:14)
[2022-11-06] MEDS: Insulin Lispro 100 UNIT/ML 3 ML VIAL SUBCUT ×3 (11:58→20:43)
--- NOTE | 2022-11-06 12:22 | P.EN_ITS ---
Event Note Date of Service: 11/06/22 Event Note: Seen and evaluated feels comfortable place Rojas check Metformin and [place] levels nephrology following repeat BMP Time Spent With Patient Time: Total time managing care of this patient today ____ minutes.
[2022-11-06 13:37] LABS: ABG Refer to POC result
--- NOTE | 2022-11-06 14:33 | MHC.CM.PN ---
IMM 11/06/22 Patient lives by herself in her 2 family home. Her tenant is a medical person . She is independent with all functional mobility. She receives MOW. DP home self care resumption of MOW. Patient will arrange for a ride from her sister Kathrin. She lives close by she may take the shuttle home. She uses the shuttle to get to appointments.
[2022-11-06 16:20] LABS: Glucose, Whole Blood 220 mg/dL (60-115)
[2022-11-06] MEDS: ALPRAZolam 0.25 MG TABLET 0.125 MG PO (18:00)
[2022-11-06 20:23] LABS: Glucose, Whole Blood 221 mg/dL (60-115)
[2022-11-06] MEDS: Apixaban 2.5 MG TABLET PO (20:45)
[2022-11-06] MEDS: Atorvastatin Calcium 20 MG TABLET PO (20:45)
[2022-11-06] MEDS: Dronedarone HCl 400 MG TABLET PO (20:45)
[2022-11-06] MEDS: Docusate Sodium 100 MG CAPSULE PO (20:45)
[2022-11-06] MEDS: Metoprolol Tartrate 25 MG TABLET PO (20:45)
[2022-11-07] MEDS: 0.9 % Sodium Chloride Flush 3 ML SYRINGE IVFLUSH (00:50)
[2022-11-07 03:44] VITALS: BP 171/71; PULSE 62; RESP 19; TEMP 36.6; O2SAT 95
[2022-11-07 06:22] LABS: Anion Gap 16 (12-20); Blood Urea Nitrogen 60 mg/dL (9-16); Calcium 9.2 mg/dL (8.4-10.2); Carbon Dioxide 24 mmol/L (22-29); Chloride 101 mmol/L (96-108); Creatinine Clr Calc Pharmacy 4.9; Estimated Glomerular Filt Rate 5; Glucose Random 198 mg/dL (60-115); Potassium 3.4 mmol/L (3.3-5.1); Sodium 138 mmol/L (135-145)
[2022-11-07 07:13] VITALS: BP 162/70; PULSE 63; RESP 16; TEMP 36.3; O2SAT 95
[2022-11-07 07:18] LABS: Glucose, Whole Blood 191 mg/dL (60-115)
[2022-11-07] MEDS: Insulin Lispro 100 UNIT/ML 3 ML VIAL SUBCUT ×4 (08:06→21:34)
[2022-11-07] MEDS: Heparin Sodium,Porcine 5,000 UNIT/ML VIAL 5000 UNIT SUBCUT ×2 (08:07→21:34)
[2022-11-07] MEDS: Ferrous Sulfate 324 MG TABLET.DR PO (08:07)
[2022-11-07] MEDS: Cholecalciferol (Vitamin D3) 25 MCG TABLET PO (08:07)
[2022-11-07] MEDS: Apixaban 2.5 MG TABLET PO ×2 (08:08→21:33)
[2022-11-07] MEDS: Dronedarone HCl 400 MG TABLET PO ×2 (08:08→21:34)
[2022-11-07] MEDS: Metoprolol Tartrate 25 MG TABLET PO ×2 (08:08→21:33)
[2022-11-07 08:14] VITALS: BP 162/70; PULSE 63; O2SAT 95
[2022-11-07] MEDS: Sodium Bicarbonate 8.4% 150 MEQ in Dextrose 5 % 850 ML 100 MEQ IV (08:14)
[2022-11-07] MEDS: 0.9 % Sodium Chloride 1,000 ML 80 ML IVCONT ×2 (08:37→21:34)
[2022-11-07 11:13] LABS: Glucose, Whole Blood 189 mg/dL (60-115)
[2022-11-07 11:22] LABS: Creatinine Urine 28.94 mg/dL
[2022-11-07] MEDS: Acetaminophen 325 MG TABLET 975 MG PO (14:10)
--- NOTE | 2022-11-07 14:48 | HO.PM.IMPN ---
Subjective Subjective Date of Service: 11/07/22 Interval History: Seen and evaluated this morning Feels comfortable making good amount of urine Cr trending down Review of Systems Review of Systems: Yes all other systems are reviewed and are negative Physical Exam Vital Signs: Vital Signs: Last Vital Signs Temp 97.4 F 11/07/22 07:13 Pulse 63 11/07/22 08:14 Resp 16 11/07/22 07:13 BP 162/70 H 11/07/22 08:14 Pulse Ox 95 11/07/22 08:14 O2 Del Method Room Air 11/07/22 07:13 BMI result Body Mass Index 21.3 Const: Other: Constitutional : Awake, interactive, not in distress Neck : Normal inspection, Supple Cardiovascular : RRR, no JVP, no lower extremity edema Respiratory : good bilateral air entry, no crackles, wheezes or rhonchi Gastrointestinal: soft, lax, Normal bowel sounds, Non tender Skin : Warm, Dry Neurological : Alert & oriented x3, No focal deficit Objective Data Active Medications Acetaminophen (Acetaminophen 325 Mg Tablet) 975 mg PO Q6H PRN PRN Reason: Headache Last Admin: 11/07/22 14:10 Dose: 975 mg Documented By: HANH Apixaban (Apixaban 2.5 Mg Tablet) 2.5 mg PO BID [facility] Last Admin: 11/07/22 08:08 Dose: 2.5 mg Documented By: HANH Atorvastatin Calcium (Atorvastatin Calcium 20 Mg Tablet) 20 mg PO BEDTIME [facility] Last Admin: 11/06/22 20:45 Dose: 20 mg Documented By: ROBYN Dextrose (Dextrose 50 % 25 Gm/50 Ml Syringe) 25 gm IVPUSH Q15M PRN; Protocol PRN Reason: per Hypoglycemia Standing Ord. Docusate Sodium (Docusate Sodium 100 Mg Capsule) 100 mg PO BEDTIME [facility] Last Admin: 11/06/22 20:45 Dose: 100 mg Documented By: ROBYN Dronedarone (Dronedarone Hcl 400 Mg Tablet) 400 mg PO BID [facility] Last Admin: 11/07/22 08:08 Dose: 400 mg Documented By: HANH Ferrous Sulfate (Ferrous Sulfate 324 Mg Tablet.Dr) 324 mg PO DAILY [facility] Last Admin: 11/07/22 08:07 Dose: 324 mg Documented By: HANH Glucose (Glucose Gel 15 Gm Gel..Gram.) 15 gm PO Q15M PRN; Protocol PRN Reason: per Hypoglycemia Standing Ord. Heparin Sodium (Porcine) (Heparin Sodium,Porcine 5,000 Unit/Ml Vial) 5,000 unit SUBCUT Q12H [facility] Last Admin: 11/07/22 08:07 Dose: 5,000 unit Documented By: HANH Sodium Chloride (Ns) 1,000 mls @ 80 mls/hr IVCONT .[id number] [facility] Last Admin: 11/07/22 08:37 Dose: 80 mls/hr Documented By: HANH Insulin Human Lispro (Insulin Lispro 100 Unit/Ml 3 Ml Vial) 0 unit SUBCUT QIDACHS [facility]; Protocol Last Admin: 11/07/22 11:38 Dose: 2 unit Documented By: HANH Metoprolol Tartrate (Metoprolol Tartrate 25 Mg Tablet) 25 mg PO BID [facility]; Protocol Last Admin: 11/07/22 08:08 Dose: 25 mg Documented By: HANH Ondansetron HCl (Ondansetron Hcl 4 Mg/2 Ml Vial) 4 mg IVPUSH Q8H PRN PRN Reason: Nausea and Vomiting Pharmacy Consult (Consult Rx Perform Med Rec) 1 each MISCELLANE ONCE PRN PRN Reason: Consult order Sodium Chloride (0.9 % Sodium Chloride Flush 3 Ml Syringe) 3 ml IVFLUSH QSHIFT [facility] Last Admin: 11/07/22 07:13 Dose: Not Given Documented By: HANH Non-Admin Reason: IV Running Vitamin D (Cholecalciferol (Vitamin D3) 25 Mcg Tablet) 25 mcg PO DAILY [facility] Last Admin: 11/07/22 08:07 Dose: 25 mcg Documented By: HANH Labs 11/06/22 05:35 11/07/22 05:53 Labs: Laboratory Results - last 24 hr 11/06/22 11/06/22 11/07/22 16:09 20:19 05:53 Anion Gap 16 Estim Creat Clear Calc 4.9 Estimated GFR 5 POC Glucose 220 H 221 H Random Glucose 198 H Calcium 9.2 D Ur Random Sodium Urine Creatinine 11/07/22 11/07/22 11/07/22 07:11 10:12 11:08 Anion Gap Estim Creat Clear Calc Estimated GFR POC Glucose 191 H 189 H Random Glucose Calcium Ur Random Sodium 82.0 Urine Creatinine 28.94 Assessment and Plan (1) Acute renal failure: Status: Acute (2) Metabolic acidosis: Status: Acute Plan This is a 76-year-old female past medical history of a flutter on Eliquis, hypertension, diabetes presents the hospital with complaints of leg pain after having a fall # left leg pain No evidence of fractures PT eval # TASNEEM likely NSAID induced tubular necrosis CT abdomen shows no obstruction Cr improved a little negative metformin and lithium toxicity urine lytes nephrology consult IVF Follow BMP, I\O # fall mechanical PT # hypertension Hold nephrotoxic meds # a flutter continue Eliquis, metoprolol # diabetes hold metformin low-dose sliding scale insulin diabetic diet Given patient's need for further IV fluid, close monitoring of electrolytes and kidney function therefore she needs overnight inpatient hospital stay Time Spent With Patient Time: Total time managing care of this patient today ____ minutes. Quality Stroke Does the patient have a stroke diagnosis?: No VTE Prior VTE?: No VTE Risk Level:: Medical - moderate - high VTE Device Contraindication: Treatment Not Indicated VTE Drug Contraindication: N/A - Med Ordered
--- NOTE | 2022-11-07 15:13 | P.PNNP_ITS ---
Subjective Subjective Date of Service: 11/07/22 Interval history: Seen and examined, events noted Physical Exam Vital Signs: Vital Signs: Last Vital Signs Temp 97.4 F 11/07/22 07:13 Pulse 63 11/07/22 08:14 Resp 16 11/07/22 07:13 BP 162/70 H 11/07/22 08:14 Pulse Ox 95 11/07/22 08:14 O2 Del Method Room Air 11/07/22 07:13 BMI result Body Mass Index 21.3 Const: Other: Constitutional : Awake, interactive, not in distress Neck : Normal inspection, Supple Cardiovascular : RRR, no JVP, no lower extremity edema Respiratory : good bilateral air entry, no crackles, wheezes or rhonchi Gastrointestinal: soft, lax, Normal bowel sounds, Non tender Skin : Warm, Dry Neurological : Alert & oriented x3, No focal deficit General: cooperative and no acute distress Orientation/consciousness: patient oriented x3 Eyes: General: appearance normal, both eyes and all related structures Resp: Effort & Inspection: normal respiratory effort Auscultation: clear to auscultation bilaterally Cardio: Rate: regular rate Rhythm: regular rhythm GI: Palpation (GI): Soft to palpation Auscultation: normal bowel sounds Skin: General skin exam: no rashes or lesions noted Neuro: General: patient oriented x3 Cognition (Neuro): normal cognition Extrem: Other: Bruises on the left lower extremity, otherwise no limited range of motion, Objective Data Labs 11/06/22 05:35 11/07/22 05:53 Labs: Laboratory Results - last 24 hr 11/06/22 11/06/22 11/07/22 16:09 20:19 05:53 Sodium 138 Potassium 3.4 Chloride 101 Carbon Dioxide 24 Anion Gap 16 BUN 60 H Creatinine 7.79 H* Estim Creat Clear Calc 4.9 Estimated GFR 5 POC Glucose 220 H 221 H Random Glucose 198 H Calcium 9.2 D Ur Random Sodium Urine Creatinine 11/07/22 11/07/22 11/07/22 07:11 10:12 11:08 Sodium Potassium Chloride Carbon Dioxide Anion Gap BUN Creatinine Estim Creat Clear Calc Estimated GFR POC Glucose 191 H 189 H Random Glucose Calcium Ur Random Sodium 82.0 Urine Creatinine 28.94 Procedures Date of Service Date of Service: 11/07/22 Assessment & Plan Assessment and plan (1) Acute renal failure: Status: Acute (2) Metabolic acidosis: Status: Acute Plan Non-Oliguric TASNEEM: most c/w combo of renal hypoperdusion for dehydration and use of NSAIDs and TIERRA/diuretic contrinbuting Scr grad decr--sluggishly c/w signif tubular injury form the above; incr UOP is agood sign and anticaipate more robust renal recovery in next 24 hrs No indication for LINEMARKER as Lac level not elevated ( r/o metformin poisioning) and Li level not markedly elevlated REC: cont IVF, track UOP/renal func; if Scr does not decr furhter then will need addditional testng and even possibly aidney Bx Time Spent With Patient Time: Total time managing care of this patient today ____ minutes. Progress Note: Quality Stroke Does the patient have a stroke diagnosis?: No
[2022-11-07 15:33] VITALS: BP 154/70; PULSE 58; RESP 16; TEMP 36.9; O2SAT 97
[2022-11-07 16:15] LABS: Glucose, Whole Blood 290 mg/dL (60-115)
[2022-11-07 19:20] VITALS: BP 156/70; PULSE 61; RESP 17; TEMP 36.3; O2SAT 98
[2022-11-07 19:55] LABS: Glucose, Whole Blood 259 mg/dL (60-115)
[2022-11-07] MEDS: Docusate Sodium 100 MG CAPSULE PO (21:33)
[2022-11-07] MEDS: Atorvastatin Calcium 20 MG TABLET PO (21:33)
[2022-11-08 03:24] VITALS: BP 136/63; PULSE 59; RESP 17; TEMP 36.4; O2SAT 97
[2022-11-08 06:58] LABS: Anion Gap 15 (12-20); Blood Urea Nitrogen 47 mg/dL (9-16); Calcium 8.4 mg/dL (8.4-10.2); Carbon Dioxide 22 mmol/L (22-29); Chloride 107 mmol/L (96-108); Creatinine Clr Calc Pharmacy 6.6; Estimated Glomerular Filt Rate 7; Glucose Random 151 mg/dL (60-115); Potassium 3.2 mmol/L (3.3-5.1); Sodium 141 mmol/L (135-145)
[2022-11-08 07:46] LABS: Glucose, Whole Blood 153 mg/dL (60-115)
[2022-11-08 08:00] VITALS: BP 164/74; PULSE 64; RESP 18; TEMP 36.1; O2SAT 96
[2022-11-08] MEDS: Insulin Lispro 100 UNIT/ML 3 ML VIAL SUBCUT ×4 (08:31→20:27)
[2022-11-08] MEDS: Cholecalciferol (Vitamin D3) 25 MCG TABLET PO (08:32)
[2022-11-08] MEDS: Heparin Sodium,Porcine 5,000 UNIT/ML VIAL 5000 UNIT SUBCUT ×2 (08:32→20:27)
[2022-11-08] MEDS: Ferrous Sulfate 324 MG TABLET.DR PO (08:32)
[2022-11-08] MEDS: Metoprolol Tartrate 25 MG TABLET PO ×2 (08:32→20:28)
[2022-11-08] MEDS: Apixaban 2.5 MG TABLET PO ×2 (08:32→20:28)
[2022-11-08] MEDS: Potassium Chloride Packet 20 MEQ PACKET 40 MEQ PO ×2 (08:32→10:37)
[2022-11-08] MEDS: Dronedarone HCl 400 MG TABLET PO ×2 (08:32→20:28)
--- NOTE | 2022-11-08 10:20 | PM.PNNEP ---
Subjective Subjective Date of Service: 11/08/22 Interval history: seen and examined events noted d/w medical attending Physical Exam Vital Signs: Vital Signs: Last Vital Signs Temp 96.9 F 11/08/22 08:00 Pulse 64 11/08/22 08:00 Resp 18 11/08/22 08:00 BP 164/74 H 11/08/22 08:00 Pulse Ox 96 11/08/22 08:00 O2 Del Method Room Air 11/08/22 08:00 BMI result Body Mass Index 21.3 Const: General: alert and awake HEENT: Head: Yes normocephalic and Yes atraumatic Neck: Neck: Yes supple Resp: Auscultation: diminished lung sounds Cardio: Heart sounds: S1 normal heart sound present and S2 normal heart sound present GI: Palpation (GI): Soft to palpation and nontender Extrem: Right upper extremity: no edema Objective Data Labs 11/06/22 05:35 11/08/22 05:39 Labs: Laboratory Results - last 24 hr 11/07/22 11/07/22 11/07/22 10:12 11:08 16:10 Sodium Potassium Chloride Carbon Dioxide Anion Gap BUN Creatinine Estim Creat Clear Calc Estimated GFR POC Glucose 189 H 290 H Random Glucose Calcium Ur Random Sodium 82.0 Urine Creatinine 28.94 11/07/22 11/08/22 11/08/22 19:50 05:39 07:42 Sodium 141 Potassium 3.2 L Chloride 107 Carbon Dioxide 22 Anion Gap 15 BUN 47 H Creatinine 5.82 H* Estim Creat Clear Calc 6.6 Estimated GFR 7 POC Glucose 259 H 153 H Random Glucose 151 H Calcium 8.4 D Ur Random Sodium Urine Creatinine Procedures Date of Service Date of Service: 11/08/22 Assessment & Plan Assessment and plan (1) TASNEEM (acute kidney injury): Status: Acute (2) Hypokalemia: Status: Acute Plan Scr better TASNEEM probably due to acute tubular injury normal baseline kidney function REC follow kidney function and electrolytes will arrange for o/p renal f/u if dc Time Spent With Patient Time: Total time managing care of this patient today ____ minutes. Progress Note: Quality Stroke Does the patient have a stroke diagnosis?: No
[2022-11-08 10:37] VITALS: BP 164/74; PULSE 64; O2SAT 96
--- NOTE | 2022-11-08 11:03 | PC.NURSE ---
jaeger cath removed per Dr. Montanez @ 1100, DTV by 1500, pt aware and tolerated well
[2022-11-08 11:44] LABS: Glucose, Whole Blood 188 mg/dL (60-115)
--- NOTE | 2022-11-08 12:06 | MHC.CM.PN ---
Patient has reviewed bed offers and chooses [facility]. The facility has been notified. They will submit for auth today. They do not anticipate receiving auth today. This writter informed that [facility] has been slow to provide auth recently. [facility] [place] via BLS. A new HCP has been documented.
--- NOTE | 2022-11-08 14:17 | P.PNIM_ITS ---
Subjective Subjective Date of Service: 11/08/22 Interval History: Seen and evaluated this morning Feels comfortable making good amount of urine Cr trending down Review of Systems Review of Systems: Yes all other systems are reviewed and are negative Physical Exam Vital Signs: Vital Signs: Last Vital Signs Temp 96.9 F 11/08/22 08:00 Pulse 64 11/08/22 10:37 Resp 18 11/08/22 08:00 BP 164/74 H 11/08/22 10:37 Pulse Ox 96 11/08/22 10:37 O2 Del Method Room Air 11/08/22 08:00 BMI result Body Mass Index 21.3 Const: Other: Constitutional : Awake, interactive, not in distress Neck : Normal inspection, Supple Cardiovascular : RRR, no JVP, no lower extremity edema Respiratory : good bilateral air entry, no crackles, wheezes or rhonchi Gastrointestinal: soft, lax, Normal bowel sounds, Non tender Skin : Warm, Dry Neurological : Alert & oriented x3, No focal deficit Objective Data Active Medications Acetaminophen (Acetaminophen 325 Mg Tablet) 975 mg PO Q6H PRN PRN Reason: Headache Last Admin: 11/07/22 14:10 Dose: 975 mg Documented By: HANH Apixaban (Apixaban 2.5 Mg Tablet) 2.5 mg PO BID [facility] Last Admin: 11/08/22 08:32 Dose: 2.5 mg Documented By: HANH Atorvastatin Calcium (Atorvastatin Calcium 20 Mg Tablet) 20 mg PO BEDTIME [facility] Last Admin: 11/07/22 21:33 Dose: 20 mg Documented By: JAIRO Dextrose (Dextrose 50 % 25 Gm/50 Ml Syringe) 25 gm IVPUSH Q15M PRN; Protocol PRN Reason: per Hypoglycemia Standing Ord. Docusate Sodium (Docusate Sodium 100 Mg Capsule) 100 mg PO BEDTIME [facility] Last Admin: 11/07/22 21:33 Dose: 100 mg Documented By: JAIRO Dronedarone (Dronedarone Hcl 400 Mg Tablet) 400 mg PO BID [facility] Last Admin: 11/08/22 08:32 Dose: 400 mg Documented By: HANH Ferrous Sulfate (Ferrous Sulfate 324 Mg Tablet.) 324 mg PO DAILY [facility] Last Admin: 11/08/22 08:32 Dose: 324 mg Documented By: HANH Glucose (Glucose Gel 15 Gm Gel..Gram.) 15 gm PO Q15M PRN; Protocol PRN Reason: per Hypoglycemia Standing Ord. Heparin Sodium (Porcine) (Heparin Sodium,Porcine 5,000 Unit/Ml Vial) 5,000 unit SUBCUT Q12H [facility] Last Admin: 11/08/22 08:32 Dose: 5,000 unit Documented By: HANH Sodium Chloride (Ns) 1,000 mls @ 80 mls/hr IVCONT .[id number] [facility] Last Infusion: 11/08/22 10:09 Dose: 0 mls/hr Documented By: HANH Insulin Human Lispro (Insulin Lispro 100 Unit/Ml 3 Ml Vial) 0 unit SUBCUT QIDACHS [facility]; Protocol Last Admin: 11/08/22 11:49 Dose: 2 unit Documented By: HANH Metoprolol Tartrate (Metoprolol Tartrate 25 Mg Tablet) 25 mg PO BID [facility]; Protocol Last Admin: 11/08/22 08:32 Dose: 25 mg Documented By: HANH Ondansetron HCl (Ondansetron Hcl 4 Mg/2 Ml Vial) 4 mg IVPUSH Q8H PRN PRN Reason: Nausea and Vomiting Pharmacy Consult (Consult Rx Perform Med Rec) 1 each MISCELLANE ONCE PRN PRN Reason: Consult order Sodium Chloride (0.9 % Sodium Chloride Flush 3 Ml Syringe) 3 ml IVFLUSH QSHIFT [facility] Last Admin: 11/08/22 07:13 Dose: Not Given Documented By: HANH Non-Admin Reason: IV Running Vitamin D (Cholecalciferol (Vitamin D3) 25 Mcg Tablet) 25 mcg PO DAILY [facility] Last Admin: 11/08/22 08:32 Dose: 25 mcg Documented By: HANH Labs 11/06/22 05:35 11/08/22 05:39 Labs: Laboratory Results - last 24 hr 11/07/22 11/07/22 11/08/22 16:10 19:50 05:39 Anion Gap 15 Estim Creat Clear Calc 6.6 Estimated GFR 7 POC Glucose 290 H 259 H Random Glucose 151 H Calcium 8.4 D 11/08/22 11/08/22 07:42 11:07 Anion Gap Estim Creat Clear Calc Estimated GFR POC Glucose 153 H 188 H Random Glucose Calcium Assessment and Plan (1) Hypokalemia: Status: Acute (2) Acute renal failure: Status: Acute Plan This is a 76-year-old female past medical history of a flutter on Eliquis, hypertension, diabetes presents the hospital with complaints of leg pain after having a fall # left leg pain No evidence of fractures PT eval # TASNEEM likely NSAID induced tubular necrosis CT abdomen shows no obstruction Cr improved to 5 negative metformin and lithium toxicity nephrology following DC IVF Follow BMP, I\O # Acute hypokalemia Corrected with PO replacement # fall mechanical PT # hypertension Hold nephrotoxic meds # a flutter continue Eliquis, metoprolol # diabetes hold metformin low-dose sliding scale insulin diabetic diet Given patient's need for further IV fluid, close monitoring of electrolytes and kidney function therefore she needs overnight inpatient hospital stay Time Spent With Patient Time: Total time managing care of this patient today ____ minutes. Quality Stroke Does the patient have a stroke diagnosis?: No VTE Prior VTE?: No VTE Risk Level:: Medical - moderate - high VTE Device Contraindication: Treatment Not Indicated VTE Drug Contraindication: N/A - Med Ordered
[2022-11-08] MEDS: 0.9 % Sodium Chloride Flush 3 ML SYRINGE IVFLUSH ×2 (15:06→20:27)
[2022-11-08 15:38] VITALS: BP 122/71; PULSE 61; RESP 14; TEMP 36.3; O2SAT 99
[2022-11-08 15:59] LABS: Glucose, Whole Blood 205 mg/dL (60-115)
[2022-11-08 19:51] VITALS: BP 168/70; PULSE 55; RESP 16; TEMP 36.2; O2SAT 98
[2022-11-08 20:20] LABS: Glucose, Whole Blood 153 mg/dL (60-115)
[2022-11-08] MEDS: Docusate Sodium 100 MG CAPSULE PO (20:28)
[2022-11-08] MEDS: Atorvastatin Calcium 20 MG TABLET PO (20:28)
[2022-11-08] MEDS: Acetaminophen 325 MG TABLET 975 MG PO (21:45)
[2022-11-09] MEDS: traZODone HCL 50 MG TABLET PO ×2 (01:56→20:56)
--- NOTE | 2022-11-09 02:34 | MHC.PIE ---
p; pt c/o insomnia. i; dr tadeo notified. new order trazodone now e; will cont to monitor
[2022-11-09 04:00] VITALS: BP 161/68; PULSE 58; RESP 16; TEMP 36.1; O2SAT 98
[2022-11-09 05:46] LABS: Anion Gap 15 (12-20); Blood Urea Nitrogen 41 mg/dL (9-16); Carbon Dioxide 20 mmol/L (22-29); Chloride 110 mmol/L (96-108); Creatinine Clr Calc Pharmacy 8.9; Estimated Glomerular Filt Rate 10; Glucose Random 130 mg/dL (60-115); Potassium 4.6 mmol/L (3.3-5.1); Sodium 140 mmol/L (135-145)
[2022-11-09 07:11] VITALS: BP 144/67; PULSE 61; RESP 18; TEMP 36.6; O2SAT 99
[2022-11-09 07:23] LABS: Glucose, Whole Blood 133 mg/dL (60-115)
[2022-11-09] MEDS: Cholecalciferol (Vitamin D3) 25 MCG TABLET PO (07:45)
[2022-11-09] MEDS: Metoprolol Tartrate 25 MG TABLET PO ×2 (07:45→20:56)
[2022-11-09] MEDS: Ferrous Sulfate 324 MG TABLET.DR PO (07:45)
[2022-11-09] MEDS: amLODIPine Besylate 5 MG TABLET PO (07:45)
[2022-11-09] MEDS: Dronedarone HCl 400 MG TABLET PO ×2 (07:45→20:56)
[2022-11-09] MEDS: Apixaban 2.5 MG TABLET PO ×2 (07:45→20:56)
[2022-11-09] MEDS: 0.9 % Sodium Chloride Flush 3 ML SYRINGE IVFLUSH ×3 (07:47→20:55)
--- NOTE | 2022-11-09 08:28 | PM.PNNEP ---
Subjective Subjective Date of Service: 11/09/22 Interval history: Seen and evaluated this morning Feels comfortable sitting out of bed Physical Exam Vital Signs: Vital Signs: Last Vital Signs Temp 98 F 11/09/22 07:11 Pulse 61 11/09/22 07:11 Resp 18 11/09/22 07:11 BP 144/67 H 11/09/22 07:11 Pulse Ox 99 11/09/22 07:11 O2 Del Method Room Air 11/09/22 07:11 BMI result Body Mass Index 21.3 Const: General: alert and awake HEENT: Head: Yes normocephalic and Yes atraumatic Neck: Neck: Yes supple Resp: Auscultation: diminished lung sounds Cardio: Heart sounds: S1 normal heart sound present and S2 normal heart sound present GI: Palpation (GI): Soft to palpation and nontender Extrem: Right upper extremity: no edema Objective Data Labs 11/06/22 05:35 11/09/22 05:03 Labs: Laboratory Results - last 24 hr 11/08/22 11/08/22 11/08/22 11:07 15:56 20:15 Sodium Potassium Chloride Carbon Dioxide Anion Gap BUN Creatinine Estim Creat Clear Calc Estimated GFR POC Glucose 188 H 205 H 153 H Random Glucose Calcium 11/09/22 11/09/22 05:03 07:11 Sodium 140 Potassium 4.6 D Chloride 110 H Carbon Dioxide 20 L Anion Gap 15 BUN 41 H Creatinine 4.36 H* Estim Creat Clear Calc 8.9 Estimated GFR 10 POC Glucose 133 H Random Glucose 130 H Calcium 9.0 D Procedures Date of Service Date of Service: 11/09/22 Assessment & Plan Assessment and plan (1) TASNEEM (acute kidney injury): Status: Acute Plan kidney function continues to improve TASNEEM probably due to acute tubular injury normal baseline kidney function REC follow kidney function and electrolytes will arrange for o/p renal f/u if dc Time Spent With Patient Time: Total time managing care of this patient today ____ minutes. Progress Note: Quality Stroke Does the patient have a stroke diagnosis?: No
--- NOTE | 2022-11-09 09:37 | MHC.CM.PN ---
Addendum entered by Mary Riley RN 11/09/22 13:08: [facility] DOES HAVE AUTH TO ADMIT PATIENT BG IS IN THE 500S. PLAN WILL BE DC FRIDAY PATIENT, , AND RN AWARE Original Note: OF THIS NOTE, [facility] (PATIENT ACCEPTED BED) DOES NOT HAVE AUTH TO ADMIT. POSSIBLE Friday11/11/22 DC. AWARE
--- NOTE | 2022-11-09 10:56 | P.PNIM_ITS ---
Subjective Subjective Date of Service: 11/09/22 Interval History: Seen and evaluated this morning Feels comfortable have new action tremor\jerky movement Cr trending down Review of Systems Review of Systems: Yes all other systems are reviewed and are negative Physical Exam Vital Signs: Vital Signs: Last Vital Signs Temp 98 F 11/09/22 07:11 Pulse 61 11/09/22 07:11 Resp 18 11/09/22 07:11 BP 144/67 H 11/09/22 07:11 Pulse Ox 99 11/09/22 07:11 O2 Del Method Room Air 11/09/22 07:11 BMI result Body Mass Index 21.3 Const: Other: Constitutional : Awake, interactive, not in distress Neck : Normal inspection, Supple Cardiovascular : RRR, no JVP, no lower extremity edema Respiratory : good bilateral air entry, no crackles, wheezes or rhonchi Gastrointestinal: soft, lax, Normal bowel sounds, Non tender Skin : Warm, Dry Neurological : Alert & oriented x3, No focal deficit , few involuntary movements on action that resemble coarse tremor Objective Data Active Medications Acetaminophen (Acetaminophen 325 Mg Tablet) 975 mg PO Q6H PRN PRN Reason: Headache Last Admin: 11/08/22 21:45 Dose: 975 mg Documented By: JYOTI Amlodipine Besylate (Amlodipine Besylate 5 Mg Tablet) 5 mg PO DAILY [facility]; Protocol Last Admin: 11/09/22 07:45 Dose: 5 mg Documented By: BRANDI Apixaban (Apixaban 2.5 Mg Tablet) 2.5 mg PO BID [facility] Last Admin: 11/09/22 07:45 Dose: 2.5 mg Documented By: BRANDI Atorvastatin Calcium (Atorvastatin Calcium 20 Mg Tablet) 20 mg PO BEDTIME [facility] Last Admin: 11/08/22 20:28 Dose: 20 mg Documented By: JYOTI Dextrose (Dextrose 50 % 25 Gm/50 Ml Syringe) 25 gm IVPUSH Q15M PRN; Protocol PRN Reason: per Hypoglycemia Standing Ord. Docusate Sodium (Docusate Sodium 100 Mg Capsule) 100 mg PO BEDTIME [facility] Last Admin: 11/08/22 20:28 Dose: 100 mg Documented By: JYOTI Dronedarone (Dronedarone Hcl 400 Mg Tablet) 400 mg PO BID [facility] Last Admin: 07/15/23 07:45 Dose: 400 mg Documented By: BRANDI Ferrous Sulfate (Ferrous Sulfate 324 Mg Tablet.Dr) 324 mg PO DAILY [facility] Last Admin: 11/09/22 07:45 Dose: 324 mg Documented By: BRANDI Glucose (Glucose Gel 15 Gm Gel..Gram.) 15 gm PO Q15M PRN; Protocol PRN Reason: per Hypoglycemia Standing Ord. Insulin Human Lispro (Insulin Lispro 100 Unit/Ml 3 Ml Vial) 0 unit SUBCUT QIDACHS [facility]; Protocol Last Admin: 11/09/22 07:42 Dose: Not Given Documented By: BRANDI Non-Admin Reason: No Insulin Coverage [place] Carbonate ([place] Carbonate Er 450 Mg Tablet.Er) 450 mg PO BEDTIME [facility] Metoprolol Tartrate (Metoprolol Tartrate 25 Mg Tablet) 25 mg PO BID [facility]; Protocol Last Admin: 11/09/22 07:45 Dose: 25 mg Documented By: BRANDI Ondansetron HCl (Ondansetron Hcl 4 Mg/2 Ml Vial) 4 mg IVPUSH Q8H PRN PRN Reason: Nausea and Vomiting Pharmacy Consult (Consult Rx Perform Med Rec) 1 each MISCELLANE ONCE PRN PRN Reason: Consult order Sodium Chloride (0.9 % Sodium Chloride Flush 3 Ml Syringe) 3 ml IVFLUSH QSHIFT [facility] Last Admin: 11/09/22 07:47 Dose: 3 ml Documented By: BRANDI Vitamin D (Cholecalciferol (Vitamin D3) 25 Mcg Tablet) 25 mcg PO DAILY [facility] Last Admin: 11/09/22 07:45 Dose: 25 mcg Documented By: BRANDI Labs 11/06/22 05:35 11/09/22 05:03 Labs: Laboratory Results - last 24 hr 11/08/22 11/08/22 11/08/22 11:07 15:56 20:15 Anion Gap Estim Creat Clear Calc Estimated GFR POC Glucose 188 H 205 H 153 H Random Glucose Calcium 11/09/22 11/09/22 05:03 07:11 Anion Gap 15 Estim Creat Clear Calc 8.9 Estimated GFR 10 POC Glucose 133 H Random Glucose 130 H Calcium 9.0 D Assessment and Plan (1) Hypokalemia: Status: Acute (2) Metabolic acidosis: Status: Acute (3) Acute renal failure: Status: Acute Plan This is a 76-year-old female past medical history of a flutter on Eliquis, hy pertension, diabetes presents the hospital with complaints of leg pain after having a fall # TASNEEM likely NSAID induced tubular necrosis CT abdomen shows no obstruction Cr improved to 4.3 negative metformin and lithium toxicity nephrology following Follow BMP, I\O # left leg pain No evidence of fractures PT eval # Acute hypokalemia Corrected with PO replacement # fall mechanical PT # Tremors could be related to lithium usage, anxiety continue Metoprolol consider Benzos if go worse monitor for now # hypertension Hold nephrotoxic meds # a flutter continue Eliquis, metoprolol, Multaq # diabetes hold metformin low-dose sliding scale insulin diabetic diet Given patient's need for further IV fluid, close monitoring of electrolytes and kidney function therefore she needs overnight inpatient hospital stay pending safe discharge plan Time Spent With Patient Time: Total time managing care of this patient today ____ minutes. Quality Stroke Does the patient have a stroke diagnosis?: No VTE Prior VTE?: No VTE Risk Level:: Medical - moderate - high VTE Device Contraindication: Treatment Not Indicated VTE Drug Contraindication: N/A - Med Ordered
--- NOTE | 2022-11-09 10:58 | PC.NURSE ---
Spoke with MD Montanez this AM regarding patient having twitching and jerking movements in bilateral hands which patient states is not usual for her. also notified of patient having pink tinged urine, noted that FC was removed 11/08. No new orders at this time, continue with plan of care.
[2022-11-09 11:13] LABS: Glucose, Whole Blood 517 mg/dL (60-115)
[2022-11-09 11:17] LABS: Glucose, Whole Blood 511 mg/dL (60-115)
[2022-11-09 11:20] VITALS: BP 125/85; PULSE 49; RESP 20; TEMP 36.1; O2SAT 96
[2022-11-09] MEDS: Insulin Lispro 100 UNIT/ML 3 ML VIAL SUBCUT ×4 (11:37→20:57)
[2022-11-09 12:50] LABS: Glucose, Whole Blood 432 mg/dL (60-115)
--- NOTE | 2022-11-09 13:04 | PC.NURSE ---
MD Montanez made aware via tiger text at 11:16 patient blood glucose >500. POC immediately rechecked at bedside to confirm accuracy of meter, including check with different glucometer, results as follow 515,535, then 511. At this time patient appears pale but denies any other signs and symptoms, VS as follows 97.0, RR 20, 45 HR, 96% on room air, 125/85. MD ordered 5 units in addition to 10 units of SS insulin. Pt POC recheck was 430. Pt currently resting in bed, no signs and symptoms of distress. Pending urine collection.
[2022-11-09 15:25] VITALS: BP 141/65; PULSE 68; RESP 18; TEMP 36.6; O2SAT 100
[2022-11-09 16:12] LABS: Glucose, Whole Blood 249 mg/dL (60-115)
[2022-11-09 20:00] VITALS: BP 171/72; PULSE 75; RESP 16; TEMP 36.5; O2SAT 99
[2022-11-09] MEDS: Atorvastatin Calcium 20 MG TABLET PO (20:55)
[2022-11-09] MEDS: Lithium Carbonate ER 450 MG TABLET.ER PO (20:56)
[2022-11-09] MEDS: Docusate Sodium 100 MG CAPSULE PO (20:56)
[2022-11-09 21:02] LABS: Glucose, Whole Blood 272 mg/dL (60-115)
[2022-11-09 22:04] LABS: Appearance Urine Cloudy; Color Urine Yellow; Glucose Urine UA >=1000 mg/dL (Negative); Leukocyte Esterase Urine Moderate (2+) (Negative); Nitrite Urine Negative (Negative); Specific Gravity - Urine 1.015 (1.005-1.025); UMIC TRIGGER UACC YES; Urine Blood Large (3+) (Negative); Urine Ketones Negative (Negative); Urine Protein 30 (1+) mg/dL (Neg-Trace)
[2022-11-09 22:20] LABS: Bacteria Urine 3+ (None Seen); Hyaline Casts Urine 0-2 /LPF (0-2); UACC Culture Trigger YES
[2022-11-10 03:30] LABS: Glucose, Whole Blood 148 mg/dL (60-115)
--- NOTE | 2022-11-10 03:31 | MHC.PIE ---
p; pt found with lethargy, difficulty arousing and slurred speech. bp 160/71, p 71, o2 97 on ra. shows no sign of one side weakness, pupil reactive bilateral. poc 140's. note; pt given trazodone for insomnia tonight i; dr tadeo notified e; will cont to monitor
[2022-11-10 04:00] VITALS: BP 148/61; PULSE 59; RESP 14; TEMP 36; O2SAT 93
[2022-11-10 06:49] LABS: Hematocrit 35.1 % (37.0-47.0); Hemoglobin 11.2 g/dl (12.0-16.0); Mean Corpuscular HGB Conc 31.9 g/dl (31.0-35.0); Mean Corpuscular Hemoglobin 29.9 pg (27.0-33.0); Mean Corpuscular Volume 93.6 fL (80.0-98.0); Mean Platelet Volume 9.4 fL (9.4-12.3); Platelet Count 344 X10*3/uL (160-400); Red Blood Count 3.75 X10*6/uL (4.20-5.50); Red Cell Distribution Width 13.6 % (11.0-16.0); White Blood Count 13.5 X10*3/uL (4.8-10.8)
[2022-11-10 07:06] LABS: Anion Gap 12 (12-20); Blood Urea Nitrogen 30 mg/dL (9-16); Calcium 9.1 mg/dL (8.4-10.2); Carbon Dioxide 18 mmol/L (22-29); Chloride 113 mmol/L (96-108); Creatinine Clr Calc Pharmacy 12.6; Estimated Glomerular Filt Rate 15; Glucose Random 164 mg/dL (60-115); Potassium 4.3 mmol/L (3.3-5.1); Sodium 139 mmol/L (135-145)
[2022-11-10 07:10] LABS: Glucose, Whole Blood 153 mg/dL (60-115)
[2022-11-10 07:15] VITALS: BP 141/64; PULSE 62; RESP 18; TEMP 36.4; O2SAT 98
--- NOTE | 2022-11-10 07:59 | PM.PNNEP ---
Subjective Subjective Date of Service: 11/10/22 Interval history: Seen and examined feels comfortable Physical Exam Vital Signs: Vital Signs: Last Vital Signs Temp 97.5 F 11/10/22 07:15 Pulse 62 11/10/22 07:15 Resp 18 11/10/22 07:15 BP 141/64 H 11/10/22 07:15 Pulse Ox 98 11/10/22 07:15 O2 Del Method Room Air 11/10/22 07:15 BMI result Body Mass Index 21.3 Const: General: alert and awake HEENT: Head: Yes normocephalic and Yes atraumatic Neck: Neck: Yes supple Resp: Auscultation: diminished lung sounds Cardio: Heart sounds: S1 normal heart sound present and S2 normal heart sound present GI: Palpation (GI): Soft to palpation and nontender Extrem: Right upper extremity: no edema Objective Data Labs 11/10/22 05:31 11/10/22 05:31 Labs: Laboratory Results - last 24 hr 11/09/22 11/09/22 11/09/22 11:08 11:14 12:47 WBC RBC Hgb Hct MCV MCH MCHC RDW Plt Count MPV Absolute Nucleated RBC Nucleated RBC % (auto) Sodium Potassium Chloride Carbon Dioxide Anion Gap BUN Creatinine Estim Creat Clear Calc Estimated GFR POC Glucose 517 H* 511 H* 432 H* Random Glucose Calcium Urine Color Urine Appearance Urine pH Ur Specific [place] Urine Protein Urine Glucose (UA) Urine Ketones Urine Blood Urine Nitrite Ur Leukocyte Esterase Urine RBC Urine WBC Ur Squamous Epith Cells Urine Bacteria Hyaline Casts 11/09/22 11/09/22 11/09/22 15:57 20:32 21:23 WBC RBC Hgb Hct MCV MCH MCHC RDW Plt Count MPV Absolute Nucleated RBC Nucleated RBC % (auto) Sodium Potassium Chloride Carbon Dioxide Anion Gap BUN Creatinine Estim Creat Clear Calc Estimated GFR POC Glucose 249 H 272 H Random Glucose Calcium Urine Color Yellow Urine Appearance Cloudy Urine pH 7.0 Ur Specific [place] 1.015 Urine Protein 30 (1+) H Urine Glucose (UA) >=1000 H Urine Ketones Negative Urine Blood Large (3+) H Urine Nitrite Negative Ur Leukocyte Esterase Moderate (2+) H Urine RBC 6-10 H Urine WBC 11-20 Ur Squamous Epith Cells 3-5 Urine Bacteria 3+ Hyaline Casts 0-2 11/10/22 11/10/22 11/10/22 03:21 05:31 05:31 WBC 13.5 H RBC 3.75 L Hgb 11.2 L Hct 35.1 L MCV 93.6 MCH 29.9 MCHC 31.9 RDW 13.6 Plt Count 344 MPV 9.4 Absolute Nucleated RBC 0.000 Nucleated RBC % (auto) 0.0 Sodium 139 Potassium 4.3 Chloride 113 H Carbon Dioxide 18 L Anion Gap 12 BUN 30 H Creatinine 3.08 H Estim Creat Clear Calc 12.6 Estimated GFR 15 POC Glucose 148 H Random Glucose 164 H Calcium 9.1 Urine Color Urine Appearance Urine pH Ur Specific [place] Urine Protein Urine Glucose (UA) Urine Ketones Urine Blood Urine Nitrite Ur Leukocyte Esterase Urine RBC Urine WBC Ur Squamous Epith Cells Urine Bacteria Hyaline Casts 11/10/22 07:05 WBC RBC Hgb Hct MCV MCH MCHC RDW Plt Count MPV Absolute Nucleated RBC Nucleated RBC % (auto) Sodium Potassium Chloride Carbon Dioxide Anion Gap BUN Creatinine Estim Creat Clear Calc Estimated GFR POC Glucose 153 H Random Glucose Calcium Urine Color Urine Appearance Urine pH Ur Specific [place] Urine Protein Urine Glucose (UA) Urine Ketones Urine Blood Urine Nitrite Ur Leukocyte Esterase Urine RBC Urine WBC Ur Squamous Epith Cells Urine Bacteria Hyaline Casts Procedures Date of Service Date of Service: 11/10/22 Assessment & Plan Assessment and plan (1) TASNEEM (acute kidney injury): Status: Acute Plan kidney function improving TASNEEM probably due to acute tubular injury normal baseline kidney function REC follow kidney function and electrolytes will arrange for o/p renal f/u if dc Time Spent With Patient Time: Total time managing care of this patient today ____ minutes. Progress Note: Quality Stroke Does the patient have a stroke diagnosis?: No
[2022-11-10 08:12] VITALS: BP 162/69; PULSE 62; RESP 17; TEMP 36.5; O2SAT 93
[2022-11-10] MEDS: amLODIPine Besylate 5 MG TABLET PO (09:24)
[2022-11-10] MEDS: 0.9 % Sodium Chloride Flush 3 ML SYRINGE IVFLUSH ×3 (09:24→21:19)
[2022-11-10] MEDS: Ferrous Sulfate 324 MG TABLET.DR PO (09:24)
[2022-11-10] MEDS: Apixaban 2.5 MG TABLET PO ×2 (09:24→21:18)
[2022-11-10] MEDS: Sodium Bicarbonate 650 MG TABLET PO ×2 (09:24→21:18)
[2022-11-10] MEDS: Cholecalciferol (Vitamin D3) 25 MCG TABLET PO (09:24)
[2022-11-10] MEDS: Metoprolol Tartrate 25 MG TABLET PO ×2 (09:24→21:18)
[2022-11-10] MEDS: Dronedarone HCl 400 MG TABLET PO ×2 (09:27→21:18)
[2022-11-10 11:20] LABS: Glucose, Whole Blood 190 mg/dL (60-115)
--- NOTE | 2022-11-10 11:23 | PC.NURSE ---
Addendum entered by Danya Bourgeois RN 11/10/22 15:51: Pt alert and awake for lunch, able to hold conversation and aware she was tired and confused this morning. Patient states I feel so much better now . Pt has been up to the bathroom with 1A and a walker to void. Currently sitting up in chair, all safety measures in place. Pt states she still feels tremors and shakes in her hands, MD aware of this ongoing issue. Original Note: Assumed care of patient at 0645 at this time patient sleeping in bed comfortably, rise and fall of chest noted no apparent sings and symptoms of distress. At approximately 0800 this RN entered patients room to administer AM medications. At this time patient noticeably difficult to arouse and lethargic, VSS (see flow sheet for value), blood sugar noted to be 153 from AM check. Pt abusable to light touch and voice, will answer with one word statements, pt follows simple commands but then closes eyes, and speech noted to be mumbled. MD Montanez at bedside to assess patient recommended letting patient sleep for an hour or so and reapproach. 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 Pt was alert enough to wake up and take medication at approximately 0930, pt swallowed pills whole with pudding without difficulty. At this time pt continued to be drowsy and stated she was confused and did not know where she was MD aware. At approximately 1100 MD updated on patients mental status continues to be drowsy, pt awakens to voice then falls back asleep. MD recommends to continue to monitor and DC Trazadone.
--- NOTE | 2022-11-10 11:56 | HO.PM.IMPN ---
Subjective Subjective Date of Service: 11/10/22 Interval History: Seen and evaluated this morning comfortable more sleepy and lethargic this morning, seems related to Trazodone dose overnight Cr trending down to 3 Review of Systems Review of Systems: Yes all other systems are reviewed and are negative Physical Exam Vital Signs: Vital Signs: Last Vital Signs Temp 97.7 F 11/10/22 08:12 Pulse 62 11/10/22 08:12 Resp 17 11/10/22 08:12 BP 162/69 H 11/10/22 08:12 Pulse Ox 93 11/10/22 08:12 O2 Del Method Room Air 11/10/22 08:12 BMI result Body Mass Index 21.3 Const: Other: Constitutional : Awake, interactive, not in distress Neck : Normal inspection, Supple Cardiovascular : RRR, no JVP, no lower extremity edema Respiratory : good bilateral air entry, no crackles, wheezes or rhonchi Gastrointestinal: soft, lax, Normal bowel sounds, Non tender Skin : Warm, Dry Neurological : Alert & oriented x2, No focal deficit , sleepy but easily woke up upon verbal stimulation Objective Data Active Medications Acetaminophen (Acetaminophen 325 Mg Tablet) 975 mg PO Q6H PRN PRN Reason: Headache Last Admin: 11/08/22 21:45 Dose: 975 mg Documented By: JYOTI Amlodipine Besylate (Amlodipine Besylate 5 Mg Tablet) 5 mg PO DAILY [facility]; Protocol Last Admin: 11/10/22 09:24 Dose: 5 mg Documented By: BRANDI Apixaban (Apixaban 2.5 Mg Tablet) 2.5 mg PO BID [facility] Last Admin: 11/10/22 09:24 Dose: 2.5 mg Documented By: BRANDI Atorvastatin Calcium (Atorvastatin Calcium 20 Mg Tablet) 20 mg PO BEDTIME [facility] Last Admin: 11/09/22 20:55 Dose: 20 mg Documented By: JYOTI Dextrose (Dextrose 50 % 25 Gm/50 Ml Syringe) 25 gm IVPUSH Q15M PRN; Protocol PRN Reason: per Hypoglycemia Standing Ord. Docusate Sodium (Docusate Sodium 100 Mg Capsule) 100 mg PO BEDTIME [facility] Last Admin: 11/09/22 20:56 Dose: 100 mg Documented By: JYOTI Dronedarone (Dronedarone Hcl 400 Mg Tablet) 400 mg PO BID [facility] Last Admin: 11/10/22 09:27 Dose: 400 mg Documented By: BRANDI Ferrous Sulfate (Ferrous Sulfate 324 Mg Tablet.Dr) 324 mg PO DAILY [facility] Last Admin: 11/10/22 09:24 Dose: 324 mg Documented By: BRANDI Glucose (Glucose Gel 15 Gm Gel..Gram.) 15 gm PO Q15M PRN; Protocol PRN Reason: per Hypoglycemia Standing Ord. Insulin Human Lispro (Insulin Lispro 100 Unit/Ml 3 Ml Vial) 0 unit SUBCUT QIDACHS [facility]; Protocol Last Admin: 11/10/22 09:28 Dose: Not Given Documented By: BRANDI Non-Admin Reason: pt refusing meal Benbow Carbonate (Benbow Carbonate Er 450 Mg Tablet.Er) 450 mg PO BEDTIME [facility] Last Admin: 11/09/22 20:56 Dose: 450 mg Documented By: JYOTI Metoprolol Tartrate (Metoprolol Tartrate 25 Mg Tablet) 25 mg PO BID [facility]; Protocol Last Admin: 11/10/22 09:24 Dose: 25 mg Documented By: BRANDI Ondansetron HCl (Ondansetron Hcl 4 Mg/2 Ml Vial) 4 mg IVPUSH Q8H PRN PRN Reason: Nausea and Vomiting Pharmacy Consult (Consult Rx Perform Med Rec) 1 each MISCELLANE ONCE PRN PRN Reason: Consult order Sodium Bicarbonate (Sodium Bicarbonate 650 Mg Tablet) 650 mg PO BID [facility] Last Admin: 11/10/22 09:24 Dose: 650 mg Documented By: BRANDI Sodium Chloride (0.9 % Sodium Chloride Flush 3 Ml Syringe) 3 ml IVFLUSH QSHIFT [facility] Last Admin: 11/10/22 09:24 Dose: 3 ml Documented By: BRANDI Trazodone HCl (Trazodone Hcl 50 Mg Tablet) 50 mg PO BEDTIME PRN PRN Reason: Insomnia Last Admin: 11/09/22 20:56 Dose: 50 mg Documented By: JYOTI Vitamin D (Cholecalciferol (Vitamin D3) 25 Mcg Tablet) 25 mcg PO DAILY [facility] Last Admin: 11/10/22 09:24 Dose: 25 mcg Documented By: BRANDI Labs 11/10/22 05:31 11/10/22 05:31 Labs: Laboratory Results - last 24 hr 11/09/22 11/09/22 11/09/22 12:47 15:57 20:32 MCV MCH MCHC RDW Plt Count MPV Absolute Nucleated RBC Nucleated RBC % (auto) Anion Gap Estim Creat Clear Calc Estimated GFR POC Glucose 432 H* 249 H 272 H Random Glucose Calcium Urine Color Urine Appearance Urine pH Ur Specific [place] Urine Protein Urine Glucose (UA) Urine Ketones Urine Blood Urine Nitrite Ur Leukocyte Esterase Urine RBC Urine WBC Ur Squamous Epith Cells Urine Bacteria Hyaline Casts 11/09/22 11/10/22 11/10/22 21:23 03:21 05:31 MCV 93.6 MCH 29.9 MCHC 31.9 RDW 13.6 Plt Count 344 MPV 9.4 Absolute Nucleated RBC 0.000 Nucleated RBC % (auto) 0.0 Anion Gap Estim Creat Clear Calc Estimated GFR POC Glucose 148 H Random Glucose Calcium Urine Color Yellow Urine Appearance Cloudy Urine pH 7.0 Ur Specific [place] 1.015 Urine Protein 30 (1+) H Urine Glucose (UA) >=1000 H Urine Ketones Negative Urine Blood Large (3+) H Urine Nitrite Negative Ur Leukocyte Esterase Moderate (2+) H Urine RBC 6-10 H Urine WBC 11-20 Ur Squamous Epith Cells 3-5 Urine Bacteria 3+ Hyaline Casts 0-2 11/10/22 11/10/22 11/10/22 05:31 07:05 11:16 MCV MCH MCHC RDW Plt Count MPV Absolute Nucleated RBC Nucleated RBC % (auto) Anion Gap 12 Estim Creat Clear Calc 12.6 Estimated GFR 15 POC Glucose 153 H 190 H Random Glucose 164 H Calcium 9.1 Urine Color Urine Appearance Urine pH Ur Specific [place] Urine Protein Urine Glucose (UA) Urine Ketones Urine Blood Urine Nitrite Ur Leukocyte Esterase Urine RBC Urine WBC Ur Squamous Epith Cells Urine Bacteria Hyaline Casts Assessment and Plan (1) Hypokalemia: Status: Acute (2) Metabolic acidosis: Status: Acute (3) Acute renal failure: Status: Acute Plan This is a 76-year-old female past medical history of a flutter on Eliquis, hypertension, diabetes presents the hospital with complaints of leg pain after having a fall # TASNEEM likely NSAID induced tubular necrosis CT abdomen shows no obstruction Cr improved to 4.3 negative metformin and lithium toxicity NaBicarb PO nephrology following Follow BMP, I\O # Sleeplessness sounds to be related to trazodone overnight hold trazodone for now Ambien can be used tonight # left leg pain No evidence of fractures PT eval # Acute hypokalemia Corrected with PO replacement # fall mechanical PT # Tremors could be related to lithium usage, anxiety continue Metoprolol consider Benzos if go worse monitor for now # hypertension Hold nephrotoxic meds # a flutter continue Eliquis, metoprolol, Multaq # diabetes hold metformin low-dose sliding scale insulin diabetic diet Given patient's need for further IV fluid, close monitoring of electrolytes and kidney function therefore she needs overnight inpatient hospital stay pending safe discharge plan Time Spent With Patient Time: Total time managing care of this patient today ____ minutes. Quality Stroke Does the patient have a stroke diagnosis?: No VTE Prior VTE?: No VTE Risk Level:: Medical - moderate - high VTE Device Contraindication: Treatment Not Indicated VTE Drug Contraindication: N/A - Med Ordered
[2022-11-10] MEDS: Insulin Lispro 100 UNIT/ML 3 ML VIAL SUBCUT ×3 (12:00→21:18)
[2022-11-10 15:06] VITALS: BP 145/65; PULSE 60; RESP 18; TEMP 36.6; O2SAT 97
[2022-11-10 16:09] LABS: Glucose, Whole Blood 237 mg/dL (60-115)
[2022-11-10 20:22] VITALS: BP 136/62; PULSE 72; RESP 16; TEMP 36.4; O2SAT 98
[2022-11-10 20:46] LABS: Glucose, Whole Blood 235 mg/dL (60-115)
[2022-11-10] MEDS: Atorvastatin Calcium 20 MG TABLET PO (21:18)
[2022-11-10] MEDS: Lithium Carbonate ER 450 MG TABLET.ER PO (21:18)
[2022-11-10] MEDS: Docusate Sodium 100 MG CAPSULE PO (21:18)
[2022-11-11 07:17] LABS: Glucose, Whole Blood 140 mg/dL (60-115)
[2022-11-11 07:32] LABS: Anion Gap 12 (12-20); Blood Urea Nitrogen 26 mg/dL (9-16); Calcium 9.7 mg/dL (8.4-10.2); Carbon Dioxide 18 mmol/L (22-29); Chloride 112 mmol/L (96-108); Creatinine Clr Calc Pharmacy 16.5; Estimated Glomerular Filt Rate 20; Glucose Random 131 mg/dL (60-115); Potassium 4.2 mmol/L (3.3-5.1); Sodium 138 mmol/L (135-145)
[2022-11-11 07:49] VITALS: BP 142/66; PULSE 63; RESP 18; TEMP 36.2; O2SAT 95
[2022-11-11] MEDS: amLODIPine Besylate 5 MG TABLET PO (08:47)
[2022-11-11] MEDS: 0.9 % Sodium Chloride Flush 3 ML SYRINGE IVFLUSH (08:47)
[2022-11-11] MEDS: Apixaban 2.5 MG TABLET PO (08:47)
[2022-11-11] MEDS: Metoprolol Tartrate 25 MG TABLET PO (08:47)
[2022-11-11] MEDS: Ferrous Sulfate 324 MG TABLET.DR PO (08:47)
[2022-11-11] MEDS: Sodium Bicarbonate 650 MG TABLET PO (08:47)
[2022-11-11] MEDS: Cholecalciferol (Vitamin D3) 25 MCG TABLET PO (08:47)
[2022-11-11] MEDS: Dronedarone HCl 400 MG TABLET PO (08:47)
--- NOTE | 2022-11-11 09:57 | PM.DS ---
DS: Providers Provider Date of Service: 11/11/22 Date of admission: 11/06/22 05:03 Primary care physician: Darian Rivera MD Consults: 11/06/22 05:02 Consult to Nephrology Routine Consulting Provider: [facility] Reason for consultation: jamilah Has provider been notified: No DS: Diagnosis Discharge Diagnosis (1) Hypokalemia: Status: Acute (2) Metabolic acidosis: Status: Acute (3) Acute renal failure: Status: Acute (4) Fall: Status: Acute (5) Contusion of knee, left: Status: Acute DS: Summary Hospital Course Hospital Course: Admission note HPI 76-year-old female past medical history of diabetes, depression, HTN, a flutter on [place], comes into the hospital after a fall causing her left leg pain.? Patient reports that about 10 days ago she was gardening, got up, lean forward and had an accidental mechanical fall.? She was doing well until few days later when she started experiencing severe left leg pain which has been causing her problems with walking.? She has been using Tylenol as well as ibuprofen [id number] with some improvement.? Has been using her cane to walk around.? She has been feeling slight improvement but given the persistent pain she decided to come to the ED for further evaluation.? She otherwise denies any chest pain, no abdominal pain, no nausea or vomiting, no recent dehydration or diarrhea, no urinary symptoms and no lower extremity edema.? On arrival to the ED patient hemodynamically stable with no significant abnormal vitals Labs are significant for WBC count of 11.1, hemoglobin of 11.9, hematocrit 36.3, creatinine of 8.86 BUN of 70 with a baseline of around less than 1, UA negative for any acute infection Abdomen pelvic CT shows no hydronephrosis or obstructing calculus, there is trace right pleural effusion but patient denies any shortness of breath, X-ray shows prominent prepatellar soft tissue swelling, no fracture identified Head CT negative, cervical spine negative. chest x-ray shows no displaced rib fractures. Patient started on IV fluids, will be admitted for further management Hospital course The patient was admitted for evidence of acute kidney injury with Cr of 9.2 from normal baseline. likely NSAID induced tubular necrosis from Ibuprofen usage for left knee pain after sustaining a fall week ago. CT abdomen shows no obstruction. negative metformin and lithium toxicity. Started on IV fluids , NaBicarb PO and nephrology evaluation with good response as Cr trended down nicely during the hospital stay to 2.3. Fall with left leg pain. No evidence of fractures. Tylenol for pain as needed. PT recommended short term rehab placement. Had Acute hypokalemia which was corrected with PO replacement. Continue home medications Do not use Ibuprofen\Naproxen again To follow with chemical dependency therapist dr Nair as outpatient Time Spent with Patient Time attestation: Total time managing care of this patient today ____ minutes. Discharge coordination time: Greater than 30 minutes Quality: Safe Use of Opioids Does Pt have an Active Cancer Diagnosis on the Problem List?: No Quality: Stroke Does the patient have a stroke diagnosis?: No Physical Exam Vital Signs: Vital Signs: Last Vital Signs Temp 97.2 F 11/11/22 07:49 Pulse 63 11/11/22 07:49 Resp 18 11/11/22 07:49 BP 142/66 H 11/11/22 07:49 Pulse Ox 95 11/11/22 07:49 O2 Del Method Room Air 11/11/22 07:49 BMI result Body Mass Index 21.3 Const: Other: Constitutional : Awake, interactive, not in distress Neck : Normal inspection, Supple Cardiovascular : RRR, no JVP, no lower extremity edema Respiratory : good bilateral air entry, no crackles, wheezes or rhonchi Gastrointestinal: soft, lax, Normal bowel sounds, Non tender Skin : Warm, Dry Neurological : Alert & oriented x2, No focal deficit, having mild action tremors that resolve with rest. DS: Data Data Completed and Pending Completed studies during hospitalization [Text1]: Procedures Control Bleeding in Gastrointestinal Tract, Via Natural or Artificial Opening Endoscopic (11/19/21) Excision of Cecum, Via Natural or Artificial Opening Endoscopic, Diagnostic (11/19/21) Excision of Duodenum, Via Natural or Artificial Opening Endoscopic, Diagnostic (11/19/21) Excision of Esophagogastric Junction, Via Natural or Artificial Opening Endoscopic, Diagnostic (11/19/21) Excision of Sigmoid Colon, Via Natural or Artificial Opening Endoscopic, Diagnostic (11/19/21) Excision of Stomach, Pylorus, Via Natural or Artificial Opening Endoscopic, Diagnostic (11/19/21) Denominational of Cardiac Rhythm, Single (11/19/21) Transfusion of Nonautologous Red Blood Cells into Peripheral Vein, Percutaneous Approach (11/19/21) Labs on day of discharge: Laboratory Results - last 24 hr 11/10/22 11/10/22 11/10/22 11:16 16:05 20:39 Sodium Potassium Chloride Carbon Dioxide Anion Gap BUN Creatinine Estim Creat Clear Calc Estimated GFR POC Glucose 190 H 237 H 235 H Random Glucose Calcium 11/11/22 11/11/22 05:38 07:13 Sodium 138 Potassium 4.2 Chloride 112 H Carbon Dioxide 18 L Anion Gap 12 BUN 26 H Creatinine 2.36 H Estim Creat Clear Calc 16.5 Estimated GFR 20 POC Glucose 140 H Random Glucose 131 H Calcium 9.7 D Preliminary micro results at discharge 11/09/22 Unknown Urine Culture - Preliminary Urine clean catch - Urine willams top Gram negative [facility] Chest x-ray: Radiologist's impression: ITS Impressions Chest X-Ray 11/05/22 21:10 IMPRESSION: 1. No acute cardiopulmonary findings. 2. No displaced rib fractures. Cervical Spine CT 11/05/22 21:12 IMPRESSION: 1. No acute intracranial pathology. 2. No acute cervical spinal fractures or malalignment. 3. Partially imaged small right pleural effusion. 4. Small left-sided mastoid effusion. Head CT 11/05/22 21:12 IMPRESSION: 1. No acute intracranial pathology. 2. No acute cervical spinal fractures or malalignment. 3. Partially imaged small right pleural effusion. 4. Small left-sided mastoid effusion. Knee X-Ray 11/06/22 00:40 IMPRESSION: Prominent prepatellar soft tissue swelling. No fracture identified. Abdomen/Pelvis CT 11/06/22 02:24 IMPRESSION: 1. No hydronephrosis or obstructing calculus identified. 2. Trace right pleural effusion. 3. Inadequate assessment for colonic wall thickening due to luminal collapse. Discharge Plan Discharge Anticipated Discharge Date/Time: 11/11/22 09:54 Patient Disposition: [facility] Discharge Diagnosis: Fall Kidney injury Referrals: Darian Rivera MD [Primary Care Provider] - 1 Week Discharge Medications: Continued ferrous sulfate 324 mg (65 mg iron) Tablet,Delayed Release (Dr/Ec) 324 mg PO DAILY Qty: 30 0RF cholecalciferol (vitamin D3) 25 mcg (1,000 unit) Tablet 25 mcg PO DAILY lithium carbonate 450 mg tablet extended release 450 mg PO BEDTIME metformin 500 mg tablet 5 mg PO DAILY atorvastatin 20 mg tablet 20 mg PO BEDTIME amlodipine 5 mg tablet 5 mg PO DAILY Multaq 400 mg tablet 400 mg PO BID docusate sodium 100 mg capsule 100 mg PO BEDTIME Qty: 90 3RF metoprolol tartrate 25 mg tablet 25 mg PO BID 30 Days Qty: 60 5RF Eliquis 5 mg tablet 5 mg PO BID Qty: 60 5RF metformin 500 mg tablet 1,000 mg PO BEDTIME Discharge Orders: Discharge Order (Routine); Ordered 11/11/22 Ordered By: Pedro Montanez Diet: Advance to usual diet Activity on Discharge: As tolerated Stand Alone Forms: Patient Portal Discharge page Care Plan Goals: Read below Health Concerns: Read below Plan of Treatment: Read below Assessment: You were admitted to the hospital for evaluation of fall. Found to have evidence of acute kidney injury. treated with fluids as you were followed by kidney specialist with significant improvement in kidney function. Continue home medications Do not use Ibuprofen\Naproxen again To follow with chemical dependency therapist dr Nair as outpatient
--- NOTE | 2022-11-11 10:43 | MHC.CM.PN ---
DP: PT HAS BEEN MEDICALLY CLEARED FOR DC TO STR AT [facility] . RN AWARE. CENTER AWARE AND HAS INSURANCE AUTH. HCP/SISTER FERMÍN MADE AWARE VIA TELEPHONE MESSAGE. BLS TRANSPORT BOOKED VIA [facility] FOR 10:30 AM
== END 2022-11-11 10:50 | disposition skilled nursing facility (03) | DRG 683 ==
LOC: HO.ED 11-06 00:09 → HO.EDOVER 11-06 05:17 → HO.S3 11-06 07:39
PROVIDERS: Internal Medicine Nephrology; Physician Assistant; Admitting Provider Internal Medicine; Emergency Provider Internal Medicine; PCP Family Medicine; Visit Provider Student in an Organized Health Care Education/Training Program
DX: N17.0 Acute kidney failure with tubular necrosis (principal); E87.20 Acidosis, unspecified; I48.92 Unspecified atrial flutter; S80.02XA Contusion of left knee, initial encounter; W19.XXXA Unspecified fall, initial encounter; E11.9 Type 2 diabetes mellitus without complications; T39.315A Adverse effect of propionic acid derivatives, initial encounter; E87.6 Hypokalemia; I10 Essential (primary) hypertension; Z79.01 Long term (current) use of anticoagulants; Z79.84 Long term (current) use of oral hypoglycemic drugs; Z79.899 Other long term (current) drug therapy
CPT/HCPCS: 36415; 70450; 71045; 72125; 73562; 74176; 80048; 80053; 80178; 81001; 81003; 82550; 82803; 82947; 83605; 83735; 84300; 84484; 85025; 85027; 85610; 87086; 87088; 87186; 93005; 97116; 97162; 97530; 99285; C1758; J1643

== ENCOUNTER → 2022-11-05 20:49 | Outpatient (BNV) | payer MEDICARE, SELFPAY | PROVIDERS: Admitting Provider Internal Medicine; Emergency Provider Internal Medicine; PCP Family Medicine; Visit Provider Internal Medicine Cardiovascular Disease | DX: I45.10 Unspecified right bundle-branch block (principal) | CPT/HCPCS: 93010 ==

== ENCOUNTER → 2022-11-06 05:03 | Outpatient (BNV) | payer MEDICARE, SELFPAY | PROVIDERS: Admitting Provider Internal Medicine; Emergency Provider Internal Medicine; PCP Family Medicine; Visit Provider Internal Medicine | DX: M79.605 Pain in left leg (principal); N17.9 Acute kidney failure, unspecified; W19.XXXA Unspecified fall, initial encounter | CPT/HCPCS: 99222; 99232; 99239; 99499 ==

== ENCOUNTER 2022-11-30 14:30 | Emergency (ER) | payer MEDICARE, SELFPAY ==
--- NOTE | 2022-11-30 14:51 | ED.FEMALEGU ---
HPI - Female Genitourinary General Chief complaint: Urogenital-Female Stated complaint: quest uti Time Seen by Provider: 11/30/22 19:59 Source: patient and old records reviewed Mode of arrival: ambulatory Limitations: no limitations History of Present Illness HPI Narrative: 76-year-old female past medical history of diabetes, depression, HTN, a flutter on Eliquis 3 days of dysuria and frequency but no fevers, abdominal / back pain n/v/d and tolerating PO. otherwise feels well. MD elicited complaint: dysuria and UTI Pertinent past history: recurrent UTIs Onset (ago): day(s) (3) Severity: mild Quality of pain: burning Consistency: intermittent Vaginal discharge: none Vaginal bleeding: none Urinary symptoms: Dysuria, Urgency and Frequency Exacerbating factors: urination Relieving factors: none Associated symptoms: denies other symptoms Treatment prior to arrival: none Related Data Home Medications Medication Instructions Recorded Confirmed metformin 500 mg tablet 1,000 mg PO BEDTIME 12/05/21 11/06/22 cholecalciferol (vitamin D3) 25 25 mcg PO DAILY 12/10/21 11/06/22 mcg (1,000 unit) tablet dronedarone 400 mg tablet (Multaq) 400 mg PO BID 02/18/22 11/06/22 lithium carbonate 450 mg 450 mg PO BEDTIME 07/23/22 11/06/22 tablet,extended release amlodipine 5 mg tablet 5 mg PO DAILY 11/06/22 11/06/22 atorvastatin 20 mg tablet 20 mg PO BEDTIME 11/06/22 11/06/22 metformin 500 mg tablet 5 mg PO DAILY 11/06/22 11/06/22 Previous Rx's Medication Instructions Recorded ferrous sulfate 324 mg (65 mg 324 mg PO DAILY #30 tabs 11/20/21 iron) tablet,delayed release docusate sodium 100 mg capsule 100 mg PO BEDTIME #90 caps 02/18/22 metoprolol tartrate 25 mg tablet 25 mg PO BID 30 days #60 tabs 05/16/22 apixaban 5 mg tablet (Eliquis) 5 mg PO BID #60 tabs 07/23/22 cefuroxime axetil 250 mg tablet 250 mg PO BID 7 days #13 tabs 11/30/22 Allergies Allergy/AdvReac Type Severity Reaction Status Date / Time influenza virus vaccine, Allergy Intermediate STIFFNESS,LIMITED Verified 11/30/22 14:55 specific FUNCTION [FLU VACCINE] AFFECTED ARM/HAND Review of Systems Review of Systems: Constitutional : No Fever, No Chills ENT/Mouth : No sore throat Eyes: No Eye Pain, No Swelling, No Redness Cardiovascular : No Chest Pain, No SOB Respiratory : No Cough, No Sputum, No Wheezing Gastrointestinal : no Nausea, no Vomiting, No Diarrhea, no abdominal pain Genitourinary : positive Dysuria, positive urinary frequency, noHematuria, no Flank Pain, no hesitancy Musculoskeletal : No joint pain, No Myalgias Skin : No Skin Lesions, No rash Neuro : No Weakness, No Numbness, No Headache Psych : No Anxiety/Panic, No Depression All other systems reviewed and are negative FORMERLY [facility], [facility]–1983 Past Medical History Attestation statement: The following information was validated with the patient. Source: old records reviewed Medical History Atrophic gastritis Breast calcification, right Depression Diabetes mellitus Encounter for monitoring anti-arrhythmic therapy Fall Hypertension Iron deficiency anemia New onset atrial flutter Surgical History History of section History of cholecystectomy History of esophagogastroduodenoscopy (EGD) Hx of colonoscopy Family History Family History Father Depression Social History Social History Household Members: None Housing: Apartment Do you presently have visiting nurse or other home services: No Alcohol intake: never Patient Tobacco Use Status: Never used Tobacco Advance Directives: Yes Advance Directives on File: Yes Advance Directives Date on File: 11/12/22 service: No Current occupational status: retired Physical Exam Vital Signs: Vital Signs: Last Vital Signs Temp 97.0 F 11/30/22 17:44 Pulse 48 L 11/30/22 17:44 Resp 20 11/30/22 17:44 BP 128/65 11/30/22 17:44 Pulse Ox 98 11/30/22 17:44 O2 Del Method Room Air 11/30/22 17:44 BMI result Body Mass Index 21.8 Appearance: Alert. Oriented X3. No acute distress. Eyes: Pupils equal, round and reactive to light. ENT: Pharynx normal. Neck: Normal inspection. Neck supple. CVS: Normal heart rate and rhythm. Pulses normal. Respiratory: No respiratory distress. Breath sounds normal. Abdomen: Soft and nontender. no CVA ttp Skin: Skin warm and dry. Normal skin color. Normal skin turgor. Extremities: No lower extremity edema. Neuro: Oriented X 3. No motor deficit. No sensory deficit. Course Course Course Narrative: This is an RME: Additional HPI, ROS, PE not included below will be deferred to primary provider. Patient is a 76-year-old female who presents emergency department for evaluation of urinary frequency, dysuria x 4-5 days. Denies fevers, chills, nausea, vomiting, abdominal pain, back pain, hematuria. Patient denies any history of urinary tract infection. Patient reports that she was in the emergency department recently after a fall and she was sent to a [facility] facility. Upon review hospital admission for TASNEEM 11/06/22; noted urine culture from 11/09/2022 revealing E coli with pansensitivity, upon review of prior admission, it is unclear whether she received treatment inpatient. she declined being treated in STR Plan: labs, urinalysis Reevaluation(s) Reevaluation #1: LFTs up but the patient has no RUQ pain hx of same in past Medical Decision Making Medical Decision Making MDM Narrative: 76-year-old female past medical history of diabetes, depression, HTN, a flutter on Eliquis just admitted for renal failure and now here with dysuria x 3 days but now pain, fevers, vomiting and overall feels well had owens sensitive E. Coli UTI - she is not toxic appears well has no flank pain labs look good CT scan just showed no obstructive uropathy in October will start on ceftin and DC home Differential Diagnosis Differential Diagnoses: The differential diagnosis associated with the presentation includes UTI, pyelonephritis Admission/Observation Consideration of admission/observation: Escalation of care including admission/observation considered labs improved from baseline, tolerating PO no fevers back pain or vomiting - can be managed with oral medications Lab Data [facility] Lab Attestation statement: I reviewed the patient's lab results. 11/30/22 15:25 11/30/22 15:25 Labs: Lab Results 11/30/22 11/30/22 11/30/22 Range/Units 15:25 15:25 17:57 WBC 10.1 (4.8-10.8) X10*3/uL RBC 3.68 L (4.20-5.50) X10*6/uL Hgb 11.2 L (12.0-16.0) g/dl Hct 34.4 L (37.0-47.0) % MCV 93.5 (80.0-98.0) fL MCH 30.4 (27.0-33.0) pg MCHC 32.6 (31.0-35.0) g/dl RDW 13.3 (11.0-16.0) % Plt Count 262 (160-400) X10*3/uL MPV 9.2 L (9.4-12.3) fL Immature Gran % (Auto) 0.4 (0.0-0.4) % Neut % (Auto) 58.0 (45-73) % Lymph % (Auto) 32.1 (20-40) % [place] % (Auto) 6.5 (2-11) % Eos % (Auto) 2.4 (0-4) % Baso % (Auto) 0.6 (0-2) % Lymph # (Auto) 3.2 (1.2-4.9) X10*3/uL [place] # (Auto) 0.7 (0.1-1.2) X10*3/uL Eos # (Auto) 0.2 (0.0-0.4) X10*3/uL Baso # (Auto) 0.1 (0.0-0.2) X10*3/uL Abs Immat Gran (auto) 0.04 H (0.00-0.03) X10*3/uL Absolute Neuts (auto) 5.9 (2.0-8.3) x10*3/uL Absolute Nucleated RBC 0.000 (0.0-0.012) X10*3/uL Nucleated RBC % (auto) 0.0 (0.0-0.2) /100WBC Sodium 138 (135-145) mmol/L Potassium 4.7 (3.3-5.1) mmol/L Chloride 111 H (96-108) mmol/L Carbon Dioxide 19 L (22-29) mmol/L Anion Gap 13 (12-20) BUN 18 H (9-16) mg/dL Creatinine 1.47 H (0.5-1.4) mg/dL Estim Creat Clear Calc 26.4 Estimated GFR 34 Random Glucose 195 H (60-115) mg/dL Calcium 9.4 (8.4-10.2) mg/dL Total Bilirubin 0.4 (0.0-1.0) mg/dL AST 87 H (5-31) U/L ALT 109 H (0-31) U/L Alkaline Phosphatase 79 (39-117) U/L Total Protein 6.3 L (6.5-8.0) g/dL Albumin 3.9 (3.5-5.0) g/dL Urine Color Yellow Urine Appearance Turbid Urine pH 6.0 (5.0-9.0) Ur Specific [place] 1.020 (1.005-1.025) Urine Protein 100 (2+) H (Neg-Trace) mg/dL Urine Glucose (UA) Negative (Negative) mg/dL Urine Ketones Trace (Negative) mg/dL Urine Blood Trace H (Negative) Urine Nitrite Negative (Negative) Ur Leukocyte Esterase Large (3+) H (Negative) Urine RBC 3-5 H (0-2) /HPF Urine WBC >50 H (0-5) /HPF Ur Squamous Epith Cells 0-2 (0-2) /HPF Urine Bacteria 4+ (None Seen) Hyaline Casts >20 (0-2) /LPF External Record Review External record reviewed: Inpatient record and Prior outpatient labs Prescription Management I considered prescription management with: Antibiotic Discharge Plan Discharge Clinical Impression: Acute UTI Patient Disposition: Home, Self-Care Instructions: Urinary Tract Infection in Women (ED) Additional Instructions: return for fevers, back pain, vomiting or more than 8 loose stools a day. take a probiotic while on antibioticsl your liver enzymes were mildly bumped please recheck in 1 week with your doctor. Prescriptions: New cefuroxime axetil 250 mg tablet 250 mg PO BID 7 Days Qty: 13 0RF No Action ferrous sulfate 324 mg (65 mg iron) Tablet,Delayed Release (Dr/Ec) 324 mg PO DAILY Qty: 30 0RF cholecalciferol (vitamin D3) 25 mcg (1,000 unit) Tablet 25 mcg PO DAILY lithium carbonate 450 mg tablet extended release 450 mg PO BEDTIME metformin 500 mg tablet 5 mg PO DAILY atorvastatin 20 mg tablet 20 mg PO BEDTIME amlodipine 5 mg tablet 5 mg PO DAILY Multaq 400 mg tablet 400 mg PO BID docusate sodium 100 mg capsule 100 mg PO BEDTIME Qty: 90 3RF metoprolol tartrate 25 mg tablet 25 mg PO BID 30 Days Qty: 60 5RF Eliquis 5 mg tablet 5 mg PO BID Qty: 60 5RF metformin 500 mg tablet 1,000 mg PO BEDTIME
[2022-11-30 14:52] VITALS: BP 147/51; PULSE 52; RESP 18; TEMP 35.9; O2SAT 99; BMI 21.8
[2022-11-30 15:31] LABS: MANUAL DIFF FLAG NO
[2022-11-30 15:33] LABS: Basophils Absolute Auto 0.1 X10*3/uL (0.0-0.2); Basophils Percent Auto 0.6 % (0-2); Eosinophils Absolute Auto 0.2 X10*3/uL (0.0-0.4); Eosinophils Percent Auto 2.4 % (0-4); Hematocrit 34.4 % (37.0-47.0); Hemoglobin 11.2 g/dl (12.0-16.0); Imm Gran Abs Auto 0.04 X10*3/uL (0.00-0.03); Imm Gran Pct Auto 0.4 % (0.0-0.4); Lymphocytes Absolute Auto 3.2 X10*3/uL (1.2-4.9); Lymphocytes Percent Auto 32.1 % (20-40); Mean Corpuscular HGB Conc 32.6 g/dl (31.0-35.0); Mean Corpuscular Hemoglobin 30.4 pg (27.0-33.0); Mean Corpuscular Volume 93.5 fL (80.0-98.0); Mean Platelet Volume 9.2 fL (9.4-12.3); Monocytes Absolute Auto 0.7 X10*3/uL (0.1-1.2); Monocytes Percent Auto 6.5 % (2-11); Neutrophils Absolute Auto 5.9 x10*3/uL (2.0-8.3); Platelet Count 262 X10*3/uL (160-400); Red Blood Count 3.68 X10*6/uL (4.20-5.50); Red Cell Distribution Width 13.3 % (11.0-16.0); White Blood Count 10.1 X10*3/uL (4.8-10.8)
[2022-11-30 16:09] LABS: Alanine Aminotransferase 109 U/L (0-31); Albumin Level 3.9 g/dL (3.5-5.0); Alkaline Phosphatase 79 U/L (39-117); Anion Gap 13 (12-20); Aspartate Amino Transferase 87 U/L (5-31); Bilirubin Total 0.4 mg/dL (0.0-1.0); Blood Urea Nitrogen 18 mg/dL (9-16); Calcium 9.4 mg/dL (8.4-10.2); Carbon Dioxide 19 mmol/L (22-29); Chloride 111 mmol/L (96-108); Creatinine Clr Calc Pharmacy 26.4; Estimated Glomerular Filt Rate 34; Glucose Random 195 mg/dL (60-115); Potassium 4.7 mmol/L (3.3-5.1); Sodium 138 mmol/L (135-145); Total Protein 6.3 g/dL (6.5-8.0)
[2022-11-30 17:44] VITALS: BP 128/65; PULSE 48; RESP 20; TEMP 36.1; O2SAT 98
[2022-11-30 18:30] LABS: Appearance Urine Turbid; Color Urine Yellow; Glucose Urine UA Negative (Negative); Leukocyte Esterase Urine Large (3+) (Negative); Nitrite Urine Negative (Negative); UMIC TRIGGER UACC YES; Urine Blood Trace (Negative); Urine Ketones Trace mg/dL (Negative); Urine Protein 100 (2+) mg/dL (Neg-Trace)
[2022-11-30 18:46] LABS: Bacteria Urine 4+ (None Seen); Hyaline Casts Urine >20 /LPF (0-2); Squamous Epithelial Cell Urine 0-2 /HPF (0-2); UACC Culture Trigger YES; WBC Urine >50 /HPF (0-5)
== END 2022-11-30 20:37 | disposition home or self-care (01) ==
PROVIDERS: Nurse Practitioner Family; Emergency Provider Emergency Medicine; PCP Family Medicine
DX: N39.0 Urinary tract infection, site not specified (principal); B96.20 Unspecified Escherichia coli [E. coli] as the cause of diseases classified elsewhere; E11.9 Type 2 diabetes mellitus without complications; I48.92 Unspecified atrial flutter; Z79.84 Long term (current) use of oral hypoglycemic drugs; Z79.01 Long term (current) use of anticoagulants
CPT/HCPCS: 36415; 80053; 81001; 85025; 87086; 87088; 87186; 99283; 99284

== ENCOUNTER 2023-01-10 08:50 | Emergency (ER) | payer MEDICARE, SELFPAY ==
--- NOTE | ~2023-01-10 | CT_ITS ---
EXAMINATION: CT HEAD WITHOUT CONTRAST CLINICAL INFORMATION: Rule out bleed, stroke, and mass effect. COMPARISON: Head CT November 05, 2022.. TECHNIQUE: Contiguous axial imaging was performed from the skull base to vertex without intravenous administration of contrast. This CT examination was performed using dose optimization techniques as appropriate, variously including the following: *Automated exposure control *Adjustment of mA and/or kV according to patient size (this includes techniques or standardized protocols for targeted exams where dose is matched to indication/reason for exam; i.e. extremities or head) *Use of iterative reconstruction technique DLP: 642 mGy-cm. FINDINGS: There is no intracranial hemorrhage, extra-axial collection, mass effect, or acute large territorial infarction. Chronic lacunar infarcts are seen within the left basal ganglia and right thalamus. The ventricles and sulci are commensurate with mild degree of brain parenchymal volume loss. There is no hydrocephalus. The extracranial structures are within normal limits. There is a small amount of opacification involving the inferior mastoid. CT/CT head/brain wo IV con IMPRESSION: No acute intracranial abnormality. Chronic lacunar infarcts in the left basal ganglia and right thalamus.
[2023-01-10 09:01] VITALS: BP 140/70; BP 148/53; PULSE 46; PULSE 50; RESP 18; TEMP 36.5; O2SAT 96; BMI 20.8
--- NOTE | 2023-01-10 09:18 | PC.NURSE ---
Patient reports that this morning she had an episode of dizziness that last x 1 hour. Reports she got up to try to walk around to try to get the dizziness to go away. States felt like she was going to fall because of how dizzy she was. States similar episode happened causing her to fall and be admitted to the hospital for about 5 days recently. Denies pain or discomfort. Denies chest pain, sob, or headache.
--- NOTE | 2023-01-10 09:50 | ED.DIZZY ---
HPI - Dizziness General Chief Complaint: Dizziness Stated Complaint: UNSTEADY GAIT,DIZZINESS RESOLVED Time Seen by Provider: 01/10/23 09:07 Source: patient Mode of arrival: EMS Limitations: no limitations History of Present Illness HPI Narrative: 69-year-old female past medical history of atopic gastritis, depression, diabetes mellitus, hypertension, iron deficient anemia, atrial flutter on Eliquis who presents emergency department for evaluation of dizziness and unsteady gait. Patient states that she was feeling fine until this morning when she got up. She states she felt tired and fatigued. She was walking around in her apartment when she felt dizzy as if she was going to pass out. She states that she stumble struck a chair but she did not fall. She states that she was concerned about the fatigue and dizziness so she called an ambulance and was brought to the emergency department. Patient states she was admitted to the hospital approximately 1 or 2 months prior, spent 5 days in the hospital, 4 days at rehab and since that hospitalization she has been feeling fine. Patient was seen on 11/30/2022 for urinary tract infection and on 11/05/2022 for a fall while gardening. Workup revealed acute kidney injury with BUN of 17 and creatinine of 8.86. Patient's acute kidney injury was attributed to acute tubular necrosis secondary to NSAID use for left knee pain. Related Data Home Medications Medication Instructions Recorded Confirmed metformin 500 mg tablet 1,000 mg PO BEDTIME 12/05/21 11/06/22 cholecalciferol (vitamin D3) 25 25 mcg PO DAILY 12/10/21 11/06/22 mcg (1,000 unit) tablet dronedarone 400 mg tablet (Multaq) 400 mg PO BID 02/18/22 11/06/22 lithium carbonate 450 mg 450 mg PO BEDTIME 07/23/22 11/06/22 tablet,extended release atorvastatin 20 mg tablet 20 mg PO BEDTIME 11/06/22 11/06/22 metformin 500 mg tablet 5 mg PO DAILY 11/06/22 11/06/22 Previous Rx's Medication Instructions Recorded ferrous sulfate 324 mg (65 mg 324 mg PO DAILY #30 tabs 11/20/21 iron) tablet,delayed release docusate sodium 100 mg capsule 100 mg PO BEDTIME #90 caps 02/18/22 metoprolol tartrate 25 mg tablet 25 mg PO BID 30 days #60 tabs 05/16/22 apixaban 5 mg tablet (Eliquis) 5 mg PO BID #60 tabs 07/23/22 cefuroxime axetil 250 mg tablet 250 mg PO BID 7 days #13 tabs 11/30/22 amlodipine 5 mg tablet 5 mg PO DAILY #90 tabs 01/06/23 Allergies Allergy/AdvReac Type Severity Reaction Status Date / Time influenza virus vaccine, Allergy Intermediate STIFFNESS,LIMITED Verified 11/30/22 14:55 specific FUNCTION [FLU VACCINE] AFFECTED ARM/HAND Review of Systems Review of Systems: Yes all other systems are reviewed and are negative [facility] Past Medical History [facility] Narrative: Social history: She lives alone. She denies tobacco and alcohol use. Medical History Fall Atrophic gastritis Encounter for monitoring anti-arrhythmic therapy Iron deficiency anemia Hypertension Diabetes mellitus Depression New onset atrial flutter Breast calcification, right Surgical History History of esophagogastroduodenoscopy (EGD) Hx of colonoscopy History of section History of cholecystectomy Family History Family History Father Depression Social History Social History Household Members: None Housing: Apartment Do you presently have visiting nurse or other home services: No Alcohol intake: former Patient Tobacco Use Status: Never used Tobacco Smoked in Last 30 Days: No Use of substances other than those prescribed or required for medical reasons: No Advance Directives: Yes Advance Directives on File: Yes Advance Directives Date on File: 11/12/22 service: No Current occupational status: retired Physical Exam Vital Signs: Vital Signs: Last Vital Signs Temp 97.9 F 01/10/23 12:30 Pulse 54 01/10/23 12:30 Resp 14 01/10/23 12:30 BP 136/50 L 01/10/23 12:30 Pulse Ox 98 01/10/23 12:30 O2 Del Method Room Air 01/10/23 12:30 BMI result Body Mass Index 20.8 Vital signs were normal except for an elevated blood pressure of 148/53 Exam: General: Awake, alert in no distress Head: Normocephalic, atraumatic EENT: PERRL, Lids normal, sclera normal, conjunctiva normal, nose normal , ears normal, throat without erythema or exudates Neck: Supple, no adenopathy, trachea midline and nontender Lung: breath sounds symmetric, no wheezing, rales or rhonchi Chest: symmetric movement, nontender Heart: regular rate and rhythm, normal S1, S2 no murmurs or rubs Abdomen: soft, non-tender, nondistended, normal bowel sounds Back: no vertebral tenderness, no CVAT Extremities: no deformities, moves all extremities symmetrically Skin: no rashes, no lesion, normal color and warmth Neuro: Awake, alert, oriented, normal speech, cranial nerves intact, moves all extremities symmetrically. Patient had normal [id number]-finger, normal rapid finger movement, normal heel to minor bilaterally Psych: Pleasant, cooperative Medications Administered Discontinued Medications Generic Name Dose Route Start Last Admin Trade Name Freq PRN Reason Stop Dose Admin Sodium Chloride 1,000 mls @ 999 mls/hr 01/10/23 09:50 01/10/23 12:28 Ns IV 01/10/23 10:50 Infused .Q1H1M STA Infusion Medical Decision Making Medical Decision Making MDM Narrative: 69-year-old female past medical history of atopic gastritis, depression, diabetes mellitus, hypertension, iron deficient anemia, atrial flutter on Eliquis who presents emergency department for evaluation of dizziness and unsteady gait. Patient was hospitalized 11/06/2022 with dizziness, fall secondary to acute tubular necrosis caused by NSAID use for left knee pain. She states that her symptoms today felt similar to when she felt previously. Patient's vital signs did reveal an elevated blood pressure otherwise unremarkable. Patient's physical examination was normal with a normal neurologic and cerebellar exam. I ordered the following evaluation on the patient: CBC, CMP, PT/INR, PTT, lipase, urinalysis, troponin, 12 EKG, CT scan of the head without IV contrast. 1254: Patient's laboratory evaluation did revealed mild anemia, urinalysis was negative. CT scan of the head was unremarkable. The patient was able to walk to the bathroom without any difficulty, she had a normal gait, she had no lightheadedness or dizziness Patient may have been dehydrated/volume depleted as the cause of her symptoms. Patient will be discharged home with printed and verbal instructions. Differential Diagnosis Differential Diagnoses: The differential diagnosis associated with the presentation includes Differential diagnosis includes but is not limited to stroke, intracranial bleed, electrolyte abnormality, anemia, urinary tract infection, myocardial infarction, myocardial ischemia, arrhythmia Admission/Observation Consideration of admission/observation: Escalation of care including admission/observation considered Lab Data MDM Lab Attestation statement: I reviewed the patient's lab results. My independent interpretation patient's laboratory evaluation as follows: Mild anemia with an H&H of 11 and 35. Low bicarb 19. Elevated glucose 125. Normal coags. High sensitive troponin I below detectable limits. Urinalysis positive for leukocyte esterase, microscopic revealed 6-10 WBCs 0-2 squamous cells but no bacteria-this is a normal urine and does support treatment for urinary tract infection at this time. 01/10/23 10:04 01/10/23 11:04 Labs: Lab Results 01/10/23 01/10/23 01/10/23 Range/Units 10:04 11:04 12:31 WBC 7.0 (4.8-10.8) X10*3/uL RBC 3.78 L (4.20-5.50) X10*6/uL Hgb 11.8 L (12.0-16.0) g/dl Hct 35.4 L (37.0-47.0) % MCV 93.7 (80.0-98.0) fL MCH 31.2 (27.0-33.0) pg MCHC 33.3 (31.0-35.0) g/dl RDW 13.8 (11.0-16.0) % Plt Count 246 (160-400) X10*3/uL MPV 9.5 (9.4-12.3) fL Immature Gran % (Auto) 0.3 (0.0-0.4) % Neut % (Auto) 67.8 (45-73) % Lymph % (Auto) 22.4 (20-40) % [place] % (Auto) 6.0 (2-11) % Eos % (Auto) 3.1 (0-4) % Baso % (Auto) 0.4 (0-2) % Lymph # (Auto) 1.6 (1.2-4.9) X10*3/uL [place] # (Auto) 0.4 (0.1-1.2) X10*3/uL Eos # (Auto) 0.2 (0.0-0.4) X10*3/uL Baso # (Auto) 0.0 (0.0-0.2) X10*3/uL Abs Immat Gran (auto) 0.02 (0.00-0.03) X10*3/uL Absolute Neuts (auto) 4.8 (2.0-8.3) x10*3/uL Absolute Nucleated RBC 0.000 (0.0-0.012) X10*3/uL Nucleated RBC % (auto) 0.0 (0.0-0.2) /100WBC PT 14.3 H (11.1-13.3) SEC INR 1.2 H (0.9-1.1) APTT 32.1 (26.0-36.4) SEC Sodium 141 (135-145) mmol/L Potassium 4.7 (3.3-5.1) mmol/L Chloride 114 H (96-108) mmol/L Carbon Dioxide 22 (22-29) mmol/L Anion Gap 10 L (12-20) BUN 22 H (9-16) mg/dL Creatinine 0.95 (0.5-1.4) mg/dL Estim Creat Clear Calc 42.1 Estimated GFR 57 Random Glucose 125 H (60-115) mg/dL Calcium 9.3 (8.4-10.2) mg/dL Total Bilirubin 0.4 (0.0-1.0) mg/dL AST 19 (5-31) U/L ALT 28 (0-31) U/L Alkaline Phosphatase 52 (39-117) U/L Troponin I High Sens < 2.7 D (<3.5-17.0) ng/L Total Protein 6.0 L (6.5-8.0) g/dL Albumin 3.6 (3.5-5.0) g/dL Lipase 37 (8-78) U/L Urine Color Yellow Urine Appearance Clear Urine pH 6.0 (5.0-9.0) Ur Specific [place] 1.010 (1.005-1.025) Urine Protein Negative (Neg-Trace) mg/dL Urine Glucose (UA) Negative (Negative) mg/dL Urine Ketones Negative (Negative) mg/dL Urine Blood Negative (Negative) Urine Nitrite Negative (Negative) Ur Leukocyte Esterase Small (1+) H (Negative) Urine RBC 0-2 (0-2) /HPF Urine WBC 6-10 H (0-5) /HPF Ur Squamous Epith Cells 0-2 (0-2) /HPF Urine Bacteria None Seen (None Seen) Hyaline Casts 0-2 (0-2) /LPF Independent Interpretation I performed an independent interpretation of an: EKG and Plain X-Ray Interpretation: My independent interpretation patient's 12 EKG done at 10:31 hours is as follows: Sinus bradycardia with a rate of 50, normal CO interval, prolonged QRS duration of 134 milliseconds, normal QTC interval, no ST segment elevation no ST segment depression, no PACs no PVCs, patient is Q-waves in V1 and V2. My interpretation patient's chest x-ray is as follows: No acute disease Radiology Impression Discussion of test interpretation with radiology: I have reviewed the radiologist's reading. Radiologist Impression: CT head/brain wo IV con IMPRESSION: No acute intracranial abnormality. Chronic lacunar infarcts in the left basal ganglia and right thalamus. Dictated By: WILL WHITE MD External Record Review External record reviewed: Inpatient record Chronic Conditions Patient?s care impacted by: Diabetes and Other (Atrial flutter) Discharge Plan Discharge Clinical Impression: Dizziness Patient Disposition: Home, Self-Care Instructions: Dizziness (ED) Additional Instructions: Your laboratory evaluation was normal. Your urine test was unremarkable and does not look like you have a urine infection at this time as the cause of her symptoms. Your EKG was normal. The CT scan of your brain was normal as well. At this time I do not have a clear cause for dizziness, you may have been dehydrated, we did treat you with normal saline IV x1 L and hopefully this will improve your symptoms. Follow-up with your doctor in 2 days. Please return to the emergency department if your symptoms get worse or if you develop any symptoms that are concerning to you. Prescriptions: No Action amlodipine 5 mg tablet 5 mg PO DAILY Qty: 90 2RF ferrous sulfate 324 mg (65 mg iron) Tablet,Delayed Release (Dr/Ec) 324 mg PO DAILY Qty: 30 0RF cholecalciferol (vitamin D3) 25 mcg (1,000 unit) Tablet 25 mcg PO DAILY lithium carbonate 450 mg tablet extended release 450 mg PO BEDTIME metformin 500 mg tablet 5 mg PO DAILY atorvastatin 20 mg tablet 20 mg PO BEDTIME cefuroxime axetil 250 mg tablet 250 mg PO BID 7 Days Qty: 13 0RF Multaq 400 mg tablet 400 mg PO BID docusate sodium 100 mg capsule 100 mg PO BEDTIME Qty: 90 3RF metoprolol tartrate 25 mg tablet 25 mg PO BID 30 Days Qty: 60 5RF Eliquis 5 mg tablet 5 mg PO BID Qty: 60 5RF metformin 500 mg tablet 1,000 mg PO BEDTIME
--- NOTE | 2023-01-10 09:52 | ECG_ITS ---
Test Reason : DIZZINESS/CHEST PAIN Blood Pressure : / mmHG Vent. Rate : 050 BPM Atrial Rate : 050 BPM P-R Int : 180 ms QRS Dur : 134 ms QT Int : 498 ms P-R-T Axes : 042 017 -07 degrees QTc Int : 454 ms Sinus bradycardia Right bundle branch block Cannot rule out Anteroseptal infarct , age undetermined Abnormal ECG When compared with ECG of 05-NOV-2022 21:30, Minimal criteria for Anteroseptal infarct are now Present T wave inversion no longer evident in Lateral leads QT has shortened Referred By: Casper Marlow Electronically Signed By:JERMAN RHODES
[2023-01-10] MEDS: 0.9 % Sodium Chloride 1,000 ML 999 ML IV (10:04)
[2023-01-10 10:14] LABS: Basophils Percent Auto 0.4 % (0-2); Eosinophils Absolute Auto 0.2 X10*3/uL (0.0-0.4); Eosinophils Percent Auto 3.1 % (0-4); Hematocrit 35.4 % (37.0-47.0); Hemoglobin 11.8 g/dl (12.0-16.0); Imm Gran Abs Auto 0.02 X10*3/uL (0.00-0.03); Imm Gran Pct Auto 0.3 % (0.0-0.4); Lymphocytes Absolute Auto 1.6 X10*3/uL (1.2-4.9); Lymphocytes Percent Auto 22.4 % (20-40); MANUAL DIFF FLAG NO; Mean Corpuscular HGB Conc 33.3 g/dl (31.0-35.0); Mean Corpuscular Hemoglobin 31.2 pg (27.0-33.0); Mean Corpuscular Volume 93.7 fL (80.0-98.0); Mean Platelet Volume 9.5 fL (9.4-12.3); Monocytes Absolute Auto 0.4 X10*3/uL (0.1-1.2); Neutrophils Absolute Auto 4.8 x10*3/uL (2.0-8.3); Neutrophils Percent Auto 67.8 % (45-73); Platelet Count 246 X10*3/uL (160-400); Red Blood Count 3.78 X10*6/uL (4.20-5.50); Red Cell Distribution Width 13.8 % (11.0-16.0)
[2023-01-10 10:20] LABS: INTERNATIONAL NORM RATIO 1.2 (0.9-1.1); Prothrombin Time 14.3 SEC (11.1-13.3)
[2023-01-10 10:22] LABS: Partial Thromboplastin Time 32.1 SEC (26.0-36.4)
[2023-01-10 11:09] VITALS: BP 148/53; PULSE 52; RESP 14; O2SAT 97
[2023-01-10 11:44] LABS: Alanine Aminotransferase 28 U/L (0-31); Albumin Level 3.6 g/dL (3.5-5.0); Alkaline Phosphatase 52 U/L (39-117); Anion Gap 10 (12-20); Aspartate Amino Transferase 19 U/L (5-31); Bilirubin Total 0.4 mg/dL (0.0-1.0); Blood Urea Nitrogen 22 mg/dL (9-16); Calcium 9.3 mg/dL (8.4-10.2); Carbon Dioxide 22 mmol/L (22-29); Chloride 114 mmol/L (96-108); Creatinine Clr Calc Pharmacy 42.1; Estimated Glomerular Filt Rate 57; Glucose Random 125 mg/dL (60-115); Lipase 37 U/L (8-78); Potassium 4.7 mmol/L (3.3-5.1); Sodium 141 mmol/L (135-145)
[2023-01-10 11:54] LABS: Troponin-I High Sensitivity < 2.7 ng/L (<3.5-17.0)
[2023-01-10 12:30] VITALS: BP 136/50; PULSE 54; RESP 14; TEMP 36.6; O2SAT 98
[2023-01-10 12:43] LABS: Appearance Urine Clear; Color Urine Yellow; Glucose Urine UA Negative (Negative); Leukocyte Esterase Urine Small (1+) (Negative); Nitrite Urine Negative (Negative); UMIC TRIGGER UACC YES; Urine Blood Negative (Negative); Urine Ketones Negative (Negative); Urine Protein Negative (Neg-Trace)
[2023-01-10 12:46] LABS: Bacteria Urine None Seen (None Seen); Hyaline Casts Urine 0-2 /LPF (0-2); RBC Urine 0-2 /HPF (0-2); Squamous Epithelial Cell Urine 0-2 /HPF (0-2); UACC Culture Trigger YES
== END 2023-01-10 13:34 | disposition home or self-care (01) ==
PROVIDERS: Emergency Provider Emergency Medicine Emergency Medical Services; PCP Family Medicine
DX: R42 Dizziness and giddiness (principal); R26.81 Unsteadiness on feet; R00.1 Bradycardia, unspecified; E11.9 Type 2 diabetes mellitus without complications; I10 Essential (primary) hypertension; I48.92 Unspecified atrial flutter; Z79.84 Long term (current) use of oral hypoglycemic drugs; Z79.899 Other long term (current) drug therapy; Z79.01 Long term (current) use of anticoagulants
CPT/HCPCS: 36415; 70450; 80053; 81001; 83690; 84484; 85025; 85610; 85730; 87086; 93005; 96360; 96361; 99284; 99285

== ENCOUNTER 2023-01-28 09:19 | Outpatient (AMB) | payer MEDICARE, SELFPAY ==
[2023-01-28 09:30] VITALS: BP 130/52; PULSE 54; BMI 21.1
--- NOTE | 2023-01-28 09:30 | MHC.OFFVIS ---
Intake Vital Signs 01/28/23 09:30 Height 5 ft 4 in Weight 123 lb 0.287 oz BMI 21.1 BP 130/52 L Blood Pressure Location Lt brachial Position Sitting Pulse 54 Intake Visit Reasons: fu Valuer Required: No Allergies influenza virus vaccine, specific [FLU VACCINE] Allergy (Intermediate, Verified 01/28/23 09:40) STIFFNESS,LIMITED FUNCTION AFFECTED ARM/HAND Medication List - Last Reconciled 01/28/23 by Amy Marshall NP-C amlodipine 5 mg PO DAILY apixaban (Eliquis) 5 mg PO BID atorvastatin 20 mg PO BEDTIME cholecalciferol (vitamin D3) 25 mcg PO DAILY dronedarone (Multaq) 400 mg PO BID lithium carbonate ER 450 mg PO BEDTIME metformin 5 mg PO DAILY metformin 1,000 mg PO BEDTIME metoprolol tartrate 25 mg PO BID 30 days HPI fu HPI Details Alicia is a 77-year-old female with past medical history of hypertension, diabetes, new or atrial flutter with AARON cardioversion 10/2021 who presents for follow-up. Today she reports that she has been feeling some discomfort along her sides and lower abdomen if she eats a large meal. She denies any precordial chest pain at rest or with activity. No shortness of breath, palpitations, presyncope, syncope, falls. No PND, orthopnea or edema. She had been seen in the emergency room in October with UTI, renal failure. Her creatinine had been as high as 9 and is now normalized. Notes indicate NSAIDs may have played a role in this. She is now only to take Tylenol for her generalized aches and pains. She does light physical activity. She takes her meds as directed. No bleeding issues reported. [facility] Medical History Fall Atrophic gastritis Encounter for monitoring anti-arrhythmic therapy Iron deficiency anemia Hypertension Diabetes mellitus Depression New onset atrial flutter Breast calcification, right Surgical History History of esophagogastroduodenoscopy (EGD) Hx of colonoscopy History of section History of cholecystectomy Family History Father Depression Social History Household Members: None Housing: Apartment Do you presently have visiting nurse or other home services: No Alcohol intake: former Patient Tobacco Use Status: Never used Tobacco Advance Directives Date on File: 11/12/22 service: No Current occupational status: retired Female Reproductive History Menstrual Age of Menarche: 12 Review of Systems Const All systems reviewed & are unremarkable except as noted in HPI and below ENT Denies dizziness Card Details: Body aches and pains Denies chest pain, Denies chest pain at rest, Denies chest pain with activity, Denies rapid heart rate, Denies pedal edema, Denies edema, Denies leg edema, Denies lightheadedness, Denies palpitations, Denies dyspnea, Denies dyspnea on exertion and Denies orthopnea Resp Denies cough, Denies dyspnea and Denies dyspnea on exertion GI Denies hematochezia and Denies change in stool character Musc Denies abnormal gait, Reports limited range of motion, Denies muscle cramps, Denies muscle weakness, Denies numbness, Denies radiating pain into limb, Denies stiffness and Denies tingling Neuro Denies abnormal gait, Denies dizziness, Denies numbness and Denies tingling Endo Denies palpitations Physical Exam Vital Signs: Last Vital Signs Pulse 54 01/28/23 09:30 BP 130/52 L 01/28/23 09:30 BMI result Body Mass Index 21.1 Const General: cooperative, comfortable and no acute distress Orientation/consciousness: patient oriented x3 Neck Neck: Yes normal visual inspection Resp Effort & Inspection: normal respiratory effort Auscultation: clear to auscultation bilaterally, no crackles, no rales, no rhonchi and no wheezes Cardio Jugular venous distension: no JVD Rate: regular rate Rhythm: regular rhythm Heart sounds: S1 normal heart sound present, S2 normal heart sound present, no murmurs and no rubs Neuro General: patient oriented x3 Extrem General: Yes normal to inspection and No no pedal edema Psych Appearance: grossly normal Mental Status: mental status grossly normal Speech and movement: Normal speech and movement present Office Procedures EKG Details: Today, read by me, sinus bradycardia, right bundle branch block, JTindex 110, rate 54 [id number], Complete Assessment & Plan Assessment & Plan (1) New onset atrial flutter: Code(s): I48.92 - Unspecified atrial flutter Plan: ED evaluation 10/2021 after having fall at home and found to be in atrial flutter with rapid ventricular response. She was treated with heart rate control and started on anticoagulation. She then underwent a AARON cardioversion on 11/19/2021 while inpatient with echo showing EF 65-70%, no wall motion abnormality and no thrombus. She was successfully converted back to normal sinus rhythm. She was started on Multaq to help maintain sinus rhythm and continued on metoprolol. She was started on Eliquis. Holter monitor done 04/11/2022 for 3 days showed sinus rhythm, average heart rate 73, heart rate range 52 to 130, no AFib, rare PAC and rare PVC. A nuclear stress test done 04/19/2022 showed exercise 5 minutes with mild shortness of breath, no EKG changes and no clear evidence of infarct or ischemia. She has had no documented recurrent atrial relation. EKG done today showing sinus bradycardia, right bundle branch block, JT index 110, rate 54. JT index has lengthened since EKG in June. Will have her reduce her metoprolol down to 25 mg once daily from b.i.d. Today she reports no heart palpitations or precordial chest discomfort. Will have her continue on Multaq 400 mg b.i.d., reduce metoprolol. Continue Eliquis at 5 mg b.i.d, which is the appropriate dose for her age and current creatinine 0.95. Will plan for EKG in 3 months. cardiology follow-up in 6 months, sooner if needed. (2) Iron deficiency anemia: Code(s): D50.9 - Iron deficiency anemia, unspecified Qualifiers: Iron deficiency anemia type: unspecified iron deficiency Qualified Code(s): D50.9 - Iron deficiency anemia, unspecified Plan: Labs done on 01/10/2023 shows hemoglobin 11.8. Anemia seems stable. She does tell me she is taking her anticoagulation and no bleeding issues reported. (3) Hypertension: Code(s): I10 - Essential (primary) hypertension Qualifiers: Hypertension type: primary hypertension Qualified Code(s): I10 - Essential (primary) hypertension Plan: Well controlled at this time. Metoprolol adjustment as above Medications: New metoprolol succinate ER 25 mg PO DAILY 30 tabs 5RF Discontinued metoprolol tartrate Discontinued Reason: Doctor's Order 25 mg PO BID 60 tabs 5RF 30 days Coding Level of Care Code Est Pt Level 4 (65813) Diagnoses New onset atrial flutter I48.92 Iron deficiency anemia, unspecified iron deficiency anemia type D50.9 Iron deficiency anemia type: unspecified iron deficiency Primary hypertension I10 Hypertension type: primary hypertension CPT Codes EKG - CPT: 53992-[id number], Complete ([id number]) Time Spent (min) 26
== END 2023-01-28 10:08 | disposition home or self-care (01) ==
PROVIDERS: PCP Family Medicine; Visit Provider Nurse Practitioner Family
DX: I48.92 Unspecified atrial flutter (principal); D50.9 Iron deficiency anemia, unspecified; I10 Essential (primary) hypertension
CPT/HCPCS: 93010; 99214

== ENCOUNTER → 2023-01-28 09:19 | Outpatient (BNVA) | payer MEDICARE, SELFPAY | PROVIDERS: PCP Family Medicine; Visit Provider Nurse Practitioner Family | DX: I48.92 Unspecified atrial flutter (principal); D50.9 Iron deficiency anemia, unspecified; I10 Essential (primary) hypertension; Z79.01 Long term (current) use of anticoagulants; Z79.899 Other long term (current) drug therapy | CPT/HCPCS: 93005; 99212 ==

== ENCOUNTER 2023-02-21 13:44 | Outpatient (REF) | payer MEDICARE, SELFPAY ==
[2023-02-21 13:59] LABS: MANUAL DIFF FLAG NO
[2023-02-21 14:21] LABS: Basophils Absolute Auto 0.1 X10*3/uL (0.0-0.2); Basophils Percent Auto 0.8 % (0-2); Eosinophils Absolute Auto 0.2 X10*3/uL (0.0-0.4); Eosinophils Percent Auto 2.5 % (0-4); Hematocrit 40.2 % (37.0-47.0); Imm Gran Abs Auto 0.02 X10*3/uL (0.00-0.03); Imm Gran Pct Auto 0.3 % (0.0-0.4); Lymphocytes Absolute Auto 2.5 X10*3/uL (1.2-4.9); Lymphocytes Percent Auto 34.2 % (20-40); Mean Corpuscular HGB Conc 32.3 g/dl (31.0-35.0); Mean Corpuscular Hemoglobin 30.9 pg (27.0-33.0); Mean Corpuscular Volume 95.5 fL (80.0-98.0); Mean Platelet Volume 9.5 fL (9.4-12.3); Monocytes Absolute Auto 0.4 X10*3/uL (0.1-1.2); Monocytes Percent Auto 5.2 % (2-11); Neutrophils Absolute Auto 4.1 x10*3/uL (2.0-8.3); Platelet Count 305 X10*3/uL (160-400); Red Blood Count 4.21 X10*6/uL (4.20-5.50); Red Cell Distribution Width 12.6 % (11.0-16.0); White Blood Count 7.2 X10*3/uL (4.8-10.8)
[2023-02-21 14:33] LABS: Estimated Average Glucose 157 mg/dL; Hemoglobin A1c % 7.1 % (<6.0)
[2023-02-21 14:47] LABS: Lithium 1.29 mmol/L (0.60-1.20)
[2023-02-21 14:58] LABS: Alanine Aminotransferase 63 U/L (0-31); Albumin Level 4.5 g/dL (3.5-5.0); Alkaline Phosphatase 88 U/L (39-117); Anion Gap 13 (12-20); Aspartate Amino Transferase 44 U/L (5-31); Bilirubin Direct 0.2 mg/dL (0.0-0.5); Bilirubin Total 0.5 mg/dL (0.0-1.0); Blood Urea Nitrogen 20 mg/dL (9-16); Carbon Dioxide 20 mmol/L (22-29); Chloride 109 mmol/L (96-108); Estimated Glomerular Filt Rate 47; Glucose Fasting 154 mg/dL (60-99); Iron 64 mcg/dL (30-160); Percent Iron Saturation 17 % (15-50); Potassium 3.9 mmol/L (3.3-5.1); Sodium 138 mmol/L (135-145); Total Iron Binding Capacity 380 mcg/dL (228-428); Total Protein 7.7 g/dL (6.5-8.0); Unsaturated Iron Binding 316 ug/dL
== END 2023-02-21 13:45 | disposition home or self-care (01) ==
LOC: HO.LAB 13:44
PROVIDERS: PCP Family Medicine; Visit Provider Family Medicine
DX: D50.8 Other iron deficiency anemias (principal); E11.9 Type 2 diabetes mellitus without complications; Z79.899 Other long term (current) drug therapy; R25.1 Tremor, unspecified; I10 Essential (primary) hypertension; E78.00 Pure hypercholesterolemia, unspecified
CPT/HCPCS: 36415; 80051; 80076; 80178; 82550; 82565; 82947; 83036; 83540; 84520; 85025

== ENCOUNTER 2023-03-18 13:35 | Outpatient (REF) | payer MEDICARE, SELFPAY | END 2023-03-18 13:36 | disposition home or self-care (01) | LOC: HO.LAB 13:35 | PROVIDERS: PCP Internal Medicine; Visit Provider Internal Medicine | DX: Z51.81 Encounter for therapeutic drug level monitoring (principal); Z79.899 Other long term (current) drug therapy | CPT/HCPCS: 36415; 80178 ==

== ENCOUNTER 2023-07-11 11:21 | Outpatient (REF) | payer MEDICARE, SELFPAY ==
[2023-07-11 11:41] LABS: MANUAL DIFF FLAG NO
[2023-07-11 12:25] LABS: Basophils Absolute Auto 0.1 X10*3/uL (0.0-0.2); Basophils Percent Auto 0.7 % (0-2); Eosinophils Absolute Auto 0.4 X10*3/uL (0.0-0.4); Hematocrit 39.7 % (37.0-47.0); Hemoglobin 13.1 g/dl (12.0-16.0); Imm Gran Abs Auto 0.02 X10*3/uL (0.00-0.03); Imm Gran Pct Auto 0.2 % (0.0-0.4); Lymphocytes Absolute Auto 3.2 X10*3/uL (1.2-4.9); Lymphocytes Percent Auto 37.1 % (20-40); Mean Corpuscular Hemoglobin 30.5 pg (27.0-33.0); Mean Corpuscular Volume 92.5 fL (80.0-98.0); Mean Platelet Volume 9.4 fL (9.4-12.3); Monocytes Absolute Auto 0.5 X10*3/uL (0.1-1.2); Monocytes Percent Auto 5.4 % (2-11); Neutrophils Absolute Auto 4.5 x10*3/uL (2.0-8.3); Neutrophils Percent Auto 51.6 % (45-73); Platelet Count 277 X10*3/uL (160-400); Red Blood Count 4.29 X10*6/uL (4.20-5.50); Red Cell Distribution Width 12.5 % (11.0-16.0); White Blood Count 8.6 X10*3/uL (4.8-10.8)
[2023-07-11 12:43] LABS: Estimated Average Glucose 223 mg/dL; Hemoglobin A1c % 9.4 % (<6.0)
[2023-07-11 12:57] LABS: Anion Gap 13 (12-20); Blood Urea Nitrogen 26 mg/dL (9-16); Carbon Dioxide 26 mmol/L (22-29); Chloride 105 mmol/L (96-108); Estimated Glomerular Filt Rate 47; Glucose Fasting 204 mg/dL (60-99); Potassium 4.5 mmol/L (3.3-5.1); Sodium 139 mmol/L (135-145)
[2023-07-11 13:07] LABS: Creatinine Urine 68.71 mg/dL; Microalbum/Creatinine Ratio Ur 27.6 ug/mg cr (<30)
== END 2023-07-11 11:22 | disposition home or self-care (01) ==
LOC: HO.LAB 11:21
PROVIDERS: PCP Family Medicine; Visit Provider Family Medicine
DX: I10 Essential (primary) hypertension (principal); D64.9 Anemia, unspecified; E11.9 Type 2 diabetes mellitus without complications; E03.9 Hypothyroidism, unspecified
CPT/HCPCS: 36415; 80051; 82043; 82565; 82570; 82947; 83036; 84520; 85025

== ENCOUNTER 2023-08-08 09:55 | Outpatient (REF) | payer MEDICARE, SELFPAY ==
[2023-08-08 10:12] LABS: MANUAL DIFF FLAG NO
[2023-08-08 11:03] LABS: Basophils Absolute Auto 0.1 X10*3/uL (0.0-0.2); Basophils Percent Auto 0.8 % (0-2); Eosinophils Absolute Auto 0.3 X10*3/uL (0.0-0.4); Eosinophils Percent Auto 3.2 % (0-4); Hematocrit 38.2 % (37.0-47.0); Hemoglobin 12.6 g/dl (12.0-16.0); Imm Gran Abs Auto 0.03 X10*3/uL (0.00-0.03); Imm Gran Pct Auto 0.3 % (0.0-0.4); Lymphocytes Absolute Auto 3.5 X10*3/uL (1.2-4.9); Lymphocytes Percent Auto 33.1 % (20-40); Mean Corpuscular Hemoglobin 30.7 pg (27.0-33.0); Mean Corpuscular Volume 93.2 fL (80.0-98.0); Mean Platelet Volume 9.9 fL (9.4-12.3); Monocytes Absolute Auto 0.6 X10*3/uL (0.1-1.2); Monocytes Percent Auto 5.3 % (2-11); Neutrophils Absolute Auto 6.1 x10*3/uL (2.0-8.3); Neutrophils Percent Auto 57.3 % (45-73); Platelet Count 267 X10*3/uL (160-400); Red Cell Distribution Width 12.5 % (11.0-16.0); White Blood Count 10.7 X10*3/uL (4.8-10.8)
[2023-08-08 11:13] LABS: Estimated Average Glucose 209 mg/dL; Hemoglobin A1c % 8.9 % (<6.0)
[2023-08-08 12:03] LABS: Glucose Fasting 156 mg/dL (60-99)
[2023-08-08 12:11] LABS: Thyroid Stimulating Hormone 3.62 uIU/mL (0.32-4.0)
[2023-08-08 12:28] LABS: Anion Gap 14 (12-20)
[2023-08-08 12:30] LABS: Blood Urea Nitrogen 35 mg/dL (9-16); Calcium 9.7 mg/dL (8.4-10.2); Carbon Dioxide 22 mmol/L (22-29); Chloride 107 mmol/L (96-108); Estimated Glomerular Filt Rate 35; Glucose Random 154 mg/dL (60-115); Sodium 138 mmol/L (135-145)
== END 2023-08-08 09:56 | disposition home or self-care (01) ==
LOC: HO.LAB 09:55
PROVIDERS: Absent Provider Psychiatry & Neurology Psychiatry; PCP Family Medicine; Visit Provider Family Medicine
DX: F33.42 Major depressive disorder, recurrent, in full remission (principal); E11.9 Type 2 diabetes mellitus without complications
CPT/HCPCS: 36415; 80048; 80178; 82947; 83036; 84443; 85025

== ENCOUNTER 2023-08-26 14:33 | Outpatient (AMB) | payer MEDICARE, SELFPAY ==
[2023-08-26 15:21] VITALS: BP 134/52; PULSE 44; BMI 22.6
--- NOTE | 2023-08-26 15:21 | MHC.OFFVIS ---
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: No Allergies influenza virus vaccine, specific [FLU VACCINE] Allergy (Intermediate, Verified 08/26/23 15:22) STIFFNESS,LIMITED FUNCTION AFFECTED ARM/HAND Medication List - Last Reconciled 08/26/23 by Amy Marshall, DANELLE-C amlodipine 5 mg PO DAILY apixaban (Eliquis) 5 mg PO BID 90 days atorvastatin 20 mg PO BEDTIME cholecalciferol (vitamin D3) 25 mcg PO DAILY dronedarone (Multaq) 400 mg PO BID lithium carbonate ER 450 mg PO BEDTIME metformin 5 mg PO DAILY metformin 1,000 mg PO BEDTIME metoprolol succinate ER 25 mg PO DAILY 90 days HPI HPI rs 6 month f/u w EKG: Details: Alicia is a 77-year-old female with past medical history of hypertension, diabetes, atrial flutter with AARON cardioversion 10/2021, now on Multaq who presents for follow-up. Today she reports that she has been well since her last visit. She denies any lightheadedness, presyncope, syncope, falls. She has not had any recurrent heart palpitations. No chest discomfort at rest or with activity. No bleeding issues noted. She has not had any hospitalizations since her last visit. Taking all meds as directed. Ambulates with a cane. Arrived here through [facility] transportation services. [facility] Medical History Fall Atrophic gastritis Encounter for monitoring anti-arrhythmic therapy Iron deficiency anemia Hypertension Diabetes mellitus Depression New onset atrial flutter Breast calcification, right Surgical History History of esophagogastroduodenoscopy (EGD) Hx of colonoscopy History of section History of cholecystectomy Family History Father Depression Social History Household Members: None Housing: Apartment Do you presently have visiting nurse or other home services: No Alcohol intake: former Patient Tobacco Use Status: Never used Tobacco Advance Directives Date on File: 11/12/22 service: No Current occupational status: retired Female Reproductive History Menstrual Age of Menarche: 12 Review of Systems Const All systems reviewed & are unremarkable except as noted in HPI and below ENT Denies dizziness Card Denies chest pain, Denies chest pain at rest, Denies chest pain with activity, Denies rapid heart rate, Denies pedal edema, Denies edema, Denies leg edema, Denies lightheadedness, Denies palpitations, Denies dyspnea, Denies dyspnea on exertion and Denies orthopnea Resp Denies cough, Denies dyspnea and Denies dyspnea on exertion GI Denies hematochezia and Denies change in stool character Musc Denies abnormal gait, Denies limited range of motion, Denies muscle cramps, Denies muscle weakness, Denies numbness, Denies radiating pain into limb, Denies stiffness and Denies tingling Neuro Denies abnormal gait, Denies dizziness, Denies numbness and Denies tingling Endo Denies palpitations Physical Exam Vital Signs: Last Vital Signs Pulse 44 L 08/26/23 15:21 BP 134/52 L 08/26/23 15:21 BMI result Body Mass Index 22.6 Const General: cooperative, healthy appearing, comfortable and no acute distress Orientation/consciousness: patient oriented x3 Neck Neck: Yes normal visual inspection and Yes no JVD Resp Effort & Inspection: normal respiratory effort Auscultation: clear to auscultation bilaterally, no rales, no rhonchi and no wheezes Cardio Jugular venous distension: no JVD Rate: bradycardic Rhythm: regular rhythm Heart sounds: S1 normal heart sound present, S2 normal heart sound present, no murmurs and no rubs Peripheral pulses: Peripheral pulses 2+ throughout Neuro General: patient oriented x3 Extrem General: Yes normal to inspection, No no pedal edema and No calf tenderness Psych Appearance: grossly normal Mental Status: mental status grossly normal Speech and movement: Normal speech and movement present Office Procedures EKG Details: Today, read by me, junctional escape rhythm, right bundle branch block, rate 44. [id number], Complete Assessment & Plan Assessment & Plan (1) New onset atrial flutter: Code(s): I48.92 - Unspecified atrial flutter Category: Medical Plan: New finding of atrial flutter after having a fall at home 10/2021. She was treated with heart rate control and started on anticoagulation. She then underwent a AARON cardioversion on 11/19/2021 while inpatient with echo showing EF 65-70%, no wall motion abnormality and no thrombus. She was successfully converted back to normal sinus rhythm. She was started on Multaq to help maintain sinus rhythm and continued on metoprolol. She was started on Eliquis. Holter monitor done 04/11/2022 for 3 days showed sinus rhythm, average heart rate 73, heart rate range 52 to 130, no AFib, rare PAC and rare PVC. A nuclear stress test done 04/19/2022 showed exercise 5 minutes with mild shortness of breath, no EKG changes and no clear evidence of infarct or ischemia. She has had no documented recurrent atrial fibrillation. EKG done last visit showing sinus bradycardia, heart rate 50. Her metoprolol was reduced at that time from 50 mg daily down to 25 mg daily. She was scheduled to have a 3 month EKG however this was not completed for unclear reason. She presents today for follow-up and EKG shows junctional escape rhythm, rate 44, right bundle branch block. She is completely asymptomatic. She denies any lightheadedness, presyncope, syncope, falls. Will have her stop metoprolol, stop Multaq. Will arrange for office EKG in 3 days. If she continues to have junctional rhythm then pacemaker will be indicated at that time. If her rate and rhythm have improved then I plan to discuss this case with electrophysiology prior to restarting any heart rate lowering or antiarrhythmic medications on her. Discussed with patient in detail and she states understanding. Eventually she may still require pacemaker. Continue Eliquis. Planning for office visit in 1 month, sooner if needed - plan may be adjusted based on EKG in 3 days. (2) Iron deficiency anemia: Code(s): D50.9 - Iron deficiency anemia, unspecified Category: Medical Qualifiers: Iron deficiency anemia type: unspecified iron deficiency Qualified Code(s): D50.9 - Iron deficiency anemia, unspecified Plan: Labs done on 08/08/2023 shows hematocrit 38.2. Anemia seems stable. She does tell me she is taking her anticoagulation and no bleeding issues reported. (3) Hypertension: Code(s): I10 - Essential (primary) hypertension Category: Medical Qualifiers: Hypertension type: primary hypertension Qualified Code(s): I10 - Essential (primary) hypertension Plan: Well controlled at this time. Metoprolol being stopped. Will plan to recheck blood pressure in 3 days as well. She may need alternate antihypertensive. Plan Time spent on chart review, documentation, interview and assessment Medications: Discontinued metoprolol succinate ER Discontinued Reason: Doctor's Order 25 mg PO DAILY 90 days 90 tabs 3RF Coding Level of Care Code Est Pt Level 4 (92584) Diagnoses New onset atrial flutter I48.92 Iron deficiency anemia, unspecified iron deficiency anemia type D50.9 Iron deficiency anemia type: unspecified iron deficiency Primary hypertension I10 Hypertension type: primary hypertension CPT Codes EKG - CPT: 52446-[id number], Complete ([id number]) Time Spent (min) 30
--- NOTE | 2023-08-26 15:31 | MHC.OFFVIS ---
Vital Signs 08/26/23 15:21 Height 5 ft 4 in Weight 131 lb 13.383 oz BMI 22.6 BP 134/52 L Blood Pressure Location Lt brachial Position Sitting Pulse 44 L Pulse Source Monitor Intake Visit Reasons: rs 6 month f/u w EKG Allergies influenza virus vaccine, specific [FLU VACCINE] Allergy (Intermediate, Verified 08/26/23 15:22) STIFFNESS,LIMITED FUNCTION AFFECTED ARM/HAND PFSH Medical History Fall Atrophic gastritis Encounter for monitoring anti-arrhythmic therapy Iron deficiency anemia Hypertension Diabetes mellitus Depression New onset atrial flutter Breast calcification, right Surgical History History of esophagogastroduodenoscopy (EGD) Hx of colonoscopy History of section History of cholecystectomy Family History Father Depression Social History Household Members: None Housing: Apartment Do you presently have visiting nurse or other home services: No Alcohol intake: former Patient Tobacco Use Status: Never used Tobacco Advance Directives Date on File: 11/12/22 service: No Current occupational status: retired Female Reproductive History Menstrual Age of Menarche: 12 Physical Exam Vital Signs: Last Vital Signs Pulse 44 L 08/26/23 15:21 BP 134/52 L 08/26/23 15:21 BMI result Body Mass Index 22.6 Quality Reporting (2020) Adult (CMS 138/2/22/69) Body Mass Index: 22.6 Coding
== END 2023-08-26 15:45 | disposition home or self-care (01) ==
PROVIDERS: PCP Family Medicine; Visit Provider Nurse Practitioner Family
DX: I48.92 Unspecified atrial flutter (principal); D50.9 Iron deficiency anemia, unspecified; I10 Essential (primary) hypertension
CPT/HCPCS: 93010; 99214

== ENCOUNTER → 2023-08-26 14:33 | Outpatient (BNVA) | payer MEDICARE, SELFPAY | PROVIDERS: PCP Family Medicine; Visit Provider Nurse Practitioner Family | DX: I48.92 Unspecified atrial flutter (principal); D50.9 Iron deficiency anemia, unspecified; I10 Essential (primary) hypertension | CPT/HCPCS: 93005; 99212 ==

== ENCOUNTER → 2023-08-29 09:53 | Outpatient (BNVA) | payer MEDICARE, SELFPAY | PROVIDERS: PCP Family Medicine; Visit Provider Nurse Practitioner Family ==

== ENCOUNTER → 2023-09-05 12:35 | Outpatient (REF) | payer MEDICARE, SELFPAY ==
--- NOTE | 2023-09-05 12:39 | HM_ITS ---
* Total monitoring time 3 days. * Underlying rhythm is sinus with an average rate of 71/Min. * Rare supraventricular ectopy. * Rare ventricular ectopy. * No significant pauses or high-grade AV blocks. * No patient markers or diary events. MTDD
== END ==
LOC: HO.CARD 12:35
PROVIDERS: PCP Family Medicine; Visit Provider Nurse Practitioner Family
DX: I49.8 Other specified cardiac arrhythmias (principal); I45.10 Unspecified right bundle-branch block; I48.92 Unspecified atrial flutter
CPT/HCPCS: 93242

== ENCOUNTER → 2023-09-05 12:39 | Outpatient (BNV) | payer MEDICARE, SELFPAY | PROVIDERS: PCP Family Medicine; Visit Provider Internal Medicine | DX: I47.10 Supraventricular tachycardia, unspecified (principal) | CPT/HCPCS: 93244 ==

== ENCOUNTER 2023-09-19 12:56 | Outpatient (REF) | payer MEDICARE, SELFPAY ==
[2023-09-19 14:47] LABS: Lithium < 0.10 mmol/L (0.60-1.20)
[2023-09-19 14:56] LABS: Blood Urea Nitrogen 25 mg/dL (9-16); Estimated Glomerular Filt Rate 54
== END 2023-09-19 12:57 | disposition home or self-care (01) ==
LOC: HO.LAB 12:56
PROVIDERS: PCP Family Medicine; Visit Provider Family Medicine
DX: N18.30 Chronic kidney disease, stage 3 unspecified (principal); Z79.899 Other long term (current) drug therapy
CPT/HCPCS: 36415; 80178; 82565; 84520

== ENCOUNTER 2023-09-24 14:51 | Outpatient (AMB) | payer MEDICARE, SELFPAY ==
--- NOTE | 2023-09-24 15:01 | MHC.OFFVIS ---
Vital Signs 09/24/23 15:02 Height 5 ft 4 in Weight 132 lb 4.438 oz BMI 22.7 BP 140/74 H Blood Pressure Location Lt brachial Position Sitting Pulse 104 H Intake Visit Reasons: 1 mth f/up DC Intake Note: 1 month follow-up with Holter results feeling good [employer] Required: No Allergies influenza virus vaccine, specific [FLU VACCINE] Allergy (Intermediate, Verified 08/26/23 15:22) STIFFNESS,LIMITED FUNCTION AFFECTED ARM/HAND Medication List - Last Reconciled 09/24/23 by Titus Elam MD amlodipine 5 mg PO DAILY apixaban (Eliquis) 5 mg PO BID 90 days atorvastatin 20 mg PO BEDTIME cholecalciferol (vitamin D3) 25 mcg PO DAILY lithium carbonate ER 300 mg PO BEDTIME metformin 1,000 mg PO BEDTIME metformin 500 mg PO DAILY HPI Comments Details: Alicia returns for follow-up. To recall, we had seen her in consultation in 2021. At that time, she had atrial flutter with rapid ventricular response. She underwent transesophageal echocardiogram followed by cardioversion. She was put on beta-blockers and Multaq and she was following with our nurse practitioner. During recent visit, she was found to be in junctional escape rhythm. At that time, both Multaq as well as metoprolol were stopped completely. The rhythm returned back to sinus in a few days' time. Otherwise, patient herself feels completely normal and she has got absolutely no symptoms. [facility] Medical History Fall Atrophic gastritis Encounter for monitoring anti-arrhythmic therapy Iron deficiency anemia Hypertension Diabetes mellitus Depression New onset atrial flutter Breast calcification, right Surgical History History of esophagogastroduodenoscopy (EGD) Hx of colonoscopy History of section History of cholecystectomy Family History Father Depression Social History Household Members: None Housing: Apartment Do you presently have visiting nurse or other home services: No Alcohol intake: former Patient Tobacco Use Status: Never used Tobacco Advance Directives Date on File: 11/12/22 service: No Current occupational status: retired Female Reproductive History Menstrual Age of Menarche: 12 Review of Systems Const Denies chills, Denies fatigue, Denies fever(s), Denies frequent falls, Denies weakness, Denies weight gain and Denies weight loss ENT Denies dizziness Card Denies chest pain, Denies leg edema, Denies lightheadedness, Denies palpitations, Denies dyspnea, Denies dyspnea on exertion, Denies orthopnea and Denies other (loss of consciousness) Resp Denies cough, Denies dyspnea and Denies dyspnea on exertion GI Denies hematochezia and Denies change in stool character Musc Denies abnormal gait, Denies muscle weakness, Denies numbness, Denies radiating pain into limb and Denies tingling Neuro Denies abnormal gait, Denies dizziness, Denies frequent falls, Denies numbness, Denies tingling and Denies weakness Endo Denies fatigue and Denies palpitations Physical Exam Vital Signs: Last Vital Signs Pulse 104 H 09/24/23 15:02 BP 140/74 H 09/24/23 15:02 BMI result Body Mass Index 22.7 Const General: comfortable and no acute distress Orientation/consciousness: patient oriented x3 HEENT Other: Unremarkable Head: Yes normal to inspection Neck Neck: Yes normal visual inspection Chest Chest palpation & inspection: normal inspection of the chest Resp Auscultation: clear to auscultation bilaterally Cardio Palpation: normal PMI Heart sounds: S1 normal heart sound present, S2 normal heart sound present, no gallops, no murmurs and no rubs GI Palpation (GI): Soft to palpation Back/Spine/Pelvis Other: unremarkable Skin General skin exam: no rashes or lesions noted Neuro General: patient oriented x3 Extrem General: Yes normal to inspection Psych Mental Status: mental status grossly normal Office Procedures EKG Details: EKG with sinus rhythm at 99/Min; no right bundle-branch block; leftward axis; can not exclude old anterior infarct. [id number], Complete Assessment & Plan Assessment & Plan (1) Paroxysmal atrial flutter: Code(s): I48.92 - Unspecified atrial flutter Category: Medical (2) Junctional rhythm: Code(s): I49.8 - Other specified cardiac arrhythmias Category: Medical (3) Right bundle branch block: Code(s): I45.10 - Unspecified right bundle-branch block Category: Medical Plan EKG from last month shows junctional escape rhythm at 44/Min. That was on both metoprolol and Multaq. Today, her rhythm is sinus at 99/Min. She has off both the above medications. In the past, she has had atrial flutter with rapid rate requiring AARON/cardioversion in 2021. Recommended that we may just use a low dose of beta-blockers but patient does not want to take it. She states that she is actually feeling much better without the medications. Explain that there is risk of recurrent atrial flutter but we will need to just monitor that. We will check another Holter in 3 months' time. If there is clear evidence of tachy/Gaurav, then will need a permanent pacemaker. Orders: Orders ECG 3 day holter monitor 4 Months I48.92 - Unspecified atrial flutter Coding Level of Care Code Est Pt Level 4 (78200) Diagnoses Paroxysmal atrial flutter I48.92 Junctional rhythm I49.8 Right bundle branch block I45.10 CPT Codes EKG - CPT: 93262-[id number], Complete ([id number])
[2023-09-24 15:02] VITALS: BP 140/74; PULSE 104; BMI 22.7
== END 2023-09-24 15:45 | disposition home or self-care (01) ==
PROVIDERS: PCP Family Medicine; Visit Provider Internal Medicine
DX: I48.92 Unspecified atrial flutter (principal); I49.8 Other specified cardiac arrhythmias; I45.10 Unspecified right bundle-branch block
CPT/HCPCS: 93010; 99214

== ENCOUNTER → 2023-09-24 14:51 | Outpatient (BNVA) | payer MEDICARE, SELFPAY | PROVIDERS: PCP Family Medicine; Visit Provider Internal Medicine | DX: I48.92 Unspecified atrial flutter (principal); I49.8 Other specified cardiac arrhythmias; I45.10 Unspecified right bundle-branch block; R94.31 Abnormal electrocardiogram [ECG] [EKG] | CPT/HCPCS: 93005; 99212 ==

== ENCOUNTER 2023-10-31 09:33 | Outpatient (REF) | payer MEDICARE, SELFPAY ==
--- NOTE | ~2023-10-31 | MM_ITS ---
EXAMINATION: MM SCREENING DIGITAL BREAST TOMOSYNTHESIS, BILATERAL CLINICAL INFORMATION: Screening. Asymptomatic. COMPARISON: Mammography: This study is compared with prior exams dating back to 2018. TECHNIQUE: Digital breast tomosynthesis is performed in both the craniocaudal and mediolateral oblique views along with computer-aided detection (CAD). Synthesized 2D images are generated from the tomosynthesis. FINDINGS: There are scattered areas of fibroglandular density (ACR BI-RADS breast composition Category b). There are no significant masses, abnormal calcifications, or other abnormalities. There is a biopsy tissue marker in the upper outer quadrant of the right breast. MM/MM tomosynthesis screening BI IMPRESSION: No mammographic evidence of malignancy. ASSESSMENT: BI-RADS BI-RADS 2 - Benign Findings RECOMMENDATION: Routine annual mammography screening. 1 year F/U This examination should not preclude the clinical evaluation of a suspicious palpable abnormality. This patient's information was entered into a reminder system with a target due date for their next mammogram.
== END 2023-10-31 09:34 | disposition home or self-care (01) ==
LOC: HO.MAMMO 09:33
PROVIDERS: PCP Family Medicine; Visit Provider Family Medicine
DX: Z12.31 Encounter for screening mammogram for malignant neoplasm of breast (principal)
CPT/HCPCS: 77063; 77067

== ENCOUNTER → 2023-10-31 09:45 | Outpatient (BNV) | payer MEDICARE, SELFPAY | PROVIDERS: PCP Family Medicine; Visit Provider Radiology Diagnostic Radiology | DX: Z12.31 Encounter for screening mammogram for malignant neoplasm of breast (principal) | CPT/HCPCS: 77063; 77067 ==

== ENCOUNTER 2023-12-19 10:29 | Outpatient (REF) | payer MEDICARE, SELFPAY ==
[2023-12-19 11:38] LABS: Estimated Average Glucose 263 mg/dL; Hemoglobin A1c % 10.8 % (<6.0)
[2023-12-19 11:54] LABS: Lithium 0.15 mmol/L (0.60-1.20)
[2023-12-19 12:19] LABS: Free T4 (Free Thyroxine) 0.97 ng/dL (0.71-1.85)
[2023-12-19 12:24] LABS: Anion Gap 13 (12-20); Blood Urea Nitrogen 19 mg/dL (9-16); Carbon Dioxide 25 mmol/L (22-29); Chloride 103 mmol/L (96-108); Estimated Glomerular Filt Rate 47; Glucose Fasting 358 mg/dL (60-99); Potassium 4.3 mmol/L (3.3-5.1); Sodium 137 mmol/L (135-145)
== END 2023-12-19 10:30 | disposition home or self-care (01) ==
LOC: HO.LAB 10:29
PROVIDERS: PCP Family Medicine; Visit Provider Family Medicine
DX: I10 Essential (primary) hypertension (principal); R53.83 Other fatigue; Z79.899 Other long term (current) drug therapy
CPT/HCPCS: 36415; 80051; 80178; 82565; 82947; 83036; 83735; 84439; 84520

== ENCOUNTER 2023-12-26 12:04 | Outpatient (REF) | payer MEDICARE, SELFPAY ==
[2023-12-26 13:23] LABS: Estimated Average Glucose 260 mg/dL; Hemoglobin A1c % 10.7 % (<6.0)
[2023-12-26 13:58] LABS: Glucose Fasting 197 mg/dL (60-99)
== END 2023-12-26 12:05 | disposition home or self-care (01) ==
LOC: HO.LAB 12:04
PROVIDERS: PCP Family Medicine; Visit Provider Family Medicine
DX: E11.9 Type 2 diabetes mellitus without complications (principal)
CPT/HCPCS: 36415; 82947; 83036

== ENCOUNTER 2024-01-15 10:25 | Outpatient (REF) | payer MEDICARE, SELFPAY ==
--- NOTE | ~2024-01-15 | XR_ITS ---
EXAMINATION: XR LUMBOSACRAL SPINE CLINICAL INFORMATION: Back leg and knee pain COMPARISON: CT abdomen and pelvis 11/06/2022 TECHNIQUE: Three views of the lumbosacral spine. FINDINGS: Marked degenerative changes are present in the lumbar spine at L4-L5 and L5-S1 disc space narrowing and marked osteophyte formation. 1.4 cm rounded lytic areas seen in the L5 vertebral body on the prior CT scan not appreciated on the plain film radiograph. On the CT scan this has mildly sclerotic borders in somewhat of a benign appearance. Sclerotic changes seen at the L4-L5 and L5-S1 facet joints. No fractures are seen. No subluxations. XR/XR lumbar spine 2-3V IMPRESSION: Marked degenerative changes L4-L5 and L5-S1. No acute finding is seen. The lytic lesion in L5 present at the time of the prior CT scan not appreciated on this exam. If the patient's pain continues, MRI may be of value. Electronically signed by: Richy De La Paz MD 01/15/2024 02:21 PM EDT
--- NOTE | ~2024-01-15 | XR_ITS ---
EXAMINATION: XR KNEE, LEFT CLINICAL INFORMATION: Left knee pain. COMPARISON: None available. TECHNIQUE: Four views of the left knee. FINDINGS: No fracture identified. Question small suprapatellar effusion. Alignment is anatomic. Mild joint space narrowing predominantly involving the lateral compartment. No abnormal soft tissue calcification. XR/XR knee LT 4V IMPRESSION: Mild degenerative change. Question small suprapatellar effusion. Electronically signed by: Jose Bess MD 01/15/2024 02:21 PM EDT
== END 2024-01-15 10:26 | disposition home or self-care (01) ==
LOC: HO.XRAY 10:25
PROVIDERS: PCP Family Medicine; Visit Provider Family Medicine
DX: M79.605 Pain in left leg (principal); M17.12 Unilateral primary osteoarthritis, left knee; I48.92 Unspecified atrial flutter; I49.8 Other specified cardiac arrhythmias; I45.10 Unspecified right bundle-branch block
CPT/HCPCS: 72100; 73564; 93005; 99212

== ENCOUNTER 2024-01-15 12:35 | Outpatient (AMB) | payer MEDICARE, SELFPAY ==
--- NOTE | 2024-01-15 12:35 | A.OFFVIS_ITS ---
Vital Signs 01/15/24 12:36 Height 5 ft 4 in Weight 130 lb 1.164 oz BMI 22.3 BP 140/64 H Blood Pressure Location Lt brachial Position Sitting Pulse 103 H Pulse Source Pulse Oximeter Intake Visit Reasons: 4 mth s/p holter Body Welder Required: No Accompanied by: Self / Same As Patient Allergies influenza virus vaccine, specific [FLU VACCINE] Allergy (Intermediate, Verified 08/26/23 15:22) STIFFNESS,LIMITED FUNCTION AFFECTED ARM/HAND Medication List - Last Reconciled 01/15/24 by Titus Elam MD amlodipine 5 mg PO DAILY apixaban (Eliquis) 5 mg PO BID 90 days atenolol 25 mg PO DAILY atorvastatin 20 mg PO BEDTIME cholecalciferol (vitamin D3) 25 mcg PO DAILY lithium carbonate ER 300 mg PO BEDTIME metformin 1,000 mg PO BEDTIME metformin 500 mg PO DAILY HPI Comments Details: Alicia returns for follow-up. To recall, we had seen her in consultation in 2021. At that time, she had atrial flutter with rapid ventricular response. She underwent transesophageal echocardiogram followed by cardioversion. She was put on beta-blockers and Multaq and she was following with our nurse practitioner. During recent visit, she was found to be in junctional escape rhythm. At that time, both Multaq as well as metoprolol were stopped completely. The rhythm returned back to sinus in a few days' time. Overall, she states she feels fine. No clear-cut cardiac symptoms. Slightly tachycardic in the last couple of visits. [facility] Medical History Fall Atrophic gastritis Encounter for monitoring anti-arrhythmic therapy Iron deficiency anemia Hypertension Diabetes mellitus Depression New onset atrial flutter Breast calcification, right Surgical History History of esophagogastroduodenoscopy (EGD) Hx of colonoscopy History of section History of cholecystectomy Family History Father Depression Social History Household Members: None Housing: Apartment Do you presently have visiting nurse or other home services: No Alcohol intake: former Patient Tobacco Use Status: Never used Tobacco Advance Directives Date on File: 11/12/22 service: No Current occupational status: retired Female Reproductive History Menstrual Age of Menarche: 12 Review of Systems Const Denies chills, Denies fatigue, Denies fever(s), Denies weight gain and Denies weight loss ENT Denies dizziness Card Denies chest pain, Denies leg edema, Denies lightheadedness, Denies palpitations, Denies dyspnea on exertion, Denies orthopnea and Denies other Resp Denies cough and Denies dyspnea on exertion GI Denies hematochezia and Denies change in stool character Musc Denies abnormal gait, Denies muscle weakness, Denies numbness, Denies radiating pain into limb and Denies tingling Neuro Denies abnormal gait, Denies dizziness, Denies numbness and Denies tingling Endo Denies fatigue and Denies palpitations Physical Exam Vital Signs: Last Vital Signs Pulse 103 H 01/15/24 12:36 BP 140/64 H 01/15/24 12:36 BMI result Body Mass Index 22.3 Const General: comfortable and no acute distress Orientation/consciousness: patient oriented x3 HEENT Other: Unremarkable Head: Yes normal to inspection Neck Neck: Yes normal visual inspection Chest Chest palpation & inspection: normal inspection of the chest Resp Auscultation: clear to auscultation bilaterally Cardio Palpation: normal PMI Heart sounds: S1 normal heart sound present, S2 normal heart sound present, no gallops, no murmurs and no rubs GI Palpation (GI): Soft to palpation Back/Spine/Pelvis Other: unremarkable Skin General skin exam: no rashes or lesions noted Neuro General: patient oriented x3 Extrem General: Yes normal to inspection Psych Mental Status: mental status grossly normal Office Procedures EKG Details: EKG with underlying sinus rhythm at 100/Min; leftward axis; right bundle-branch block pattern. 34159-[id number], Complete Assessment & Plan Assessment & Plan (1) Paroxysmal atrial flutter: Code(s): I48.92 - Unspecified atrial flutter Category: Medical (2) Junctional rhythm: Code(s): I49.8 - Other specified cardiac arrhythmias Category: Medical (3) Right bundle branch block: Code(s): I45.10 - Unspecified right bundle-branch block Category: Medical Plan EKG from 07/2023 shows junctional escape rhythm at 44/Min. That was on both metoprolol and Multaq. Then these were discontinued. Since then, she is in sinus rhythm/mild sinus tachycardia. In the past, she has had atrial flutter with rapid rate requiring AARON/cardioversion in 2021. Recommend that she can go back on a small dose of beta-blockers to prevent recurrent atrial flutter. She is not willing to try metoprolol and hence she can do atenolol instead. We will see her back in a couple of months with another Holter. If any clear evidence of tachycardia/bradycardia/flutter or fibrillation, then need to consider permanent pacemaker. We discussed about that today. Medications: New atenolol 25 mg PO DAILY 90 tabs 1RF I48.92 - Unspecified atrial flutter Coding Level of Care Code Est Pt Level 4 (08121) Diagnoses Paroxysmal atrial flutter I48.92 Junctional rhythm I49.8 Right bundle branch block I45.10 CPT Codes EKG - CPT: 23830-[id number], Complete ([id number])
[2024-01-15 12:36] VITALS: BP 140/64; PULSE 103; BMI 22.3
== END 2024-01-15 13:03 | disposition home or self-care (01) ==
PROVIDERS: PCP Family Medicine; Visit Provider Internal Medicine
DX: I48.92 Unspecified atrial flutter (principal); I49.8 Other specified cardiac arrhythmias; I45.10 Unspecified right bundle-branch block
CPT/HCPCS: 93010; 99214

== ENCOUNTER 2024-01-21 11:11 | Outpatient (REF) | payer MEDICARE, SELFPAY ==
[2024-01-21 11:35] LABS: MANUAL DIFF FLAG NO
[2024-01-21 12:13] LABS: Basophils Absolute Auto 0.1 X10*3/uL (0.0-0.2); Basophils Percent Auto 0.7 % (0-2); Eosinophils Absolute Auto 0.3 X10*3/uL (0.0-0.4); Eosinophils Percent Auto 3.4 % (0-4); Hematocrit 37.5 % (37.0-47.0); Hemoglobin 12.5 g/dl (12.0-16.0); Imm Gran Abs Auto 0.01 X10*3/uL (0.00-0.03); Imm Gran Pct Auto 0.1 % (0.0-0.4); Lymphocytes Absolute Auto 2.4 X10*3/uL (1.2-4.9); Lymphocytes Percent Auto 29.5 % (20-40); Mean Corpuscular HGB Conc 33.3 g/dl (31.0-35.0); Mean Corpuscular Volume 89.9 fL (80.0-98.0); Mean Platelet Volume 9.3 fL (9.4-12.3); Monocytes Absolute Auto 0.4 X10*3/uL (0.1-1.2); Monocytes Percent Auto 5.3 % (2-11); Platelet Count 330 X10*3/uL (160-400); Red Blood Count 4.17 X10*6/uL (4.20-5.50); White Blood Count 8.1 X10*3/uL (4.8-10.8)
[2024-01-21 12:37] LABS: Alanine Aminotransferase 19 U/L (0-31); Albumin Level 4.1 g/dL (3.5-5.0); Alkaline Phosphatase 55 U/L (39-117); Anion Gap 13 (12-20); Aspartate Amino Transferase 20 U/L (5-31); Bilirubin Total 0.3 mg/dL (0.0-1.0); Blood Urea Nitrogen 16 mg/dL (9-16); Calcium 10.1 mg/dL (8.4-10.2); Carbon Dioxide 27 mmol/L (22-29); Chloride 104 mmol/L (96-108); Estimated Glomerular Filt Rate 52; Glucose Fasting 274 mg/dL (60-99); Potassium 4.4 mmol/L (3.3-5.1); Sodium 140 mmol/L (135-145); Total Protein 7.2 g/dL (6.5-8.0)
[2024-01-21 13:01] LABS: Erythrocyte Sedimentation Rate 28 MM/HR (0-20)
[2024-01-21 15:45] LABS: Estimated Average Glucose 258 mg/dL; Hemoglobin A1c % 10.6 % (<6.0)
== END 2024-01-21 11:12 | disposition home or self-care (01) ==
LOC: HO.LAB 11:11
PROVIDERS: PCP Family Medicine; Visit Provider Family Medicine
DX: R63.4 Abnormal weight loss (principal); E11.9 Type 2 diabetes mellitus without complications; E78.00 Pure hypercholesterolemia, unspecified
CPT/HCPCS: 36415; 80053; 82550; 83036; 85025; 85652

== ENCOUNTER → 2024-01-23 13:34 | Outpatient (REF) | payer MEDICARE, SELFPAY ==
--- NOTE | 2024-01-23 13:37 | HM_ITS ---
Conclusion: 1. Patient was monitored for total period of 2 days 2. Baseline was normal sinus rhythm with average heart of 62 beats per minute 3. No significant pauses noted 4. Rare ectopy noted 5. Patient did not report any events MTDD
== END ==
LOC: HO.CARD 13:34
PROVIDERS: PCP Family Medicine; Visit Provider Nurse Practitioner Family
DX: I48.92 Unspecified atrial flutter (principal)
CPT/HCPCS: 93242

== ENCOUNTER → 2024-01-23 13:37 | Outpatient (BNV) | payer MEDICARE, SELFPAY | PROVIDERS: PCP Family Medicine; Visit Provider Internal Medicine Cardiovascular Disease | DX: R00.1 Bradycardia, unspecified (principal) | CPT/HCPCS: 93244 ==

== ENCOUNTER 2024-02-19 18:10 | Emergency (ER) | payer MEDICARE, SELFPAY ==
--- NOTE | 2024-02-19 18:16 | ED_ITS ---
HPI - General Adult General Chief complaint: Upper Respiratory Symptoms Stated complaint: ? Uti Time Seen by Provider: 02/19/24 21:39 Source: patient Limitations: no limitations History of Present Illness ED Provider: Serenity Chong PA-C HPI narrative: 78-year-old female with a history of paroxysmal AFib, diabetes, presents with viral syndrome times 4-5 days. Associated dry cough, fatigue, sore throat. Associated increased urinary frequency. Denies dysuria, nausea, vomiting, diarrhea, fever, shortness of breath or chest pain. No sick contacts with similar symptoms. Related Data Home Medications ?Medication ?Instructions ?Recorded ?Confirmed metformin 500 mg tablet 1,000 mg PO BEDTIME 12/05/21 01/15/24 cholecalciferol (vitamin D3) 25 25 mcg PO DAILY 12/10/21 01/15/24 mcg (1,000 unit) tablet atorvastatin 20 mg tablet 20 mg PO BEDTIME 11/06/22 01/15/24 lithium carbonate 450 mg 300 mg PO BEDTIME 09/24/23 01/15/24 tablet,extended release metformin 500 mg tablet 500 mg PO DAILY 09/24/23 01/15/24 Previous Rx's ?Medication ?Instructions ?Recorded apixaban 5 mg tablet (Eliquis) 5 mg PO BID 90 days #180 tabs 06/17/23 amlodipine 5 mg tablet 5 mg PO DAILY #90 tabs 07/22/23 atenolol 25 mg tablet 25 mg PO DAILY #90 tabs 01/15/24 Allergies Allergy/AdvReac Type Severity Reaction Status Date / Time influenza virus vaccine, Allergy Intermediate STIFFNESS,LIMITED Verified 02/19/24 18:19 specific FUNCTION [FLU VACCINE] AFFECTED ARM/HAND Review of Systems 2 Review of Systems: Yes all other systems are reviewed and are negative Constitutional: Constitutional: Reports fatigue and Denies fever(s) ENT: Reports sore throat Cardiovascular: Cardiovascular: Denies chest pain and Denies dyspnea Respiratory: Respiratory: Reports cough and Denies dyspnea Gastrointestinal: Gastrointestinal: Denies abdominal pain, Denies nausea and Denies vomiting Genitourinary: Genitourinary: Denies dysuria Endocrine: Endocrine: Reports fatigue PMFSH Past Medical History Attestation statement: The following information was validated with the patient. Medical History Fall Atrophic gastritis Encounter for monitoring anti-arrhythmic therapy Iron deficiency anemia Hypertension Diabetes mellitus Depression New onset atrial flutter Breast calcification, right Surgical History History of esophagogastroduodenoscopy (EGD) Hx of colonoscopy History of section History of cholecystectomy Family History Family History Father Depression Social History Social History Household Members: None Housing: Apartment Do you presently have visiting nurse or other home services: No Alcohol intake: former Patient Tobacco Use Status: Never used Tobacco Advance Directives: Yes Advance Directives on File: Yes Advance Directives Date on File: 11/12/22 Do you have a plan to hurt others: No Plan service: No Current occupational status: retired Physical Exam ED Vital Signs: Vital Signs - 24 hr 02/19/24 18:18 02/19/24 19:26 02/19/24 22:08 Temperature 96.8 F 98.3 F 97.7 F Pulse Rate 68 63 65 Respiratory Rate 20 15 15 Blood Pressure 121/88 107/63 130/64 Pulse Oximetry 97 96 98 Oxygen Delivery Method Room Air Room Air Room Air BMI result Body Mass Index 21.6 Const Other: Alert well in appearance Orientation/consciousness: patient oriented x3 Resp Other: Nonlabored respirations, lungs clear to auscultation Cardio Other: Normal peripheral perfusion Skin Other: Warm dry no rash Neuro General: patient oriented x3, no focal motor deficits and CN's II-XI intact bilaterally Psych Other: Calm cooperative Course Course Course Narrative: RME, this is a rapid medical exam performed by Aubrey Carrington please refer to primary provider for complete H&P- 78-year-old female presents for evaluation of urinary frequency. She denies burning with urination. She also complains of body aches, sore throat. Plan for labs, viral swabs, urinalysis Medical Decision Making Medical Decision Making MDM Narrative: 78-year-old female with a history of paroxysmal AFib, diabetes, presents with viral syndrome times 4-5 days. Associated dry cough, fatigue, sore throat. Associated increased urinary frequency. Denies dysuria, nausea, vomiting, diarrhea, fever, shortness of breath or chest pain. No sick contacts with similar symptoms. Problem: Age and diabetes History: Per patient I have considered the following differential diagnoses: Viral syndrome, pneumonia, UTI, urosepsis Plan: Patient was assessed from triage, screening labs including urinalysis and viral panel obtained. She is COVID positive. She is stable, afebrile, not hypoxic, unremarkable lung exam. She is out of the window for Paxlovid. In regard to her urinary complaint, she is simply having increased frequency, there was no evidence of UTI. She can Follow up with her primary care provider as needed I have independently reviewed the following tests: Labs: No leukocytosis, not anemic, no electrolyte abnormality, urine not infected, COVID positive. Lab Data 02/19/24 19:14 02/19/24 19:14 Labs: Lab Results 02/19/24 02/19/24 Range/Units 19:14 19:18 WBC 5.4 (4.8-10.8) X10*3/uL RBC 4.17 L (4.20-5.50) X10*6/uL Hgb 12.6 (12.0-16.0) g/dl Hct 36.2 L (37.0-47.0) % MCV 86.8 (80.0-98.0) fL MCH 30.2 (27.0-33.0) pg MCHC 34.8 (31.0-35.0) g/dl RDW 12.6 (11.0-16.0) % Plt Count 214 D (160-400) X10*3/uL MPV 9.1 L (9.4-12.3) fL Immature Gran % (Auto) 0.2 (0.0-0.4) % Neut % (Auto) 53.5 (45-73) % Lymph % (Auto) 34.6 (20-40) % [place] % (Auto) 10.4 (2-11) % Eos % (Auto) 0.9 (0-4) % Baso % (Auto) 0.4 (0-2) % Lymph # (Auto) 1.9 (1.2-4.9) X10*3/uL [place] # (Auto) 0.6 (0.1-1.2) X10*3/uL Eos # (Auto) 0.1 (0.0-0.4) X10*3/uL Baso # (Auto) 0.0 (0.0-0.2) X10*3/uL Abs Immat Gran (auto) 0.01 (0.00-0.03) X10*3/uL Absolute Neuts (auto) 2.9 (2.0-8.3) x10*3/uL Absolute Nucleated RBC 0.000 (0.0-0.012) X10*3/uL Nucleated RBC % (auto) 0.0 (0.0-0.2) /100WBC Sodium 134 L (135-145) mmol/L Potassium 4.1 (3.3-5.1) mmol/L Chloride 102 (96-108) mmol/L Carbon Dioxide 22 (22-29) mmol/L Anion Gap 14 (12-20) BUN 20 H (9-16) mg/dL Creatinine 1.19 (0.5-1.4) mg/dL Estim Creat Clear Calc 31.7 Estimated GFR 44 Random Glucose 253 H (60-115) mg/dL Calcium 9.4 D (8.4-10.2) mg/dL Total Bilirubin 0.3 (0.0-1.0) mg/dL AST 38 H (5-31) U/L ALT 23 (0-31) U/L Alkaline Phosphatase 59 (39-117) U/L Total Protein 6.7 (6.5-8.0) g/dL Albumin 3.7 (3.5-5.0) g/dL Urine Color Yellow Urine Appearance Clear Urine pH 5.5 (5.0-9.0) Ur Specific [place] 1.020 (1.005-1.025) Urine Protein 30 (1+) H (Neg-Trace) mg/dL Urine Glucose (UA) Negative (Negative) mg/dL Urine Ketones Trace (Negative) mg/dL Urine Blood Negative (Negative) Urine Nitrite Negative (Negative) Ur Leukocyte Esterase Small (1+) H (Negative) Urine RBC 0-2 (0-2) /HPF Urine WBC 11-20 H (0-5) /HPF Ur Squamous Epith Cells 6-10 (0-2) /HPF Urine Bacteria None Seen (None Seen) Hyaline Casts >20 (0-2) /LPF Influenza Type A (PCR) NEGATIVE (Negative) Influenza Type B (PCR) NEGATIVE (Negative) RSV RNA Qual (PCR) NEGATIVE (Negative) SARS-CoV-2 RNA (RT-PCR) POSITIVE A (Negative) S. pyogenes GrpA JAYLIN Negative (Negative) Discharge Plan Discharge Clinical Impression: COVID Patient Disposition: Home, Self-Care Instructions: COVID-19 (Coronavirus Disease 2019) (ED) Additional Instructions: You tested positive for COVID. See home care instructions. The remainder of your labs were normal including your urinalysis, you do not have a UTI. Follow up with your primary care provider as needed. Prescriptions: No Action Eliquis 5 mg tablet 5 mg PO BID 90 Days Qty: 180 3RF amlodipine 5 mg tablet 5 mg PO DAILY Qty: 90 3RF cholecalciferol (vitamin D3) 25 mcg (1,000 unit) Tablet 25 mcg PO DAILY lithium carbonate 450 mg tablet extended release 300 mg PO BEDTIME atorvastatin 20 mg tablet 20 mg PO BEDTIME metformin 500 mg tablet 500 mg PO DAILY metformin 500 mg tablet 1,000 mg PO BEDTIME atenolol 25 mg tablet 25 mg PO DAILY Qty: 90 1RF Print Language: Turkish
[2024-02-19 18:18] VITALS: BP 121/88; PULSE 68; RESP 20; TEMP 36; O2SAT 97; BMI 21.6
[2024-02-19 19:19] LABS: MANUAL DIFF FLAG NO
[2024-02-19 19:21] LABS: Basophils Percent Auto 0.4 % (0-2); Eosinophils Absolute Auto 0.1 X10*3/uL (0.0-0.4); Eosinophils Percent Auto 0.9 % (0-4); Hematocrit 36.2 % (37.0-47.0); Hemoglobin 12.6 g/dl (12.0-16.0); Imm Gran Abs Auto 0.01 X10*3/uL (0.00-0.03); Imm Gran Pct Auto 0.2 % (0.0-0.4); Lymphocytes Absolute Auto 1.9 X10*3/uL (1.2-4.9); Lymphocytes Percent Auto 34.6 % (20-40); Mean Corpuscular HGB Conc 34.8 g/dl (31.0-35.0); Mean Corpuscular Hemoglobin 30.2 pg (27.0-33.0); Mean Corpuscular Volume 86.8 fL (80.0-98.0); Mean Platelet Volume 9.1 fL (9.4-12.3); Monocytes Absolute Auto 0.6 X10*3/uL (0.1-1.2); Monocytes Percent Auto 10.4 % (2-11); Neutrophils Absolute Auto 2.9 x10*3/uL (2.0-8.3); Neutrophils Percent Auto 53.5 % (45-73); Platelet Count 214 X10*3/uL (160-400); Red Blood Count 4.17 X10*6/uL (4.20-5.50); Red Cell Distribution Width 12.6 % (11.0-16.0); White Blood Count 5.4 X10*3/uL (4.8-10.8)
[2024-02-19 19:25] LABS: Appearance Urine Clear; Color Urine Yellow; Glucose Urine UA Negative (Negative); Leukocyte Esterase Urine Small (1+) (Negative); Nitrite Urine Negative (Negative); PH 5.5 (5.0-9.0); UMIC TRIGGER UACC YES; Urine Blood Negative (Negative); Urine Ketones Trace mg/dL (Negative); Urine Protein 30 (1+) mg/dL (Neg-Trace)
[2024-02-19 19:26] VITALS: BP 107/63; PULSE 63; RESP 15; TEMP 36.8; O2SAT 96
[2024-02-19 19:27] LABS: IDNOW Serial# 58CA691E; Strep A Nucleic Acid Negative (Negative)
[2024-02-19 19:35] LABS: Alanine Aminotransferase 23 U/L (0-31); Albumin Level 3.7 g/dL (3.5-5.0); Alkaline Phosphatase 59 U/L (39-117); Anion Gap 14 (12-20); Aspartate Amino Transferase 38 U/L (5-31); Bilirubin Total 0.3 mg/dL (0.0-1.0); Blood Urea Nitrogen 20 mg/dL (9-16); Calcium 9.4 mg/dL (8.4-10.2); Carbon Dioxide 22 mmol/L (22-29); Chloride 102 mmol/L (96-108); Creatinine Clr Calc Pharmacy 31.7; Estimated Glomerular Filt Rate 44; Glucose Random 253 mg/dL (60-115); Potassium 4.1 mmol/L (3.3-5.1); Sodium 134 mmol/L (135-145); Total Protein 6.7 g/dL (6.5-8.0)
[2024-02-19 19:38] LABS: Bacteria Urine None Seen (None Seen); Hyaline Casts Urine >20 /LPF (0-2); RBC Urine 0-2 /HPF (0-2); UACC Culture Trigger YES
[2024-02-19 20:01] LABS: Influenza A PCR NEGATIVE (Negative); Influenza B PCR NEGATIVE (Negative); Resp Syncy Virus RNA Qual PCR NEGATIVE (Negative); SARS COV2 PCR INHOUSE POSITIVE (Negative)
[2024-02-19 22:08] VITALS: BP 130/64; PULSE 65; RESP 15; TEMP 36.5; O2SAT 98
[2024-02-19 22:20] VITALS: BP 130/64; PULSE 65; RESP 15; TEMP 36.5; O2SAT 98
== END 2024-02-19 22:20 | disposition home or self-care (01) ==
PROVIDERS: Physician Assistant; Emergency Provider Emergency Medicine; PCP Family Medicine
DX: U07.1 COVID-19 (principal); J02.9 Acute pharyngitis, unspecified; R05.9 Cough, unspecified; Z79.899 Other long term (current) drug therapy
CPT/HCPCS: 0241U; 80053; 81001; 85025; 87086; 87651; 99283

== ENCOUNTER 2024-03-16 14:06 | Outpatient (AMB) | payer MEDICARE, SELFPAY ==
[2024-03-16 14:21] VITALS: BP 140/68; PULSE 70; BMI 23.0
--- NOTE | 2024-03-16 14:21 | MHC.OFFVIS ---
Vital Signs 03/16/24 14:21 Height 5 ft 3 in Weight 130 lb 1.164 oz BMI 23.0 BP 140/68 H Blood Pressure Location Lt brachial Position Sitting Pulse 70 Pulse Source Pulse Oximeter Intake Visit Reasons: 2m follow up/Holter Allergies influenza virus vaccine, specific [FLU VACCINE] Allergy (Intermediate, Verified 02/19/24 18:19) STIFFNESS,LIMITED FUNCTION AFFECTED ARM/HAND Medication List - Last Reconciled 03/16/24 by Titus Elam MD amlodipine 5 mg PO DAILY apixaban (Eliquis) 5 mg PO BID 90 days atenolol 25 mg PO DAILY atorvastatin 20 mg PO BEDTIME cholecalciferol (vitamin D3) 25 mcg PO DAILY lithium carbonate ER 300 mg PO BEDTIME metformin 1,000 mg PO BEDTIME metformin 500 mg PO DAILY HPI Comments Details: Alicia returns for follow-up. To recall, we had seen her in consultation in 2021. At that time, she had atrial flutter with rapid ventricular response. She underwent transesophageal echocardiogram followed by cardioversion. She was put on beta-blockers and Multaq and she was following with our nurse practitioner. During visit in 07/2023, she was found to be in junctional escape rhythm. At that time, both Multaq as well as metoprolol were stopped completely. The rhythm returned back to sinus in a few days' time. She is maintained on a small dose of atenolol and doing well with that. No new cardiac complaints or any concerns. [facility] Medical History Fall Atrophic gastritis Encounter for monitoring anti-arrhythmic therapy Iron deficiency anemia Hypertension Diabetes mellitus Depression New onset atrial flutter Breast calcification, right Surgical History History of esophagogastroduodenoscopy (EGD) Hx of colonoscopy History of section History of cholecystectomy Family History Father Depression Social History Household Members: None Housing: Apartment Do you presently have visiting nurse or other home services: No Alcohol intake: former Patient Tobacco Use Status: Never used Tobacco Advance Directives Date on File: 11/12/22 service: No Current occupational status: retired Female Reproductive History Menstrual Age of Menarche: 12 Review of Systems Const Denies weakness ENT Denies dizziness Card Denies chest pain, Denies chest pain with activity, Denies syncope, Denies rapid heart rate, Denies pedal edema, Denies edema, Denies leg edema, Denies lightheadedness, Denies palpitations, Denies dyspnea, Denies dyspnea on exertion and Denies orthopnea Resp Denies cough, Denies dyspnea and Denies dyspnea on exertion GI Denies hematochezia and Denies change in stool character Musc Denies abnormal gait, Denies muscle cramps, Denies muscle weakness, Denies numbness, Denies radiating pain into limb and Denies tingling Neuro Denies abnormal gait, Denies dizziness, Denies syncope, Denies numbness, Denies tingling and Denies weakness Endo Denies palpitations Physical Exam Vital Signs: Last Vital Signs Pulse 70 03/16/24 14:21 BP 140/68 H 03/16/24 14:21 BMI result Body Mass Index 23.0 Const General: comfortable and no acute distress Orientation/consciousness: patient oriented x3 HEENT Other: Unremarkable Head: Yes normal to inspection Neck Neck: Yes normal visual inspection Chest Chest palpation & inspection: normal inspection of the chest Resp Auscultation: clear to auscultation bilaterally Cardio Palpation: normal PMI Heart sounds: S1 normal heart sound present, S2 normal heart sound present, no gallops, no murmurs and no rubs GI Palpation (GI): Soft to palpation Back/Spine/Pelvis Other: unremarkable Skin General skin exam: no rashes or lesions noted Neuro General: patient oriented x3 Extrem General: Yes normal to inspection Psych Mental Status: mental status grossly normal Assessment & Plan Assessment & Plan (1) Paroxysmal atrial flutter: Code(s): I48.92 - Unspecified atrial flutter Category: Medical (2) Junctional rhythm: Code(s): I49.8 - Other specified cardiac arrhythmias Category: Medical (3) Right bundle branch block: Code(s): I45.10 - Unspecified right bundle-branch block Category: Medical Plan EKG from 07/2023 shows junctional escape rhythm at 44/Min. That was on both metoprolol and Multaq. Then these were discontinued. In the most recent Holter, underlying rhythm is sinus with an average rate of 62/Min. No significant pauses or other abnormalities. Continue current dose of Atenolol/Eliquis. If indeed she gets recurrent atrial fibrillation, then probably refer to EP. Coding Level of Care Code Est Pt Level 4 (82553) Diagnoses Paroxysmal atrial flutter I48.92 Junctional rhythm I49.8 Right bundle branch block I45.10
== END 2024-03-16 14:39 | disposition home or self-care (01) ==
PROVIDERS: PCP Family Medicine; Visit Provider Internal Medicine
DX: I48.92 Unspecified atrial flutter (principal); I49.8 Other specified cardiac arrhythmias; I45.10 Unspecified right bundle-branch block
CPT/HCPCS: 99214

== ENCOUNTER → 2024-03-16 14:06 | Outpatient (BNVA) | payer MEDICARE, SELFPAY | PROVIDERS: PCP Family Medicine; Visit Provider Internal Medicine | DX: I48.92 Unspecified atrial flutter (principal); I49.8 Other specified cardiac arrhythmias; I45.10 Unspecified right bundle-branch block | CPT/HCPCS: 99212 ==

== ENCOUNTER 2024-04-22 16:02 | Outpatient (REF) | payer MEDICARE, SELFPAY ==
[2024-04-22 16:53] LABS: Glucose Fasting 257 mg/dL (60-99)
[2024-04-22 17:01] LABS: Estimated Average Glucose 266 mg/dL; Hemoglobin A1C 290.7595 umol/L; Hemoglobin A1c % 10.9 % (<6.0); Total Hemoglobin (HGBA1C) 3026.1748 umol/L
[2024-04-22 17:18] LABS: Creatinine Urine 78.83 mg/dL
== END 2024-04-22 16:03 | disposition home or self-care (01) ==
LOC: HO.LAB 16:02
PROVIDERS: PCP Family Medicine; Visit Provider Family Medicine
DX: E11.9 Type 2 diabetes mellitus without complications (principal)
CPT/HCPCS: 36415; 82043; 82570; 82947; 83036

== ENCOUNTER 2024-06-25 16:15 | Outpatient (REF) | payer MEDICARE, SELFPAY ==
[2024-06-25 17:39] LABS: Alanine Aminotransferase 36 U/L (0-31); Anion Gap 13 (12-20); Aspartate Amino Transferase 27 U/L (5-31); Blood Urea Nitrogen 27 mg/dL (9-16); Carbon Dioxide 25 mmol/L (22-29); Chloride 104 mmol/L (96-108); Cholesterol 178 mg/dL (<200); Estimated Glomerular Filt Rate 51; Glucose Fasting 336 mg/dL (60-99); HDL Cholesterol 39 mg/dL (>40); LDL Cholesterol Calculated 110 mg/dL (<100); Potassium 4.1 mmol/L (3.3-5.1); Sodium 138 mmol/L (135-145); Triglycerides 145 mg/dL (<150)
--- OUTSIDE RECORDS SUMMARY | 2024-06-25 17:57 | XMS_ITS | Clinical Summary ---
Author Organization [facility] Address [address] [place] [address] Phone Care Team Providers Care Area Intelligence Technician Name Role Phone Darian Rivera MD Primary Care Provider [phone] Allergies No known active allergies Medications Cholecalciferol (Vitamin D3) 25 MCG (1000 UT) capsule 1 capsule DAILY (route: oral) 11/24/2022 Active dronedarone (Multaq) 400 MG tablet 1 tablet 2 TIMES DAILY (route: oral) 11/24/2022 Active metoprolol tartrate 25 MG tablet 1 tablet 2 TIMES DAILY (route: oral) 11/24/2022 Active metFORMIN HCl 500 MG/5ML solution 1 tablet EVERY AM (route: oral) 11/24/2022 Active metFORMIN (GLUCOPHAGE) 1000 MG tablet 1 tablet BEDTIME (route: oral) 11/24/2022 Active lithium (ESKALITH) 450 MG CR tablet 1 tablet BEDTIME (route: oral) 11/24/2022 Active apixaban (Eliquis) 5 MG tablet 1 tablet 2 TIMES DAILY (route: oral) 11/24/2022 Active Atorvastatin Calcium 20 MG/5ML suspension 1 tablet BEDTIME (route: oral) 11/24/2022 Active amLODIPine (NORVASC) 5 MG tablet 1 tablet DAILY (route: oral) 11/24/2022 Active Active Problems Problem Noted Date Diagnosed Date Stage 3a chronic kidney disease 07/22/2023 Stage 3b chronic kidney disease 01/06/2023 Acute kidney failure 11/24/2022 01/03/2023 Acute pain due to trauma 11/24/2022 023 Hypokalemia 11/24/2022 01/03/2023 Vitamin D deficiency 04/28/2019 01/03/2023 Atrial flutter 04/28/2019 01/03/2023 Type 2 diabetes mellitus wit h other circulatory complication 04/28/2019 01/03/2023 Chronic atrophic gastritis without bleeding 04/201901/03/2023 Hyperlipidemia 04/28/2019 01/03/2023 Essential hypertension 04/28/2019 3 shelter current use of oral hypoglycemic drug 04/28/2019 01/03/2023 Iron deficiency anemia 04/28/2019 3 Bipolar disorder 04/28/2019 01/03/2023 Family History Relation Status Comments Father Mother Social History Tobacco Use Types Packs/Day Years Used Date Smoking Tobacco: Never Smokeless Tobacco: Never Tobacco Cessation:Counseling Given: Not Answered Alcohol Use Standard Drinks/Week Comments Not Currently 0 (1 standard drink = 0.6 oz pur e alcohol) Comments Unknown Sex and Gender Information Value Date Recorded Sex Assigned at Not on file Legal Sex Female 9:41 AM EDT Gender Identity Not on file Sexual Orientation Not on file Last Filed Vital Signs Vital Sign Reading Time Taken Comments Blood Pressure 124/64 07/22/2023 1:15 PM EDT Pulse 66 07/22/2023 1:15 PM EDT Temperature - - Respiratory Rate - - Oxygen Saturation 97% 07/22/2023 1:15 PM EDT Inhaled Oxygen Concentration - - Weight 60.4 kg (133 lb 3.2 oz) 07/22/2023 1:15 P M EDT Height - - Body Mass Index - - Plan of Treatment Health Maintenance Due Date Last Done Comments Pneumococcal Vaccine: 65+ Ye ars (1 of 2 - PCV) 1951 Diabetes: Hemoglobin A1C 01/03/2023 Diabetes: Ophthalmology Exam 01/03/2023 Diabetes: Pedal Pulse Checked 01/03/2023 Diabetes: Sensory Foot Exam 01/03/2023 Diabetes: Visual Foot Exam 01/03/2023 Influenza Vaccine (#1) 2023 Hepatitis B Vaccine Aged Out No longe r eligible based on patient's age to complete this topic Insurance [facility] MEDICARE [facility] MEDIC[facility] Care Teams Area Intelligence Technician Relationship Specialty Start Date End Date Darian Rivera MD [address] [place] [address] PCP - General Internal Medicine 11/11/22
[2024-06-25 18:57] LABS: Estimated Average Glucose 324 mg/dL; Hemoglobin A1c % 12.9 % (<6.0); Total Hemoglobin (HGBA1C) 3373.5886 umol/L
== END 2024-06-25 16:16 | disposition home or self-care (01) ==
LOC: HO.LAB 16:15
PROVIDERS: PCP Family Medicine; Visit Provider Family Medicine
DX: I10 Essential (primary) hypertension (principal); E11.9 Type 2 diabetes mellitus without complications; E78.00 Pure hypercholesterolemia, unspecified
CPT/HCPCS: 36415; 80051; 80061; 82550; 82565; 82947; 83036; 84450; 84460; 84520

== ENCOUNTER 2024-06-28 16:45 | Outpatient (REF) | payer MEDICARE, SELFPAY ==
[2024-06-28 17:27] LABS: Creatinine Urine 55.66 mg/dL; Microalbum/Creatinine Ratio Ur 35.9 ug/mg cr (<30)
--- OUTSIDE RECORDS SUMMARY | 2024-06-28 19:04 | XMS_ITS | Clinical Summary ---
Author Organization [facility] Address [address] [place] [address] Phone Care Team Providers Care Identity Management Developer Name Role Phone Darian Rivera MD Primary Care Provider [phone] Allergies No known active allergies Medications Cholecalciferol [...] Hyperlipidemia 04/28/2019 01/03/2023 Essential hypertension 04/28/2019 [address] current use of oral hypoglycemic drug 04/28/2019 [...] patient's age to complete this topic Insurance [facility] MEDICARE [facility] MEDICARE Care Teams Identity Management Developer Relationship Specialty Start Date End Date Darian Rivera MD [address] [place] [address] PCP - General Internal Medicine 11/11/22
== END 2024-06-28 16:46 | disposition home or self-care (01) ==
LOC: HO.LNP 16:45
PROVIDERS: Visit Provider Family Medicine
DX: I10 Essential (primary) hypertension (principal); E11.9 Type 2 diabetes mellitus without complications; E78.00 Pure hypercholesterolemia, unspecified
CPT/HCPCS: 82043; 82570

== ENCOUNTER 2024-09-09 13:53 | Outpatient (AMB) | payer MEDICARE, SELFPAY ==
--- NOTE | 2024-09-09 13:59 | MHC.OFFVIS ---
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 Required: No Accompanied by: Self / Same As Patient Allergies influenza virus vaccine, specific [FLU VACCINE] Allergy (Intermediate, Verified 02/19/24 18:19) STIFFNESS,LIMITED FUNCTION AFFECTED ARM/HAND Medication List - Last Reviewed 09/09/24 by Akanksha Eden CMA amlodipine 5 mg PO DAILY apixaban (Eliquis) 5 mg PO BID atenolol 25 mg PO DAILY atorvastatin 20 mg PO BEDTIME cholecalciferol (vitamin D3) 25 mcg PO DAILY empagliflozin (Jardiance) 10 mg PO DAILY lithium carbonate ER 300 mg PO BEDTIME metformin 1,000 mg PO BEDTIME metformin 500 mg PO DAILY HPI Comments Details: Alicia returns for follow-up. To recall, we had seen her in consultation in 2021. At that time, she had atrial flutter with rapid ventricular response. She underwent transesophageal echocardiogram followed by cardioversion. She was put on beta-blockers and Multaq and she was following with our nurse practitioner. During visit in 07/2023, she was found to be in junctional escape rhythm. At that time, both Multaq as well as metoprolol were stopped completely. The rhythm returned back to sinus in a few days' time. Subsequently, maintained on a small dose of Atenolol and doing well with that. She states that she is doing fine from cardiac. No specific concerns. [facility] Medical History Fall Atrophic gastritis Encounter for monitoring anti-arrhythmic therapy Iron deficiency anemia Hypertension Diabetes mellitus Depression New onset atrial flutter Breast calcification, right Surgical History History of esophagogastroduodenoscopy (EGD) Hx of colonoscopy History of section History of cholecystectomy Family History Father Depression Social History Household Members: None Housing: Apartment Do you presently have visiting nurse or other home services: No Alcohol intake: former Patient Tobacco Use Status: Never used Tobacco Advance Directives Date on File: 11/12/22 service: No Current occupational status: retired Female Reproductive History Menstrual Age of Menarche: 12 Review of Systems Const Denies chills, Denies fatigue, Denies fever(s), Denies frequent falls, Denies weakness, Denies weight gain and Denies weight loss ENT Denies dizziness Card Denies chest pain, Denies leg edema, Denies lightheadedness, Denies palpitations, Denies dyspnea and Denies dyspnea on exertion Resp Denies cough, Denies dyspnea and Denies dyspnea on exertion GI Denies hematochezia Musc Denies abnormal gait, Denies muscle weakness, Denies numbness, Denies radiating pain into limb and Denies tingling Neuro Denies abnormal gait, Denies dizziness, Denies frequent falls, Denies numbness, Denies tingling and Denies weakness Endo Denies fatigue and Denies palpitations Physical Exam Vital Signs: Last Vital Signs Pulse 81 09/09/24 14:01 BP 110/60 09/09/24 14:01 BMI result Body Mass Index 22.1 Const General: comfortable and no acute distress Orientation/consciousness: patient oriented x3 HEENT Other: Unremarkable Head: Yes normal to inspection Neck Neck: Yes normal visual inspection Chest Chest palpation & inspection: normal inspection of the chest Resp Auscultation: clear to auscultation bilaterally Cardio Palpation: normal PMI Heart sounds: S1 normal heart sound present, S2 normal heart sound present, no gallops, no murmurs and no rubs GI Palpation (GI): Soft to palpation Back/Spine/Pelvis Other: unremarkable Skin General skin exam: no rashes or lesions noted Neuro General: patient oriented x3 Extrem General: Yes normal to inspection Psych Mental Status: mental status grossly normal Office Procedures EKG Details: EKG with underlying sinus rhythm at 81/Min; sinus arrhythmias; right bundle-branch block pattern; corrected QT is slightly prolonged but that is because of the right bundle-branch block. [id number], Complete Assessment & Plan Assessment & Plan (1) Paroxysmal atrial flutter: Code(s): I48.92 - Unspecified atrial flutter Category: Medical (2) Junctional rhythm: Code(s): I49.8 - Other specified cardiac arrhythmias Category: Medical (3) Right bundle branch block: Code(s): I45.10 - Unspecified right bundle-branch block Category: Medical Plan EKG from 07/2023 shows Junctional escape rhythm at 44/Min. That was on both Metoprolol and Multaq. Then these were discontinued. In the last Holter, underlying rhythm is sinus with an average rate of 62/Min. No significant pauses or other abnormalities. She can remain on the current doses of Atenolol without any changes. No issues with Eliquis at this time. If any recurring atrial fibrillation, then may need rather ablation. Unlikely she will be able tolerate antiarrhythmics because of prior junctional escape rhythm episode. We will follow up in 6 months. Coding Level of Care Code Est Pt Level 4 (30036) Complex EM visit Add On G2211 Diagnoses Paroxysmal atrial flutter I48.92 Junctional rhythm I49.8 Right bundle branch block I45.10 CPT Codes EKG - CPT: 29855-[id number], Complete ([id number])
[2024-09-09 14:01] VITALS: BP 110/60; PULSE 81; BMI 22.1
--- OUTSIDE RECORDS SUMMARY | 2024-09-09 14:33 | XMS_ITS | Clinical Summary ---
Author Organization [facility] Address [address] [place] [address] Phone Care Team Providers Care Wet Washer Machine Name Role Phone Darian Rivera MD Primary Care Provider [phone] Allergies No known active allergies Medications Cholecalciferol [...] Hyperlipidemia 04/28/2019 01/03/2023 Essential hypertension 04/28/2019 3 snf current use of oral hypoglycemic drug 04/28/2019 [...] Due Date Last Done Comments Pneumococcal Vaccine: 50+ Ye ars (1 of 2 - PCV) 01/01/1965 Diabetes: Hemoglobin A1C 01/03/2023 Diabetes: Ophthalmology Exam 01/03/2023 Diabetes: Pedal Pulse Checked 01/03/2023 Diabetes: Sensory Foot Exam 01/03/2023 Diabetes: Visual Foot Exam 01/03/2023 Influenza Vaccine (Season Ended) 2024 Hepatitis B Vaccine Aged Out No longe r eligible based on patient's age to complete this topic Insurance [facility] Medicare [facility] Medicare Care Teams Wet Washer Machine Relationship Specialty Start Date End Date Darian Rivera MD [address] [place] [address] PCP - General Internal Medicine 11/11/22
== END 2024-09-09 14:17 | disposition home or self-care (01) ==
LOC: HO.HCS 13:54
PROVIDERS: PCP Family Medicine; Visit Provider Internal Medicine
DX: I48.92 Unspecified atrial flutter (principal); I49.8 Other specified cardiac arrhythmias; I45.10 Unspecified right bundle-branch block
CPT/HCPCS: 93010; 99214; G2211

== ENCOUNTER → 2024-09-09 13:53 | Outpatient (BNVA) | payer MEDICARE, SELFPAY | PROVIDERS: PCP Family Medicine; Visit Provider Internal Medicine | DX: I48.92 Unspecified atrial flutter (principal); I49.8 Other specified cardiac arrhythmias; I45.10 Unspecified right bundle-branch block; R94.31 Abnormal electrocardiogram [ECG] [EKG] | CPT/HCPCS: 93005; 99212 ==

== ENCOUNTER 2024-09-22 11:50 | Outpatient (REF) | payer MEDICARE, SELFPAY ==
[2024-09-22 12:32] LABS: Appearance Urine Clear; Color Urine Yellow; Glucose Urine UA >=1000 mg/dL (Negative); Leukocyte Esterase Urine Small (1+) (Negative); Nitrite Urine Negative (Negative); Specific Gravity - Urine >= 1.030 (1.005-1.025); UMIC TRIGGER UA YES; Urine Blood Negative (Negative); Urine Ketones Negative (Negative); Urine Protein Negative (Neg-Trace)
[2024-09-22 12:35] LABS: Hemoglobin A1c % > 14.0 % (<6.0); Total Hemoglobin (HGBA1C) 3450.7967 umol/L
--- OUTSIDE RECORDS SUMMARY | 2024-09-22 12:41 | XMS_ITS | Clinical Summary ---
Author Organization [facility] Address [address] [place] [address] Phone Care Team Providers Care Condenser Cleaner Name Role Phone Darian Rivera MD Primary Care Provider [phone] Allergies No known active allergies Medications Cholecalciferol [...] Hyperlipidemia 04/28/2019 01/03/2023 Essential hypertension 04/28/2019 3 prison current use of oral hypoglycemic drug 04/28/2019 [...] patient's age to complete this topic Insurance [facility] Medicare [facility] Medicare Care Teams Condenser Cleaner Relationship Specialty Start Date End Date Darian Rivera MD [address] [place] [address] PCP - General Internal Medicine 11/11/22
[2024-09-22 13:11] LABS: Glucose Fasting 323 mg/dL (60-99)
[2024-09-22 13:21] LABS: Bacteria Urine Trace (None Seen); Hyaline Casts Urine 0-2 /LPF (0-2); RBC Urine 0-2 /HPF (0-2); Squamous Epithelial Cell Urine 0-2 /HPF (0-2); WBC Urine 0-5 /HPF (0-5)
[2024-09-22 13:23] LABS: Free T4 (Free Thyroxine) 0.91 ng/dL (0.71-1.85); Thyroid Stimulating Hormone 2.82 uIU/mL (0.32-4.0)
== END 2024-09-22 11:51 | disposition home or self-care (01) ==
LOC: HO.LAB 11:50
PROVIDERS: PCP Family Medicine; Visit Provider Family Medicine
DX: E11.9 Type 2 diabetes mellitus without complications (principal); E03.9 Hypothyroidism, unspecified; R35.0 Frequency of micturition
CPT/HCPCS: 36415; 81001; 82947; 83036; 84439; 84443

== ENCOUNTER 2024-10-18 09:56 | Outpatient (REF) | payer MEDICARE, SELFPAY ==
[2024-10-18 10:52] LABS: Glucose Fasting 423 mg/dL (60-99)
--- OUTSIDE RECORDS SUMMARY | 2024-10-18 10:58 | XMS_ITS | Clinical Summary ---
Author Organization [facility] Address [address] [place] [address] Phone Care Team Providers Care Foster Winder Name Role Phone Darian Rivera MD Primary Care Provider [phone] Allergies No known active allergies Medications Cholecalciferol [...] Hyperlipidemia 04/28/2019 01/03/2023 Essential hypertension 04/28/2019 3 half-way current use of oral hypoglycemic drug 04/28/2019 [...] patient's age to complete this topic Insurance [facility] Medicare [facility] Medicare Care Teams Foster Winder Relationship Specialty Start Date End Date Darian Rivera MD [address] [place] [address] PCP - General Internal Medicine 11/11/22
[2024-10-18 11:05] LABS: Hemoglobin A1c % > 14.0 % (<6.0); Total Hemoglobin (HGBA1C) 3349.8963 umol/L
== END 2024-10-18 09:57 | disposition home or self-care (01) ==
LOC: HO.LAB 09:56
PROVIDERS: PCP Family Medicine; Visit Provider Family Medicine
DX: E11.9 Type 2 diabetes mellitus without complications (principal)
CPT/HCPCS: 36415; 82947; 83036

== ENCOUNTER 2024-11-09 09:50 | Emergency (ER) | payer MEDICARE, SELFPAY ==
--- NOTE | ~2024-11-09 | CT_ITS ---
EXAMINATION: CT HEAD WITHOUT CONTRAST CLINICAL INFORMATION: fall on DOAC COMPARISON: January 10, 2023. TECHNIQUE: Contiguous axial imaging was performed from the skull base to vertex without intravenous administration of contrast. This CT examination was performed using dose optimization techniques as appropriate, variously including the following: *Automated exposure control *Adjustment of mA and/or kV according to patient size (this includes techniques or standardized protocols for targeted exams where dose is matched to indication/reason for exam; i.e. extremities or head) *Use of iterative reconstruction technique DLP: 730 mGy-cm FINDINGS: No acute cortical disruption in the bony calvarium. No acute intracranial hemorrhage, mass effect, midline shift, hydrocephalus or herniation. Sarmiento-white matter differentiation is normal. Prior vascular insult resulting in a focal encephalomalacia left frontal marks radiata white matter. Old lacunar infarcts, basal ganglia. Prominence of the extra-axial CSF spaces along the intraconal convexities likely related to volume loss and less likely subacute to old subdural hemorrhage/hygroma. Posterior cranial fossa contents demonstrated no acute hemorrhage. Calcified plaques in the V4 segments of the vertebral arteries and cavernous supracavernous segments both ICAs. Sellar/suprasellar region demonstrated no gross masses or hemorrhage. There is normal position of the cerebellar tonsils. No air-fluid levels in the paranasal sinuses. Mucosal thickening, maxillary sinuses. Tympanic cavities and mastoid cells are aerated. Status post right ocular banding. CT/CT head/brain wo IV con IMPRESSION: No acute fracture, bony calvarium. No acute intracranial hemorrhage. Small vessel occlusive disease. Atherosclerosis disease, intracranial. Stable appearance of the brain. Electronically signed by: Aj Quispe MD 11/09/2024 02:27 PM EDT
--- NOTE | ~2024-11-09 | CT_ITS ---
EXAMINATION: CT CERVICAL SPINE WITHOUT CONTRAST CLINICAL INFORMATION: Status post fall. COMPARISON: November 05, 2012. TECHNIQUE: Contiguous axial images through the cervical spine using 3 mm collimation with bone and soft tissue algorithm. Sagittal and coronal reformatted images acquired. DLP: [address] examination was performed using dose optimization techniques as appropriate, variously including the following: *Automated exposure control *Adjustment of mA and/or kV according to patient size (this includes techniques or standardized protocols for targeted exams where dose is matched to indication/reason for exam; i.e. extremities or head) *Use of iterative reconstruction technique FINDINGS: The craniocervical junction is intact with normal alignment between the occipital condyles and lateral masses of C1. Degenerative changes in the periodontal C1 region. Grade 1 anterolisthesis C5-6 on a degenerative basis. Anterior marginal osteophyte formation C4-5 C5-6 and C6-7 level. Calcification of the ligamentum flavum at C5-6 and to a lesser extent C4-5. Bilateral facet joint hypertrophy at multiple levels of the cervical spine. C1 is intact. C2 is intact. C3 is intact. C4 is intact. C5 is intact. C6 is intact. C3 7 is intact. No gross prevertebral compartment hematoma. Calcified plaques in the carotic arteries. Calcified plaques in the main branches of the thoracic aortic arch. The thyroid gland is not enlarged. CT/CT cervical spine wo IV con IMPRESSION: Multilevel cervical spondylosis without acute fracture or trauma-related listhesis. Fleischner guidelines were followed. Electronically signed by: Aj Quispe MD 11/09/2024 02:34 PM EDT
[2024-11-09 09:58] VITALS: BP 142/80; PULSE 69; O2SAT 100
[2024-11-09 10:00] VITALS: BP 137/58; PULSE 65; RESP 16; TEMP 36.9; O2SAT 96; BMI 21.3
[2024-11-09 10:26] VITALS: BP 137/58; PULSE 65; RESP 16; TEMP 36.9; O2SAT 96
--- NOTE | 2024-11-09 10:30 | PC.NURSE ---
Pt sitting on stretcher with c collar awaiting eval by provider - head lac cleaned VSS A&O X4 Denies pain. Moves all extremities well. No numbness tinging
--- NOTE | 2024-11-09 10:44 | MHC.EDTECH ---
Patient has approximate 1/2 inch laceration to the left side of the back of her head. Small amount of bleeding noted and controlled. Wound cleaned with normal saline patient tolerated well.
--- OUTSIDE RECORDS SUMMARY | 2024-11-09 11:58 | XMS_ITS | Clinical Summary ---
Author Organization [facility] Address [address] [place] [address] Phone Care Team Providers Care Shiftman Name Role Phone Darian Rivera MD Primary Care Provider [phone] Allergies No known active allergies Medications Cholecalciferol [...] Hyperlipidemia 04/28/2019 01/03/2023 Essential hypertension 04/28/2019 3 senior care current use of oral hypoglycemic drug 04/28/2019 [...] Visual Foot Exam 01/03/2023 Influenza Vaccine (#1) 2024 Hepatitis B Vaccine Aged Out No longe r eligible based on patient's age to complete this topic Insurance [facility] Medicare [facility] Medicare Care Teams Shiftman Relationship Specialty Start Date End Date Darian Rivera MD [address] [place] [address] PCP - General Internal Medicine 11/11/22
--- NOTE | 2024-11-09 12:39 | ED_ITS ---
HPI - General Adult General Chief complaint: Fall Stated complaint: FALL,+HS,+THIN,+COLLAR PER EMS Time Seen by Provider: 11/09/24 12:37 Source: patient, EMS, RN notes reviewed and old records reviewed Mode of arrival: EMS Limitations: no limitations History of Present Illness ED Provider: Nestor HPI narrative: Patient is a 78-year-old female with history of paroxysmal a flutter on apix aban, DM, right bundle-branch block presenting to the emergency department with complaint of laceration to the back of her head after she lost her balance at home and fell backwards against the door frame. She was placed in C-collar by EMS prior to arrival. She denies current headache, blurred vision, double vision or other visual changes, neck or back pain. She states initially she had no pain but now as she has sat on the stretcher she is having some generalized body aches. Unsure last Tdap. Declining any pain medication at this time. Denies feeling dizzy or lightheaded prior to fall. MD complaint: head injury Onset (ago): minute(s) Related Data Home Medications ?Medication ?Instructions ?Recorded ?Confirmed metformin 500 mg tablet 1,000 mg PO BEDTIME 12/05/21 09/09/24 cholecalciferol (vitamin D3) 25 25 mcg PO DAILY 09/09/24 mcg (1,000 unit) tablet atorvastatin 20 mg tablet 20 mg PO BEDTIME 11/06/22 lithium carbonate 450 mg 300 mg PO BEDTIME 09/24/23 0 09/09/24 tablet,extended release metformin 500 mg tablet 500 mg PO DAILY 09/24/23 empagliflozin 10 mg tablet 10 mg PO DAILY 09/09/24 (Jardiance) Previous Rx's ?Medication ?Instructions ?Recorded apixaban 5 mg tablet (Eliquis) 5 mg PO BID #180 tabs 0 06/28/24 atenolol 25 mg tablet 25 mg PO DAILY #90 tabs 07/20 amlodipine 5 mg tablet 5 mg PO DAILY #90 tabs 09/24 Allergies Allergy/AdvReac Type Severity Reaction Status Date / Time influenza virus vaccine, Allergy Intermediate STIFFNESS,LIMITED Verified 11/09/24 10:01 specific (FLU VACCINE) FUNCTION AFFECTED ARM/HAND Review of Systems Review of Systems: As per hpi Yes all other systems are reviewed and are negative Constitutional: Constitutional: Reports as per HPI [facility] Past Medical History Medical History Fall Atrophic gastritis Encounter for monitoring anti-arrhythmic therapy Iron deficiency anemia Hypertension Diabetes mellitus Depression New onset atrial flutter Breast calcification, right Surgical History History of esophagogastroduodenoscopy (EGD) Hx of colonoscopy History of section History of cholecystectomy Family History Family History Father Depression Social History Social History Household Members: None Housing: Apartment Do you presently have visiting nurse or other home services: No Alcohol intake: former Patient Tobacco Use Status: Never used Tobacco Advance Directives Date on File: 11/12/22 service: No Current occupational status: retired Physical Exam ED Vital Signs: Vital Signs - 24 hr 11/09/24 10:00 11/09/24 10:26 11/09/24 15:05 Temperature 98.4 F 98.4 F 97.5 F Pulse Rate 65 65 65 Respiratory Rate 16 16 17 Blood Pressure 137/58 L 137/58 L 125/47 L Pulse Oximetry 96 96 95 Oxygen Delivery Method Room Air Room Air BMI result Body Mass Index 21.3 Vital signs have been reviewed and appear to be correct. Blood pressure normal. Heart rate normal. Respiratory rate normal. Temperature normal. Oxygen saturation normal. Const General: cooperative, healthy appearing and no acute distress Orientation/consciousness: oriented to person, oriented to place, oriented to time and patient oriented x3 Limitations: no limitations HENMT Head: Yes normocephalic and Yes laceration (occipital, no active bleeding) Ears: external ears normal and TM's normal bilaterally General nose exam: Normal external nose present and Normal nasal mucous membranes and turbinates present Face and sinus: Yes face symmetric Mouth: oropharynx normal and moist mucous membranes Throat: Yes uvula midline Eyes General: appearance normal, both eyes and all related structures Pupils: Equal, round and reactive pupils present EOM: EOMs intact bilaterally Neck Neck: Yes normal visual inspection and Yes supple Chest Chest palpation & inspection: normal inspection of the chest and normal palpation of entire chest wall Resp Effort & Inspection: normal respiratory effort and able to speak in complete sentences Auscultation: clear to auscultation bilaterally Cardio Rate: regular rate Rhythm: regular rhythm Heart sounds: S1 normal heart sound present and S2 normal heart sound present GI Palpation (GI): Soft to palpation and nontender Auscultation: normoactive bowel sounds General: Yes no CVA tenderness Back/Spine/Pelvis Back: no CVA tenderness Cervical Spine: collar present Thoracic/Lumbar Spine: thoracic and lumbar spine normal to inspection, No thoracic spinal tenderness and No lumbar spinal tenderness Pelvis: no pain with anterior-posterior compression and no pain with lateral compression Skin General skin exam: elasticity normal and turgor normal Neuro General: oriented to person, oriented to place, oriented to time, patient oriented x3, moves all extremities, no focal motor deficits and CN's II-XI intact bilaterally Cranial nerves: Yes Equal, round and reactive pupils present Cognition (Neuro): normal cognition Extrem General: Yes full ROM, Yes no pedal edema and Yes no calf tenderness Psych Mental Status: mental status grossly normal Affect: normal affect Thought process: Normal thought process present Medications Administered Discontinued Medications Generic Name Dose Route Start Last Admin Trade Name Freq PRN Reason Stop Dose Admin Diphtheria/Tetanus/Acell Pertussis 0.5 ml 11/09/24 12:58 11/09/24 13:39 Diphth,Pertus(Acell),Tet Adult 0.5 Ml Syringe IM 11/09/24 12:59 0.5 ml .ONCE ONE Administration Procedures Laceration Laceration 1: Site: scalp Side (If applicable): left Size (cm): 1 Description: linear Depth: simple, single layer Pre-repair: wound explored and irrigated extensively Skin layer closed with: other (tegan, #3) Medical Decision Making Medical Decision Making MDM Narrative: Patient is a 78-year-old female with history of paroxysmal a flutter on apixaban, DM, right bundle-branch block presenting to the emergency department with complaint of laceration to the back of her head after she lost her balance at home and fell backwards against the door frame. On exam patient is awake, A+Ox3, VS WNL, afebrile, normal neurological exam without focal deficits, physical exam findings as above. Given reported symptoms and physical exam findings, initial differential includes but is not limited to ICH, skull or cervical vertebral fracture or subluxation, scalp laceration. CT head and c-spi ne notable for no evidence of ICH, skull or cervical vertebral fracture or subluxation. My interpretation is in agreement with the radiologist's interpretation. Laceration repaired as per procedure note, patient tolerated well, no complications. Tdap updated. Patient is stable for discharge home at this time. Advised follow up with PCP. Return precautions discussed at bedside. Patient verbalized understanding of and agreement with plan. Differential Diagnosis Differential Diagnoses: The differential diagnosis associated with the presentation includes As per [facility] Admission/Observation Consideration of admission/observation: Escalation of care including admission/observation considered Patient would have been admitted to the hospital had their clinical presentation warranted hospital admission. Independent Interpretation I performed an independent interpretation of an: CT Scan Interpretation: CT head and C-spine without evidence of ICH, skull or cervical vertebral fracture or subluxation Radiology Impression Discussion of test interpretation with radiology: I have reviewed the radiologist's reading. Radiologist Impression: CT/CT head/brain wo IV con IMPRESSION: No acute fracture, bony calvarium. No acute intracranial hemorrhage. Small vessel occlusive disease. Atherosclerosis disease, intracranial. Stable appearance of the brain. CT/CT cervical spine wo IV con IMPRESSION: Multilevel cervical spondylosis without acute fracture or trauma-related listhesis. External Record Review External record reviewed: Inpatient record, Office record and Outpatient record Discharge Plan Discharge Clinical Impression: Fall Laceration of scalp Qualifiers: Encounter type: initial encounter Qualified Code(s): S01.01XA - Laceration without foreign body of scalp, initial encounter Patient Disposition: Home, Self-Care Instructions: Laceration (DC), Fall Prevention for Older Adults (ED), Staple Care (ED) Additional Instructions: You have been evaluated in the emergency department today for head injury. Your CT scans did not show signs of bleeding or fractures in your head or cervical spine. We recommend you take \Tylenol 650 mg every 6 hours as needed for pain. Your laceration was repaired with 3 tegan. You will need to have these tegan removed in 7-10 days. Please schedule an appointment with for follow-up with your primary care provider as soon as possible. Return to the emergency department if you experience worsening or uncontrolled pain, vision changes, recurrent vomiting, difficulty with normal activities, abnormal behavior, difficulty walking, numbness, weakness, or any other concerning symptoms. Prescriptions: No Action Eliquis 5 mg tablet 5 mg PO BID Qty: 180 3RF atenolol 25 mg tablet 25 mg PO DAILY Qty: 90 3RF amlodipine 5 mg tablet 5 mg PO DAILY Qty: 90 3RF cholecalciferol (vitamin D3) 25 mcg (1,000 unit) Tablet 25 mcg PO DAILY lithium carbonate 450 mg tablet extended release 300 mg PO BEDTIME atorvastatin 20 mg tablet 20 mg PO BEDTIME metformin 500 mg tablet 500 mg PO DAILY metformin 500 mg tablet 1,000 mg PO BEDTIME Jardiance 10 mg tablet 10 mg PO DAILY Interventions: ED Discharge Assessment Last Done: 11/09/24 15:05 Discharge Date/Time: 11/09/24 15:06 Print Language: Mosotho
[2024-11-09] MEDS: Diphth,Pertus(ACell),Tet Adult 0.5 ML SYRINGE IM (13:39)
[2024-11-09 15:05] VITALS: BP 125/47; PULSE 65; RESP 17; TEMP 36.4; O2SAT 95
== END 2024-11-09 15:06 | disposition home or self-care (01) ==
PROVIDERS: Emergency Provider Emergency Medicine; PCP Family Medicine
DX: S01.01XA Laceration without foreign body of scalp, initial encounter (principal); W22.09XA Striking against other stationary object, initial encounter; Y93.9 Activity, unspecified; Y92.9 Unspecified place or not applicable; Y99.9 Unspecified external cause status; Z23 Encounter for immunization
CPT/HCPCS: 70450; 72125; 90471; 90715; 99284

== ENCOUNTER → 2024-11-09 12:17 | Outpatient (BNV) | payer MEDICARE, SELFPAY | PROVIDERS: Emergency Provider Emergency Medicine; PCP Family Medicine; Visit Provider Radiology Diagnostic Radiology | DX: M47.812 Spondylosis without myelopathy or radiculopathy, cervical region (principal); I67.2 Cerebral atherosclerosis | CPT/HCPCS: 70450; 72125 ==

== ENCOUNTER 2024-11-20 14:12 | Outpatient (AMB) | payer MEDICARE, SELFPAY ==
--- NOTE | 2024-11-20 14:14 | AM.OFFWIN_ITS ---
Intake Vital Signs 11/20/24 14:15 Height 5 ft 3 in Weight 120 lb BMI 21.3 BP 120/62 Blood Pressure Location Lt brachial Position Sitting Pulse 66 Pulse Source Pulse Oximeter Pulse Oximetry (%) 97 Intake Visit Reasons: EP- stitches removal on head Patient Tobacco Use Status: Never used Tobacco Allergies influenza virus vaccine, specific (FLU VACCINE) Allergy (Intermediate, Verified 11/20/24 14:17) STIFFNESS,LIMITED FUNCTION AFFECTED ARM/HAND Do you need a note to return to daycare/school/sports/work: No HPI HPI Comments History of Present Illness Details 78 y/o F here today for staple removal Scalp lac repair at [facility] 11/09/24 Note reviewed UTD on Tdap Denies any complaints. Exam Well healed scalp lac, 3 tegan removed w/o incident No bleeding or signs of infection She tolerated well Plan: As the patient is on Apixaban, I advised her on the risk of bleeding and provided post-removal care instructions. The patient was cautioned against scrubbing the wound area, to allow scab healing, and was reminded to gently wash while avoiding pulling on the scab. We reviewed anticipatory guidance including attending and enjoying her niece?s wedding with no medical restrictions. I emphasized reporting any signs of adverse symptoms related to the wound or anticoagulation to ensure proper healing. [facility] Medical History Fall Atrophic gastritis Encounter for monitoring anti-arrhythmic therapy Iron deficiency anemia Hypertension Diabetes mellitus Depression New onset atrial flutter Breast calcification, right Surgical History History of esophagogastroduodenoscopy (EGD) Hx of colonoscopy History of section History of cholecystectomy Family History Father Depression Social History Household Members: None Housing: Apartment Do you presently have visiting nurse or other home services: No Alcohol intake: former Patient Tobacco Use Status: Never used Tobacco Advance Directives Date on File: 11/12/22 service: No Current occupational status: retired Female Reproductive History Menstrual Age of Menarche: 12 Physical Exam Vital Signs: Last Vital Signs Pulse 66 11/20/24 14:15 BP 120/62 11/20/24 14:15 Pulse Ox 97 11/20/24 14:15 BMI result Body Mass Index 21.3 Assessment & Plan Assessment & Plan (1) Removal of staple: Code(s): Z48.02 - Encounter for removal of sutures (2) Up to date with tetanus vaccination: Code(s): Z92.29 - Personal history of other drug therapy Plan . Coding Level of Care Code Est Pt Level 3 (14325) Diagnoses Removal of staple Z48.02 Up to date with tetanus vaccination Z92.29
[2024-11-20 14:15] VITALS: BP 120/62; PULSE 66; O2SAT 97; BMI 21.3
--- OUTSIDE RECORDS SUMMARY | 2024-11-20 14:15 | XMS_ITS | Clinical Summary ---
Author Organization [facility] Address [address] [place] [address] Phone Care Team Providers Care Display Director Name Role Phone Darian Rivera MD Primary Care Provider [phone] Allergies No known active allergies Medications Cholecalciferol [...] patient's age to complete this topic Insurance [facility] Medicare [facility] Medicare Care Teams Display Director Relationship Specialty Start Date End Date Darian Rivera MD [address] [place] [address] PCP - General Internal Medicine 11/11/22
--- OUTSIDE RECORDS SUMMARY | 2024-11-20 14:15 | XMS_ITS | Clinical Summary ---
Author Organization [facility] Address [address] [place] [address] Phone Care Team Providers Care Harp Repairer Name Role Phone Darian Rivera MD Primary Care Provider [phone] Allergies Active Allergy Reactions Criticality Noted Date Comments Ibuprofen 11/04/2023 Other 11/04/2023 Flu shot Medications No known medications Social History Tobacco Use Types Packs/Day Years Used Date Smoking Tobacco: Never Assessed Education Answer Date Recorded Are you interested in more education? Not on ana e 11/05/2023 Are you concerned about learning? Not on file 11/05/2023 No 11/05/2023 No 11/05/2023 Digital Access Answer Date Recorded No 11/05/2023 No 11/05/2023 Reliable internet access at home? Not on file 11/05/2023 Device with a working camera? Not on file Comments Unknown Sex and Gender Information Value Date Recorded Sex Assigned at Not on file Legal Sex Female 4:20 AM EDT Gender Identity Not on file Sexual Orientation Not on file Last Filed Vital Signs Vital Sign Reading Time Taken Comments Blood Pressure 157/99 11/04/2023 8:52 PM EDT Pulse 84 11/04/2023 8:52 PM EDT Temperature 36.9 C (98.4 F) 11/04/2023 8:52 PM EDT Respiratory Rate 18 11/04/2023 8:52 PM EDT Oxygen Saturation 97% 11/04/2023 8:52 PM EDT Inhaled Oxygen Concentration - - Weight - - Height - - Body Mass Index - - Plan of Treatment Health Maintenance Due Date Last Done Comments Adult Td,Tdap Booster 1944 LIPID PANEL 1944 DEPRESSION SCREENING 1956 SMOKING Hx and SMOKELESS TOB ACCO SCREENING 1957 HEPATITIS C SCREENING 1962 PNEUMOCOCCAL VACCINES (50+ y ears) (1 of 1 - PCV) 1994 ZOSTER VACCINES (1 of 2) 1994 OSTEOPOROSIS SCREENING INITI AL (ONE-TIME) 2009 RSV VACCINE (1 - 1-dose 75+ series) 01/01/2020 COVID-19 VACCINE (1 - 2023-2 5 season) 2023 HEPATITIS A VACCINES Aged Out No long er eligible based on patient's age to complete this topic HIB VACCINES Aged Out No longer eligi ble based on patient's age to complete this topic MENINGOCOCCAL VACCINES (ACWY) Aged Out No longer eligible based on patient's age to complete this topic MENINGOCOCCAL VACCINES (B) Aged Out N o longer eligible based on patient's age to complete this topic Medical Devices Not on file Insurance MEDICARE [place] [address] [place] [address] MEDICARE REPLACEMENT MEDICARE REPLACEMENT MEDICARE REPLACEMENT MEDICARE [place] [address] [place] [address] MEDICARE REPLACEMENT Care Teams Harp Repairer Relationship Specialty Start Date End Date Darian Rivera MD [address] [place] [address] [place] [address] PCP - General 11/04/23 Additional Source Comments The information contained in this document represents components of the legal health record. It is not the complete legal health record.[facility]
== END 2024-11-20 14:47 | disposition home or self-care (01) ==
LOC: HO.HMCWIC 14:12
PROVIDERS: PCP Family Medicine; Visit Provider Nurse Practitioner Family
DX: Z48.02 Encounter for removal of sutures (principal); Z92.29 Personal history of other drug therapy

== ENCOUNTER → 2024-11-20 14:12 | Outpatient (BNVA) | payer MEDICARE, SELFPAY | PROVIDERS: PCP Family Medicine; Visit Provider Nurse Practitioner Family | DX: Z48.02 Encounter for removal of sutures (principal); Z92.29 Personal history of other drug therapy | CPT/HCPCS: 99212 ==

== ENCOUNTER 2024-12-03 11:39 | Emergency (ER) | payer MEDICARE, SELFPAY ==
[2024-12-03 11:51] VITALS: BP 150/67; PULSE 78; RESP 18; TEMP 36.6; O2SAT 94; BMI 21.7
--- NOTE | 2024-12-03 11:52 | ED_ITS ---
HPI - General Adult General Chief complaint: Urogenital-Female Stated complaint: UTI Time Seen by Provider: 12/03/24 15:42 Source: patient, RN notes reviewed and old records reviewed Mode of arrival: ambulatory Limitations: no limitations History of Present Illness ED Provider: Nestor MERCADO narrative: Patient is a 78-year-old female with history of DM, depression, paroxysmal a flutter, RBBB presenting to the ED with complaint of dysuria and vaginal burning for the past 3 weeks. Has been seeing PCP who advised patient did not have a UTI, but patient states symptoms feel like prior UTI. Denies fevers, abdominal pain, back or flank pain. Denies nausea or vomiting. MD complaint: dysuria, vaginal burning Onset (ago): week(s) Related Data Home Medications ?Medication ?Instructions ?Recorded ?Confirmed cholecalciferol (vitamin D3) 25 25 mcg PO DAILY 09/09/24 mcg (1,000 unit) tablet atorvastatin 20 mg tablet 20 mg PO BEDTIME 11/06/22 lithium carbonate 450 mg 300 mg PO BEDTIME 09/24/23 0 09/09/24 tablet,extended release metformin 500 mg tablet 500 mg PO DAILY 09/24/23 empagliflozin 10 mg tablet 10 mg PO DAILY 09/09/24 (Jardiance) Previous Rx's ?Medication ?Instructions ?Recorded apixaban 5 mg tablet (Eliquis) 5 mg PO BID #180 tabs 0 06/28/24 atenolol 25 mg tablet 25 mg PO DAILY #90 tabs 0307/20 amlodipine 5 mg tablet 5 mg PO DAILY #90 tabs 09/24 miconazole nitrate 1,200 mg-2 % See Rx Instructions va ginal 12/03/24 vaginal kit .COMPLEX #1 ea Allergies Allergy/AdvReac Type Severity Reaction Status Date / Time influenza virus vaccine, Allergy Intermediate STIFFNESS,LIMITED Verified 12/03/24 11:53 specific (FLU VACCINE) FUNCTION AFFECTED ARM/HAND Review of Systems Review of Systems: As per HPI Yes all other systems are reviewed and are negative Constitutional: Constitutional: Reports as per HPI PMFSH Past Medical History Medical History Fall Atrophic gastritis Encounter for monitoring anti-arrhythmic therapy Iron deficiency anemia Hypertension Diabetes mellitus Depression New onset atrial flutter Breast calcification, right Surgical History History of esophagogastroduodenoscopy (EGD) Hx of colonoscopy History of section History of cholecystectomy Family History Family History Father Depression Social History Social History Household Members: None Housing: Apartment Do you presently have visiting nurse or other home services: No Alcohol intake: former Patient Tobacco Use Status: Never used Tobacco Advance Directives: Yes Advance Directives on File: Yes Advance Directives Date on File: 11/12/22 service: No Current occupational status: retired Physical Exam ED Vital Signs: Vital Signs - 24 hr 12/03/24 11:51 12/03/24 18:08 Temperature 97.8 F Pulse Rate 78 111 H Respiratory Rate 18 14 Blood Pressure 150/67 H 167/72 H Pulse Oximetry 94 97 Oxygen Delivery Method Room Air Room Air BMI result Body Mass Index 21.7 Vital signs have been reviewed and appear to be correct. Blood pressure normal. Heart rate normal. Respiratory rate normal. Temperature normal. Oxygen saturation normal. Const General: cooperative, healthy appearing and no acute distress Orientation/consciousness: oriented to person, oriented to place, oriented to time and patient oriented x3 Limitations: no limitations HENMT Head: Yes normocephalic and Yes atraumatic Ears: external ears normal General nose exam: Normal external nose present Face and sinus: Yes face symmetric Mouth: oropharynx normal and moist mucous membranes Throat: Yes uvula midline Eyes Pupils: Equal, round and reactive pupils present Neck Neck: Yes normal visual inspection and Yes supple Resp Effort & Inspection: normal respiratory effort and able to speak in complete sentences Auscultation: clear to auscultation bilaterally Cardio Rate: regular rate Rhythm: regular rhythm Heart sounds: S1 normal heart sound present and S2 normal heart sound present GI Palpation (GI): Soft to palpation and nontender Auscultation: normoactive bowel sounds Other: pelvic exam chaperoned by BEE Poe General: Yes no CVA tenderness Speculum Exam - Vagina: erythematous Speculum Exam - Cervix: normal appearance of the cervix and Abnormal cervical discharge present yellow and white Back/Spine/Pelvis Back: no CVA tenderness Skin General skin exam: elasticity normal and turgor normal Neuro General: oriented to person, oriented to place, oriented to time, patient oriented x3, moves all extremities, no focal motor deficits and CN's II-XI intact bilaterally Cranial nerves: Yes Equal, round and reactive pupils present Cognition (Neuro): normal cognition Extrem General: Yes full ROM, Yes no pedal edema and Yes no calf tenderness Psych Mental Status: mental status grossly normal Affect: normal affect Thought process: Normal thought process present Course Course Course Narrative: RME performed by Sonam Rodrigez PA-C. Patient is a 78 year old assigned female at with a history of DM presenting to the emergency department with vaginal burning / pain and pain with urination as well as vaginal itching. Detailed physical exam and review of systems are deferred to the ruby on rails consultant. Labs ordered. Patient placed back in the waiting room pending room availability and results. Medical Decision Making Medical Decision Making [facility] Narrative: Patient is a 78-year-old female with history of DM, depression, paroxysmal a flutter, RBBB presenting to the ED with complaint of dysuria and vaginal burning for the past 3 weeks. On exam patient is awake, A+Ox3, VS WNL, afebrile, normal neurological exam without focal deficits, physical exam findings as above. Given reported symptoms and physical exam findings, initial differential includes but is not limited to UTI, vulvovaginal candidiasis, BV. UA without evidence of infection. Pelvic exam findings consistent with vulvovaginal candidiasis, will treat empirically while panel is pending. Plan discussed with patient who is agreeable. Return precautions discussed. Follow up with PCP as needed. Patient verbalized understanding of and agreement with plan. Differential Diagnosis Differential Diagnoses: The differential diagnosis associated with the presentation includes As per [facility] Admission/Observation Consideration of admission/observation: Escalation of care including admission/observation considered Patient would have been admitted to the hospital had their clinical presentation warranted hospital admission. Lab Data [facility] Lab Attestation statement: I reviewed the patient's lab results. as per [facility] Labs: Lab Results 12/03/24 Range/Units 15:15 Urine Color Yellow Urine Appearance Clear Urine pH 7.0 (5.0-9.0) Ur Specific [place] 1.025 (1.005-1.025) Urine Protein Negative (Neg-Trace) mg/dL Urine Glucose (UA) >=1000 H (Negative) mg/dL Urine Ketones Negative (Negative) mg/dL Urine Blood Negative (Negative) Urine Nitrite Negative (Negative) Ur Leukocyte Esterase Negative (Negative) Urine RBC 0-2 (0-2) /HPF Urine WBC 0-5 (0-5) /HPF Ur Squamous Epith Cells 0-2 (0-2) /HPF Urine Bacteria None Seen (None Seen) Hyaline Casts 0-2 (0-2) /LPF External Record Review External record reviewed: Inpatient record, Office record and Outpatient record Prescription Management I considered prescription management with: Other Discharge Plan Discharge Clinical Impression: Vulvovaginal candidiasis Patient Disposition: Home, Self-Care Instructions: Yeast Infection (ED) Additional Instructions: You were evaluated in the emergency department today for urinary symptoms. Your urinalysis did not show evidence of infection. You are being treated for a vaginal yeast infection. Complete the full course of medication as prescribed. You will be contacted with any other positive results. Follow up with your primary care provider. Return to the emergency department with any new or co ncerning symptoms. Prescriptions: New miconazole nitrate 1,200-2 mg-% kit See Rx Instructions .ROUTE .COMPLEX Qty: 1 0RF Rx Instructions: place 1 insert into vagina at bedtime day 1;apply cream to area outside vagina twice daily for up to 7 days No Action Eliquis 5 mg tablet 5 mg PO BID Qty: 180 3RF atenolol 25 mg tablet 25 mg PO DAILY Qty: 90 3RF amlodipine 5 mg tablet 5 mg PO DAILY Qty: 90 3RF cholecalciferol (vitamin D3) 25 mcg (1,000 unit) Tablet 25 mcg PO DAILY lithium carbonate 450 mg tablet extended release 300 mg PO BEDTIME atorvastatin 20 mg tablet 20 mg PO BEDTIME metformin 500 mg tablet 500 mg PO DAILY Jardiance 10 mg tablet 10 mg PO DAILY Interventions: ED Discharge Assessment Last Done: 12/03/24 18:10 Print Language: Ukrainian
[2024-12-03 15:22] LABS: Appearance Urine Clear; Glucose Urine UA >=1000 mg/dL (Negative); PH 7.0 (5.0-9.0); Specific Gravity - Urine 1.025 (1.005-1.025); UMIC TRIGGER UACC YES
--- OUTSIDE RECORDS SUMMARY | 2024-12-03 15:34 | XMS_ITS | Clinical Summary ---
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
--- OUTSIDE RECORDS SUMMARY | 2024-12-03 15:35 | XMS_ITS | Clinical Summary ---
Author Organization [facility] Address [address] [place] [address] Phone Care Team Providers Care Black Pickler Name Role Phone Darian Rivera MD Primary Care Provider [phone] Allergies Active Allergy Reactions Criticality Noted Date [...] Devices Not on file Insurance MEDICARE RE[place] [address] MEDICARE REPLACEMENT MEDICARE REPLACEMENT MEDICARE REPLACEMENT MEDICARE RE[place] [address] MEDICARE REPLACEMENT Care Teams Black Pickler Relationship Specialty Start Date End Date Darian Rivera MD [address] [place] [address] [place] [address] PCP - General 11/04/23 Additional Source Comments The information contained in this document represents components of the legal health record. It is not the complete legal health record.[facility]
[2024-12-03 18:08] VITALS: BP 167/72; PULSE 111; RESP 14; O2SAT 97
[2024-12-03 18:10] VITALS: BP 167/72; PULSE 111; RESP 14; TEMP 36.8; O2SAT 97
[2024-12-04 02:17] LABS: Bacterial Vaginosis PCR NEGATIVE (Negative); Candida Group PCR NOT DETECTED (Not Detect); Candida glab krusei PCR NOT DETECTED (Not Detect); Trichomonas vaginalis PCR NOT DETECTED (Not Detect)
== END 2024-12-03 18:13 | disposition home or self-care (01) ==
PROVIDERS: Physician Assistant Medical; Registered Nurse Emergency; Emergency Provider Emergency Medicine Emergency Medical Services
DX: B37.31 Acute candidiasis of vulva and vagina (principal); R30.0 Dysuria
CPT/HCPCS: 81001; 81515; 99283

== ENCOUNTER → 2024-12-08 12:55 | Outpatient (BNVA) | payer MEDICARE, SELFPAY | PROVIDERS: PCP Family Medicine; Visit Provider Internal Medicine Endocrinology, Diabetes & Metabolism | DX: E11.65 Type 2 diabetes mellitus with hyperglycemia (principal); Z83.3 Family history of diabetes mellitus; Z79.4 Long term (current) use of insulin; Z79.84 Long term (current) use of oral hypoglycemic drugs | CPT/HCPCS: 82947; 96372; 99202; J1815 ==

== ENCOUNTER → 2024-12-08 12:55 | Outpatient (AMB) | payer MEDICARE, SELFPAY ==
[2024-12-08 13:02] VITALS: BP 126/62; PULSE 97; O2SAT 96; BMI 22.2
--- NOTE | 2024-12-08 13:02 | A.OFFVIS_ITS ---
<Statement entered by Mary Seaman RN - 12/08/24 15:26> Insulin/Incretin?Mimetic?Education visit Patient Education: Patient was instructed and provided with demonstration of the following: Insulin action and Incretin Mimetics medication storage how to set up medication pen/or syringe and vial Handwashing insulin injection site rotation Site rotation recognizing hypertrophy Testing blood glucose Removing and disposing needle from insulin pen Safe disposal of sharps Target blood sugar Signs/ symptoms/treatment of hypoglycemia/hyperglycemia expiration of open insulin pen Patient verbalized understanding of education provided and was able to demonstrate proper use of inject into injection pillow Reviewed rule of 15s to treat glucose under 70 mg/dL All questions were answered and patient was advised to contact the office with any questions or concerns. Portions of this note were created using voice recognition software, please excuse any words or phrases that may have been misinterpreted. CGM Teaching Patient at visit to set up an insert for Rosa 3+ sensor and reader Instructed patient sensors water proof you can shower, or swim do not submerge sensor in water for over 30 minutes Is sensor falls off cannot put back in you need to replace sensor, customer service number given to patient for sensor replacement Sensor placed on the left upper arm Patient left visit with sensor in warmup Reviewed how to interpret trend arrows Discussed lag time between finger stick and sensor data.? Instructed patient the importance of having blood glucometer for backup testing if needed Reviewed delay of CGM from fingersticks Reminded Pt that if symptoms do not match sensor still needs to check fingersticks. Portions of this note were created using voice recognition software, please excuse any words or phrases that may have been misinterpreted. Patient instruction: CGM provides information on blood glucose control throughout the day, including hyperglycemia and hypoglycemia. ? Continue to monitor blood glucose as instructed. Follow nutrition guidelines provided. Report any discomfort promptly to health care provider. ?Stay well-hydrated. You can bathe ,shower, swim and exercise while wearing the glucose sensor. Do not submerge glucose sensor in water for more than 30 minutes. Vital Signs 12/08/24 13:02 Height 5 ft 2 in Weight 121 lb 4.068 oz BMI 22.2 BP 126/62 Blood Pressure Location Rt brachial Position Sitting Pulse 97 Pulse Source Pulse Oximeter Pulse Oximetry (%) 96 Oxygen Delivery Method Room Air Intake Visit Reasons: NEW Patient for Diabetes Type 2, A1c 14.0% Intake Note: New patient referred by Dr. Rivera for Diabetes Mellitus management. Last Diabetic Eye exam: Last Podiatry Visit: Random Glucose: 423 mg/dL, Re-checked random glucose: 283 mg/dL Most Recent HgA1C: >14.0% 10/18/2024 Card Scraper Required: No Accompanied by: Daughter Allergies influenza virus vaccine, specific (FLU VACCINE) Allergy (Intermediate, Verified 12/08/24 13:10) STIFFNESS,LIMITED FUNCTION AFFECTED ARM/HAND ibuprofen Allergy (Mild, Verified 12/08/24 13:12) Itching empagliflozin (From Jardiance) Adverse Reaction (Verified 12/08/24 13:20) Hallucinations Medication List - Last Reconciled 12/08/24 by Harvinder Greene MD amlodipine 5 mg PO DAILY apixaban (Eliquis) 5 mg PO BID atenolol 25 mg PO DAILY atorvastatin 20 mg PO BEDTIME cholecalciferol (vitamin D3) 25 mcg PO DAILY empagliflozin (Jardiance) 10 mg PO DAILY lithium carbonate ER 300 mg PO BEDTIME metformin 500 mg PO DAILY miconazole nitrate place 1 insert into vagina at bedtime day 1;apply cream to area outside vagina twice daily for up to 7 days HPI Comments Details: 78 YO F who is seen in consultation for T2DM at the request of PCP. Initially diagnosed with T2DM in 5 yrs ago . Was initially started on treatment with diet . Current regimen metformin 500 mg in AM and 1000 mg in PM Jardiance 10 mg QD not taking . Unfortunately, patient did not bring log book, glucometer or sensor to appoin tment Most recent A1C >14 , on 10/18/24 Family history of T2DM in brother Type 2 DM . Uncles had Type 2 DM Has eyes checked yearly, last eye exam yr ago , denies retinopathy. Denies neuropathy, not , sees podiatry. Denies nephropathy, Not on TIERRA/ARB. Has HLD, on [statin]. Last LDL [] as measured on []. Denies CAD. Not Had diabetes education. [facility] Medical History Fall Atrophic gastritis Encounter for monitoring anti-arrhythmic therapy Iron deficiency anemia Hypertension Diabetes mellitus Depression New onset atrial flutter Breast calcification, right Surgical History History of esophagogastroduodenoscopy (EGD) Hx of colonoscopy History of section History of cholecystectomy Family History Father Depression Social History Household Members: None Housing: Apartment Do you presently have visiting nurse or other home services: No Alcohol intake: former Patient Tobacco Use Status: Never used Tobacco Advance Directives Date on File: 11/12/22 service: No Current occupational status: retired Female Reproductive History Menstrual Age of Menarche: 12 Physical Exam Vital Signs: Last Vital Signs Pulse 97 12/08/24 13:02 BP 126/62 12/08/24 13:02 Pulse Ox 96 12/08/24 13:02 Oxygen Delivery Method Room Air 12/08/24 13:02 BMI result Body Mass Index 22.2 Absence of Cushingoid features. Absence of acromegalic features. Neck exam reveals nl size thyroid about 15 gms. No thyroid nodules palpable. No carotid bruits present. Lungs CTA. Heart S1 S2, Reg R/R. No M/R/ G. Skin exam reveals absence of vitiligo or acanthosis nigricans. Abdominal exam reveals Soft NT/ND with NA BS. No organomegaly present. Neck Other: . Extrem Other: Visual exam of foot performed. No ulcerations or open lesions. No onchomycosis, no callouses.Pulses 2 + distally Sensation intact to monofilament exam. Vibratory sensation sensed is intact with 128 Hz tuning fork Office Meds Humalog U-100 Insulin 100 unit/mL subcutaneous solution Performing Provider: Harvinder Greene MD [place] [facility] [place] Administered by: Mary Seaman RN on 12/08/24 13:30 Dose Route Admin Location Dispensed Lot Number Expiration Date [facility] Hand Spring Repairer 10 unit subcut right upper arm 0.1 mL [id number] 04/08/25 0088-3789-49 [employer] Total Dispensed Waste 0.1 mL 0 % Comments: Patient agreeable to be given insulin subcutaneously. Dr. Greene ordered 10 units if insulin lispro, given with patient permission. Verified visually dosage once drawn up in insulin syringe with Dr. Greene and Jaquelin GAMBOA. Patient advised will need to stay for one hour per protocol. Patient tolerated injection well and given water, advised to push fluids. Advised Ashvin BAE that insulin was given at 1:30 and to recheck blood glucose level in one hour. Results Reviewed Results Reviewed: Laboratory Last Values Glucose (Clinic) 283 mg/dL (60-115) H 12/08/24 14:35 Assessment & Plan Assessment & Plan (1) Diabetes mellitus: Code(s): E11.9 - Type 2 diabetes mellitus without complications Category: Medical Plan: This is a 78-year-old white female with a history of type 2 diabetes being treated with metformin and Jardiance with poor glycemic control and no known microvascular macrovascular complications. Point of care today is greater than 400. We will talk to patient about getting lispro today. Gave 10 units of Lispro . Initiated 10 units of Lantus insulin to be started tonight . Insulin administration was talked to the patient about nurse and she will have a follow up next week with a shoe laster. We will also have her see a elevated work platform operator. Went over the correlation of poor glycemic control the development of progression of complications with the patient at length. Lastly, we will check anti-antony 65 antibodies to rule out MISAEL Orders: Orders Glutamic acid decarboxylase Ab Today E11.9 - Type 2 diabetes mellitus without complications AMB Insulin Lispro Injection Practice Supplied Today E11.9 - Type 2 diabetes mellitus without complications AMB Patient Education/Training Session Today E11.9 - Type 2 diabetes mellitus without complications Referrals Diabetes Education Referral E11.9 - Type 2 diabetes mellitus without complications Medications: New pen needle, diabetic (Comfort EZ Pen [place]) As directed 100 ea 4RF blood-glucose meter (FreeStyle Hugo Lite kit) As directed 1 ea 0RF insulin glargine (Lantus Solostar U-100 Insulin) 10 units (0.1 mL) subcut QPM 15 mL 5RF blood-glucose sensor (FreeStyle Rosa 3 Plus Sensor device) As directed change every 14 days 2 ea 5RF blood sugar diagnostic (FreeStyle Lite Strips) As directed checks 4 x/day 100 ea 5RF blood-glucose,solar photovoltaic designer,cont (FreeStyle Rosa 3 [place]) As directed 1 ea 0RF Coding Level of Care Code New Pt Level 5 (94734) Diagnoses Diabetes mellitus E11.9
[2024-12-08 13:17] LABS: Glucose, Whole Blood 423 mg/dL (60-115)
--- OUTSIDE RECORDS SUMMARY | 2024-12-08 13:26 | XMS_ITS ---
Author Organization [facility] Care Team Providers Care Applier Name Role Phone Elder, Gary Unavailable Unavailable Ana Laura Savage Unavailable Unavailable Allergies and adverse reactions Code CodeSystem Substance Reaction Severity StartDate Concern Status 1017206 RXNORM Influenza Vaccine Live Unknown 3 active Care Team Name Role Address Phone Organization Dates Gary Elder PCP [address], [address], [place] (Office): [phone] (Fax): [phone] [facility] 11/11/2022 - 11/20/2022 Ana Laura Savage [address] [facility] [address], [place], [place], [address], [place] (Office): [facility] 11/11/2022 - 11/20/2022 Mental Status Section Date Assessment Total Score Description 11/20/2022 BIMS 15 cognitively int act CAM 0 No delirium ind icated PHQ-9 05 mild depression 11/18/2022 BIMS 15 cognitively int act CAM 0 No delirium ind icated PHQ-9 08 mild depression Problems Problem # Description Date of onset Resolved Date Code CodeSystem Concern Status 1 ACUTE KIDNEY FAILURE WITH TUBULAR NECROSIS [address] active 2 ACUTE KIDNEY FAILURE, UNSPECIFIED [address] active 3 BIPOLAR DISORDER, UNSPECIFIED [address] active 4 CHRONIC ATROPHIC GASTRITIS WITHOUT BLEEDING [address] active 5 CHRONIC METABOLIC ACIDOSIS [address] active 6 CONTUSION OF LEFT KNEE, SUBSEQUENT ENCOUNTER [address] active 7 EFFUSION, LEFT KNEE [address] active 8 ESSENTIAL (PRIMARY) HYPERTENSION [address] active 9 HYPERLIPIDEMIA, UNSPECIFIED [address] active 10 [address]KALEMIA [address] active 11 IRON DEFICIENCY ANEMIA, UNSPECIFIED [address] active 12 MAJOR DEPRESSIVE DISORDER, SINGLE EPISODE, UNSPECIFIED [address] active 13 MAMMOGRAPHIC CALCIFICATION FOUND ON DIAGNOSTIC IMAGING OF BREAST [address] active 14 PAROXYSMAL ATRIAL FIBRILLATION [address] active 15 TYPE 2 DIABETES MELLITUS WITHOUT COMPLICATIONS [address] active 16 UNSPECIFIED ATRIAL FLUTTER [address] active 17 UNSPECIFIED FALL, SUBSEQUENT ENCOUNTER [address] active 18 VITAMIN D DEFICIENCY, UNSPECIFIED [address] active Reason for Referral No Reasons for Referral Entered Social History Social History Observation Description Start Date End Date Code Code System Current Smoking Status Tobacco smoking consumption unknown 576980300 SNOMED CT Sex Assigned At Female 1945 63143-6 [facility] Gender Identity Vital Signs Code Code System Vitals Name Values and Units Timing Information 2339-0 [facility] Blood Sugar Vqfyd=557.0 Units=mg/dL 11/20/2022 67379-5 [facility] Pain Level Value=0.0 11/20/2022 9279-1 [facility] Respiratory Rate Value=18.0 Units=/m in 11/16/2022 8462-4 [facility] Blood Pressure-Diastolic Value=68 Un its=mmHg 11/16/2022 8480-6 [facility] Blood Pressure-Systolic Golir=916 Un its=mmHg 11/16/2022 8310-5 [facility] Body Temperature Value=97.4 Units= F 11/16/2022 8867-4 [facility] Heart rate Value=70.0 Units=/min 98673-5 [facility] O2 % dC Oximetry Value=96.0 Units= % 11/16/2022 8302-2 [facility] Height Value=63.0 Units=Inches 11/11/2022 71289-0 [facility] Weight Vcdwp=252.2 Units=Lbs
--- OUTSIDE RECORDS SUMMARY | 2024-12-08 13:26 | XMS_ITS | Clinical Summary ---
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
--- OUTSIDE RECORDS SUMMARY | 2024-12-08 13:27 | XMS_ITS | Clinical Summary ---
Author Organization [facility] Address [address] [facility] [address] [place] [address] Phone Care Team Providers Care School Bus Inspector Name Role Phone Darian Rivera MD Primary Care Provider [phone] Allergies Active Allergy Reactions Criticality Noted Date [...] Devices Not on file Insurance MEDICARE [place] [address] [place] [address] MEDICARE REPLACEMENT MEDICARE REPLACEMENT MEDICARE REPLACEMENT MEDIC[place] [address] [place] [address] MEDICARE REPLACEMENT Care Teams School Bus Inspector Relationship Specialty Start Date End Date Darian Rivera MD [address] [place] [address] [place] [address] PCP - General 11/04/23 Additional Source Comments The information contained in this document represents components of the legal health record. It is not the complete legal health record.[facility]
[2024-12-08 14:39] LABS: Glucose, Whole Blood 283 mg/dL (60-115)
== END ==
LOC: HO.ENCR 12:55
PROVIDERS: PCP Family Medicine; Visit Provider Internal Medicine Endocrinology, Diabetes & Metabolism
DX: E11.65 Type 2 diabetes mellitus with hyperglycemia (principal); Z79.4 Long term (current) use of insulin
CPT/HCPCS: 99204

== ENCOUNTER 2024-12-20 09:38 | Outpatient (AMB) | payer MEDICARE, SELFPAY ==
--- OUTSIDE RECORDS SUMMARY | 2024-12-20 10:28 | XMS_ITS | Clinical Summary ---
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
--- NOTE | 2024-12-20 10:47 | A.OFFVIS_ITS ---
Intake Intake Visit Reasons: Type 2 DM Payroll Tax Analyst Required: No Accompanied by: Self / Same As Patient Allergies influenza virus vaccine, specific (FLU VACCINE) Allergy (Intermediate, Verified 12/08/24 13:10) STIFFNESS,LIMITED FUNCTION AFFECTED ARM/HAND ibuprofen Allergy (Mild, Verified 12/08/24 13:12) Itching empagliflozin (From Jardiance) Adverse Reaction (Verified 12/08/24 13:20) Hallucinations [facility] Medical History Fall Atrophic gastritis Encounter for monitoring anti-arrhythmic therapy Iron deficiency anemia Hypertension Diabetes mellitus Depression New onset atrial flutter Breast calcification, right Surgical History History of esophagogastroduodenoscopy (EGD) Hx of colonoscopy History of section History of cholecystectomy Family History Father Depression Social History Household Members: None Housing: Apartment Do you presently have visiting nurse or other home services: No Alcohol intake: former Patient Tobacco Use Status: Never used Tobacco Advance Directives Date on File: 11/12/22 service: No Current occupational status: retired Female Reproductive History Menstrual Age of Menarche: 12 Assessment & Plan Assessment & Plan (1) Diabetes mellitus: Code(s): E11.9 - Type 2 diabetes mellitus without complications Plan: Plan CGM Teaching Patient at visit to insert Rosa 3+ sensor. Instructed patient sensors water proof you can shower, or swim do not submerge sensor in water for over 30 minutes Is sensor falls off cannot put back in you need to replace sensor, customer service number given to patient for sensor replacement Sensor placed on the right upper arm. Patient left visit with sensor in warmup. Reviewed how to interpret trend arrows Discussed lag time between finger stick and sensor data.? Instructed patient the importance of having blood glucometer for backup testing if needed Reviewed delay of CGM from fingersticks Reminded Pt that if symptoms do not match sensor still needs to check fingersticks. Introduction to Nutrition Importance of healthy diet in managing DM Diet is personalized to individual preference Review patient?s regular diet/food preferences How diet effects glucose Eating 3 balanced meals a day with small, healthy snacks between meals Review food groups Carbohydrates: What is a carbohydrate/Which food/food groups are considered carbohydrates Effect of carbohydrates on blood glucose Portion sizes Plate method Meal planning Recommendations: Follow plate method, consistent carbs and read nutritional labels. Smart Goal: Patient will be able to identify what foods she eats that contain carbohydrates. Insulin/Incretin?Mimetic?Education visit Patient Education: Reviewed with patient was instructed and provided with demonstration of the following: Insulin action and Incretin Mimetics Medication storage How to set up medication pen/or syringe and vial Insulin injection site rotation Site rotation Testing blood glucose Removing and disposing needle from insulin pen Safe disposal of sharps Target blood sugar Expiration of open insulin pen Patient showed us how she has been injecting Insulin Glargine. Patient very needle phobic and having a difficult time self injecting. Patient wanted to inject into her forearm so that she was able to see better. Reviewed the above with patient and patient was able to demonstrate after review how to properly inject into right lower abdomen. Patient also stating she is injecting 115 units, has patient dial the insulin pen to what she has been taking which was correct at 15 units. Patient aware that her dosing is 15 units. Patient is interested in the BD ernesto shield moving forward. Message sent to provider to send to pharmacy. Patient verbalized understanding of education provided and was able to demonstrate proper use of inject into injection pillow. All questions were answered and patient was advised to contact the office with any questions or concerns. Patient Instructions: Follow up in 15 days for review of CGM data. Coding Level of Care Code Est Pt Level 1 (12507) Diagnoses Diabetes mellitus E11.9
== END 2024-12-20 10:49 | disposition home or self-care (01) ==
LOC: HO.ENCR 09:39
PROVIDERS: PCP Family Medicine; Visit Provider Registered Nurse Diabetes Educator
DX: E11.9 Type 2 diabetes mellitus without complications (principal)

== ENCOUNTER → 2024-12-20 09:38 | Outpatient (BNVA) | payer MEDICARE, SELFPAY | PROVIDERS: PCP Family Medicine; Visit Provider Registered Nurse Diabetes Educator | DX: E11.9 Type 2 diabetes mellitus without complications (principal); Z79.4 Long term (current) use of insulin | CPT/HCPCS: 99211 ==

== ENCOUNTER 2024-12-22 13:29 | Outpatient (REF) | payer MEDICARE, SELFPAY ==
[2024-12-22 15:27] LABS: Alanine Aminotransferase 14 U/L (0-31); Albumin Level 4.1 g/dL (3.5-5.0); Alkaline Phosphatase 84 U/L (39-117); Anion Gap 10 (12-20); Aspartate Amino Transferase 22 U/L (5-31); Blood Urea Nitrogen 17 mg/dL (9-16); Calcium 9.9 mg/dL (8.4-10.2); Carbon Dioxide 26 mmol/L (22-29); Chloride 103 mmol/L (96-108); Cholesterol 175 mg/dL (<200); Estimated Glomerular Filt Rate 52; HDL Cholesterol 32 mg/dL (>40); Potassium 4.1 mmol/L (3.3-5.1); Sodium 135 mmol/L (135-145); Total Protein 7.5 g/dL (6.5-8.0); Triglycerides 154 mg/dL (<150)
[2024-12-22 15:32] LABS: Lithium 0.40 mmol/L (0.60-1.20)
[2024-12-22 16:50] LABS: Microalbum/Creatinine Ratio Ur 24.4 ug/mg cr (<30)
== END 2024-12-22 13:30 | disposition home or self-care (01) ==
LOC: HO.LAB 13:29
PROVIDERS: Absent Provider Internal Medicine Endocrinology, Diabetes & Metabolism; PCP Physician Assistant; Visit Provider Physician Assistant
DX: E11.9 Type 2 diabetes mellitus without complications (principal); I10 Essential (primary) hypertension; F32.A Depression, unspecified; I48.92 Unspecified atrial flutter; Z79.899 Other long term (current) drug therapy
CPT/HCPCS: 36415; 80048; 80061; 80076; 80178; 82043; 82570; 83036; 86341; 96127; 99202

== ENCOUNTER 2024-12-22 13:29 | Outpatient (AMB) | payer MEDICARE, SELFPAY ==
--- NOTE | 2024-12-22 13:41 | A.OFFPC_ITS ---
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: No Accompanied by: Friend Allergies influenza virus vaccine, specific (FLU VACCINE) Allergy (Intermediate, Verified 12/22/24 13:46) STIFFNESS,LIMITED FUNCTION AFFECTED ARM/HAND ibuprofen Allergy (Mild, Verified 12/22/24 13:46) Itching empagliflozin (From Jardiance) Adverse Reaction (Verified 12/22/24 13:46) Hallucinations Tobacco use date assessed: 12/22/24 Fall risk assessment: 2 + Falls in past year Last assessed Fall Risk: 12/22/24 Dental Screening Dental Screen Date: 12/22/24 Did you have a dental visit in the last 12 months?: Yes Did you have a dental problem in the last 6 months where you did not have access to dental care?: No Was dental information given to patient?: No HPI HPI Comments History of Present Illness Details 78-year-old female with history of type 2 diabetes, hypertension, hypothyroidism, essential tremor, hypercholesterolemia, atrial flutter, iron- deficiency anemia, depression presents to the office today for management of chronic conditions and to establish care. Here with friend and therapist, Hailey. Paroxysmal atrial flutter-on Eliquis for anticoagulation. Also taking atenolol. Following with Dr. Elam cardiology Hypertension-on amlodipine 5 mg, atenolol 25 mg daily. Blood pressure in the office Type 2 diabetes-last hemoglobin A1c greater than 14.0%. She is prescribed 15 units of Basaglar as well as 500 mg of metformin daily and Jardiance 10 mg daily. Following with Endocrine. Glucose levels have improved to around 270, highest CKD- Dr. Nair- fell on side injuring kidney, but kidney injury resolved per pt. Depression-question bipolar disorder. On lithium 300 mg at bedtime. Following with Psychiatry- Dr. Wade. No SI/HI Concerns: None Health maintenance: Last screening mammogram 10/2023, 1 year follow-up advised No longer undergoing screening colonoscopies ROS: General: No fevers, malaise, unintentional weight loss HEENT: No blurred vision, diplopia. No sore throat, nasal congestion, rhinorrhea, sinus pain, ear pain Cardiovascular: No chest pain, palpitations, or leg edema Respiratory: No shortness of breath, wheezing, cough GI: No abdominal pain, nausea, vomiting, diarrhea, constipation, melena, hematochezia : No dysuria, hematuria, increased urinary frequency, decreased urinary output MSK: No myalgia, back pain Neuro: No headaches, weakness, paresthesias Skin: No rashes or lesions EXAM: Constitutional - Awake and Alert, No apparent distress Eyes - PERRL Cardiovascular - S1S2, RRR, No edema Respiratory - Normal lung expansion, Normal respiratory effort, No respiratory distress, CTA bilaterally Extremities - no calf tenderness bilaterally, no swelling Skin - Warm/Dry Neurological - Alert & oriented x3 Psychological - Appropriate affect [facility] Medical History Hypertension Fall Atrophic gastritis Encounter for monitoring anti-arrhythmic therapy Iron deficiency anemia Diabetes mellitus Depression New onset atrial flutter Breast calcification, right Surgical History History of esophagogastroduodenoscopy (EGD) Hx of colonoscopy (~11/22/21) History of section History of cholecystectomy Family History Father Depression Social History Household Members: None Housing: Apartment Do you presently have visiting nurse or other home services: No Alcohol intake: former Patient Tobacco Use Status: Never used Tobacco e-Cigarette/Vaping Use: Never Used Advance Directives Date on File: 11/12/22 service: No Current occupational status: retired Cognitive needs: Yes (walker/walking stick PRN) Hearing needs: No Vision needs: Yes (Reading glasses) Female Reproductive History Menstrual Age of Menarche: 12 Questionnaire PHQ-9 Over the last 2 weeks, how often have you been bothered by any of the following problems? 1. Little interest or pleasure in doing things: several days 2. Feeling down, depressed, or hopeless: not at all 3. Trouble falling or staying asleep, or sleeping too much: several days 4. Feeling tired or having little energy: more than half the days 5. Poor appetite or overeating: not at all 6. Feeling bad about yourself - or that you are a failure or have let yourself or your family down: several days 7. Trouble concentrating on things, such as reading the newspaper or watching television: several days 8. Moving or speaking so slowly that other people could have noticed. Or the opposite - being so fidgety or restless that you have been moving around a lot more than usual: not at all 9. Thoughts that you would be better off or of hurting yourself in some way: not at all Total score: 6 Depression Screening Interpretation: Positive Depression Screening Done: Yes 27288 - PHQ-9 Billing: Yes Source: Developed by Drs. Harvinder Perry, Radha Tristan, Deniz Kenyon and colleagues, with an educational pato from [employer]. Thrive Questionnaire Date Thrive assessed: 12/22/24 I am a: Patient What is your living situation today?: I have a steady place to live Within the past 12 months, did the food you bought not last and you didn't have the money to get more?: Never true Within the past 12 months, did you worry whether your food would run out before you got money to buy more?: Never true Do you have trouble paying for medicines?: No Do you have trouble getting transportation to medical appointments?: No Do you have trouble paying your heating and electricity bill?: No Do you have trouble taking care of your child, family member or friend?: No Do you have trouble with day-to-day activities such as bathing, preparing meals, shopping, managing finances, etc.?: No Are you currently unemployed and looking for a job?: No Are you interested in more education?: No Please select the resources that you would like help with: None THRIVE Score: 0 JUDITH-7 AMB Questionnaire JUDITH-7 Date JUDITH - 7 assessed: 12/22/24 Feeling nervous, anxious, or on edge: 1 = Several days Not being able to stop or control worryin = Several days Worrying too much about different things: 1 = Several days Trouble relaxin = Not at all Being so restless that it is hard to sit still: 0 = Not at all Becoming easily annoyed or irritable: 0 = Not at all Feeling afraid as if something awful might happen: 0 = Not at all Total JUDITH-7 score (0-4 normal; 5-9 mild; 10-14 moderate; 15-21 severe): 3 Source: Developed by Drs. Harvinder Perry, Radha Tristan, Deniz Kenyon and colleagues, with an educational pato from [employer]. JUDITH-7 Assessment Billing JUDITH-7 Assessment Tool: JUDITH-7 Assessment 87439 Physical exam (Primary Care) Vital Signs: Last Vital Signs Temp 97.7 F 12/22/24 13:50 Pulse 63 12/22/24 13:50 Resp 14 12/22/24 13:50 BP 122/50 L 12/22/24 13:50 Pulse Ox 97 12/22/24 13:50 BMI result Body Mass Index 31.9 Tobacco/Smoking Status: Tobacco use Status Patient Tobacco Use Status Never used Tobacco 12/22/24 13:49 Depression Screening Interpretation: Positive Thrive Assessment: Date of Thrive Assessment Date Thrive assessed 11/06/22 12/22/24 13:49 Coding Level of Care Code New Pt Level 4 (57450) Complex EM visit Add On G2211 Diagnoses Paroxysmal atrial flutter I48.92 Depression F32.A Diabetes mellitus E11.9 HLD (hyperlipidemia) E78.5 Primary hypertension I10 Hypertension type: primary hypertension Additional Codes JUDITH-7 Assessment Billing - JUDITH-7 Assessment Tool: JUDITH-7 Assessment 81551 ([id number]) PHQ-9 - 02054 - PHQ-9 Billing: Yes ([id number]) Assessment & Plan Assessment & Plan (1) Paroxysmal atrial flutter: Code(s): I48.92 - Unspecified atrial flutter Category: Medical Plan: Rate controlled. Continue Eliquis for anticoagulation as well as atenolol for rate control. Follow-up with cardiology as scheduled, most recent note reviewed (2) Depression: Code(s): F32.A - Depression, unspecified Category: Medical Plan: Stable. Continue lithium 300 mg at bedtime. Check lithium level today. Follow up with psychiatry (3) Diabetes mellitus: Code(s): E11.9 - Type 2 diabetes mellitus without complications Category: Medical Plan: Very uncontrolled. Hemoglobin A1c ordered. Continue Basaglar 15 units daily, metformin 500 mg daily, Jardiance 10 mg daily. Follow-up with endocrinology as scheduled, most recent note reviewed. Annual eye exams and foot exams. Check microalbumin (4) HLD (hyperlipidemia): Code(s): E78.5 - Hyperlipidemia, unspecified Category: Medical Plan: Lipid panel ordered. Continue atorvastatin. (5) Hypertension: Code(s): I10 - Essential (primary) hypertension Category: Medical Qualifiers: Hypertension type: primary hypertension Qualified Code(s): I10 - Essential (primary) hypertension Plan: Controlled. Continue amlodipine 5 mg daily and atenolol 25 mg daily. Low- sodium diet Plan Follow-up in the office in 4 months. Follow-up with endocrinology as discussed. Labs to be completed following visit today. Orders: Orders Basic Metabolic Panel Today E11.9 - Type 2 diabetes mellitus without complications, F32.A - Depression, unspecified, I48.92 - Unspecified atrial flutter Hemoglobin A1c Today E11.9 - Type 2 diabetes mellitus without complications, F32.A - Depression, unspecified, I48.92 - Unspecified atrial flutter Lipid Panel Today E11.9 - Type 2 diabetes mellitus without complications, F32.A - Depression, unspecified, I48.92 - Unspecified atrial flutter Liver Panel Today E11.9 - Type 2 diabetes mellitus without complications, F32.A - Depression, unspecified, I48.92 - Unspecified atrial flutter Microalbumin, Random (w Creat) Today E11.9 - Type 2 diabetes mellitus without complications, F32.A - Depression, unspecified, I48.92 - Unspecified atrial flutter Lind Today Z79.899 - Other terminal gauger (current) drug therapy
[2024-12-22 13:50] VITALS: BP 122/50; PULSE 63; RESP 14; TEMP 36.5; O2SAT 97; BMI 31.9
--- OUTSIDE RECORDS SUMMARY | 2024-12-22 14:21 | XMS_ITS | Clinical Summary ---
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
--- OUTSIDE RECORDS SUMMARY | 2024-12-22 14:21 | XMS_ITS | Clinical Summary ---
Author Organization [facility] Address [address] [facility] [address] [place] [address] Phone Care Team Providers Care Retort Engineer Name Role Phone Darian Rivera MD Primary Care Provider [phone] Allergies Active Allergy Reactions Criticality Noted Date [...] VACCINE (1 - 2023-2 5 season) 2023 INFLUENZA VACCINE (#1) 2024 HEPATITIS A VACCINES Aged Out No long [...] Devices Not on file Insurance MEDICARE REPLACEMENT MEDICARE REPLACEMENT MEDICARE REPLACEMENT MEDICARE REPLACEMENT MEDICARE REPLACEMENT [facility] MEDICARE REPLACEMENT Care Teams Retort Engineer Relationship Specialty Start Date End Date Darian Rivera MD [address] [place] [address] [place] [address] PCP - General 11/04/23 Additional Source Comments The information contained in this document represents components of the legal health record. It is not the complete legal health record.[facility]
== END 2024-12-22 14:10 | disposition home or self-care (01) ==
LOC: HO.HMCHD 13:30
PROVIDERS: PCP Family Medicine; Visit Provider Physician Assistant
DX: I48.92 Unspecified atrial flutter (principal); F32.A Depression, unspecified; E11.9 Type 2 diabetes mellitus without complications; E78.5 Hyperlipidemia, unspecified; I10 Essential (primary) hypertension

== ENCOUNTER 2025-01-12 13:16 | Outpatient (AMB) | payer MEDICARE, SELFPAY ==
--- NOTE | 2025-01-12 13:25 | MHC.OFFVIS ---
Vital Signs 01/12/25 13:26 Height 5 ft 2 in Weight 124 lb 12.506 oz BMI 22.8 BP 134/66 Blood Pressure Location Rt brachial Position Sitting Pulse 81 Pulse Source Pulse Oximeter Pulse Oximetry (%) 97 Oxygen Delivery Method Room Air Intake Visit Reasons: F/u Type 2 DM Intake Note: Patient present today to follow up on Type 2 Diabetes Mellitus. Last Diabetic Eye exam: approx in Jan 2024 Last Podiatry Visit: Does not see a Automotive Parts Specialist Random Glucose: 174 mg/dl Hgb A1C: 11.9% 12/22/2024 Maintenance Person Required: No Accompanied by: Self / Same As Patient Allergies influenza virus vaccine, specific (FLU VACCINE) Allergy (Intermediate, Verified 01/12/25 13:27) STIFFNESS,LIMITED FUNCTION AFFECTED ARM/HAND ibuprofen Allergy (Mild, Verified 01/12/25 13:27) Itching empagliflozin (From Jardiance) Adverse Reaction (Verified 01/12/25 13:27) Hallucinations Medication List - Last Reconciled 01/12/25 by Harvinder Greene MD amlodipine 5 mg PO DAILY apixaban (Eliquis) 5 mg PO BID atenolol 25 mg PO DAILY atorvastatin 20 mg PO BEDTIME blood sugar diagnostic (FreeStyle Lite Strips) As directed checks 4 x/day blood-glucose meter (FreeStyle Humptulips Lite kit) As directed blood-glucose sensor (FreeStyle Rosa 3 Plus Sensor device) As directed change every 14 days blood-glucose,steam trap man,cont (FreeStyle Rosa 3 [place]) As directed cholecalciferol (vitamin D3) 25 mcg PO DAILY insulin glargine (Basaglar KwikPen U-100 Insulin) 12 units (0.12 mL) subcut DAILY insulin lispro (Admelog SoloStar U-100 Insulin lispro) 1 sliding scale dose subcut USEASDIRECTD lithium carbonate ER 300 mg PO BEDTIME metformin 500 mg PO DAILY pen needle, diabetic (Comfort EZ Pen [place]) As directed injects once a day pen needle, diabetic, safety As directed inject once a day HPI Comments Details: 78 YO F who is seen in consultation for T2DM at the request of PCP. Initially diagnosed with T2DM in 5 yrs ago . Was initially started on treatment with diet . Current regimen metformin 500 mg in AM and 1000 mg in PM Jardiance 10 mg QD not taking . Lantus 12 units Ademalog 1-4 units before meals Sensor download shows she has using the sensor 97% of the time. Average glucose is 172 with G mi of 7.4% and variability 40.4%. 61% range with 39% hyperglycemia and no hypoglycemia. Trend is upward after breakfast and then downward after dinner we will continue downward trend overnight to 06:00 Most recent A1C >14 , on 10/18/24 Family history of T2DM in brother Type 2 DM . Uncles had Type 2 DM Has eyes checked yearly, last eye exam yr ago , denies retinopathy. Denies neuropathy, not , sees podiatry. Denies nephropathy, Not on TIERRA/ARB. Has HLD, on [statin]. Last LDL [] as measured on []. Denies CAD. Not Had diabetes education. [facility] Medical History Hypertension Fall Atrophic gastritis Encounter for monitoring anti-arrhythmic therapy Iron deficiency anemia Diabetes mellitus Depression New onset atrial flutter Breast calcification, right Surgical History History of esophagogastroduodenoscopy (EGD) Hx of colonoscopy (~11/22/21) History of section History of cholecystectomy Family History Father Depression Social History Household Members: None Housing: Apartment Do you presently have visiting nurse or other home services: No Alcohol intake: former Patient Tobacco Use Status: Never used Tobacco e-Cigarette/Vaping Use: Never Used Advance Directives Date on File: 11/12/22 service: No Current occupational status: retired Cognitive needs: Yes (walker/walking stick PRN) Hearing needs: No Vision needs: Yes (Reading glasses) Female Reproductive History Menstrual Age of Menarche: 12 Physical Exam Vital Signs: Last Vital Signs Pulse 81 01/12/25 13:26 BP 134/66 01/12/25 13:26 Pulse Ox 97 01/12/25 13:26 Oxygen Delivery Method Room Air 01/12/25 13:26 BMI result Body Mass Index 22.8 Absence of Cushingoid features. Absence of acromegalic features. Neck exam reveals nl size thyroid about 15 gms. No thyroid nodules palpable. No carotid bruits present. Lungs CTA. Heart S1 S2, Reg R/R. No M/R/ G. Skin exam reveals absence of vitiligo or acanthosis nigricans. Abdominal exam reveals Soft NT/ND with NA BS. No organomegaly present. Neck Other: . Extrem Other: Visual exam of foot performed. No ulcerations or open lesions. No onchomycosis, no callouses.Pulses 2 + distally Sensation intact to monofilament exam. Vibratory sensation sensed is intact with 128 Hz tuning fork Results Reviewed Results Reviewed: Laboratory Last Values Glucose (Clinic) 174 mg/dL (60-115) H 01/12/25 13:34 Assessment & Plan Assessment & Plan (1) Diabetes mellitus: Code(s): E11.9 - Type 2 diabetes mellitus without complications Category: Medical Plan: This is a 78-year-old white female with a history of type 2 diabetes being treated with metformin and basal-bolus insulin with fair but improving glycemic control and no known microvascular macrovascular complications. Plan is to decrease the Ademalog to a maximum of 3 units before dinner to avoid post-dinner trend towards hypoglycemia. We talked about the idea of it using an insulin pump such as iLet or tandem or Omnipod the patient is very interested in pursuing this I will discuss this with the health assessment and treatment teacher next couple of weeks Coding Level of Care Code Est Pt Level 4 (55377) Complex EM visit Add On G2211 Diagnoses Diabetes mellitus E11.9
[2025-01-12 13:26] VITALS: BP 134/66; PULSE 81; O2SAT 97; BMI 22.8
[2025-01-12 13:38] LABS: Glucose, Whole Blood 174 mg/dL (60-115)
--- OUTSIDE RECORDS SUMMARY | 2025-01-12 17:00 | XMS_ITS | Clinical Summary ---
Author Organization [facility] Address [address] [facility] [address] [place] [address] Phone Care Team Providers Care Healthcare Corporate Account Director Name Role Phone Darian Rivera MD Primary Care Provider [phone] Allergies Active Allergy Reactions Criticality Noted Date [...] REPLACEMENT MEDICARE REPLACEMENT MEDICARE REPLACEMENT MEDICARE REPLACEMENT [facility] MEDICARE REPLACEMENT Care Teams Healthcare Corporate Account Director Relationship Specialty Start Date End Date Darian Rivera MD [address] [place] [address] [place] [address] PCP - General 11/04/23 Additional Source Comments The information contained in this document represents components of the legal health record. It is not the complete legal health record.[facility]
--- OUTSIDE RECORDS SUMMARY | 2025-01-12 17:00 | XMS_ITS | Clinical Summary ---
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
== END 2025-01-12 14:07 | disposition home or self-care (01) ==
LOC: HO.ENCR 13:17
PROVIDERS: PCP Family Medicine; Visit Provider Internal Medicine Endocrinology, Diabetes & Metabolism
DX: E11.9 Type 2 diabetes mellitus without complications (principal)
CPT/HCPCS: 99214; G2211

== ENCOUNTER → 2025-01-12 13:16 | Outpatient (BNVA) | payer MEDICARE, SELFPAY | PROVIDERS: PCP Family Medicine; Visit Provider Internal Medicine Endocrinology, Diabetes & Metabolism | DX: E11.9 Type 2 diabetes mellitus without complications (principal); Z79.4 Long term (current) use of insulin | CPT/HCPCS: 82947; 99212 ==

== ENCOUNTER 2025-02-02 13:48 | Outpatient (AMB) | payer MEDICARE, SELFPAY ==
[2025-02-02 14:14] VITALS: BMI 22.9
--- NOTE | 2025-02-02 14:14 | MHC.AMNUTRGE ---
VS Expanded 02/02/25 14:14 02/03/25 12:20 Height 5 ft 2 in 5 ft 2 in Weight 125 lb 3.561 oz 125 lb BMI 22.9 22.9 Intake Visit Reasons: Type 2 DM Allergies influenza virus vaccine, specific (FLU VACCINE) Allergy (Intermediate, Verified 01/12/25 13:27) STIFFNESS,LIMITED FUNCTION AFFECTED ARM/HAND ibuprofen Allergy (Mild, Verified 01/12/25 13:27) Itching empagliflozin (From Jardiance) Adverse Reaction (Verified 01/12/25 13:27) Hallucinations Nutrition Presentation Details: Pt presents for MNT for T2DM Pt reports she gets meals once a day from meal on wheels prog 10-12 meal 1/2 bagel with (turkey/eggs black coffee fruits in between meals (kiwi, blueberries) 4 pm broccoli/vegetables/milk , bread chicken or potatoes: 3 (meals on wheels ) may not drink the milk snack : Popsicle, cookies, crackers, Pt reports walking daily fish: 1/wk fruits: daily milk : 2/d veg: daily BS Monitoring Most Recent Diabetes Results: Microalb/Creat Ratio, (<30) 24.4 ug/mg cr 12/22/24 Cholesterol, (<200) 175 mg/dL 12/22/24 HDL Cholesterol, (>40) 32 mg/dL L 12/22/24 Triglycerides, (<150) 154 mg/dL H 12/22/24 Creatinine, (0.5-1.4) 1.03 mg/dL 12/22/24 BUN, (9-16) 17 mg/dL H 12/22/24 Sodium, (135-145) 135 mmol/L 12/22/24 Potassium, (3.3-5.1) 4.1 mmol/L 12/22/24 Chloride, (96-108) 103 mmol/L 12/22/24 Carbon Dioxide, (22-29) 26 mmol/L 12/22/24 Calcium, (8.4-10.2) 9.9 mg/dL 12/22/24 AST, (5-31) 22 U/L 12/22/24 ALT, (0-31) 14 U/L 12/22/24 Total Protein, (6.5-8.0) 7.5 g/dL 12/22/24 Albumin, (3.5-5.0) 4.1 g/dL 12/22/24 MBP-Sgugsvq-LaAbel Equation Height: 5 ft 2 in Weight: 125 lb Resting Metabolic Rate: 996.07 Calculated Activity Level: Mild Activity Calories Needed to Maintain Weight: 1369.60 Diagnosis Nutrition problem #1: food nutri know defi As related to (etiology) #1: lack of nutrit education and diagnosis As evidenced by (sign/symptom) #1: knowledge deficit of diet and elevated HgbA1c [facility] Medical History Hypertension Fall Atrophic gastritis Encounter for monitoring anti-arrhythmic therapy Iron deficiency anemia Diabetes mellitus Depression New onset atrial flutter Breast calcification, right Surgical History History of esophagogastroduodenoscopy (EGD) Hx of colonoscopy (~11/22/21) History of section History of cholecystectomy Family History Father Depression Social History Household Members: None Housing: Apartment Do you presently have visiting nurse or other home services: No Alcohol intake: former Patient Tobacco Use Status: Never used Tobacco e-Cigarette/Vaping Use: Never Used Advance Directives Date on File: 11/12/22 service: No Current occupational status: retired Cognitive needs: Yes (walker/walking stick PRN) Hearing needs: No Vision needs: Yes (Reading glasses) Female Reproductive History Menstrual Age of Menarche: 12 Assessment & Plan Assessment & Plan (1) Diabetes mellitus: Code(s): E11.9 - Type 2 diabetes mellitus without complications Category: Medical Plan: current wt: 57 kg ( 02/19 ) est kcal needs as per MSJ: 3992-1361 est protein needs as per 1 g/kg BW: 60 est fluid needs as per 30 ml/kg BW:1700 Recommended fiber > 12 g /day and gradually increase up to 25-28 g /day or as tolerated Nutrition topics discussed : Reviewed (R), Pt verbalized understanding (V) , not applicable (N/A) R, : Healthy Plate Method Concept: R, V, N/A: Carbohydrates: food sources of carbohydrates, relationship of carbohydrates to blood glucose, fatty liver GI health. Recommended total amount of carbohydrates per meals and snack. Differences between simple carbohydrates and complex carbohydrates R, V, N/A: Lean protein foods including vegan , vegetarian sources of protein. Benefits of protein (including but not limited to healing, nutritional value , benefits in weight loss, glucose control R, V, N/A: Fats : Source of fats, benefits of fats. Difference between saturated and unsaturated fats. Saturated fats and its contribution to inflammation R, V, N/A: Fiber: food sources and role of fiber in the diet (including but not limited to its role as a prebiotic, benefits in constipation, role in IBS , role in glucose control and cholesterol level) R, : Hydration: role of hydration and prevention of dehydration or over hydration. Foods and water content. R, V, N/A: Vitamins and Minerals in foods and supplements R, V, N/A: Interpreting food labels, including serving size, macronutrients, vitamins, minerals, allergens, ingredient list , % daily value REviewed snacks with protein and lower carb options : Patient Instructions: Choose cottage cheese with fruit as bedtime snack HAve the milk from meals on wheels as snack if not having it with the meal Coding Level of Care Code Nutr Indiv Intake (24705) Diagnoses Diabetes mellitus E11.9 Time Spent (min) 30
[2025-02-03 12:20] VITALS: BMI 22.9
== END 2025-02-02 14:41 | disposition home or self-care (01) ==
LOC: HO.ENCR 13:48
PROVIDERS: PCP Family Medicine; Visit Provider Dietitian, Registered
DX: E11.9 Type 2 diabetes mellitus without complications (principal)

== ENCOUNTER → 2025-02-02 13:48 | Outpatient (BNVA) | payer MEDICARE, SELFPAY | PROVIDERS: PCP Family Medicine; Visit Provider Dietitian, Registered | DX: E11.9 Type 2 diabetes mellitus without complications (principal); Z71.3 Dietary counseling and surveillance | CPT/HCPCS: 97802 ==

== ENCOUNTER 2025-02-10 08:48 | Outpatient (AMB) | payer MEDICARE, SELFPAY ==
--- NOTE | 2025-02-10 09:19 | A.OFFVIS_ITS ---
Intake Intake Visit Reasons: T2DM Chocolate Packer Required: No Accompanied by: Self / Same As Patient Allergies influenza virus vaccine, specific (FLU VACCINE) Allergy (Intermediate, Verified 01/12/25 13:27) STIFFNESS,LIMITED FUNCTION AFFECTED ARM/HAND ibuprofen Allergy (Mild, Verified 01/12/25 13:27) Itching empagliflozin (From Jardiance) Adverse Reaction (Verified 01/12/25 13:27) Hallucinations HPI Comprehensive Diabetes Asmnt Most Recent Diabetes Results: 2 Hemoglobin A1c 8.8 % 11/25/19 Microalb/Creat Ratio, (<30) 24.4 ug/mg cr 12/22/24 Cholesterol, (<200) 175 mg/dL 12/22/24 HDL Cholesterol, (>40) 32 mg/dL L 12/22/24 Triglycerides, (<150) 154 mg/dL H 12/22/24 Creatinine, (0.5-1.4) 1.03 mg/dL 12/22/24 BUN, (9-16) 17 mg/dL H 12/22/24 Sodium, (135-145) 135 mmol/L 12/22/24 Potassium, (3.3-5.1) 4.1 mmol/L 12/22/24 Chloride, (96-108) 103 mmol/L 12/22/24 Carbon Dioxide, (22-29) 26 mmol/L 12/22/24 Calcium, (8.4-10.2) 9.9 mg/dL 12/22/24 AST, (5-31) 22 U/L 12/22/24 ALT, (0-31) 14 U/L 12/22/24 Total Protein, (6.5-8.0) 7.5 g/dL 12/22/24 Albumin, (3.5-5.0) 4.1 g/dL 12/22/24 [facility] Medical History Hypertension Fall Atrophic gastritis Encounter for monitoring anti-arrhythmic therapy Iron deficiency anemia Diabetes mellitus Depression New onset atrial flutter Breast calcification, right Surgical History History of esophagogastroduodenoscopy (EGD) Hx of colonoscopy (~11/22/21) History of section History of cholecystectomy Family History Father Depression Social History Household Members: None Housing: Apartment Do you presently have visiting nurse or other home services: No Alcohol intake: former Patient Tobacco Use Status: Never used Tobacco e-Cigarette/Vaping Use: Never Used Advance Directives Date on File: 11/12/22 service: No Current occupational status: retired Cognitive needs: Yes (walker/walking stick PRN) Hearing needs: No Vision needs: Yes (Reading glasses) Female Reproductive History Menstrual Age of Menarche: 12 Assessment & Plan Assessment & Plan (1) Diabetes mellitus: Code(s): E11.9 - Type 2 diabetes mellitus without complications Plan: Personal Continuous Glucose Monitor: Patients CGM information reviewed, Pt uses Just Sing It with reader patient reports she is taking Basaglar 12 units daily patient was only taking Admelog sliding scale when glucose levels were high, did not understand she was supposed to be taking rapid insulin before meals. reviewed the following with patient: Insulin/Injectables (If applicable) * Storage/care of insulin?? * Injection sites? * Site rotation? * Onset, peak, duration? * Injecting insulin Hypoglycemia and Hyperglycemia * Signs and symptoms? * Causes?? * Treatment? * Preventing hypoglycemia? * When to seek medical attention Target Goals: * Blood glucose targets and how you feel when your blood glucose is in and out of your target ranges. * Monitoring and knowing your A1C. * What can make blood glucose go up and down and preventing high and low blood glucose. * Review of blood sugar targets in expected goal range and outside of expected goal range. * Problem solving and preventing hyper/hypoglycemia. ?Patient was receptive to information provided and participated in the discussion. Asked?appropriate questions and demonstrated good understanding of the topics discussed.? ? Educational Materials: The patient was provided with the following written educational materials: Target Goal, how to treat hypoglycemia handouts given discussed insulin pump therapy with patient that this time patient declined to pursue insulin pump therapy Patient able to insert sensor independently at home without issue.? patient will be due for next A1c on 03/28/[address] Greene patient will follow-up with diabetes education nurse in 3 months, patient is interested in participating in Diabetes education classes Portions of this note were created using voice recognition software, please excuse any words or phrases that may have been misinterpreted. Patient Instructions: Admelog scale of to use before meals 81-150 2 units 151-200 3 units Over 200 4 units Coding Level of Care Code Est Pt Level 1 (84204) Diagnoses Diabetes mellitus E11.9
--- OUTSIDE RECORDS SUMMARY | 2025-02-10 09:40 | XMS_ITS | Clinical Summary ---
Author Organization [facility] Address [address] [place] [phone] Phone Care Team Providers Care Animal Rehabilitator Name Role Phone Darian Rivera MD Primary Care Provider [phone] Allergies Active Allergy Reactions Criticality Noted Date [...] Hx and SMOKELESS TOB ACCO SCREENING 1957 PNEUMOCOCCAL VACCINES (50+ y ears) (1 of 1 - PCV) 1994 ZOSTER VACCINES (1 of 2) 1994 OSTEOPOROSIS SCREENING INITI AL (ONE-TIME) 2009 RSV VACCINE (1 - 1-dose 75+ series) 01/01/2020 INFLUENZA VACCINE (#1) 2024 COVID-19 VACCINE ( - 2024-2 6 season) 2024 HEPATITIS A VACCINES Aged Out No [...] Devices Not on file Insurance MEDICARE [place] [address] [place] [address] MEDICARE REPLACEMENT MEDICARE REPLACEMENT MEDICARE REPLACEMENT [place]ICARE [place] [address] [place] [address] MEDICARE REPLACEMENT Care Teams Animal Rehabilitator Relationship Specialty Start Date End Date Darian Rivera MD [address] [place] [address] [place] [address] PCP - General 11/04/23 Additional Source Comments The information contained in this document represents components of the legal health record. It is not the complete legal health record.[facility]
== END 2025-02-10 09:40 | disposition home or self-care (01) ==
LOC: HO.ENCR 08:48
PROVIDERS: PCP Family Medicine; Visit Provider Registered Nurse Diabetes Educator
DX: E11.9 Type 2 diabetes mellitus without complications (principal)

== ENCOUNTER → 2025-02-10 08:48 | Outpatient (BNVA) | payer MEDICARE, SELFPAY | PROVIDERS: PCP Family Medicine; Visit Provider Registered Nurse Diabetes Educator | DX: E11.9 Type 2 diabetes mellitus without complications (principal); Z79.4 Long term (current) use of insulin | CPT/HCPCS: 99211 ==

== ENCOUNTER 2025-03-17 13:35 | Outpatient (AMB) | payer MEDICARE, SELFPAY ==
[2025-03-17 13:42] VITALS: BP 128/64; PULSE 73; BMI 23.0
--- NOTE | 2025-03-17 13:42 | MHC.OFFVIS ---
Vital Signs 03/17/25 13:42 Height 5 ft 2 in Weight 125 lb 10.616 oz BMI 23.0 BP 128/64 Blood Pressure Location Lt brachial Position Sitting Pulse 73 Pulse Source Pulse Oximeter Intake Visit Reasons: 6m follow up Allergies influenza virus vaccine, specific (FLU VACCINE) Allergy (Intermediate, Verified 01/12/25 13:27) STIFFNESS,LIMITED FUNCTION AFFECTED ARM/HAND ibuprofen Allergy (Mild, Verified 01/12/25 13:27) Itching empagliflozin (From Jardiance) Adverse Reaction (Verified 01/12/25 13:27) Hallucinations Medication List - Last Reconciled 03/17/25 by Titus Elam MD amlodipine 5 mg PO DAILY apixaban (Eliquis) 5 mg PO BID atenolol 25 mg PO DAILY atorvastatin 20 mg PO BEDTIME blood sugar diagnostic (FreeStyle Lite Strips) As directed checks 4 x/day blood-glucose meter (FreeStyle [place] Lite kit) As directed blood-glucose sensor (FreeStyle Rosa 3 Plus Sensor device) As directed change every 14 days blood-glucose,trim stencil maker,cont (FreeStyle Rosa 3 [place]) As directed cholecalciferol (vitamin D3) 25 mcg PO DAILY insulin glargine (Basaglar KwikPen U-100 Insulin) 12 units (0.12 mL) subcut DAILY insulin lispro (Admelog SoloStar U-100 Insulin lispro) 1 sliding scale dose subcut USEASDIRECTD lithium carbonate ER 300 mg PO BEDTIME metformin 500 mg PO DAILY pen needle, diabetic (Comfort EZ Pen [place]) As directed injects once a day pen needle, diabetic, safety As directed inject 3 times per day HPI Comments Details: Alicia returns for follow-up. To recall, we had seen her in consultation in 2021. At that time, she had atrial flutter with rapid ventricular response. She underwent transesophageal echocardiogram followed by cardioversion. She was put on beta-blockers and Multaq and she was following with our nurse practitioner. During visit in 2023, she was found to be in junctional escape rhythm. At that time, both Multaq as well as metoprolol were stopped completely. The rhythm returned back to sinus in a few days' time. Subsequently, maintained on a small dose of Atenolol and doing well with that. Since last seen, she states that she is generally doing okay. No clear-cut cardiac concerns. No palpitations or any other symptoms. Apparently one mechanical fall in the setting of raking leaves but no major injuries. She did have some bleeding but self-limiting. [facility] Medical History Hypertension Fall Atrophic gastritis Encounter for monitoring anti-arrhythmic therapy Iron deficiency anemia Diabetes mellitus Depression New onset atrial flutter Breast calcification, right Surgical History History of esophagogastroduodenoscopy (EGD) Hx of colonoscopy (~11/22/21) History of section History of cholecystectomy Family History Father Depression Social History Household Members: None Housing: Apartment Do you presently have visiting nurse or other home services: No Alcohol intake: former Patient Tobacco Use Status: Never used Tobacco e-Cigarette/Vaping Use: Never Used Advance Directives Date on File: 11/12/22 service: No Current occupational status: retired Cognitive needs: Yes (walker/walking stick PRN) Hearing needs: No Vision needs: Yes (Reading glasses) Female Reproductive History Menstrual Age of Menarche: 12 Review of Systems Const Denies weakness ENT Denies dizziness Card Denies chest pain, Denies chest pain with activity, Denies syncope, Denies rapid heart rate, Denies pedal edema, Denies edema, Denies leg edema, Denies lightheadedness, Denies palpitations, Denies dyspnea, Denies dyspnea on exertion and Denies orthopnea Resp Denies cough, Denies dyspnea and Denies dyspnea on exertion GI Denies hematochezia and Denies change in stool character Musc Denies abnormal gait, Denies muscle cramps, Denies muscle weakness, Denies numbness, Denies radiating pain into limb and Denies tingling Neuro Denies abnormal gait, Denies dizziness, Denies syncope, Denies numbness, Denies tingling and Denies weakness Endo Denies palpitations Physical Exam Vital Signs: Last Vital Signs Pulse 73 03/17/25 13:42 BP 128/64 03/17/25 13:42 BMI result Body Mass Index 23.0 Const General: comfortable and no acute distress Orientation/consciousness: patient oriented x3 HEENT Other: Unremarkable Head: Yes normal to inspection Neck Neck: Yes normal visual inspection Chest Chest palpation & inspection: normal inspection of the chest Resp Auscultation: clear to auscultation bilaterally Cardio Palpation: normal PMI Heart sounds: S1 normal heart sound present, S2 normal heart sound present, no gallops, no murmurs and no rubs GI Palpation (GI): Soft to palpation Back/Spine/Pelvis Other: unremarkable Skin General skin exam: no rashes or lesions noted Neuro General: patient oriented x3 Extrem General: Yes normal to inspection Psych Mental Status: mental status grossly normal Assessment & Plan Assessment & Plan (1) Paroxysmal atrial flutter: Code(s): I48.92 - Unspecified atrial flutter Category: Medical (2) Junctional rhythm: Code(s): I49.8 - Other specified cardiac arrhythmias Category: Medical (3) Right bundle branch block: Code(s): I45.10 - Unspecified right bundle-branch block Category: Medical Plan EKG from 07/2023 shows Junctional escape rhythm at 44/Min. That was on both Metoprolol and Multaq. Then these were discontinued. In the last Holter, underlying rhythm is sinus with an average rate of 62/Min. No significant pauses or other abnormalities. She can remain on the current doses of Atenolol without any changes. Continue Eliquis. If any recurring atrial fibrillation, then may need rather ablation. Unlikely she will be able tolerate antiarrhythmics because of prior junctional escape rhythm episode. Discussion Notes I reviewed the patient's recent fall and the bleeding that occurred, emphasizing this is a risk of taking Eliquis. I advised the patient to be careful to prevent future falls. I confirmed the patient feels well from a cardiac perspective, and I noted that the patient's heart sounds are good. We agreed to a follow-up appointment in six months for continued monitoring. Patient was informed and verbally consented to the use of an ambient scribe for clinic note documentation during this visit. Patient Instructions: - Continue taking your prescribed medications, including Eliquis and atenolol. - Be very careful to prevent falls, as taking Eliquis can cause you to bleed more easily and heavily if you get injured. - You are feeling well, so we will continue your current treatment. - Please schedule a follow-up appointment in six months. Coding Level of Care Code Est Pt Level 4 (75071) Complex visit Add On G2211 Diagnoses Paroxysmal atrial flutter I48.92 Junctional rhythm I49.8 Right bundle branch block I45.10
== END 2025-03-17 14:00 | disposition home or self-care (01) ==
LOC: HO.HCS 13:36
PROVIDERS: PCP Family Medicine; Visit Provider Internal Medicine
DX: I48.92 Unspecified atrial flutter (principal); I49.8 Other specified cardiac arrhythmias; I45.10 Unspecified right bundle-branch block
CPT/HCPCS: 99214; G2211

== ENCOUNTER → 2025-03-17 13:35 | Outpatient (BNVA) | payer MEDICARE, SELFPAY | PROVIDERS: PCP Family Medicine; Visit Provider Internal Medicine | DX: I48.92 Unspecified atrial flutter (principal); I49.8 Other specified cardiac arrhythmias; I45.10 Unspecified right bundle-branch block | CPT/HCPCS: 99212 ==

== ENCOUNTER 2025-03-28 11:15 | Outpatient (AMB) | payer MEDICARE, SELFPAY ==
--- NOTE | 2025-03-28 11:21 | MHC.OFFVIS ---
Vital Signs 03/28/25 11:26 Height 5 ft 2 in Weight 128 lb 4.944 oz BMI 23.5 BP 122/60 Blood Pressure Location Rt brachial Position Sitting Pulse 79 Pulse Source Pulse Oximeter Pulse Oximetry (%) 95 Oxygen Delivery Method Room Air Intake Visit Reasons: F/u Type 2 DM Intake Note: Patient present today to follow up on Type 2 Diabetes Mellitus. Last Diabetic Eye exam: approx in Jan 2024 Last Podiatry Visit: Does not see a Stock Clerk Random Glucose: 111 mg/dl Hgb A1C: 7.6% 03/28/2025 Administrative Assistant Receptionist Required: No Accompanied by: Self / Same As Patient Allergies influenza virus vaccine, specific (FLU VACCINE) Allergy (Intermediate, Verified 03/28/25 11:50) STIFFNESS,LIMITED FUNCTION AFFECTED ARM/HAND ibuprofen Allergy (Mild, Verified 03/28/25 11:50) Itching empagliflozin (From Jardiance) Adverse Reaction (Verified 03/28/25 11:50) Hallucinations Medication List - Last Reconciled 03/28/25 by Harvinder Greene MD amlodipine 5 mg PO DAILY apixaban (Eliquis) 5 mg PO BID atenolol 25 mg PO DAILY atorvastatin 20 mg PO BEDTIME blood sugar diagnostic (FreeStyle Lite Strips) As directed checks 4 x/day blood-glucose meter (FreeStyle [place] Lite kit) As directed blood-glucose sensor (FreeStyle Rosa 3 Plus Sensor device) As directed change every 14 days blood-glucose,it intern,cont (FreeStyle Rosa 3 [place]) As directed cholecalciferol (vitamin D3) 25 mcg PO DAILY insulin glargine (Basaglar KwikPen U-100 Insulin) 12 units (0.12 mL) subcut DAILY insulin lispro (Admelog SoloStar U-100 Insulin lispro) 1 sliding scale dose subcut USEASDIRECTD lithium carbonate ER 300 mg PO BEDTIME metformin 500 mg PO DAILY pen needle, diabetic (Comfort EZ Pen [place]) As directed injects once a day pen needle, diabetic, safety As directed inject 3 times per day HPI Comments Details: 79 YO F who is seen in consultation for T2DM at the request of PCP. Initially diagnosed with T2DM in 5 yrs ago . Was initially started on treatment with diet . Current regimen metformin 500 mg in AM and 1000 mg in PM Jardiance 10 mg QD not taking . Lantus 12 units Ademalog 1-4 units before meals Sensor download shows she has using the sensor 97% of the time. Average glucose is 179 with G mi of 7.6% and variability 36.4%. 61% range with 39% hyperglycemia and no hypoglycemia. Trend is upward after breakfast and then upward after dinner we will continue downward trend overnight to 06:00 Rare hypoglycemia Most recent A1C >14 , on 10/18/24 Family history of T2DM in brother Type 2 DM . Uncles had Type 2 DM Has eyes checked yearly, last eye exam , denies retinopathy. Denies neuropathy, not , sees podiatry. Denies nephropathy, Not on TIERRA/ARB. Has HLD, on [statin]. Last LDL [] as measured on []. Denies CAD. Not Had diabetes education. [facility] Medical History Hypertension Fall Atrophic gastritis Encounter for monitoring anti-arrhythmic therapy Iron deficiency anemia Diabetes mellitus Depression New onset atrial flutter Breast calcification, right Surgical History History of esophagogastroduodenoscopy (EGD) Hx of colonoscopy (~11/22/21) History of section History of cholecystectomy Family History Father Depression Social History Household Members: None Housing: Apartment Do you presently have visiting nurse or other home services: No Alcohol intake: former Patient Tobacco Use Status: Never used Tobacco e-Cigarette/Vaping Use: Never Used Advance Directives Date on File: 11/12/22 service: No Current occupational status: retired Cognitive needs: Yes (walker/walking stick PRN) Hearing needs: No Vision needs: Yes (Reading glasses) Female Reproductive History Menstrual Age of Menarche: 12 Physical Exam Vital Signs: Last Vital Signs Pulse 79 03/28/25 11:26 BP 122/60 03/28/25 11:26 Pulse Ox 95 03/28/25 11:26 Oxygen Delivery Method Room Air 03/28/25 11:26 BMI result Body Mass Index 23.5 Absence of Cushingoid features. Absence of acromegalic features. Neck exam reveals nl size thyroid about 15 gms. No thyroid nodules palpable. No carotid bruits present. Lungs CTA. Heart S1 S2, Reg R/R. No M/R/ G. Skin exam reveals absence of vitiligo or acanthosis nigricans. Abdominal exam reveals Soft NT/ND with NA BS. No organomegaly present. Neck Other: . Extrem Other: Visual exam of foot performed. No ulcerations or open lesions. No onchomycosis, no callouses.Pulses 2 + distally Sensation intact to monofilament exam. Vibratory sensation sensed is intact with 128 Hz tuning fork Results AMB Hemoglobin A1c AMB Hemoglobin A1c 7.6 % Last Edit by CHARU Henning on 03/28/25 11:51 Results Reviewed Results Reviewed: Laboratory Last Values Glucose (Clinic) 111 mg/dL (60-115) 03/28/25 11:33 Hgb A1c (Clinic) 7.6 % (4.0-6.0) H 03/28/25 11:37 Assessment & Plan Assessment & Plan (1) Diabetes mellitus: Code(s): E11.9 - Type 2 diabetes mellitus without complications Category: Medical Plan: This is a 78-year-old white female with a history of type 2 diabetes being treated with metformin and basal-bolus insulin with fair but improving glycemic control and no known microvascular macrovascular complications. Plan is to increase the Ademalog by 2 units before lunch and 1 unit before dinner . We will also decrease Lantus to 10 units. Gave patient written instructions on this. Will also check glucose and C-peptide. If patient has a reasonable C-peptide level, could consider adding a G LP 1 agonist like Mounjaro with careful attention to blood sugars to avoid hypoglycemia. Patient will follow up with the primary care diabetes team in 6 weeks (2) HLD (hyperlipidemia): Code(s): E78.5 - Hyperlipidemia, unspecified Category: Medical Plan: Currently on atorvastatin 20 mg not at LDL goal but unclear whether taking atorvastatin since last prescription was filled 2022 . Will be prescribe atorvastatin 20 mg and recheck lipid profile in 8 weeks. Patient was instructed call us to let us know whether she is taking the atorvastatin currently. If she has been consistent with taking the atorvastatin, could increase the dose to 40 mg Orders: Orders AMB Hemoglobin A1c Today E11.9 - Type 2 diabetes mellitus without complications C Peptide Today E11.9 - Type 2 diabetes mellitus without complications Glucose Random Today E11.9 - Type 2 diabetes mellitus without complications Lipid Panel 2 Months E78.5 - Hyperlipidemia, unspecified Medications: New atorvastatin 20 mg PO BEDTIME 30 tabs 5RF Coding Level of Care Code Complex visit Add On G2211 Diagnoses Diabetes mellitus E11.9 HLD (hyperlipidemia) E78.5
[2025-03-28 11:26] VITALS: BP 122/60; PULSE 79; O2SAT 95; BMI 23.5
[2025-03-28 11:38] LABS: Glucose, Whole Blood 111 mg/dL (60-115)
--- OUTSIDE RECORDS SUMMARY | 2025-03-28 14:46 | XMS_ITS | Clinical Summary ---
Author Organization [facility] Address [address] [place] [address] Phone Care Team Providers Care Geoscience Professor Name Role Phone Darian Rivera MD Primary Care Provider [phone] Allergies No known active allergies Medications Cholecalciferol [...] HOSPITAL Medicare [facility] Medicare Care Teams Geoscience Professor Relationship Specialty Start Date End Date Darian Rivera MD [address] [place] [address] PCP - General Internal Medicine 11/11/22
--- OUTSIDE RECORDS SUMMARY | 2025-03-28 14:46 | XMS_ITS | Clinical Summary ---
Author Organization [facility] Address [address] [place] [address] Phone Care Team Providers Care Mooner Name Role Phone Darian Rivera MD Primary Care Provider [phone] Allergies Active Allergy Reactions Criticality Noted Date [...] Devices Not on file Insurance MEDICARE RE[place]ACEMENT [place] [address] [place] [address] MEDICARE REPLACEMENT MEDICARE REPLACEMENT MEDICARE REPLACEMENT MEDICARE RE[place]ACEMENT [place] [address] [place] [address] MEDICARE REPLACEMENT Care Teams Mooner Relationship Specialty Start Date End Date Darian Rivera MD [address] [place] [address] [place] [address] PCP - General 11/04/23 Additional Source Comments The information contained in this document represents components of the legal health record. It is not the complete legal health record.[facility]
== END 2025-03-28 12:21 | disposition home or self-care (01) ==
LOC: HO.ENCR 11:16
PROVIDERS: PCP Family Medicine; Visit Provider Internal Medicine Endocrinology, Diabetes & Metabolism
DX: E11.69 Type 2 diabetes mellitus with other specified complication (principal); E78.5 Hyperlipidemia, unspecified
CPT/HCPCS: 99214; G2211

== ENCOUNTER → 2025-03-28 11:15 | Outpatient (BNVA) | payer MEDICARE, SELFPAY | PROVIDERS: PCP Family Medicine; Visit Provider Internal Medicine Endocrinology, Diabetes & Metabolism | DX: E11.69 Type 2 diabetes mellitus with other specified complication (principal); E78.5 Hyperlipidemia, unspecified; Z79.4 Long term (current) use of insulin | CPT/HCPCS: 82947; 83036; 99212 ==

== ENCOUNTER 2025-04-13 13:31 | Outpatient (AMB) | payer MEDICARE, SELFPAY ==
--- NOTE | 2025-04-13 13:41 | MHC.PC.OV ---
Vital Signs 04/13/25 13:48 Height 5 ft 2 in Weight 55.905 kg BMI 22.5 BP 132/58 L Respiration 14 Pulse 64 Pulse Source Pulse Oximeter Temp 98.3 F Temp Source Temporal Artery Scan Pulse Oximetry (%) 98 Oxygen Delivery Method Room Air Intake Visit Reasons: 4 Month F/U Funds Development Director Required: No Accompanied by: Self / Same As Patient Allergies influenza virus vaccine, specific (FLU VACCINE) Allergy (Intermediate, Verified 04/13/25 13:45) STIFFNESS,LIMITED FUNCTION AFFECTED ARM/HAND ibuprofen Allergy (Mild, Verified 04/13/25 13:45) Itching empagliflozin (From Jardiance) Adverse Reaction (Verified 04/13/25 13:45) Hallucinations Tobacco use date assessed: 12/22/24 Dental Screening Dental Screen Date: 12/22/24 HPI HPI Comments History of Present Illness Details 78-year-old female with history of type 2 diabetes, hypertension, hypothyroidism, essential tremor, hypercholesterolemia, atrial flutter, iron-deficiency anemia, depression presents to the office today for management of chronic conditions and to establish care. Paroxysmal atrial flutter-on Eliquis for anticoagulation. Also taking atenolol. Following with Dr. Elam cardiology Hypertension-on amlodipine 5 mg, atenolol 25 mg daily. Blood pressure in the office 132/58 Type 2 diabetes-A1c improved from 14.0-7.6. Following with endo. Continue on basaglar 12 units and ssi. Also on metformin and jardiance. using CGM. Eye exams utd CKD- Dr. Nair- fell on side injuring kidney, but kidney injury resolved per pt. Depression-question bipolar disorder. On lithium 300 mg at bedtime. Following with Psychiatry- Dr. Wade. No SI/HI Concerns: None Health maintenance: Last screening mammogram 10/2023, not interested in further No longer undergoing screening colonoscopies ROS: General: No fevers, malaise, unintentional weight loss HEENT: No blurred vision, diplopia. No sore throat, nasal congestion, rhinorrhea, sinus pain, ear pain Cardiovascular: No chest pain, palpitations, or leg edema Respiratory: No shortness of breath, wheezing, cough GI: No abdominal pain, nausea, vomiting, diarrhea, constipation, melena, hematochezia : No dysuria, hematuria, increased urinary frequency, decreased urinary output MSK: No myalgia, back pain Neuro: No headaches, weakness, paresthesias Skin: No rashes or lesions EXAM: Constitutional - Awake and Alert, No apparent distress Eyes - PERRL Cardiovascular - S1S2, RRR, No edema Respiratory - Normal lung expansion, Normal respiratory effort, No respiratory distress, CTA bilaterally Extremities - no calf tenderness bilaterally, no swelling Skin - Warm/Dry Neurological - Alert & oriented x3 Psychological - Appropriate affect [facility] Medical History Hypertension Fall Atrophic gastritis Encounter for monitoring anti-arrhythmic therapy Iron deficiency anemia Diabetes mellitus Depression New onset atrial flutter Breast calcification, right Surgical History History of esophagogastroduodenoscopy (EGD) Hx of colonoscopy (~11/22/21) History of section History of cholecystectomy Family History Father Depression Social History Household Members: None Housing: Apartment Do you presently have visiting nurse or other home services: No Alcohol intake: former Patient Tobacco Use Status: Never used Tobacco e-Cigarette/Vaping Use: Never Used Advance Directives Date on File: 11/12/22 service: No Current occupational status: retired Cognitive needs: Yes (walker/walking stick PRN) Hearing needs: No Vision needs: Yes (Reading glasses) Female Reproductive History Menstrual Age of Menarche: 12 Questionnaire Thrive Questionnaire Date Thrive assessed: 12/22/24 JUDITH-7 AMB Questionnaire JUDITH-7 Date JUDITH - 7 assessed: 12/22/24 Source: Developed by Drs. Harvinder Perry, Radha Tristan, Deniz Kenyon and colleagues, with an educational pato from [email or web address]. Physical exam (Primary Care) Vital Signs: Last Vital Signs Temp 98.3 F 04/13/25 13:48 Pulse 64 04/13/25 13:48 Resp 14 04/13/25 13:48 BP 132/58 L 04/13/25 13:48 Pulse Ox 98 04/13/25 13:48 Oxygen Delivery Method Room Air 04/13/25 13:48 BMI result Body Mass Index 22.5 Tobacco/Smoking Status: Tobacco use Status Tobacco use date assessed 12/22/24 04/13/25 13:44 Patient Tobacco Use Status Never used Tobacco 04/13/25 13:44 e-Cigarette/Vaping Use Never Used 04/13/25 13:44 Thrive Assessment: Date of Thrive Assessment Date Thrive assessed 12/22/24 04/13/25 13:44 Coding Level of Care Code Est Pt Level 4 (19669) Add On Problem Visit Only Diagnoses Paroxysmal atrial flutter I48.92 Depression F32.A Diabetes mellitus E11.9 HLD (hyperlipidemia) E78.5 Primary hypertension I10 Hypertension type: primary hypertension Assessment & Plan Assessment & Plan (1) Paroxysmal atrial flutter: Code(s): I48.92 - Unspecified atrial flutter Category: Medical Plan: Rate controlled. Continue Eliquis for anticoagulation as well as atenolol for rate control. Follow-up with cardiology as scheduled, most recent note reviewed (2) Depression: Code(s): F32.A - Depression, unspecified Category: Medical Plan: Stable. Continue lithium 300 mg at bedtime. Follow up with psychiatry (3) Diabetes mellitus: Code(s): E11.9 - Type 2 diabetes mellitus without complications Category: Medical Plan: Much improved. Continue basaglar, ssi, metformin, and jardiance. Proceed with testind as ordered by endo and follow up as scheduled. Annual eye exams and foot exams. Diabetic diet (4) HLD (hyperlipidemia): Code(s): E78.5 - Hyperlipidemia, unspecified Category: Medical Plan: Lipid panel reviewed. Continue atorvastatin. (5) Hypertension: Code(s): I10 - Essential (primary) hypertension Category: Medical Qualifiers: Hypertension type: primary hypertension Qualified Code(s): I10 - Essential (primary) hypertension Plan: Controlled. Continue amlodipine 5 mg daily and atenolol 25 mg daily. Low-sodium diet Plan Follow-up in the office in 4 months. Follow-up with endocrinology as discussed. Labs to be completed following visit today. Orders: Orders Basic Metabolic Panel Today E11.9 - Type 2 diabetes mellitus without complications, E78.5 - Hyperlipidemia, unspecified, I10 - Essential (primary) hypertension, I48.92 - Unspecified atrial flutter Complete Blood Count Auto Diff Today E11.9 - Type 2 diabetes mellitus without complications, E78.5 - Hyperlipidemia, unspecified, I10 - Essential (primary) hypertension, I48.92 - Unspecified atrial flutter Patient Instructions: Goal for fasting blood sugar- 90-130 Goal 2 hours after eating - less than 180
[2025-04-13 13:48] VITALS: BP 132/58; PULSE 64; RESP 14; TEMP 36.8; O2SAT 98; BMI 22.5
--- OUTSIDE RECORDS SUMMARY | 2025-04-13 17:40 | XMS_ITS | Clinical Summary ---
Author Organization Located Within [facility] Address [address] [place] [phone] Phone Care Team Providers Care Hvac Specialist Name Role Phone Darian Rivera MD Primary Care Provider [phone] Allergies Active Allergy Reactions Criticality Noted Date [...] Devices Not on file Insurance MEDICARE REPLACEMENT [place] [address] MEDICARE REPLACEMENT MEDICARE REPLACEMENT MEDICARE REPLACEMENT MEDICARE REPLACEMENT [place] [address] MEDICARE REPLACEMENT Care Teams Hvac Specialist Relationship Specialty Start Date End Date Darian Rivera MD [address] [place] [address] [place] [address] PCP - General 11/04/23 Additional Source Comments The information contained in this document represents components of the legal health record. It is not the complete legal health record.Located [facility]
== END 2025-04-13 14:23 | disposition home or self-care (01) ==
LOC: HO.HMCHD 13:31
PROVIDERS: PCP Physician Assistant; Visit Provider Physician Assistant
DX: I48.92 Unspecified atrial flutter (principal); F32.A Depression, unspecified; E11.9 Type 2 diabetes mellitus without complications; E78.5 Hyperlipidemia, unspecified; I10 Essential (primary) hypertension

== ENCOUNTER → 2025-04-13 13:31 | Outpatient (BNVA) | payer MEDICARE, SELFPAY | PROVIDERS: PCP Family Medicine; Visit Provider Physician Assistant | DX: I10 Essential (primary) hypertension (principal); I48.92 Unspecified atrial flutter; E11.9 Type 2 diabetes mellitus without complications; F32.A Depression, unspecified; E78.5 Hyperlipidemia, unspecified; Z79.01 Long term (current) use of anticoagulants | CPT/HCPCS: 99212 ==

== ENCOUNTER 2025-04-16 10:52 | Outpatient (REF) | payer MEDICARE, SELFPAY ==
--- OUTSIDE RECORDS SUMMARY | 2025-04-16 10:55 | XMS_ITS | Clinical Summary ---
Author Organization [facility] Address [address] [place] [address] Phone Care Team Providers Care Coating And Baking Operator Name Role Phone Darian Rivera MD Primary Care Provider [phone] Allergies No known active allergies Medications Cholecalciferol [...] patient's age to complete this topic Insurance [facility] Medicare [facility] Medicare Care Teams Coating And Baking Operator Relationship Specialty Start Date End Date Darian Rivera MD [address] [place] [address] PCP - General Internal Medicine 11/11/22
--- OUTSIDE RECORDS SUMMARY | 2025-04-16 10:56 | XMS_ITS | Clinical Summary ---
Author Organization [facility] Address [address] [facility] [address] [place] [phone] Phone Care Team Providers Care Proposal Director Name Role Phone Darian Rivera MD Primary Care Provider [phone] Allergies Active Allergy Reactions Criticality Noted Date [...] Devices Not on file Insurance MEDICARE REPLAC[place] [address] [place] [address] MEDICARE REPLACEMENT MEDICARE REPLACEMENT MEDICARE REPLACEMENT MEDICARE [place]AC[place] [address] [place] [address] MEDICARE REPLACEMENT Care Teams Proposal Director Relationship Specialty Start Date End Date Darian Rivera MD [address] [place] [address] [place] [address] PCP - General 11/04/23 Additional Source Comments The information contained in this document represents components of the legal health record. It is not the complete legal health record.[facility]
[2025-04-16 11:01] LABS: MANUAL DIFF FLAG NO
[2025-04-16 11:38] LABS: Hematocrit 36.4 % (37.0-47.0); Hemoglobin 11.3 g/dl (12.0-16.0); Imm Gran Abs Auto 0.01 X10*3/uL (0.00-0.03); Imm Gran Pct Auto 0.1 % (0.0-0.4); Lymphocytes Absolute Auto 3.0 X10*3/uL (1.2-4.9); Mean Corpuscular HGB Conc 31.0 g/dl (31.0-35.0); Mean Corpuscular Hemoglobin 27.0 pg (27.0-33.0); Mean Corpuscular Volume 87.1 fL (80.0-98.0); NRBC Abs Auto 0.000 X10*3/uL (0.0-0.012); NRBC Pct Auto 0.0 /100WBC (0.0-0.2); Platelet Count 289 X10*3/uL (160-400); Red Blood Count 4.18 X10*6/uL (4.20-5.50); White Blood Count 6.8 X10*3/uL (4.8-10.8)
[2025-04-16 12:13] LABS: Anion Gap 12 (12-20); Blood Urea Nitrogen 19 mg/dL (9-16); Calcium 9.8 mg/dL (8.4-10.2); Carbon Dioxide 26 mmol/L (22-29); Chloride 108 mmol/L (96-108); Estimated Glomerular Filt Rate 57; Potassium 4.3 mmol/L (3.3-5.1); Sodium 142 mmol/L (135-145)
== END 2025-04-16 10:53 | disposition home or self-care (01) ==
LOC: HO.LAB 10:52
PROVIDERS: Absent Provider Physician Assistant; PCP Physician Assistant; Visit Provider Internal Medicine Endocrinology, Diabetes & Metabolism
DX: E11.9 Type 2 diabetes mellitus without complications (principal); I10 Essential (primary) hypertension; I48.92 Unspecified atrial flutter; E78.5 Hyperlipidemia, unspecified
CPT/HCPCS: 36415; 80048; 84681; 85025